=== PATIENT | male | born 1945 | race Caucasian/White ===

== ENCOUNTER 2020-04-05 21:51 | Inpatient (IN) | payer MEDICARE, OTHER, SELFPAY ==
[2020-04-05 22:00] VITALS: BP 199/87; PULSE 31; RESP 20; TEMP 36.4; O2SAT 93; BMI 39.9
--- NOTE | 2020-04-05 22:06 | PC.NURSE ---
EKG done at 2200 and shown to ER doctor Nurse is at bedside.
[2020-04-05 22:17] VITALS: BP 176/72; PULSE 31; RESP 16; O2SAT 97
[2020-04-05] MEDS: atropine 0.1 mg/mL Syr 10 mL 0.5 MG IVP ×2 (22:19→22:26)
[2020-04-05 22:33] VITALS: BP 171/80; PULSE 37; RESP 16; O2SAT 97
--- NOTE | 2020-04-05 22:35 | XRR_ITS ---
PROCEDURE INFORMATION: Exam: XR Chest, 1 View Exam date and time: 04/05/2020 10:37 PM Age: 74 years old Clinical indication: Chest pain; Type not specified TECHNIQUE: Imaging protocol: XR of the chest Views: 1 view. COMPARISON: No relevant prior studies available. FINDINGS: Lungs: Unremarkable. No consolidation. Pleural space: Unremarkable. No pleural effusion. No pneumothorax. Heart/Mediastinum: Heart size not optimally evaluated with a single AP view of the chest. Diaphragm: There is mild elevation of the left hemidiaphragm. Eventration of the right hemidiaphragm. Bones/joints: Unremarkable. XR/XR chest 1V portable [id number] IMPRESSION: No evidence for acute cardiopulmonary disease.
--- NOTE | 2020-04-05 22:36 | ECG_ITS ---
Measurements Intervals [place] Rate: 32 P: -2 VA: 90 QRS: 34 QRSD: 132 T: 62 QT: 524 QTc: 384 Third-degree heart block with junctional escape rhythm INTRAVENTRICULAR CONDUCTION DELAY [130+ ms QRS DURATION] Poor R wave progression INTERPRETATION BASED ON A DEFAULT AGE OF 40 YEARS Compared to ECG 11/14/2015 06:28:59 Short VA interval now present Sinus rhythm no longer present First degree AV block no longer present Electronically Signed On 04-06-2020 20:58:43 CDT by Alicia Rodriguez M.D. [id number]
[2020-04-05 22:49] LABS: Basophils # 0.1 10^3/uL (0.0-0.1); Basophils % 0.9 %; Eosinophils # 0.1 10^3/uL (0.0-0.8); Eosinophils % 1.5 %; Hematocrit 40.2 % (42.0-52.0); Lymphocytes # 1.3 10^3/uL (0.8-4.8); Lymphocytes % 24.4 %; Mean Corpuscular HGB Conc 32.3 g/dL (30.0-36.0); Mean Corpuscular Hemoglobin 34.9 pg (28.0-34.0); Mean Corpuscular Volume 108.1 fL (80-94); Mean Platelet Volume 14.9 fL (7.4-10.4); Monocytes # 0.3 10^3/uL (0.2-0.9); Monocytes % 5.8 %; Neutrophils # 3.7 10^3/uL (1.8-7.7); Nucleated Red Blood Cells % 0 %; Platelet Count 101 10^3/cmm (130-400); Positive M 1; Red Blood Count 3.72 10^6/uL (4.1-5.3); Red Cell Distribution Width 14.6 % (12.1-15.1); White Blood Count 5.5 10^3/uL (4.0-10.0)
[2020-04-05 23:02] LABS: Troponin(5th) Baseline 71 ng/L (0-15)
[2020-04-05 23:07] VITALS: BP 142/79; PULSE 34; RESP 18; O2SAT 95
[2020-04-05 23:08] LABS: Alanine Aminotransferase 31 U/L (0-41); Albumin Level 4.2 g/dL (3.5-5.2); Alkaline Phosphatase 107 IU/L (40-130); Anion Gap 18.6 (5-19); Blood Urea Nitrogen 20 mg/dL (8-23); Calcium 9.3 mg/dL (8.5-10.5); Carbon Dioxide 20 mmol/L (22-29); Chloride 102 mmol/L (98-107); Globulin 2.9 g/dL (1.3-4.6); Glucose 108 mg/dL (65-115); NT Pro B Type Natriuretic Pept 1082 pg/mL (0-125); Osmolality Calculated 279 mOsm/kg (285-295); Potassium 4.6 mmol/L (3.5-5.1); Sodium 136 mmol/L (136-145); Total Bilirubin 0.5 mg/dL (0.15-1.2); Total Protein 7.1 g/dL (6.6-8.7)
[2020-04-05 23:16] LABS: Slide Review Slide Review Perform
[2020-04-05 23:18] LABS: Aspartate Amino Transferase 34 U/L (0-40)
--- NOTE | 2020-04-05 23:25 | PM.HP ---
Providers/Chief Complaint Primary Care Provider: Cal Burris MD Chief Complaint: low heartbeat History of Present Illness Harley Viera is a 74 year old male who carries history of preserved ejection fraction heart failure, pulmonary hypertension, obesity, first-degree AV block in the past, uses metoprolol tartrate came in with chief complaint of worsening shortness of breath. Patient is stating that for last 1 month he has been experiencing shortness of breath on exertion, his feet are more swollen despite taking Lasix 40 mg every day, he has been experiencing orthopnea, PND. Yesterday his shortness of breath got worse to the point mild activities were making him extremely out winded. He did not notice any palpitations, chest pain, dysuria, diarrhea, nausea or vomiting. His is at the bedside who did not notice any confusion at home. He denies any history of hypothyroidism, OR, stroke. Diagnosis in the ER revealed heart rate in low 30s he has received 2.5 mg of atropine without significant improvement in his heart rate EKG showing concerning new left bundle branch block& junctional rhythm EKG has been shown to Dr. Rodriguez who was planning to take him to [employer] for transvenous pacemaker Currently blood pressure is ranging between 1 30-1 50s systolic Patient is awake alert oriented without any confusion, active heart failure Review of Systems Const: Reports: body aches and fatigue; Denies: fever(s) or chills Eyes: Denies: change in vision ENMT: Denies: throat pain Card: Reports: swelling of feet/ankles, pre-syncope, dyspnea on exertion and orthopnea Resp: Reports: dyspnea; Denies: non-productive cough GI: Denies: abdominal pain, nausea or vomiting : Reports: difficulty urinating and change in urine stream; Denies: flank pain Musc: Denies: neck pain Skin/Breast: Denies: rash Neuro: Denies: headache(s) Psych: Denies: anxiety Endo: Denies: polyuria [place]/Lymph: Denies: easy bruising All/Imm: Denies: urticaria Medications/Allergies Home Medications Medication Instructions Recorded Confirmed Last Taken Type Unable to Assess 04/05/20 04/05/20 Unknown History Allergies Allergy/AdvReac Type Severity Reaction Status Date / Time No Known Allergies Allergy Verified 04/05/20 22:00 PFSH Acute PFSH: Medical History Acute kidney injury Benign essential hypertension with target blood pressure below 140/90 BPH (benign prostatic hyperplasia) Cholelithiasis Chronic kidney disease, stage III (moderate) Diverticulitis of small bowel Dyslipidemia Elevated brain natriuretic peptide (BNP) level Elevated troponin First degree AV block Grade III diastolic dysfunction EF 67% Mild pulmonary hypertension LVH Hypertension Obesity Symptomatic bradycardia Thrombocytopenia Surgical History S/P cardiac cath Normal 2013 Procedure Procedure Type Diagnostic procedure:Miscellaneous, Perclose , Coronary Angiography Conclusions Procedure Summary 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 due to tumor surgery in the right arm right groin approach was adopted difficulty in access was encounter due to fatty tumors in the thigh, hematoma was observed, procedure was aborted since it was elective in order to avoid major bleeding in case we have to proceed with PCI.Patient was observed for next 24 hours did fine no further bleeding or hematoma observed.He was approached from left groin which remain successful next day.Patient was discharged home without any complication next day 1-LM is normal 2-LAD has luminal irregularities 3-LCx has luminal irregularities 4-RCA has luminal irregularities Family History Other Cancer Social History Smoking and tobacco status: never smoked Alcohol intake: never Substance/Drug Use: never Household members: family Housing: House Vitals/I&O/Wt Last Vital Signs Temp 97.6 F 04/05/20 22:00 Pulse 34 L 04/05/20 23:07 Resp 18 04/05/20 23:07 BP 142/79 04/05/20 23:07 Pulse Ox 95 04/05/20 23:07 Weight last 48 hrs Weight 108.862 kg Physical Exam Narrative: EXAM NARRATIVE: Head to toe examination Patient is laying in his bed saturating well on room air Systolic blood pressure ranging between 140s to 150s Heart rate in the low 30s, On telemetry there is junctional rhythm versus left bundle branch block Patient is not confused at all, he is awake alert oriented x3 GCS 15 Active heart failure signs with bilateral lower extremity 3+ edema Abdomen is distended, with obesity, nontender Bilateral breath sounds without adventitious sounds Neurologically nonfocal exam Hearing impairment Skin does not show any sign ischemia gangrene or ulcer Appropriate mood and affect Data : 04/05/20 22:15 04/05/20 22:15 A&P Assessment and plan (1) Symptomatic bradycardia: Status: Acute (2) Elevated brain natriuretic peptide (BNP) level: Status: Acute (3) Acute kidney injury: Status: Acute (4) Acute exacerbation of CHF (congestive heart failure): Status: Acute (5) Obesity (BMI 30-39.9): Status: Acute Additional A&P Information Symptomatic bradycardia with active CHF exacerbation Patient has been on beta-shaun, previous EKG revealed first-degree AV block Current EKG is concerning for wide QRS junctional rhythm with third-degree block on telemetry with intermittent LBBB Maintaining blood pressure is 140 systolic Neurologically nonfocal exam Active CHF exacerbation with high troponin Cardiac cath 2013 was unremarkable He will need temporary transvenous pacemaker, Dr. Rodriguez has been notified, Beta-shaun held, inadequate response to atropine 2.5 mg, check TSH, does not take digoxin Acute exacerbation of preserved ejection heart failure He seems secondary to bradycardia with undiagnosed possible sleep apnea Echo revealed mild primary hypertension as well Would avoid giving him Lasix as he is at risk of hypotension because of bradycardia, start after the procedure Might need Cifuentes catheter placement for a day Acute kidney injury cardiorenal We will diurese him after placement of transvenous pacer once his heart rate and blood pressure is stable Hold lisinopril Obesity He will need outpatient sleep study Goals of care: Patient wants a trial of CPR intubation Full code Start diet after transvenous pacemaker placement DVT prophylaxis not indicated at this point, will start after placement of pacemaker Attestations Medical Necessity Statement*: Anticipating stay in the hospital to cross more than 2 midnights currently need transvenous pacer for symptomatic bradycardia with acute CHF exacerbation Time Spent in Patient Care: (>than 50% of time spent in counselling and/or direct pt care on unit). 60mins Coding Level of Care Code Acute Hospitality House Supervisor for Chg Fwd Diagnoses Symptomatic bradycardia R00.1 Elevated brain natriuretic peptide (BNP) level R79.89 Acute kidney injury N17.9 Acute exacerbation of CHF (congestive heart failure) I50.9 Obesity (BMI 30-39.9) E66.9
[2020-04-05] MEDS: atropine 0.1 mg/mL Syr 10 mL 1 MG IVP (23:37)
[2020-04-06] VITALS (53 sets, daily range): BP systolic 97–209; BP diastolic 69–137; PULSE 34–120; RESP 14–28; TEMP 36.5–37.1; O2SAT 92–99
--- NOTE | 2020-04-06 00:13 | PM.CONSULT ---
Providers/Reason For Consult Consulting Physican/Specialty*: García Rodriguez MD/cardiology Reason for Consult*: Patient with a symptomatic bradycardia Attending Physician: Yared Yu MD Primary Care Provider: Cal Burris MD History of Present Illness History of Present Illness Harley Viera is a 74 year old male with a history of hypertension, apparently has been his baseline state of health up until 3 days ago. He been having some shortness of breath, easy fatigability and weakness for the last 3 days. The symptom started getting worse today. Was getting extremely short of breath with activities. He also was getting dizzy and lightheaded. Never had any passing out spell. No chest pain. No palpitation. Had some amount of orthopnea. He has a history of high blood pressure for the last many years. No diabetes. Cholesterol status?. Denies any fever, chills or cough. No other specific complaints. He was found to be bradycardic with a heart rate in the low 30s and upper 20s in the emergency room. He was given a total of 2-1/2 mg of atropine IV. Apparently there was no response. The heart rate continued to be in the 30s. For further management of his condition, a temporary pacemaker insertion was recommended. Review of Systems Narrative: CONSTITUTIONAL: No fever or chills. Shortness of breath and fatigue as mentioned above EYES: No blurring of vision or other visual disturbances lately. ENT: No hoarseness of voice, auditory disturbances or sore throat. CARDIOVASCULAR: As mentioned above. RESPIRATORY: No significant cough. GASTROINTESTINAL: No hematemesis or melena. GENITOURINARY: No dysuria or hematuria. INTEGUMENTARY: No skin rashes or history of skin cancer. NEURO: No transient ischemic attacks or amaurosis. PSYCHIATRIC: No history of psychosis or major depression. HEMATOLOGIC: No bleeding disorders or significant anemia. ENDOCRINE: No history of polyuria or polydipsia. MUSCULOSKELETAL: No recent joint pain or swelling. ALLERGY/IMMUNOLOGY: As mentioned above. Meds/Allergies Home Medications and Allergies Home Medications Medication Instructions Recorded Confirmed Last Taken Type amlodipine 5 mg PO DAILY 04/06/20 04/06/20 04/05/20 07:00 History lisinopril 40 mg PO DAILY 04/06/20 04/06/20 04/05/20 07:00 History spironolactone 25 mg PO DAILY 04/06/20 04/06/20 Unknown History Allergies Allergy/AdvReac Type Severity Reaction Status Date / Time No Known Allergies Allergy Verified 04/05/20 22:00 PFSH Acute PFSH: Medical History (Updated 04/06/20 @ 09:06 by Caroline Bobby MD) Benign essential hypertension with target blood pressure below 140/90 BPH (benign prostatic hyperplasia) Cholelithiasis Chronic kidney disease, stage III (moderate) Diverticulitis of small bowel Dyslipidemia Grade III diastolic dysfunction EF 67% Mild pulmonary hypertension LVH Hypertension Obesity Symptomatic bradycardia Thrombocytopenia Surgical History S/P cardiac cath Normal 2013 Procedure Procedure Type Diagnostic procedure:Miscellaneous, Perclose , Coronary Angiography Conclusions Procedure Summary 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 due to tumor surgery in the right arm right groin approach was adopted difficulty in access was encounter due to fatty tumors in the thigh, hematoma was observed, procedure was aborted since it was elective in order to avoid major bleeding in case we have to proceed with PCI.Patient was observed for next 24 hours did fine no further bleeding or hematoma observed.He was approached from left groin which remain successful next day.Patient was discharged home without any complication next day 1-LM is normal 2-LAD has luminal irregularities 3-LCx has luminal irregularities 4-RCA has luminal irregularities Family History Other Cancer Social History Smoking and tobacco status: never smoked Alcohol intake: never Substance/Drug Use: never Household members: family Housing: House Vitals/I&O/Wt Last Vital Signs Temp 97.6 F 04/05/20 22:00 Pulse 34 L 04/05/20 23:07 Resp 18 04/05/20 23:07 BP 142/79 04/05/20 23:07 Pulse Ox 95 04/05/20 23:07 Weight last 48 hrs Weight 240 lb Physical Exam Narrative: EXAM NARRATIVE: GENERAL: The patient is alert and oriented times three. Appears to be slightly short of breath. Afebrile. Hard of hearing. HEENT: No significant pallor, icterus or lymphadenopathy. The pupils are reactant to light. Oral cavity: There are no mucous membrane lesions. Funduscopic examination: Fundus is not visualized NECK: Trachea appears to be central. No masses noted. No JVD or thyromegaly appreciated. No carotid bruit. [] RESPIRATORY: Chest is symmetrical. No intercostals muscle retraction or any accessory muscle activation. There is no chest wall tenderness. Breath sounds are heard bilaterally. No rales or rhonchi heard. No evidence of any consolidation. [] BREASTS: Deferred. [] HEART: The PMI could not be palpated. No palpable precordial events. S1 and S2 are normal. No S3 or S4 heard. No pericardial rub or any click heard. [] ABDOMEN: No vessel pulsations or distention. No tenderness. No organomegaly appreciated. No abdominal bruit. Bowel sounds are normally heard. [] : Deferred. [] RECTAL: Deferred. [] LYMPHATIC: No lymphadenopathy noted in the neck or groin. [] EXTREMITIES: 1-2+ edema both lower extremities. No cyanosis. An area of redness in the left anterior aspect of the leg. No clubbing. The pulses are symmetrical bilaterally. MUSCULOSKELETAL: No acute joint deformities or swelling SKIN: There are no significant scars or skin rash noted. [] NEUROPSYCHIATRIC: The patient is alert and oriented x3. Appears to be in a good mood. The higher functions are grossly within normal limits. No tremors or rigidity noted. [] Data Labs: Other Labs: Laboratory Last Values WBC 5.5 10^3/uL (4.0- 10.0) 04/05/20 22:15 RBC 3.72 10^6/uL (4.1 -5.3) L 04/05/20 22:15 Hgb 13.0 g/dL (11.7-1 6.6) 04/05/20 22:15 Hct 40.2 % (42.0-52.0 ) L 04/05/20 22:15 MCV 108.1 fL (80-94) H 04/05/20 22:15 MCH 34.9 pg (28.0-34. 0) H 04/05/20 22:15 MCHC 32.3 g/dL (30.0-3 6.0) 04/05/20 22: RDW 14.6 % (12.1-15.1 ) 04/05/20 22:15 Plt Count 101 10^3/cmm (130 -400) L 04/05/20 22:15 MPV 14.9 fL (7.4-10.4 ) H 04/05/20 22:15 Neut % (Auto) 67.0 % 04/05/20 22:15 Lymph % (Auto) 24.4 % 04/05/20 22:15 [place] % (Auto) 5.8 % 04/05/20 22:15 Eos % (Auto) 1.5 % 04/05/20 22:15 Baso % (Auto) 0.9 % 04/05/20 22:15 Neut # (Auto) 3.7 10^3/uL (1.8- 7.7) 04/05/20 22:15 Lymph # (Auto) 1.3 10^3/uL (0.8- 4.8) 04/05/20 22:15 Bradford # (Auto) 0.3 10^3/uL (0.2- 0.9) 04/05/20 22:15 Eos # (Auto) 0.1 10^3/uL (0.0- 0.8) 04/05/20 22:15 Baso # (Auto) 0.1 10^3/uL (0.0- 0.1) 04/05/20 22:15 Nucleated RBC % (a uto) 0 % 04/05/20 22:15 Nucleated RBCs # 0.0 /100WBC 04/05/20 22:15 Sodium 136 mmol/L (136-1 45) 04/05/20 22:15 Potassium 4.6 mmol/L (3.5-5 .1) 04/05/20 22:15 Chloride 102 mmol/L (98-10 7) 04/05/20 22:15 Carbon Dioxide 20 mmol/L (22-29) L 04/05/20 22:15 Anion Gap 18.6 (5-19) 04/05/20 22:15 BUN 20 mg/dL (8-23) 04/05/20 22:15 Creatinine 1.5 mg/dL (0.7-1. 2) H 04/05/20 22:15 Glucose 108 mg/dL (65-115 ) 04/05/20 22:15 Calculated Osmolal ity 279 mOsm/kg (285- 295) L 04/05/20 22:15 Calcium 9.3 mg/dL (8.5-10 .5) 04/05/20 22:15 Total Bilirubin 0.5 mg/dL (0.15-1 .2) 04/05/20 22:15 AST 34 U/L (0-40) 04/05/20 22:15 ALT 31 U/L (0-41) 04/05/20 22:15 Alkaline Phosphata se 107 IU/L (40-130) 04/05/20 22:15 Troponin T Baselin e 71 ng/L (0-15) H 04/05/20 22:15 NT-Pro-B Natriuret Pep 1082 pg/mL (0-125 ) H 04/05/20 22:15 Total Protein 7.1 g/dL (6.6-8.7 ) 04/05/20 22:15 Albumin 4.2 g/dL (3.5-5.2 ) 04/05/20 22:15 Globulin 2.9 g/dL (1.3-4.6 ) 04/05/20 22:15 TSH 6.40 uIU/mL (0.27 -4.20) H 04/05/20 22:15 Imaging^: CXR: My impression: Chest x-ray revealed cardiomegaly with some features of pulmonary venous congestion. EKG^: EKG 1: My Interpretation: The EKG revealed third-degree heart block with a junctional and ventricular escape rhythm. Nonspecific T wave changes. A&P Assessment and plan (1) Symptomatic bradycardia: Most likely the patient may have some sinus node dysfunction. Metoprolol causing the bradycardia cannot be excluded. He is mildly hypothyroid. The EKG shows third-degree heart block with intermittent junctional and ventricular escape rhythm Status: Acute (2) Elevated brain natriuretic peptide (BNP) level: Patient has features of possibly acute diastolic heart failure. He has accelerated hypertension. Patient may be treated with careful IV diuresis. Status: Acute (3) Elevated troponin: Could be related to type II [place]. We will get serial cardiac enzymes Status: Acute (4) Acute kidney injury: His baseline kidney function is not known. Bradycardia and heart failure could be a contributing factor Status: Acute (5) Benign essential hypertension with target blood pressure below 140/90: Currently the blood pressure is a stage II. Status: Acute Additional A&P Information I discussed the patient and his significant other about the need for a temporary pacemaker, for further management of his condition. Possible risk and benefits are explained. Patient understood this well and consented to proceed. Based on the patient clinical progress, further mild decisions will be made. Most likely he may require a permanent pacer implantation. Coding Level of Care Code Acute Certified Orthoptist for Chg Fwd Diagnoses Symptomatic bradycardia R00.1 Elevated brain natriuretic peptide (BNP) level R79.89 Elevated troponin R79.89 Acute kidney injury N17.9 Benign essential hypertension with target blood pressure below 140/90 I10
--- NOTE | 2020-04-06 00:23 | PC.NURSE ---
Cath team here to access and take patient to shift lab technician for pacemaker placement.
--- NOTE | 2020-04-06 00:29 | PC.NURSE ---
Patient eft in stable condition in care of cath team, Vs stable.
--- NOTE | 2020-04-06 00:34 | W.PM.OPSUD ---
Surgery/Procedure H&P Update DATE OF PROCEDURE: April 06, 2020 DATE H&P PERFORMED: 04/05/20 H&P UPDATE INFORMATION: I have reviewed H&P completed within last 30 days, I have examined patient prior to procedure and No changes to prior documentation PREOP DIAGNOSIS: Symptomatic bradycardia PRIMARY INDICATION FOR PROCEDURE: Symptomatic bradycardia PATIENT REASSESSED PRIOR TO SEDATION, WITH NO CHANGE NOTED: Yes PHYSICAL EXAM: alert, oriented x 3, clear to auscultation bilaterally and regular rate & rhythm AIRWAY EVAL/ANESTHESIA PLAN: ASA III
--- NOTE | 2020-04-06 00:35 | PC.NURSE ---
Report given to Jacquelin GELLER.
--- NOTE | 2020-04-06 00:43 | PC.NURSE ---
Report given to Vee GELLER in ICU.
--- NOTE | 2020-04-06 00:57 | ECG_ITS ---
Measurements Intervals [place] Rate: 60 P: [place]: 0 QRS: -55 QRSD: 218 T: 114 QT: 544 QTc: 544 100% V paced rhythm ABNORMAL RHYTHM ECG Compared to ECG 11/14/2015 06:28:59 Sinus rhythm no longer present First degree AV block no longer present Intraventricular conduction delay no longer present Myocardial infarct finding no longer present Electronically Signed On 04-06-2020 21:00:14 CDT by Alicia Rodriguez M.D. [email or web address]
--- NOTE | 2020-04-06 01:03 | USCV_ITS ---
Harley Viera Age: 74 Gender: M : 1945 Exam Date: 04/06/2020 09:44 Ordering Phys: Alicia Rodriguez MD ([email or web address]) Technologist: Zarina Jacinto [place] [facility] [place]: CHF, bradycardia BP: 113 / 84 HR: 68 Rhythm: Sinus Technical Quality: Technically difficult study MEASUREMENTS (Male / Female) Normal Values 2D ECHO LV Diastolic Diameter PLAX 4.5 cm 4.2 - 5.9 / 3.9 - 5.3 cm LV Systolic Diameter PLAX 2.7 cm LV Chamber Size 4.3 cm IVS Diastolic Thickness 1.9 cm 0.6 - 1.0 / 0.6 - 0.9 cm IVS Systolic Thickness 2.0 cm LVPW Diastolic Thickness 1.0 cm 0.6 - 1.0 / 0.6 - 0.9 cm LVPW Systolic Thickness 1.7 cm RV Chamber Size 2.1 cm LVOT Diameter 2.0 cm LV Ejection Fraction 2D Teich 70.9 % LA Diameter 3.2 cm LA Width 2.9 cm LA Height 5.0 cm RA Width 2.8 cm RA Height 5.2 cm Aorta at Sinotubular Diameter 3.1 cm M-MODE LV Diastolic Diameter MM 3.6 cm 4.2 - 5.9 / 3.9 - 5.3 cm LV Systolic Diameter MM 2.5 cm LV Ejection Fraction MM Teich 61.6 % IVS Diastolic Thickness MM 1.6 cm 0.6 - 1.0 / 0.6 - 0.9 cm IVS Systolic Thickness MM 1.3 cm LVPW Diastolic Thickness MM 1.5 cm 0.6 - 1.0 / 0.6 - 0.9 cm LVPW Systolic Thickness MM 1.5 cm Aortic Annulus Diameter 4.2 cm LA Ao Ratio MM 0.8 MV E Point Septal Separation 0.6 cm DOPPLER AV Peak Velocity 135.0 cm/s LVOT Peak Velocity 114.0 cm/s AV Area Cont Eq vti 2.9 cm squared AV Area Cont Eq pk 2.6 cm squared MV Area PHT 2.9 cm squared Mitral E to A Ratio 0.7 MV E' Velocity 11.0 cm/s Mitral E to MV E' Ratio 7.8 Mitral E to LV E' Lateral Ratio 5.7 Mitral E to LV E' Septal Ratio 12.6 TV Peak E Velocity 39.0 cm/s PV Peak Velocity 87.0 cm/s RV Acceleration Time 0.1 s RV Ejection Time 0.3 s RV AcT/ET 0.3 FINDINGS Left Ventricle Normal left ventricular size and systolic function, EF 55% . Moderate left ventricular hypertrophy. Abnormal septal motion, possible atrioventricular paced Right Ventricle Normal right ventricular size and systolic function. Right Atrium Normal right atrial size. Left Atrium Normal left atrial size. Mitral Valve Trace to mild mitral regurgitation Aortic Valve Thickened aortic valve. [id number] aortic valve regurgitation. Tricuspid Valve Mild tricuspid valve regurgitation. Pulmonic Valve Structurally normal pulmonic valve without significant stenosis. There is no pulmonic regurgitation. Pericardium No pericardial effusion. Aorta Normal aortic annulus size. CONCLUSIONS Normal left ventricular size and systolic function, EF 55% . Moderate left ventricular hypertrophy. Wall motion normality as mentioned above Thickened aortic valve. [id number] aortic valve regurgitation. Mild tricuspid valve regurgitation. Trace to mild mitral regurgitation. There is no pericardial effusion. There are no intracardiac masses. Compared to the study from my 12/08/2017, there may not be a significant change Dr Alicia Rodriguez MD FAC (Electronically Signed) Final Date: 06 April 2020 18:26 S
--- NOTE | 2020-04-06 01:06 | PM.OP ---
Operative Report Date of procedure: April 06, 2020 Pre-op Diagnosis: Symptomatic bradycardia Post-op diagnosis: same Anesthesia: Local Complications: None Procedure: PROCEDURE: Transvenous temporary pacemaker insertion LOCATION: Cardiac catheterization lab PRE-OP DIAGNOSIS: Symptomatic bradycardia POSTOPERATIVE DIAGNOSES: Same. COMPLICATIONS: None. ESTIMATED BLOOD LOSS: None. BRIEF HISTORY: 74 year old male, presented to the emergency room with complaints of shortness of breath, fatigue and dizziness. He was found to have heart rate in the low 30s and upper 20s. He did not respond to IV atropine x3. For further management of his condition, temporary pacemaker insertion was recommended. I discussed with the patient, the procedure and the possible complications including hematoma, vascular injury, infection, myocardial perforation and other concomitant complications. This was understood well by the patient, who consented to proceed. PROCEDURE DESCRIPTION: Patient was brought to the [facility]. The right and the left side of the groin were prepped and draped in a sterile fashion. 1% Xylocaine was used as a local anesthetic agent. The right femoral venous access was obtained using a micropuncture needle system. A 6-Malawian venous sheath was introduced into the femoral vein over a guidewire. A 5-Malawian temporary balloon-tipped pacing wire over a sleeve was advanced through the venous sheath, under fluoroscopic guidance. The temporary pacing wire was placed near to the right ventricular apex. Good pacing threshold was obtained. The venous sheath was secured in place by suturing to the skin with 0 Surgilon. The pacemaker wire also was secured to the skin by suturing with 0 Surgilon, over the sleeve. A sterile dressing was applied at the access site. Patient tolerated the procedure very well and there were no complications. The threshold was found to be less than 0.5 V PACEMAKER SETTINGS: The pacemaker was set for a backup rate of 60 with an output of 3 volts and on a demand mode. DISPOSITION: Patient was transferred to the Intensive Care Unit in stable condition.
--- NOTE | 2020-04-06 01:13 | W.ED.ARRPALP ---
HPI - Arrhythmia/Palpitations General: Chief Complaint: Arrhythmia/Palpitations Stated Complaint: low heartbeat Source: patient Mode of arrival: ambulatory Limitations: no limitations History of Present Illness: HPI narrative: Patient presents to the emergency department with concerns of a low heart rate. Patient takes metoprolol and states that usually in the morning his heart rate is about 40 or 41. It slowly increases as the day progresses to be high 40s low 50s. For the last 2 days he has had increasing shortness of breath, increasing leg swelling, and increasing generalized weakness. He also has dizziness and feels unsteady on his feet. Associated symptoms: Deny nausea, syncope or vomiting Review of Systems General: Reports: 10 or more systems reviewed and unremarkable except in HPI and below Const: Denies: fever(s), chills or body aches Eyes: Denies: change in vision or blurry vision ENMT: Denies: throat pain, enlarged tonsils, odynophagia, hoarseness, mouth pain or swelling of lips/tongue Card: Reports: swelling of feet/ankles and dyspnea on exertion; Denies: chest pain, palpitations or syncope Resp: Reports: dyspnea; Denies: productive cough or non-productive cough GI: Denies: abdominal pain, nausea or vomiting : Denies: flank pain, dysuria, urinary frequency, urinary urgency or urinary hesitancy Musc: Denies: neck pain, back pain or extremity swelling Skin/Breast: Denies: rash, pruritus or erythema Neuro: Denies: headache(s), numbness in extremities or weakness in extremities Endo: Denies: polyuria, polydipsia or tired all the time PFS ED PFSH: Medical History Acute kidney injury Benign essential hypertension with target blood pressure below 140/90 BPH (benign prostatic hyperplasia) Cholelithiasis Chronic kidney disease, stage III (moderate) Diverticulitis of small bowel Dyslipidemia Elevated brain natriuretic peptide (BNP) level Elevated troponin First degree AV block Grade III diastolic dysfunction EF 67% Mild pulmonary hypertension LVH Hypertension Obesity Symptomatic bradycardia Thrombocytopenia Surgical History S/P cardiac cath Normal 2013 Procedure Procedure Type Diagnostic procedure:Miscellaneous, Perclose , Coronary Angiography Conclusions Procedure Summary 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 due to tumor surgery in the right arm right groin approach was adopted difficulty in access was encounter due to fatty tumors in the thigh, hematoma was observed, procedure was aborted since it was elective in order to avoid major bleeding in case we have to proceed with PCI.Patient was observed for next 24 hours did fine no further bleeding or hematoma observed.He was approached from left groin which remain successful next day.Patient was discharged home without any complication next day 1-LM is normal 2-LAD has luminal irregularities 3-LCx has luminal irregularities 4-RCA has luminal irregularities Family History Other Cancer Social History Smoking and tobacco status: never smoked Alcohol intake: never Substance/Drug Use: never Household members: family Housing: House Physical Exam Const: COMMON NORMALS: no acute distress, average body habitus, patient oriented x3, no limitations, healthy appearing, alert and well nourished Neck/C-Spine: COMMON NORMALS: no meningeal signs and no JVD Resp: COMMON NORMALS: normal respiratory effort, No retractions, No use of accessory muscles, clear to auscultation bilaterally and percussion normal AUSCULTATION: clear to auscultation bilaterally PERCUSSION: percussion normal Cardio: COMMON NORMALS: no JVD, regular rhythm, S1 normal heart sound present, S2 normal heart sound present, No gallops present (Cardio), No clicks present (Cardio), No murmurs present (Cardio), No rub (Cardio) and Peripheral pulses 2+ throughout RATE: bradycardic RHYTHM: regular rhythm HEART SOUNDS: S1 normal heart sound present and S2 normal heart sound present PERIPHERAL PULSES: Peripheral pulses 2+ throughout GI: COMMON NORMALS: Normal to inspection, nondistended, normoactive bowel sounds present, Soft to palpation, non-tender, No hepatosplenomegaly present, no masses and no bruits PALPATION: Yes Soft to palpation and Yes No hepatosplenomegaly present : COMMON NORMALS: Yes no CVA tenderness BLADDER/KIDNEY EXAM: Yes no CVA tenderness Back/Pelvis: COMMON NORMALS: no CVA tenderness Extremity: COMMON NORMALS: normal to inspection, full ROM, capillary refill normal and no calf tenderness GENERAL: Yes edema (3-4+ pitting pedal edema) Neuro: COMMON NORMALS: patient oriented x3 SENSORIUM/ORIENTATION: Yes alert MENINGEAL SIGNS: Yes no meningeal signs Skin: COMMON NORMALS: no rashes or lesions noted, no wounds, turgor normal, no jaundice, no petechiae and no mottling GENERAL SKIN EXAM: no rashes or lesions noted and turgor normal Course Reevaluation(s): Reevaluation #1: Discussed his response to atropine with the patient and his friend. Explained that he is not responding and will need further evaluation by cardiology. They voiced understanding and were in agreement with the plan Time: 23:15 Consultations: Consultation #1: Dr. Rodriguez, gauger chief. Discussed the patient's presenting symptoms and his current heart rate. He advised to give 1 mg of atropine and see if there is any improvement. There was no change in his heart rate, patient has received 2.5 mg of atropine now. Heart rate still about 35. On the monitor he appears to be in third-degree heart block. He will take the patient to the [facility] for temporary pacemaker. Time: 23:18 Consultation #2: Discussed the patient with , hospitalist. He kindly accepted patient to his service Time: 23:25 Vital Signs: Vital signs: Vital Signs Temperature 97.6 F 04/05/20 22:00 Pulse Rate 34 L 04/06/20 00:29 Respiratory Rate 18 04/06/20 00:29 Blood Pressure 154/88 04/06/20 00:29 Pulse Oximetry 96 04/06/20 00:29 MDM - Arrhythmia/Palpitations MDM Narrative: Medical decision making narrative: 74-year-old gentleman who presents with significant bradycardia. Heart rate was 30-31 on arrival. He had a few times when his heart rate dropped into the 20s on after a total of 2.5 mg of atropine his heart rate was steady in the mid 30s. He had a few times when his heart rate got into the 40s but it essentially remained around 34-36. Because the patient had some symptoms and with the degree of bradycardia the patient was taken to the [facility] by the gauger chief to have a temporary pacemaker placed. He will be admitted to the hospital thereafter. Lab Data: Labs: Lab Results 04/05/20 04/05/20 04/05/20 Range/Units 22:15 22:15 22:15 WBC 5.5 (4.0-10.0) 10^3/ uL RBC 3.72 L (4.1-5.3) 10^6/u L Hgb 13.0 (11.7-16.6) g/dL Hct 40.2 L (42.0-52.0) % MCV 108.1 H (80-94) fL MCH 34.9 H (28.0-34.0) pg MCHC 32.3 (30.0-36.0) g/dL RDW 14.6 (12.1-15.1) % Plt Count 101 L (130-400) 10^3/c mm MPV 14.9 H (7.4-10.4) fL Neut % (Auto) 67.0 % Lymph % (Auto) 24.4 % Hubbard % (Auto) 5.8 % Eos % (Auto) 1.5 % Baso % (Auto) 0.9 % Neut # (Auto) 3.7 (1.8-7.7) 10^3/u L Lymph # (Auto) 1.3 (0.8-4.8) 10^3/u L Hubbard # (Auto) 0.3 (0.2-0.9) 10^3/u L Eos # (Auto) 0.1 (0.0-0.8) 10^3/u L Baso # (Auto) 0.1 (0.0-0.1) 10^3/u L Nucleated RBC % (a uto) 0 % Nucleated RBCs # 0.0 /100WBC Sodium 136 (136-145) mmol/L Potassium 4.6 (3.5-5.1) mmol/L Chloride 102 (98-107) mmol/L Carbon Dioxide 20 L (22-29) mmol/L Anion Gap 18.6 (5-19) BUN 20 (8-23) mg/dL Creatinine 1.5 H (0.7-1.2) mg/dL Glucose 108 (65-115) mg/dL Calculated Osmolal ity 279 L (285-295) mOsm/k g Calcium 9.3 (8.5-10.5) mg/dL Total Bilirubin 0.5 (0.15-1.2) mg/dL AST 34 (0-40) U/L ALT 31 (0-41) U/L Alkaline Phosphata se 107 (40-130) IU/L Troponin T Baselin e 71 H (0-15) ng/L NT-Pro-B Natriuret Pep 1082 H (0-125) pg/mL Total Protein 7.1 (6.6-8.7) g/dL Albumin 4.2 (3.5-5.2) g/dL Globulin 2.9 (1.3-4.6) g/dL TSH 6.40 H (0.27-4.20) uIU/ mL Discharge Plan Discharge Patient Disposition: Admitted As Inpatient Admit Provider: Yared Yu Clinical Impression: Symptomatic bradycardia, Acute exacerbation of CHF (congestive heart failure) Condition: Stable Interventions: ED Discharge Assessment Last Done: 04/06/20 00:30 ED Charges Last Done: 04/06/20 00:32 Discharge Date/Time: 04/06/20 00:33 Coding Level of Care Code ED Healthcare Receptionist for V[facility] Sin
[2020-04-06 01:46] LABS: Troponin 5 2HR 55.78 ng/L (0-15)
[2020-04-06] MEDS: potassium chloride ER 10 mEq Tablet 20 MEQ PO (01:46)
[2020-04-06] MEDS: FUROsemide 10 mg/mL SDV 4mL 40 MG IVP ×2 (01:46→14:40)
[2020-04-06] MEDS: heparin 5,000 unit/mL INJ 1 mL 5000 UNIT SUBCUT ×3 (01:46→18:24)
[2020-04-06] MEDS: hyDRALAzine 20 mg/mL INJ 1 mL 10 MG IVP (01:57)
[2020-04-06] MEDS: morphine 4 mg/mL SDV 1 mL 2 MG IVP ×3 (02:04→15:14)
[2020-04-06 02:32] LABS: Free T4 Free Thyroxine 0.97 ng/dL (0.82-1.77)
[2020-04-06] MEDS: HYDROmorphone 1 mg/mL INJ 1 mL 2 MG IVP (02:48)
--- NOTE | 2020-04-06 04:36 | ECG_ITS ---
Measurements Intervals Hye Rate: 62 P: ND: 0 QRS: -62 QRSD: 193 T: 111 QT: 502 QTc: 512 ELECTRONIC VENTRICULAR PACEMAKER ABNORMAL RHYTHM ECG Compared to ECG 11/14/2015 06:28:59 Sinus rhythm no longer present First degree AV block no longer present Intraventricular conduction delay no longer present Myocardial infarct finding no longer present Electronically Signed On 04-06-2020 21:09:37 CDT by Alicia Rodriguez M.D. [email or web address]
[2020-04-06 05:03] LABS: Basophils % 0.9 %; Eosinophils # 0.1 10^3/uL (0.0-0.8); Eosinophils % 1.3 %; Hematocrit 41.7 % (42.0-52.0); Hemoglobin 13.5 g/dL (11.7-16.6); Lymphocytes # 0.9 10^3/uL (0.8-4.8); Lymphocytes % 19.1 %; Mean Corpuscular HGB Conc 32.4 g/dL (30.0-36.0); Mean Corpuscular Hemoglobin 34.4 pg (28.0-34.0); Mean Corpuscular Volume 106.1 fL (80-94); Mean Platelet Volume 14.5 fL (7.4-10.4); Monocytes # 0.2 10^3/uL (0.2-0.9); Monocytes % 5.1 %; Neutrophils # 3.4 10^3/uL (1.8-7.7); Neutrophils % 73.2 %; Nucleated Red Blood Cells % 0 %; Platelet Count 114 10^3/cmm (130-400); Positive M 1; Red Blood Count 3.93 10^6/uL (4.1-5.3); Red Cell Distribution Width 14.5 % (12.1-15.1); White Blood Count 4.7 10^3/uL (4.0-10.0)
[2020-04-06 05:22] LABS: Blood Urea Nitrogen 18 mg/dL (8-23); Calcium 9.4 mg/dL (8.5-10.5); Carbon Dioxide 25 mmol/L (22-29); Chloride 104 mmol/L (98-107); Glucose 124 mg/dL (65-115); Osmolality Calculated 290 mOsm/kg (285-295); Sodium 141 mmol/L (136-145); Troponin 5 6HR 66.66 ng/L (0-15)
[2020-04-06 05:24] LABS: Troponin 5 6HR Delta -4.34 ng/L (0-12)
[2020-04-06 05:59] LABS: Slide Review Slide Review Perform
[2020-04-06] MEDS: hyDRALAzine 10 mg Tablet PO (08:30)
[2020-04-06] MEDS: sennosides-docusate Tablet 1 TAB PO (08:30)
--- NOTE | 2020-04-06 08:50 | P.PN_ITS ---
Subjective Subjective: Interval history: Home medication list was obtained. Patient is chronically on amlodipine, lisinopril and Spironolactone. He is not on any beta blockade. Reports that for the last couple of weeks he has had increased swelling from baseline. He spends a lot of time riding around in a truck and has had some degree of lower extremity edema for a while. Medications: Reviewed: Yes Vitals/I&O/Wt Last Vital Signs Temp 97.7 F 04/06/20 05:00 Pulse 60 04/06/20 06:00 Resp 17 04/06/20 06:00 BP 131/82 04/06/20 06:00 Pulse Ox 93 04/06/20 06:00 04/05/20 04/06/20 04/06/20 22:59 06:59 14:59 Intake Total 300 / 300 Output Total 4850 / 4850 Balance -4550 / -4550 Weight last 48 hrs Weight 108.862 kg Physical Exam Narrative: EXAM NARRATIVE: Alert, oriented, no acute distress presently, heart rate 60s Normocephalic, atraumatic, extraocular movements are intact, mucous membranes moist Neck large but supple Regular rhythm currently on transvenous pacemaker Clear to auscultation bilaterally Abdomen is soft, nontender, positive bowel sounds Cifuentes catheter is in place Transvenous pacer wires were inserted in the right groin with a clean dry and intact dressing 2-3+ pitting edema bilaterally Speech clear, face symmetric, handgrip equal Normal affect, talkative and likes to tell stories Urinary Catheter Management^: Cifuentes: Cath Placed During This Visit: yes Reason for Continuing Indwelling Catheter: Accurate Measurement of Urinary Output in Critically Ill Patients Urinary Catheter Date of Insertion: 04/06/20 Urinary Catheter Time of Insertion: 02:00 Data : 04/06/20 04:45 04/06/20 04:45 A&P Assessment and plan (1) Symptomatic bradycardia: Symptom-free since transvenous pacer placement, does not appear to be on beta-blockade or other rate limiting medications Status: Acute (2) Third degree heart block: With intermittent junctional and ventricular escape rhythm Status: Acute (3) Temporary transvenous cardiac pacemaker present: Status: Acute (4) Acute exacerbation of CHF (congestive heart failure): Based on prior available information, suspect diastolic dysfunction. From history sounds like this is been exacerbated over the last couple of weeks, possibly due to the bradycardia Status: Acute Qualifiers: Heart failure type: unspecified Qualified Code(s): I50.9 - Heart failure, unspecified (5) Elevated troponin: No known history of coronary artery disease. May be type II process. Has a negative delta. Status: Acute (6) Acute kidney injury: Versus chronic kidney disease stage III. Review of records shows last comparative labs from 2016 with creatinine ranging from 1.5-2.0. Status: Acute (7) Benign essential hypertension with target blood pressure below 140/90: Chronically on amlodipine, Aldactone and lisinopril Status: Acute (8) Thrombocytopenia: Review of old records shows that he has had some degree of thrombocytopenia dating back to 2016 but I have no labs to compare with since then. Specific etiology not clear currently. No bleeding. Status: Acute (9) BPH (benign prostatic hyperplasia): Diagnosis but does not appear to be on any treatment presently. Status: Acute (10) Obesity (BMI 30-39.9): Status: Acute Additional A&P Information Dr. Rodriguez following Currently with transvenous pacemaker, anticipate he may need permanent pacemaker but will defer to cardiology in this regard IV diuresis with potassium Add strict I's and O's and daily weights Monitor renal function closely Hold home amlodipine secondary to edema Hold Aldactone presently Hydralazine as needed Will resume half home lisinopril as I expect he has chronic kidney disease rather than acute kidney injury Echocardiogram has been done Monitor platelets Teds and SCDs for DVT prophylaxis Supportive care otherwise Plans discussed with patient and he was given an opportunity to ask questions Full code Attestations Medical Necessity Statement*: Requires ongoing inpatient stay for management of symptomatic bradycardia and CHF as noted above Coding Level of Care Code Acute Host/Hostess Restaurant 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
--- NOTE | 2020-04-06 09:00 | PC.NURSE ---
RESTING IN BED. PLEASANT. REPOSITIONED. C/O CRAMPS TO BLE, SO SEVERE IT MAKES ME WANT TO CRY. DR NOTIFIED. ATE BREAKFAST.
[2020-04-06] MEDS: lisinopril 20 mg Tablet PO (10:43)
--- NOTE | 2020-04-06 13:27 | P.PN_ITS ---
Subjective Subjective: Interval history: Patient is feeling okay. No chest pain. Shortness of breath is improved. Patient seems to be pacer dependent. He is on 100% V paced rhythm. No fever, chills or cough. Medications: Reviewed: Yes Medication Review Details: Current Medications Furosemide (Lasix) 40 mg IVP Q12H [facility] Last Admin: 04/06/20 14:40 Dose: 40 mg Documented by: Heparin Sodium (Beef Lung) (Heparin) 5,000 unit SUBCUT Q8H [facility] Last Admin: 04/06/20 18:24 Dose: 5,000 unit Documented by: Hydralazine HCl (Apresoline) 10 mg IVP Q4H PRN PRN Reason: SBP > 170, DBP 90 Lisinopril (Prinivil) 20 mg PO DAILY [facility] Last Admin: 04/06/20 10:43 Dose: 20 mg Documented by: Morphine Sulfate (Morphine) 2 mg IVP Q4H PRN PRN Reason: SEVERE PAIN Last Admin: 04/06/20 15:14 Dose: 2 mg Documented by: Senna/Docusate Sodium (Senna-S) 1 tab PO DAILY [facility] Last Admin: 04/06/20 08:30 Dose: 1 tab Documented by: Vitals/I&O/Wt Last Vital Signs Temp 98.7 F 04/06/20 09:30 Pulse 60 04/06/20 11:30 Resp 18 04/06/20 11:30 BP 106/73 04/06/20 11:30 Pulse Ox 94 04/06/20 11:30 04/05/20 04/06/20 04/06/20 22:59 06:59 14:59 Intake Total 300 / 300 600 / 600 Output Total 4850 / 4850 750 / 750 Balance -4550 / -4550 -150 / -150 Weight last 48 hrs Weight 240 lb Physical Exam Narrative: EXAM NARRATIVE: GENERAL: The patient is alert and oriented times three. Appears to be slightly short of breath. Afebrile. Hard of hearing. HEENT: No significant pallor, icterus or lymphadenopathy. NECK: Trachea appears to be central. No masses noted. No JVD or thyromegaly appreciated. No carotid bruit. RESPIRATORY: Chest is symmetrical. No intercostals muscle retraction or any accessory muscle activation. There is no chest wall tenderness. Breath sounds are heard bilaterally. No rales or rhonchi heard. No evidence of any consolidation. BREASTS: Deferred. HEART: The PMI could not be palpated. No palpable precordial events. S1 and S2 are normal. No S3 or S4 heard. No pericardial rub or any click heard. ABDOMEN: No vessel pulsations or distention. No tenderness. No organomegaly sheldon reciated. No abdominal bruit. Bowel sounds are normally heard. : Deferred. RECTAL: Deferred. LYMPHATIC: No lymphadenopathy noted in the neck or groin. EXTREMITIES: 1+ edema of the extremities. No cyanosis. Features of chronic venous stasis in the lower extremities. Right groin has no hematoma or bleeding. MUSCULOSKELETAL: No acute joint deformities or swelling SKIN: There are no significant ecchymosis or rashes NEUROPSYCHIATRIC: The patient is alert and oriented x3. Appears to be in a good mood. The higher functions are grossly within normal limits. No tremors or rigidity noted. Const: COMMON NORMALS: alert Resp: COMMON NORMALS: clear to auscultation bilaterally AUSCULTATION: clear to auscultation bilaterally Neuro: SENSORIUM/ORIENTATION: Yes alert Urinary Catheter Management^: Cifuentes: Cath Placed During This Visit: yes Reason for Continuing Indwelling Catheter: Accurate Measurement of Urinary Output in Critically Ill Patients Urinary Catheter Date of Insertion: 04/06/20 Urinary Catheter Time of Insertion: 02:00 Data : 04/07/20 03:20 04/07/20 06:40 A&P Assessment and plan (1) Symptomatic bradycardia: Patient is in third-degree heart block. Temporary pacemaker is functioning okay. For further management of his condition, he requires a permanent pacemaker. The need for this was discussed with the patient which he understood well and consented to proceed. We may go ahead and schedule for the procedures sometime tomorrow. Status: Acute (2) Elevated brain natriuretic peptide (BNP) level: Patient has features of possibly acute diastolic heart failure. He has accelerated hypertension. Patient may be treated with careful IV diuresis. The blood pressure is currently in the normal range. Status: Acute (3) Elevated troponin: Could be related to type II [place]. There is no significant delta. Status: Acute (4) Acute kidney injury: His baseline kidney function is not known. Bradycardia and heart failure could be a contributing factor. We will repeat the BMP in the morning Status: Acute (5) Benign essential hypertension with target blood pressure below 140/90: The blood pressure seems to be getting under control. May continue on the current medications. Status: Acute (6) Hypothyroidism (acquired): We will start him on a low-dose of Synthroid 0.025 mg p.o. daily Status: Acute Additional A&P Information The need for the permanent pacer implantation was discussed with the patient in detail . The risk of bleeding, hematoma, vascular injury, pneumothorax, infection, renal failure and other concomitant complications were explained in detail. The patient understood this well and consented to proceed. We will go ahead and do a CBC, BMP and PT/INR in the morning Attestations Medical Necessity Statement*: Patient requires continued hospital stay for close monitoring and further management Coding Level of Care Code Acute Chief Of Police for [facility] Fwd Exam Expanded Problem Focused Diagnoses Symptomatic bradycardia R00.1 Elevated brain natriuretic peptide (BNP) level R79.89 Elevated troponin R79.89 Acute kidney injury N17.9 Benign essential hypertension with target blood pressure below 140/90 I10 Hypothyroidism (acquired) E03.9
--- NOTE | 2020-04-06 15:30 | PC.NURSE ---
CONTINUES TO C/O SEVERE LEG CRAMPS, DR NOTIFIED. MEDICATED WITH MORPHINE, RESTING. VERY TALKATIVE. FAMILY BROUGHT CELL PHONE/GUTTER HANGER FOR PT.
--- NOTE | 2020-04-06 18:48 | PC.NURSE ---
RESTING QUIETLY IN BED. REMAINS SUPINE IN BED, PACER AT [facility], DEMAND RATE 60, OUTPUT 3 VOLTS, DEMAND MODE. PPPX2, BLE REMAIN EDEMATOUS. BAILEY DRAINING CLEAR URINE. REFUSED SCD'S/USAMA HOSE D/T BLE HAVE A TENDENCY TO BECOME WEEPY. DENIES ANY PAIN AT PRESENT
--- NOTE | 2020-04-06 20:00 | PC.NURSE ---
Intravenous pacer site to right groin is intake, no drainage noted, no new swelling noted.
[2020-04-06] MEDS: levothyroxine 25 mcg Tablet PO (22:15)
[2020-04-07] VITALS (36 sets, daily range): BP systolic 91–155; BP diastolic 68–94; PULSE 58–64; RESP 13–21; TEMP 36.2–37.1; O2SAT 92–99
[2020-04-07] MEDS: heparin 5,000 unit/mL INJ 1 mL 5000 UNIT SUBCUT ×2 (00:49→08:28)
[2020-04-07] MEDS: FUROsemide 10 mg/mL SDV 4mL 40 MG IVP (00:50)
[2020-04-07 03:35] LABS: Basophils % 0.5 %; Eosinophils # 0.1 10^3/uL (0.0-0.8); Eosinophils % 1.6 %; Hemoglobin 14.1 g/dL (11.7-16.6); Lymphocytes # 1.1 10^3/uL (0.8-4.8); Lymphocytes % 19.8 %; Mean Corpuscular Hemoglobin 33.5 pg (28.0-34.0); Mean Corpuscular Volume 104.5 fL (80-94); Mean Platelet Volume 14.2 fL (7.4-10.4); Monocytes # 0.4 10^3/uL (0.2-0.9); Monocytes % 6.5 %; Neutrophils % 70.4 %; Nucleated Red Blood Cells % 0 %; Platelet Count 107 10^3/cmm (130-400); Positive M 1; Red Blood Count 4.21 10^6/uL (4.1-5.3); Red Cell Distribution Width 14.5 % (12.1-15.1); White Blood Count 5.7 10^3/uL (4.0-10.0)
[2020-04-07 03:42] LABS: INR 0.96 (0.8-1.2)
[2020-04-07 03:48] LABS: Chloride 101 mmol/L (98-107); Potassium 4.1 mmol/L (3.5-5.1); Sodium 137 mmol/L (136-145)
[2020-04-07 04:18] LABS: Anion Gap 15.1 (5-19); Blood Urea Nitrogen 21 mg/dL (8-23); Calcium 9.3 mg/dL (8.5-10.5); Carbon Dioxide 25 mmol/L (22-29); Glucose 106 mg/dL (65-115); Magnesium 2.3 mg/dL (1.7-2.3); Osmolality Calculated 281 mOsm/kg (285-295)
--- NOTE | 2020-04-07 05:55 | PC.NURSE ---
SHIFT SUMMARY PT HAS REMAINED ALERT AND ORIENTATED. PT PACER HAS REMAINED PRIMARY SOURCE ALL THROUGH NIGHT. PT RATE RANGING FROM 57-62 HR. PT HAS HAD URINE OUTPUT. PT SITE HAS BEEN MONITORED FREQUENTLY. NO DRAINAGE, MISPLACEMENT, OR NEW SWELLING NOTED. PACER REMAINS AT ORIGINAL SETTINGS, SPARE BATTERY TAPE BESIDE PACER. PT TRIED TO HAVE BOWEL MOVEMENT AND IT WAS JUST GAS. IV REMAINS PATENT. PREOP CHECKLIST ALMOST COMPLETE, SHAVE CHEST AND HIBACLEANSE TO BE DONE. NO CARDIAC EVENTS THUS FAR IN THE SHIFT.
[2020-04-07 07:02] LABS: Anion Gap 15.2 (5-19); Blood Urea Nitrogen 19 mg/dL (8-23); Calcium 9.6 mg/dL (8.5-10.5); Carbon Dioxide 26 mmol/L (22-29); Chloride 101 mmol/L (98-107); Glucose 114 mg/dL (65-115); Osmolality Calculated 283 mOsm/kg (285-295); Potassium 4.2 mmol/L (3.5-5.1); Sodium 138 mmol/L (136-145)
--- NOTE | 2020-04-07 07:15 | XACV_ITS ---
Exam Room: [facility] Ht: 165 cm Wt: 109 kg BSA: 2.29 m2 Gender: Male : 1945 Any Known Allergies: No known allergies Exam Priority: Routine Procedure(s): Procedure Description: Diagnostic procedure Procedure Description: Miscellaneous Procedure Description: Dual Chamber Pacemaker Implant Diagnostic Cath Status: Urgent Conclusions The left subclavian venogram was performed to evaluate the patency of the vein for pacemaker implantation. The venogram revealed patent subclavian vein with no evidence of obstruction. Pressures Phase:Rest AO : / ( 0 mmHg ) @ 11:51:00 AM Clinical Evaluation EBL: 5mL-10mL Procedural Details Procedure Consent Obtained. Pre-Procedure Time Out. Identified patient by full name and date of as verbalized by the patient/guarantor. Does the consent match the physician's order: Yes. Accurate & Complete Informed Consent: Yes. Inpatient/Outpatient History & Physical on Chart: Yes. If H&P is completed, is and addenduem needed: N/A; If yes, is the addendum complete: N/A. Relevant Radiology Images available: Yes. Pre-op teaching completed and patient verbalized understanding. The risks, benefits, and alternatives of sedation and/or procedure were discussed by physician. The patient agrees to continue. Procedure started. Correct patient, site and procedure confirmed by cath team. Current diagnosis: ppm. PERRLA. 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 Lungs clear x 5 lobes. IV Fluids: 0.9% NaCl at KVO. 0 mL infused prior to laborer hoisting. Oxygen started at 2liters/min via nasal canula. bilateral subclavian region was prepped with chloroprep then draped in the usual sterile fashion. Physician notified. Ancef 2g IV was given at 1430 in CPRU. Supplies: Cath pack, micropunture, bovie pen, 2-0 silk, 0 surgilon, 3-0 vicryl, 4-0 vicryl. Pre sponge count: 55. Pre sharps count: 20. Pre instrument count: 10. IV Site on Arrival: 18 gauge in the left anticubital. IV Site on Arrival: 20 gauge in the right anticubital. Baseline sample Acquired. HR: 38 BPM. Physician arrived. Physician scrubbed in. Time out performed with cath team. Immediate Pre-Procedure Time Out. Correct Patient: Yes; Correct Procedure: Yes; Correct Site: Yes; Correct Patient Position: Yes; Correct Supplies: Yes; Dried Flammable Prep: Yes; Blood Products Available: No;. Lidocaine 1% infiltrated to Left subclavian area. 20 ml contrast injection was performed for subclavian visualization. Access obtained in left subclavian vein with micropuncture set. Inserted guidewire #1 into left subclavian vein. Lidocaine 1% infiltrated to Left subclavian area. Incision and pacer pocket made in left subclavian region. Access obtained in left subclavian vein with micropuncture set. Inserted guidewire #2 into left subclavian vein. Inserted 7 fr. safe sheath into left subclavian vein. Inserted Ventricular lead and tested. Safe sheath peeled away. Lead left intact. sheath out. V lead retested. Ventricular lead sutured into place with O surgilon. Inserted 7 fr. safe sheath into left subclavian vein. Inserted Atrial lead and tested. A lead repositioned. A lead retested. A lead repositioned. A lead retested. Safe sheath peeled away. Lead left intact. Atrial lead sutured into place with O surgilon. Generator Lot# [id number]. A Lead Lot# [id number]. V Lead Lot# [id number]. family updated. Antibiotic flush used to clean pacer pocket. Temp pacemaker removed. Generator attached and tested. Generator secured with O surgilon. Subcutaneous tissue closed with 3-0 vicryl. Cutaneous tissue closed with 4-0 vicryl. All final counts correct. left subclavian pocket dressed per physician order. Shoulder immobilizer in place. No bleeding or hematoma noted at left subclavian pocket. Post Procedure: Pulses reassessed and unchanged. Total IV fluids: 400 mL. Total fluoro time: 17.4 minutes. No VTE prophylaxis required. Post-op diagnosis: ppm. Estimated blood loss: 5mL-10mL. Complications: none. Procedure completed. Vital chart was stopped. Procedure Medications Start: 4:49 PM Stop: 4:49 PM Medication: Versed Amount: 1 mg Route: I.V. Start: 4:49 PM Stop: 4:49 PM Medication: Fentanyl Amount: 50 mcg Route: I.V. Start: 5:02 PM Stop: 5:02 PM Medication: 0.9% Saline Amount: 250 ml Route: I.V. bolus Start: 5:18 PM Stop: 5:18 PM Medication: 0.9% Saline Amount: 125 ml/hr Route: I.V. drip Start: 5:37 PM Stop: 5:37 PM Medication: Versed Amount: 1 mg Route: I.V. Start: 5:37 PM Stop: 5:37 PM Medication: Fentanyl Amount: 50 mcg Route: I.V. I, the attending physician, have reviewed and verified all procedure medications. Yes, all medications given per verbal order History/Risk Factors Hypertension: Yes Dyslipidemia: Yes Peripheral Arterial Disease (PAD): No Myocardial Infarction (ID): No Obesity: Yes Renal Disease: Yes Tobacco Use: Never Prior Interventions PCI: No CABG: No Valve Surgery: No Report Signatures Finalized by:Dr Alicia Rodriguez MD [facility] on 04/07/2020 7:04:17 PM
[2020-04-07] MEDS: sennosides-docusate Tablet 1 TAB PO (08:28)
[2020-04-07] MEDS: levothyroxine 25 mcg Tablet PO (08:28)
[2020-04-07] MEDS: lisinopril 20 mg Tablet PO (08:29)
[2020-04-07] MEDS: morphine 4 mg/mL SDV 1 mL 2 MG IVP (08:29)
--- NOTE | 2020-04-07 10:14 | PM.PN ---
Subjective Subjective: Interval history: Patient continues to feel okay. No fever or chills. Telemetry shows 100% V paced rhythm. Medications: Reviewed: Yes Medication Review Details: Current Medications Furosemide (Lasix) 40 mg IVP Q12H [facility] Last Admin: 04/07/20 00:50 Dose: 40 mg Documented by: Heparin Sodium (Beef Lung) (Heparin) 5,000 unit SUBCUT Q8H [facility] Last Admin: 04/07/20 08:28 Dose: 5,000 unit Documented by: Hydralazine HCl (Apresoline) 10 mg IVP Q4H PRN PRN Reason: SBP > 170, DBP 90 Sodium Chloride (Sodium Chloride 0.9%) 1,000 mls @ 75 mls/hr IV .[id number] [facility] Vancomycin HCl 1,000 mg/ (Sodium Chloride) 250 mls @ 250 mls/hr IV [employer] [facility]; Protocol Levothyroxine Sodium (Synthroid) 25 mcg PO DAILY [facility] Stop: 04/09/20 22:00 Last Admin: 04/07/20 08:28 Dose: 25 mcg Documented by: Lisinopril (Prinivil) 20 mg PO DAILY [facility] Last Admin: 04/07/20 08:29 Dose: 20 mg Documented by: Morphine Sulfate (Morphine) 2 mg IVP Q4H PRN PRN Reason: SEVERE PAIN Last Admin: 04/07/20 08:29 Dose: 2 mg Documented by: Senna/Docusate Sodium (Senna-S) 1 tab PO DAILY [facility] Last Admin: 04/07/20 08:28 Dose: 1 tab Documented by: Vitals/I&O/Wt Last Vital Signs Temp 97.8 F 04/07/20 03:17 Pulse 60 04/07/20 06:00 Resp 20 H 04/07/20 08:29 BP 117/84 04/07/20 06:00 Pulse Ox 96 04/07/20 06:00 04/06/20 04/07/20 04/07/20 22:59 06:59 14:59 Intake Total 600 / 1200 120 / 120 Output Total 1350 / 2100 1300 / 3400 Balance -750 / -900 -1300 / -2200 120 / 120 Weight last 48 hrs Weight 241 lb 12.8 oz Weight 240 lb Physical Exam Narrative: EXAM NARRATIVE: GENERAL: The patient is alert and oriented times three. Appears to be slightly short of breath. Afebrile. Hard of hearing. HEENT: No significant pallor, icterus or lymphadenopathy. NECK: Trachea appears to be central. No masses noted. No JVD or thyromegaly appreciated. No carotid bruit. RESPIRATORY: Chest is symmetrical. No intercostals muscle retraction or any accessory muscle activation. There is no chest wall tenderness. Breath sounds are heard bilaterally. No rales or rhonchi heard. No evidence of any consolidation. BREASTS: Deferred. HEART: The PMI could not be palpated. No palpable precordial events. S1 and S2 are normal. No S3 or S4 heard. No pericardial rub or any click heard. ABDOMEN: No vessel pulsations or distention. No tenderness. No organomegaly appreciated. No abdominal bruit. Bowel sounds are normally heard. : Deferred. RECTAL: Deferred. LYMPHATIC: No lymphadenopathy noted in the neck or groin. EXTREMITIES: 1+ edema of the extremities. No cyanosis. Features of chronic venous stasis in the lower extremities. Right groin has no hematoma or bleeding. MUSCULOSKELETAL: No acute joint deformities or swelling SKIN: There are no significant ecchymosis or rashes NEUROPSYCHIATRIC: The patient is alert and oriented x3. Appears to be in a good mood. The higher functions are grossly within normal limits. No tremors or rigidity noted. Const: COMMON NORMALS: alert Resp: COMMON NORMALS: clear to auscultation bilaterally AUSCULTATION: clear to auscultation bilaterally Neuro: SENSORIUM/ORIENTATION: Yes alert Urinary Catheter Management^: Cifuentes: Cath Placed During This Visit: yes Reason for Continuing Indwelling Catheter: Accurate Measurement of Urinary Output in Critically Ill Patients Urinary Catheter Date of Insertion: 04/06/20 Urinary Catheter Time of Insertion: 02:00 Data : 04/07/20 03:20 04/07/20 06:40 A&P Assessment and plan (1) Symptomatic bradycardia: Patient is in third-degree heart block. Temporary pacemaker is functioning okay. For further management of his condition, he requires a permanent pacemaker. The need for this was discussed with the patient which he understood well and consented to proceed. The procedure is scheduled for this evening Status: Acute (2) Elevated brain natriuretic peptide (BNP) level: Patient has features of possibly acute diastolic heart failure. He has accelerated hypertension. Currently he is compensated. I will hold off on the Lasix at this time Status: Acute (3) Elevated troponin: Could be related to type II [place]. There is no significant delta. Status: Acute (4) Acute kidney injury: His baseline kidney function is not known. Bradycardia and heart failure could be a contributing factor. We will repeat the BMP in the morning. Creatinine remains elevated. Most likely he may have chronic kidney disease. Status: Acute (5) Benign essential hypertension with target blood pressure below 140/90: The blood pressure seems to be getting under control. May continue on the current medications. Status: Acute (6) Hypothyroidism (acquired): We will start him on a low-dose of Synthroid 0.025 mg p.o. daily Status: Acute Additional A&P Information Patient is scheduled for the permanent pacer implantation this evening. We will continue on the current medications. His labs are satisfactory. Once again I discussed the patient in detail the procedure with risks and benefits which is understood well. 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
[2020-04-07] MEDS: famotidine 20 mg/2 mL INJ IVP (13:34)
--- NOTE | 2020-04-07 15:28 | PM.PN ---
Subjective Subjective: Interval history: No acute events overnight. Patient has remained persistently reliant on PPI. He denies of having any nausea, vomiting, headache, dizziness, chest pain, difficulty in breathing, numbness in his feet. Plan is for patient to undergo permanent pacemaker implantation today in the evening. Medications: Reviewed: Yes Vitals/I&O/Wt Last Vital Signs Temp 97.8 F 04/07/20 03:17 Pulse 62 04/07/20 14:00 Resp 16 04/07/20 14:00 BP 121/75 04/07/20 14:00 Pulse Ox 92 04/07/20 14:00 04/07/20 04/07/20 04/07/20 06:59 14:59 22:59 Intake Total 620 / 620 Output Total 1300 / 3400 Balance -1300 / -2200 620 / 620 Weight last 48 hrs Weight 109.679 kg Weight 108.862 kg Physical Exam Narrative: EXAM NARRATIVE: General: No acute distress, AO x3, right groin TPI present without any hematoma or bleeding HEENT: PERRLA, pupils bilaterally equal and reactive Chest: Normal vesicular breath sounds, no added sounds, equal good air entry bilaterally CVS: S1-S2 regular, no murmurs, no tachycardia, no gallops, no rubs Abdomen: Soft, nontender, no organomegaly, bowel sounds present Neuro: No focal deficits, no facial deformity, AO x3, power 5/5 in all limbs Urinary Catheter Management^: Cifuentes: Cath Placed During This Visit: yes Reason for Continuing Indwelling Catheter: Accurate Measurement of Urinary Output in Critically Ill Patients Urinary Catheter Date of Insertion: 04/06/20 Urinary Catheter Time of Insertion: 02:00 Data : 04/07/20 03:20 04/07/20 06:40 A&P Assessment and plan (1) Symptomatic bradycardia: Status: Acute (2) Third degree heart block: With intermittent junctional and ventricular escape rhythm Status: Acute (3) Temporary transvenous cardiac pacemaker present: Status: Acute (4) Acute exacerbation of CHF (congestive heart failure): Status: Acute Qualifiers: Heart failure type: unspecified Qualified Code(s): I50.9 - Heart failure, unspecified (5) Elevated troponin: No known history of coronary artery disease. Most likely type II. Negative delta. Status: Acute (6) Acute kidney injury: Versus chronic kidney disease stage III. Review of records shows last comparative labs from 2016 with creatinine ranging from 1.5-2.0. Status: Acute (7) Benign essential hypertension with target blood pressure below 140/90: Status: Acute (8) Thrombocytopenia: Review of old records shows that he has had some degree of thrombocytopenia dating back to 2016 but I have no labs to compare with since then. Specific etiology not clear currently. No bleeding. Status: Acute (9) BPH (benign prostatic hyperplasia): Diagnosis but does not appear to be on any treatment presently. Status: Acute (10) Obesity (BMI 30-39.9): Status: Acute Additional A&P Information Third-degree AV block: Symptomatic: Patient has TPI in right groin without any hematoma. Greatly appreciate Dr. Rodriguez recommendation. Patient to undergo permanent pacemaker implantation today morning. Medical history reconciliation done for node blocking medication. Perioperative antibiotics, nebulization as per Dr. Rodriguez. Congestive heart failure: Most likely because of persistent symptomatic bradycardia. Echocardiogram done in this admission shows an EF of 55% with moderate LVH, mild to moderate AI, no diastolic dysfunction. Patient is overall 6 L negative since admission. Has been on 60 mg of IV Lasix twice daily. Withhold for now. Strict input output charting. Daily weights. Kidney dysfunction: Most likely chronic kidney disease. No baseline creatinine in chart. 1.5 and stable. Check renal ultrasound. Medical reconciliation done for nephrotoxic drugs. At home patient was spironolactone and lisinopril 40 mg. Hypertension: Blood pressure soft. We will hold any further diuresis for now. Continue with half a dose of lisinopril for 20 mg for now. SCDs for DVT prophylaxis as patient to undergo permanent implantation today. N.p.o. Full code. 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
--- NOTE | 2020-04-07 16:12 | W.PM.OPSUD ---
Surgery/Procedure H&P Update DATE OF PROCEDURE: April 07, 2020 DATE H&P PERFORMED: 04/05/20 H&P UPDATE INFORMATION: I have reviewed H&P completed within last 30 days, I have examined patient prior to procedure and No changes to prior documentation PREOP DIAGNOSIS: Symptomatic bradycardia PLANNED PROCEDURE: Operation Date: 04/06/20 00:00 Proposed Procedures p Temporary Pacemaker Placement(Not Applicable) - Alicia Rodriguez MD Operation Date: 04/07/20 16:30 Proposed Procedures p Pacemaker Insertion(Left) - Alicia Rodriguez MD PATIENT REASSESSED PRIOR TO SEDATION, WITH NO CHANGE NOTED: Yes PHYSICAL EXAM: alert, oriented x 3, clear to auscultation bilaterally, regular rate & rhythm and operative site marked OTHER PERTINENT EXAM FINDINGS: No evidence of infection the left subclavicular region. AIRWAY EVAL/ANESTHESIA PLAN: ASA III, Local Anesthesia, Risks, benefits & alternatives of sedation and/or procedure discussed and Patient agrees to continue as planned
--- NOTE | 2020-04-07 18:46 | P.OP_ITS ---
Operative Report Date of procedure: April 07, 2020 Pre-op Diagnosis: Symptomatic bradycardia/third-degree heart block Post-op diagnosis: same Procedure Done: LOCATION: Cardiac [facility] PREOPERATIVE DIAGNOSES: Symptomatic bradycardia/third-degree heart block POSTOPERATIVE DIAGNOSES: Same COMPLICATIONS: None ESTIMATED BLOOD LOSS: Around5 milliliters. BRIEF HISTORY: This is a 74-year-old white male with history of high blood pressure, presents with a 3-day history of shortness of breath, weakness and fatigue. He was found to be in third-degree heart block with a heart rate in the 30s. He was given IV atropine with no response. A temporary pacemaker was inserted. For further management of his condition, a permanent dual-chamber pacemaker implantation was recommended. A [dual/single]-chamber permanent pacemaker implantation was recommended for AV synchrony and symptom relief The procedure was explained to the patient in detail with the risks and benefits. The risks of bleeding, hematoma, vascular injury, infection, pn eumothorax, myocardial perforation and other concomitant complications were explained in detail, which the patient understood well and consented to proceed. PROCEDURE DESCRIPTION: The patient was brought to the Cardiac Catheterization Lab. The left and the right side of the neck and the subclavian area were cleaned and draped in a sterile fashion. 1% Xylocaine was used as the local anesthetic agent. A left subclavian venous access was obtained using a micropuncture needle system. Under venographic guidance, the patient was injected with 20 milliliters of Omnipaque through the left antecubital vein. A two-inch long incision was made 2.0 centimeters below the midclavicular region. By sharp and blunt dissection, a pacemaker pocket was made. A second venous access was obtained using another micropuncture needle system. Over the first guidewire, a 7-Qatari venous sheath with dilator was advanced. The venous dilator and the guidewire were taken out. A screw-in ventricular lead was advanced through the venous sheath and was positioned towards the right ventricle. Under fluoroscopy guidance, the ventricular lead was positioned toward the right ventricular apex. Good pacing and sensing thresholds were obtained. The lead was secured to the endocardium by advancing the helix. The stability of the lead was tested by gentle twisting movements and also by asking the patient to take some deep breaths and cough. The venous sheath was peeled off, at this time. The lead was secured to the pectoralis fascia, by suturing with 1-0 Surgilon. Over the second guidewire, another 7-Qatari venous sheath with dilator was advanced. The dilator and the guidewire were taken out. Under fluoroscopy guidance, an atrial lead (Medtronic), was advanced and positioned toward the right atrium. The lead was positioned in the right atrial appendage. Good pacing and sensing thresholds were obtained. The lead was secured to the endocardium by advancing the helix. Stability of the lead was tested by gentle twisting movements and also by asking the patient to take some deep breaths and cough. The venous sheath was peeled off, at this time. The lead was secured to the pectoralis fascia by suturing with 0-Surgilon. The pacemaker pocket was copiously irrigated with vancomycin solution. Complete hemostasis was achieved. Sponge counts were confirmed. The leads were attached to a Medtronic generator. The leads were positioned behind the generator and the generator was attached to the pectoralis fascia by suturing with 0-Surgilon. The pocket was closed in layers. Skin was approximated using 4-0 Vicryl. IMPLANTED DEVICES: ATRIAL LEAD: Model number: [id number] 76/45 Serial number: [id number] Make: Medtronic VENTRICULAR LEAD: Model number: 5076/45 Serial number: [id number] Make: Medtronic GENERATOR Brand:Claire XT DR LIU Lacisam Model number: [id number] Serial number: [id number] Make: Medtronic IMPLANTATION DATA: With the pacing system analyzer, the R wave sensing was 12.8 millivolts with a lead impedance of 779 and a pacing threshold was 0.5 volts at 0.4 milliseconds. In the atrium, the sensing was 3.75 millivolts with a lead impedance of 513 ohms and a pacing threshold was 0.5 volts at 0.4 milliseconds. Through the device, the R-wave sensing was not obtained because of the pacer dependency with a lead impedance of 722 and a pacing threshold was 0.5 volts at 0.4 milliseconds. The atrial sensing was 4.8 millivolts with a lead impedance of 532 ohms and a pacing threshold of 0.5 volts at 0.4 milliseconds. The pacemaker was set for DDDR mode with upper rate of 130 and a lower rate of 60. The mode switch was turned on A pressure dressing was applied over the pacemaker site. The patient was transferred to the Medical Floor in stable condition. A chest x-ray was ordered to confirm the lead position and also to rule out any pneumothorax. Anesthesia: MAC and Local
--- NOTE | 2020-04-07 19:08 | PC.NURSE ---
PT BACK FROM [employer]. AWAKE/ALERT PRESSURE DRESSING TO LEFT UPPER CHEST. C/D/I. 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 NO C/O VOICED.
--- NOTE | 2020-04-07 19:47 | XR_ITS ---
WS: [id number] CHEST XRAY TECHNIQUE: Portable chest. CLINICAL INFORMATION: pacemaker placement COMPARISON: April 05, 2020 FINDINGS: Heart: Cardiomegaly. Aortic calcification. Cardiac pacer. No pneumothorax. Lungs: Lungs are clear. No consolidation or pleural effusion. Bones: Normal visualized bony structures. XR/XR chest 1V portable [id number] IMPRESSION: 1. Status post cardiac pacer placement. No pneumothorax. 2. Stable cardiomegaly.
--- NOTE | 2020-04-07 20:00 | PC.NURSE ---
DR ANDERSEN ROUNDED AND GAVE ORDER TO HAVE PT BED REST UNTIL 0100, AND CATHETER TO BE REMOVED AT 0100 WELL.
--- NOTE | 2020-04-07 20:28 | PC.NURSE ---
post op antibiotic rescheduled for 8 hours after operation per medication instruction to be started 8hrs after preop dose.
[2020-04-08] VITALS (23 sets, daily range): BP systolic 98–150; BP diastolic 63–85; PULSE 60–74; RESP 14–20; TEMP 36.4–37.1; O2SAT 89–97
[2020-04-08] MEDS: oxyCODONE-APAP 5-325 mg Tablet 1 TAB PO ×2 (00:29→07:30)
--- NOTE | 2020-04-08 01:25 | PC.NURSE ---
PT GOT UP TO BEDSIDE COMMODE, NO BM NOTED. PT WAS GIVEN SPONGE BATH. PT HAD NO COMPLAINTS UPON GETTING UP TO BSC. PT INSTRUCTIONS FOR ARM RESTRICTIONS WERE REINFORCED.
[2020-04-08 03:59] LABS: Basophils % 0.4 %; Eosinophils % 0.6 %; Hematocrit 43.3 % (42.0-52.0); Hemoglobin 13.9 g/dL (11.7-16.6); Lymphocytes # 0.9 10^3/uL (0.8-4.8); Lymphocytes % 13.4 %; Mean Corpuscular HGB Conc 32.1 g/dL (30.0-36.0); Mean Corpuscular Hemoglobin 33.6 pg (28.0-34.0); Mean Corpuscular Volume 104.6 fL (80-94); Monocytes # 0.5 10^3/uL (0.2-0.9); Monocytes % 7.3 %; Neutrophils # 5.3 10^3/uL (1.8-7.7); Neutrophils % 77.4 %; Nucleated Red Blood Cells % 0 %; Platelet Count 104 10^3/cmm (130-400); Red Blood Count 4.14 10^6/uL (4.1-5.3); Red Cell Distribution Width 14.3 % (12.1-15.1); White Blood Count 6.9 10^3/uL (4.0-10.0)
[2020-04-08 04:41] LABS: Chol HDL Ratio 3.82 mg/dL (1.0-5.00); Cholesterol 149 mg/dL (0-200); HDL Cholesterol 39 mg/dL (60-100); LDL Cholesterol Calculated 88 mg/dL (50-129); Triglycerides 109 mg/dL (0-150); VLDL Cholestrol Calculation 22 mg/dL (0-30)
[2020-04-08 04:45] LABS: Anion Gap 16.5 (5-19); Blood Urea Nitrogen 22 mg/dL (8-23); Calcium 9.2 mg/dL (8.5-10.5); Carbon Dioxide 25 mmol/L (22-29); Chloride 101 mmol/L (98-107); Glucose 108 mg/dL (65-115); Magnesium 2.3 mg/dL (1.7-2.3); Osmolality Calculated 283 mOsm/kg (285-295); Potassium 4.5 mmol/L (3.5-5.1); Sodium 138 mmol/L (136-145)
[2020-04-08 04:50] LABS: Estmated Average Glucose 111; Hemoglobin A1C 5.5 % (4.0-6.0)
[2020-04-08 05:08] LABS: Slide Review Slide Review Perform
--- NOTE | 2020-04-08 06:00 | ECG_ITS ---
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 Measurements Intervals [place] Rate: 60 P: 63 GA: 166 QRS: -65 QRSD: 217 T: 110 QT: 515 QTc: 515 Interpretive Statements ELECTRONIC ATRIAL PACEMAKER ELECTRONIC VENTRICULAR PACEMAKER ABNORMAL RHYTHM ECG Compared to ECG 04/06/2020 04:49:30 No significant changes Electronically Signed On 04-09-2020 14:17:15 CDT by Codi Stanley M.D. [id number]
--- NOTE | 2020-04-08 06:00 | XR_ITS ---
WS: [id number] CHEST XRAY TECHNIQUE: Portable chest. CLINICAL INFORMATION: Post permanent pacemaker placement; visualize lead tip COMPARISON: April 07, 2020 FINDINGS: Heart: Cardiomegaly. Cardiac pacer. Lungs: Lungs are clear. No consolidation or pleural effusion. No acute pulmonary infiltrates. Bones: Normal visualized bony structures. XR/XR chest 1V [id number] IMPRESSION: Stable cardiomegaly and cardiac pacer. No acute chest findings.
--- NOTE | 2020-04-08 06:17 | PC.NURSE ---
SHIFT SUMMARY PT HAS REMAINED ALERT AND ORIENTATED. PT HAS NOT HAD ANY CARDIAC EVENTS. PT UP TO CHAIR THIS MORNING WITH TWO STANDBY ASSIST. PT HAS HAD ADEQUATE URINE OUTPUT. PT HAS VOIDED SINCE BAILEY REMOVAL. PT COMPLAINED OF PAIN IN HIS SHOULDER ONCE, WAS GIVEN PAIN PILL, AND PAIN RESOLVED. PT WAS GIVEN SPONGE BATH, AND BED CHANGED. PT HAS NOT HAD ANY OTHER COMPLAINTS.
--- NOTE | 2020-04-08 07:41 | PC.NURSE ---
recd sitting in chair. breakfast in. pain in left shoulder area. med. given.
--- NOTE | 2020-04-08 08:17 | P.PN_ITS ---
Subjective Subjective: Interval history: The patient is feeling okay. No chest pain or any shortness of breath. Telemetry shows no arrhythmia. 100% AV paced rhythm. Pacemaker was interrogated today. And is found to be functioning okay Medications: Reviewed: Yes Medication Review Details: Current Medications Albuterol/Ipratropium (Duoneb) 3 ml INHALATION Q6H.RESPIRATORY PRN PRN Reason: sob Famotidine (Pepcid Inj) 20 mg IVP Q12H ON LICENSE OF [facility] Last Admin: 04/07/20 13:34 Dose: 20 mg Documented by: Furosemide (Lasix) 40 mg IVP Q12H RALF Last Admin: 04/07/20 00:50 Dose: 40 mg Documented by: Hydralazine HCl (Apresoline) 10 mg IVP Q4H PRN PRN Reason: SBP > 170, DBP 90 Sodium Chloride (Sodium Chloride 0.9%) 1,000 mls @ 50 mls/hr IV .Q20H RALF Vancomycin HCl 1,000 mg/ (Sodium Chloride) 250 mls @ 250 mls/hr IV HOME OFFICE REPRESENTATIVE ON LICENSE OF [facility]; Protocol Cefazolin Sodium/Dextrose (Kefzol) 2 gm in 50 mls @ 100 mls/hr IV Q8H ON LICENSE OF [facility]; Protocol Stop: 04/08/20 16:59 Last Infusion: 04/08/20 05:07 Dose: Infused Documented by: Levothyroxine Sodium (Synthroid) 25 mcg PO DAILY ON LICENSE OF [facility] Stop: 04/09/20 22:00 Last Admin: 04/07/20 08:28 Dose: 25 mcg Documented by: Lisinopril (Prinivil) 20 mg PO DAILY ON LICENSE OF [facility] Last Admin: 04/07/20 08:29 Dose: 20 mg Documented by: Morphine Sulfate (Morphine) 2 mg IVP Q4H PRN PRN Reason: SEVERE PAIN Last Admin: 04/07/20 08:29 Dose: 2 mg Documented by: Oxycodone/Acetaminophen (Percocet 5-325 Mg) 1 tab PO Q4H PRN PRN Reason: MODERATE TO SEVERE PAIN Last Admin: 04/08/20 07:30 Dose: 1 tab Documented by: Senna/Docusate Sodium (Senna-S) 1 tab PO DAILY ON LICENSE OF [facility] Last Admin: 04/07/20 08:28 Dose: 1 tab Documented by: Vitals/I&O/Wt Last Vital Signs Temp 98.4 F 04/08/20 08:00 Pulse 63 04/08/20 08:00 Resp 18 04/08/20 08:00 BP 113/73 04/08/20 08:00 Pulse Ox 89 L 04/08/20 07:00 04/07/20 04/08/20 04/08/20 22:59 06:59 14:59 Intake Total 0 / 620 50 / 670 480 / 480 Output Total 600 / 600 450 / 1050 Balance -600 / 20 -400 / -380 480 / 480 Weight last 48 hrs Weight 241 lb 12.8 oz Physical Exam Narrative: EXAM NARRATIVE: GENERAL: The patient is alert and oriented times three. Appears to be slightly short of breath. Afebrile. Hard of hearing. HEENT: No significant pallor, icterus or lymphadenopathy. NECK: Trachea appears to be central. No masses noted. No JVD or thyromegaly appreciated. No carotid bruit. RESPIRATORY: Chest is symmetrical. No intercostals muscle retraction or any accessory muscle activation. There is no chest wall tenderness. Breath sounds are heard bilaterally. No rales or rhonchi heard. No evidence of any consolidation. The pacemaker site appears to have no hematoma or bleeding. BREASTS: Deferred. HEART: The PMI could not be palpated. No palpable precordial events. S1 and S2 are normal. No S3 or S4 heard. No pericardial rub or any click heard. ABDOMEN: No vessel pulsations or distention. No tenderness. No organomegaly appreciated. No abdominal bruit. Bowel sounds are normally heard. : Deferred. RECTAL: Deferred. LYMPHATIC: No lymphadenopathy noted in the neck or groin. EXTREMITIES: 1+ edema of the extremities. No cyanosis. Features of chronic venous stasis in the lower extremities. Right groin has no hematoma or blee ding. MUSCULOSKELETAL: No acute joint deformities or swelling SKIN: There are no significant ecchymosis or rashes NEUROPSYCHIATRIC: The patient is alert and oriented x3. Appears to be in a good mood. The higher functions are grossly within normal limits. No tremors or rigidity noted. Const: COMMON NORMALS: alert Resp: COMMON NORMALS: clear to auscultation bilaterally AUSCULTATION: clear to auscultation bilaterally Neuro: SENSORIUM/ORIENTATION: Yes alert Urinary Catheter Management^: Cifuentes: Cath Placed During This Visit: yes, but has since been removed by the nurse Reason for Continuing Indwelling Catheter: Accurate Measurement of Urinary Output in Critically Ill Patients Urinary Catheter Date of Insertion: 04/06/20 Urinary Catheter Time of Insertion: 02:00 Date Urinary Catheter Removed: 04/08/20 Time Urinary Catheter Discontinued: 01:23 Data : 04/08/20 03:45 04/08/20 03:45 A&P Assessment and plan (1) Status post biventricular pacemaker: Status post permanent dual-chamber pacemaker implantation for symptomatic bradycardia/third-degree heart block. Currently the patient is pacer dependent. Continue on the current pacemaker settings. The pacer function appears to be appropriate. Status: Acute (2) Acute kidney injury: Patient seems to have a chronic kidney disease with a stable creatinine at this time. Status: Acute (3) Benign essential hypertension with target blood pressure below 140/90: The blood pressure seems to be getting under control. May continue on the current medications. Status: Acute (4) Hypothyroidism (acquired): We will start him on a low-dose of Synthroid 0.025 mg p.o. daily Status: Acute (5) Acute diastolic heart failure: Currently compensated. May continue on the current medicine. Status: Acute Additional A&P Information If the patient continues remain stable, may be discharged home this afternoon after the IV antibiotic doses are finished. Be seen in the clinic in a week for a pacemaker check and wound check. I will see him in the office in 1 month Attestations Medical Necessity Statement*: Possible discharge home today Coding Level of Care Code Acute Sports Marketer for Vonda Fwd Exam Expanded Problem Focused Diagnoses Status post biventricular pacemaker Z95.0 Acute kidney injury N17.9 Benign essential hypertension with target blood pressure below 140/90 I10 Hypothyroidism (acquired) E03.9 Acute diastolic heart failure I50.31
--- NOTE | 2020-04-08 09:37 | DCPLANNER ---
Pg 2 of IM updated and reviewed with pt. No questions, he states that he will be ready to go when tells him that he can. Copy provided.
[2020-04-08] MEDS: spironolactone 25 mg Tablet PO (09:51)
[2020-04-08] MEDS: levothyroxine 25 mcg Tablet PO (09:52)
[2020-04-08] MEDS: sennosides-docusate Tablet 1 TAB PO (10:08)
--- NOTE | 2020-04-08 10:15 | P.DS_ITS ---
Discharge Providers Date of Admission: 04/05/20 23:25 Date of Discharge: April 08, 2020 Attending Provider at Admission: Yared Yu MD Attending Provider at Discharge: Ted Sosa MD Consults: Cardiology : Dr. Rodriguez Primary Care Provider: Cal Burris MD Diagnoses at Discharge Discharge Diagnosis (1) Symptomatic bradycardia: Status: Acute (2) Elevated brain natriuretic peptide (BNP) level: Status: Acute (3) Elevated troponin: Status: Acute (4) Acute kidney injury: Status: Acute (5) Benign essential hypertension with target blood pressure below 140/90: Status: Acute (6) Hypothyroidism (acquired): Status: Acute (7) Pacemaker: Status: Acute Reason for Visit Reason for Visit: low heartbeat Hospital Course Discharge Summary: Harley Viera is a 74 year old male who carries history of preserved ejection fraction heart failure, pulmonary hypertension, obesity, first-degree AV block in the past, uses metoprolol tartrate came in with chief complaint of worsening shortness of breath. Patient is stating that for last 1 month he has been experiencing shortness of breath on exertion, his feet are more swollen despite taking Lasix 40 mg every day, he has been experiencing orthopnea, PND. Yesterday his shortness of breath got worse to the point mild activities were making him extremely out winded. He did not notice any palpitations, chest pain, dysuria, diarrhea, nausea or vomiting. His is at the bedside who did not notice any confusion at home. He denies any history of hypothyroidism, [place], stroke. Diagnosis in the ER revealed heart rate in low 30s he has received 2.5 mg of atropine without significant improvement in his heart rate. Cardiology was consulted from the ER and patient was taken to the [facility] for transvenous pacemaker implantation. Patient was found to be in mild congestive heart failure which was treated with IV diuresis. Overall patient was around 7 L net negative. His echocardiogram showed an EF of 55% with moderate LVH with mild to moderate AI and mild tricuspid regurgitation. His blood work showed TSH of 6.4 with a normal T4 and he was started on low-dose of levothyroxine. Because of persistent symptomatic bradycardia and patient's reliance on PPI he underwent permanent pacemaker implantation on April 07. Patient tolerated the procedure well and is post procedure stay was uneventful. He is been discharged in hemodynamically stable condition and his antihypertensives have been adjusted with patient now requiring only amlodipine 5 mg and spironolactone at home dose. Patient is advised to not take lisinopril for now. Patient advised to repeat BMP in 1 week and follow-up with Dr. Rodriguez in his office for pacemaker and wound check on next Tuesday. Patient is also advised to maintain his blood pressure chart to take with him when he follows up with cardiology. Patient is also advised to take oral antibiotics for next 7 days. Physical Exam Narrative: EXAM NARRATIVE: General: No acute distress, AO x3, right groin TPI present without any hematoma or bleeding HEENT: PERRLA, pupils bilaterally equal and reactive Chest: Normal vesicular breath sounds, no added sounds, equal good air entry bilaterally CVS: S1-S2 regular, no murmurs, no tachycardia, no gallops, no rubs Abdomen: Soft, nontender, no organomegaly, bowel sounds present Neuro: No focal deficits, no facial deformity, AO x3, power 5/5 in all limbs Urinary Catheter Management^: Cifuentes: Cath Placed During This Visit: yes, but has since been removed by the nurse Reason for Continuing Indwelling Catheter: Accurate Measurement of Urinary Output in Critically Ill Patients Urinary Catheter Date of Insertion: 04/06/20 Urinary Catheter Time of Insertion: 02:00 Date Urinary Catheter Removed: 04/08/20 Time Urinary Catheter Discontinued: 01:23 Discharge Data Data Completed and Pending: Completed Studies During Hospitalization Category Date Time Status CLAIMS REPRESENTATIVE request for service Routin e Exams 04/06/20 00:11 Completed CLAIMS REPRESENTATIVE request for service Routin e Exams 04/07/20 07:15 Completed XR chest 1V [id number] Routine Exams 04/08/20 06:00 Completed XR chest 1V dorothy ble [id number] Routine Exams 04/07/20 19:47 Completed XR chest 1V dorothy ble [id number] Stat Exams 04/05/20 22:35 Completed CV echo complete* [id number] Routine Ultrasound 04/06/20 01:03 Completed US renal BI with bladder Routine Ultrasound 04/08/20 15:33 Completed Pending at discharge Category Date Time Status MRSA by PCR Routi ne Lab 04/07/20 13:25 Received Labs from last 24 hours 04/08/20 04/08/20 04/08/20 03:45 03:45 03:45 WBC 6.9 RBC 4.14 Hgb 13.9 Hct 43.3 MCV 104.6 H MCH 33.6 MCHC 32.1 RDW 14.3 Plt Count 104 L Neut % (Auto) 77.4 Lymph % (Auto) 13.4 Gooding % (Auto) 7.3 Eos % (Auto) 0.6 Baso % (Auto) 0.4 Neut # (Auto) 5.3 Lymph # (Auto) 0.9 Gooding # (Auto) 0.5 Eos # (Auto) 0.0 Baso # (Auto) 0.0 Nucleated RBC % (a uto) 0 Nucleated RBCs # 0.0 Sodium 138 Potassium 4.5 Chloride 101 Carbon Dioxide 25 Anion Gap 16.5 BUN 22 Creatinine 1.5 H Glucose 108 Estimat Average Gl ucose Hemoglobin A1c Calculated Osmolal ity 283 L Calcium 9.2 Magnesium 2.3 Triglycerides 109 Cholesterol 149 LDL Cholesterol, C alc 88 Total VLDL Cholest pamela 22 HDL Cholesterol 39 L Cholesterol/HDL Ra karen 3.82 04/08/20 03:45 WBC RBC Hgb Hct MCV MCH MCHC RDW Plt Count Neut % (Auto) Lymph % (Auto) Gooding % (Auto) Eos % (Auto) Baso % (Auto) Neut # (Auto) Lymph # (Auto) Gooding # (Auto) Eos # (Auto) Baso # (Auto) Nucleated RBC % (a uto) Nucleated RBCs # Sodium Potassium Chloride Carbon Dioxide Anion Gap BUN Creatinine Glucose Estimat Average Gl ucose 111 Hemoglobin A1c 5.5 Calculated Osmolal ity Calcium Magnesium Triglycerides Cholesterol LDL Cholesterol, C alc Total VLDL Cholest pamela HDL Cholesterol Cholesterol/HDL Ra karen Vitals: Last Vital Signs Temp 98.4 F 04/08/20 08:00 Pulse 74 04/08/20 08:20 Resp 18 04/08/20 08:00 BP 113/73 04/08/20 08:00 Pulse Ox 95 04/08/20 08:20 Discharge Plan Discharge Patient Disposition: Home, Self-Care Condition: Stable Prescriptions: New oxycodone-acetaminophen 5-325 mg Tablet 1 tab PO Q8H PRN (Reason: Moderate To Severe Pain) Qty: 15 RF: 0 levothyroxine 25 mcg Tablet 25 mcg PO DAILY Qty: 30 RF: 0 Keflex 500 mg capsule 500 mg PO Q6H 7 Days Qty: 28 RF: 0 multivitamin Capsule 1 cap PO DAILY Qty: 20 RF: 0 Continued amlodipine 5 mg Tablet 5 mg PO DAILY RF: 0 spironolactone 25 mg Tablet 25 mg PO DAILY RF: 0 Discontinued lisinopril 40 mg Tablet 40 mg PO DAILY RF: 0 Discharge Orders: Discharge Order (Routine); Ordered 04/08/20 Ordered By: Ted Sosa Referrals: Alicia Rodriguez MD [Physician] - 04/15/20 (follow up with dr rodriguez on 04-15-2020 at 9:45) Cal Burris MD [Primary Care Provider] - 2 weeks (follow up with dr burris 04-23-2020 at 2:15 ) Discharge Diet: Cardiac Discharge Activity: Resume usual activity and As per PT/OT instructions Patient Instructions: Cephalexin (By mouth), Hydrocodone/Acetaminophen (By mouth), Levothyroxine (By mouth), Pacemaker (DC), Post Pacemaker - Michael Activity Restrictions/Additional Instructions: Please check Thyroid panel in 4- 6 weeks. Please follow up with Dr. Rodriguez on Tuesday for wound and pacemaker check. Please check BMP on Tuesday. Hold lisinopril for now. C/w Amlo and Spirinolactone for now. Please maintain a BP diary at home. Discharge Attestations Time Spent in Discharge Care*: greater than 30 min Specific Discharge Activities: Specific discharge activities: educating patient, discussing with pcp/other providers, discussing with outsole caser/social workers/dc planners, documenting/other paperwork and evaluating patient/reviewing data Status at Discharge: Cognitive status at discharge: cognitively intact , Behavioral status at discharge: cooperative , Functional status at discharge: independent ambulation Overall status at discharge: patient is progressing back to baseline Quality Metrics Clinical Quality Measures During this hospital stay, did patient experience: None Coding Level of Care Code Acute Guide Escort for Chg Fwd Diagnoses Symptomatic bradycardia R00.1 Elevated brain natriuretic peptide (BNP) level R79.89 Elevated troponin R79.89 Acute kidney injury N17.9 Benign essential hypertension with target blood pressure below 140/90 I10 Hypothyroidism (acquired) E03.9 Pacemaker Z95.0
--- NOTE | 2020-04-08 13:13 | PC.NURSE ---
pt. commented on not voiding today. up to bathroom, voided dark brown urine. 100cc. bladder scanner used and no urine seen on screen.
--- NOTE | 2020-04-08 15:33 | US_ITS ---
WS: [id number] ULTRASOUND RENAL TECHNIQUE: Ultrasound examination of both kidneys. CLINICAL INFORMATION: CKD COMPARISON: CT November 14, 2015 FINDINGS: RIGHT: Right kidney is normal in size and appearance. Echogenicity: Normal. Cortical thickness: 1.3 cm; Normal. Hydronephrosis: None. Perinephric fluid: None. Right kidney measures: 9.7 cm x 6.0 cm x 5.5 cm. LEFT: Left kidney not visualized due to arm brace from pacemaker placement. Normal visualized aorta. US/US renal BI with bladder IMPRESSION: 1. Left kidney not visualized due to arm brace from pacemaker placement. 2. Normal right kidney. 3. Normal bladder.
--- NOTE | 2020-04-08 17:12 | PC.NURSE ---
1630-x2 iv jelcos removed from bilateral arms. cordell well
--- NOTE | 2020-04-08 17:13 | PC.NURSE ---
1700 d/c home with instructions. noted reddened area on abdomen appears to be where tape was removed. home with son.
== END 2020-04-08 18:04 | disposition home or self-care (01) | DRG 242 ==
LOC: ER 23:20 → ICU 23:37
PROVIDERS: Family Medicine; Hospitalist; Internal Medicine Cardiovascular Disease; Admitting Provider Internal Medicine; PCP Family Medicine; Visit Provider Student in an Organized Health Care Education/Training Program
PROC: 5A1223Z Performance of Cardiac Pacing, Continuous (ICD-10-PCS; principal; 2020-04-06)
PROC: 0JH606Z Insertion of Pacemaker, Dual Chamber into Chest Subcutaneous Tissue and Fascia, Open Approach (ICD-10-PCS; principal; 2020-04-07 16:30)
DX: I44.2 Atrioventricular block, complete (principal); I50.31 Acute diastolic (congestive) heart failure; Z68.41 Body mass index [BMI] 40.0-44.9, adult; I13.0 Hypertensive heart and chronic kidney disease with heart failure and stage 1 through stage 4 chronic kidney disease, or unspecified chronic kidney disease; N17.9 Acute kidney failure, unspecified; I27.20 Pulmonary hypertension, unspecified; E66.9 Obesity, unspecified; N18.3 Chronic kidney disease, stage 3 (moderate); N40.0 Benign prostatic hyperplasia without lower urinary tract symptoms; E78.5 Hyperlipidemia, unspecified; D69.6 Thrombocytopenia, unspecified; K80.20 Calculus of gallbladder without cholecystitis without obstruction; E03.9 Hypothyroidism, unspecified
CPT/HCPCS: 12345; 33208; 33210; 36415; 51702; 71045; 76770; 76857; 80048; 80053; 80061; 83036; 83735; 83880; 84439; 84443; 84484; 85025; 85610; 87641; 93005; 93306; 96372; 96375; 97166; 99284; C1769; C1779; C1786; C1894; J0360; J0461; J0690; J1170; J1644; J1940; J2001; J2250; J2270; J3010; J3490; J7030; J7050; Q9967

== ENCOUNTER → 2020-05-12 08:37 | Outpatient (BNVA) | payer MEDICARE, OTHER, SELFPAY | PROVIDERS: PCP Family Medicine; Visit Provider Internal Medicine Cardiovascular Disease | DX: I50.9 Heart failure, unspecified (principal) | CPT/HCPCS: 80048 ==

== ENCOUNTER → 2020-05-26 09:39 | Outpatient (BNVA) | payer MEDICARE, OTHER, SELFPAY | PROVIDERS: PCP Family Medicine; Visit Provider Internal Medicine Cardiovascular Disease | DX: I50.9 Heart failure, unspecified (principal); N18.3 Chronic kidney disease, stage 3 (moderate); R79.89 Other specified abnormal findings of blood chemistry | CPT/HCPCS: 80048; 83880 ==

== ENCOUNTER → 2020-06-25 16:13 | Outpatient (BNVA) | payer MEDICARE, OTHER, SELFPAY | PROVIDERS: PCP Family Medicine; Visit Provider Internal Medicine Cardiovascular Disease | DX: R06.02 Shortness of breath (principal); N18.3 Chronic kidney disease, stage 3 (moderate); I50.33 Acute on chronic diastolic (congestive) heart failure; Z95.0 Presence of cardiac pacemaker; E03.9 Hypothyroidism, unspecified; I35.1 Nonrheumatic aortic (valve) insufficiency; R60.9 Edema, unspecified | CPT/HCPCS: 80048; 83880 ==

== ENCOUNTER → 2020-09-30 15:31 | Outpatient (BNVA) | payer MEDICARE, OTHER, SELFPAY | PROVIDERS: PCP Family Medicine; Visit Provider Internal Medicine Cardiovascular Disease | DX: R06.02 Shortness of breath (principal); I50.33 Acute on chronic diastolic (congestive) heart failure; I50.40 Unspecified combined systolic (congestive) and diastolic (congestive) heart failure; Z95.0 Presence of cardiac pacemaker; I35.1 Nonrheumatic aortic (valve) insufficiency; N18.31 Chronic kidney disease, stage 3a; R60.9 Edema, unspecified | CPT/HCPCS: 80048; 83880 ==

== ENCOUNTER → 2020-10-13 09:36 | Outpatient (BNVA) | payer MEDICARE, OTHER, SELFPAY | PROVIDERS: PCP Family Medicine; Visit Provider Internal Medicine Cardiovascular Disease | DX: N18.31 Chronic kidney disease, stage 3a (principal); I50.31 Acute diastolic (congestive) heart failure; I13.0 Hypertensive heart and chronic kidney disease with heart failure and stage 1 through stage 4 chronic kidney disease, or unspecified chronic kidney disease; R06.02 Shortness of breath | CPT/HCPCS: 80048; 83880 ==

== ENCOUNTER → 2020-12-01 13:20 | Outpatient (BNVA) | payer MEDICARE, OTHER, SELFPAY | PROVIDERS: PCP Family Medicine; Visit Provider Internal Medicine Cardiovascular Disease | DX: I50.31 Acute diastolic (congestive) heart failure (principal); I10 Essential (primary) hypertension; I35.1 Nonrheumatic aortic (valve) insufficiency | CPT/HCPCS: 80048; 83880 ==

== ENCOUNTER → 2020-12-15 09:12 | Outpatient (BNVA) | payer MEDICARE, OTHER, SELFPAY | PROVIDERS: PCP Family Medicine; Visit Provider Internal Medicine Cardiovascular Disease | DX: R06.02 Shortness of breath (principal); R60.9 Edema, unspecified | CPT/HCPCS: 80048; 83880 ==

== ENCOUNTER → 2021-03-05 08:41 | Outpatient (BNVA) | payer MEDICARE, OTHER, SELFPAY | PROVIDERS: PCP Family Medicine; Visit Provider Internal Medicine Cardiovascular Disease | DX: R06.02 Shortness of breath (principal); R60.9 Edema, unspecified; I50.31 Acute diastolic (congestive) heart failure; N18.31 Chronic kidney disease, stage 3a; R79.89 Other specified abnormal findings of blood chemistry; I10 Essential (primary) hypertension | CPT/HCPCS: 80048; 83880 ==

== ENCOUNTER 2021-03-17 09:58 | Outpatient (CLI) | payer MEDICARE, OTHER, SELFPAY ==
--- NOTE | 2021-03-17 10:09 | US_ITS ---
WS: [id number] RENAL ULTRASOUND HISTORY: CKD STAGE 4 COMPARISON: 04/08/2020 TECHNIQUE: 2-D and color Doppler imaging of the kidney submitted. Right kidney: 9.8 cm x 3.5 cm x 5.1 cm. Normal size kidney with very mild increased echogenicity. No hydronephrosis or mass. Left kidney: 9.1 cm x 4.0 cm x 5.4 cm. Normal size kidney with mild increased echogenicity. No hydronephrosis. Aorta: Normal. Urinary Bladder: Not well distended. US/US renal BI* [id number] IMPRESSION: Mild changes of chronic medical renal disease. No obstruction.
== END 2021-03-17 09:59 | disposition home or self-care (01) ==
LOC: RAD 10:00
PROVIDERS: PCP Family Medicine; Visit Provider Internal Medicine Nephrology
DX: N18.4 Chronic kidney disease, stage 4 (severe) (principal)
CPT/HCPCS: 76770

== ENCOUNTER → 2021-04-01 15:13 | Outpatient (BNVA) | payer MEDICARE, OTHER, SELFPAY | PROVIDERS: PCP Family Medicine; Visit Provider Internal Medicine Cardiovascular Disease | DX: R06.02 Shortness of breath (principal); I50.33 Acute on chronic diastolic (congestive) heart failure; I35.1 Nonrheumatic aortic (valve) insufficiency; R60.9 Edema, unspecified; Z95.0 Presence of cardiac pacemaker; I50.31 Acute diastolic (congestive) heart failure; N18.31 Chronic kidney disease, stage 3a | CPT/HCPCS: 80048; 83880 ==

== ENCOUNTER 2021-04-06 07:00 | Outpatient (CLI) | payer MEDICARE, OTHER, SELFPAY ==
[2021-04-06 07:09] VITALS: BMI 39.1
--- NOTE | 2021-04-06 08:09 | ECG_ITS ---
[facility] Date: 2021-04-06 Pat Name: Harley Viera Department: Room: Gender: Male Director Of Diagnostic Imaging: : 1945 Requested By: Alicia Rodriguez Order Number: [id number] Michael MD: Alicia Rodriguez M.D. Interpretive Statements NAME OF STUDY: LEXISCAN SESTAMIBI STRESS TEST INDICATION: Shortness of Breath, PROCEDURE: At the baseline, the EKG revealed demand A- V paced rhythm. The baseline blood pressure was 106/77 mm Hg with a heart rate of 62 beats/min. Lexiscan was infused over a period of 20 seconds. A total of 0.4 milligrams of Lexiscan was infused. The stress phase was continued for a total of 5 minutes. Heart rate at the end of the stress phase was 75 with a blood pressure 124/71. The EKG at the peak infusion revealed no significant changes. Sestamibi was injected 20 seconds after the Lexiscan infusion. Blood pressure at the end of the recovery phase was 140/74 with a heart rate of 84 per minute. CONCLUSION: 1. The EKG response to Lexiscan infusion is uninterpretable due to the pacing artifacts. 2. No LexiScan induced chest pain or cardiac arrhythmia 3. Normal blood pressure and heart rate response 4. Sestamibi/sestamibi perfusion scan pending; see separate report. Electronically Signed On 04-10-2021 16:11:20 CDT by Alicia Rodriguez M.D. [id number]
--- NOTE | 2021-04-06 08:09 | NMCV_ITS ---
NM moon perf SPECT r/s* [id number] Maximiliano Harley Age: 75 Gender: M : 1945 Exam Date: 04/06/2021 08:14 Ordering Phys: Alicia Rodriguez MD ([email or web address]) Technologist: LOUIS Mckinney Exam Location: [facility] Indications: SHORTNESS OF BREATH STRESS TEST Please see separate stress test report in [facility] for full findings IMAGE PROTOCOL Rest/Stress 1 Lexiscan Day Radiopharmaceutical Dose (mCi) Administration Site Administered by Rest: Tc-99m 10.8 IV LOUIS Persaud Sestamibi Stress:Tc-99m 32.9 IV LOUIS Persaud Sestamibi Rest: 06-Apr-2021 60 Discovery 630 Stress: 06-Apr-2021 30 Discovery 630 0.4mg Lexiscan. Images obtained in supine and prone position. SPECT RESULTS Technical Quality: Excellent Raw Data Analysis: Normal Image Corrections: No attenuation or motion correction applied Summed Stress Score: 0 Summed Rest Score: 0 Summed Difference Score: 0 PERFUSION FINDINGS Fairly uniform myocardial tracer uptake with no significant perfusion abnormalities FUNCTIONAL RESULTS (calculated via Gated SPECT) Stress Image LV EF (%): 69 Stress EDV (mL):133 TID: 1 Stress ESV (mL):41 FUNCTIONAL FINDINGS: Segmental wall motion analysis revealing no gross wall motion abnormalities. IMPRESSIONS 1. Unremarkable myocardial perfusion imaging. 2. LV ejection fraction estimated to be 69%. 3. LV wall motion analysis revealing no gross wall motion normalities. 4. Normal LV volume. No significant coronary ischemia, based on the above finding Dr Alicia Rodriguez MD FAC (Electronically Signed) Final Date: 06 April 2021 14:54 S
[2021-04-06 08:57] VITALS: BP 140/74; PULSE 93
[2021-04-06] MEDS: regadenoson 0.4 Mg/5 ml Syringe IVP (08:58)
== END 2021-04-06 07:01 | disposition home or self-care (01) ==
PROVIDERS: PCP Family Medicine; Visit Provider Internal Medicine Cardiovascular Disease
DX: R06.02 Shortness of breath (principal)
CPT/HCPCS: 78452; 93017; A9500; J2785

== ENCOUNTER → 2021-04-15 11:59 | Outpatient (BNVA) | payer MEDICARE, OTHER, SELFPAY | PROVIDERS: PCP Family Medicine; Visit Provider Internal Medicine Cardiovascular Disease | DX: I50.31 Acute diastolic (congestive) heart failure (principal); I50.9 Heart failure, unspecified | CPT/HCPCS: 80048; 83880 ==

== ENCOUNTER → 2021-04-28 09:49 | Outpatient (BNVA) | payer MEDICARE, OTHER, SELFPAY | PROVIDERS: PCP Family Medicine; Visit Provider Internal Medicine Cardiovascular Disease | DX: I50.22 Chronic systolic (congestive) heart failure (principal); N18.31 Chronic kidney disease, stage 3a; I10 Essential (primary) hypertension; I50.31 Acute diastolic (congestive) heart failure; R79.89 Other specified abnormal findings of blood chemistry; R60.9 Edema, unspecified; N17.9 Acute kidney failure, unspecified; R06.02 Shortness of breath | CPT/HCPCS: 80048; 83880 ==

== ENCOUNTER 2021-06-30 12:29 | Outpatient (CLI) | payer MEDICARE, OTHER, SELFPAY ==
[2021-06-30 13:50] LABS: Basophils # 0.1 10^3/uL (0.0-0.1); Basophils % 1.3 %; Eosinophils # 0.1 10^3/uL (0.0-0.8); Eosinophils % 1.5 %; Lymphocytes # 1.1 10^3/uL (0.8-4.8); Lymphocytes % 23.4 %; Mean Corpuscular HGB Conc 31.8 g/dL (30.0-36.0); Mean Corpuscular Hemoglobin 41.9 pg (28.0-34.0); Mean Corpuscular Volume 131.8 fl (80-94); Mean Platelet Volume 14.2 fL (7.4-10.4); Monocytes # 0.2 10^3/uL (0.2-0.9); Monocytes % 4.2 %; Neutrophils # 3.15 10^3/uL (1.8-7.7); Neutrophils % 68.9 %; Nucleated Red Blood Cells % 0 %; Platelet Count 224 10^3/cmm (130-400); Red Blood Count 1.48 10^6/uL (4.1-5.3); Red Cell Distribution Width 16.7 % (12.1-15.1); White Blood Count 4.6 10^3/uL (4.0-10.0)
[2021-06-30 14:21] LABS: Ferritin 540 ng/mL (30-400); Iron 149 ug/dL (59-158); Percent Saturation 66.2 % (20-50); Total Iron Binding Capacity 225 mcg/dl; Unsaturated Iron Binding 76 ug/dL (112-347)
[2021-06-30 14:33] LABS: Hematocrit 19.5 % (42.0-52.0); Hemoglobin 6.2 g/dL (11.7-16.6)
[2021-06-30 14:36] LABS: Vitamin B12 419 pg/mL (232-1245)
--- NOTE | 2021-06-30 15:21 | ONC CON_ITS ---
Dr. Mesa New Patient Note Patient: Harley Viera Unit #: [id number]: 1945 Dicatated By: Leno Mesa M.D.Date of Visit: Jun 30, 2021 Onc MED New Patient/Consult Referring Physician: Dr. Cal Burris M.D. History of Present Illness: Mr. Harley Viera is a 76-year-old gentleman with history of progressive dyspnea on exertion was recently evaluated by PMD on June 08, 2021 and lab work-up shows white blood count 4.9 hemoglobin 7.2 g hematocrit 22.4 platelets 297,000 and MCV 127.2 with a normal differential. As per patient, initially his physician referred him to pulmonology for abnormal chest x-ray but then he was asked to come to cancer center prior evaluation as his lab work-up showed low blood count. As per patient, he has been feeling very weak and fatigue, cannot walk few steps without getting shortness of breath, also developed progressive lower extremity edema for which he has been taking diuretics and recently he was informed 'slow kidney and referred to sourcing coordinator. 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 Patient denies smoking alcohol use, patient denies any night sweats or recurrent fever but weight loss probably due to diuretics. Patient denies any melena or hematochezia denies any hemoptysis hematemesis, denies any jaundice, denies any hematuria., Denies any peripheral numbness, denies any mouth sores, but sometimes lightheaded or dizziness. Denies any peripheral lymphadenopathy denies any abdominal fullness Past Medical History: Mr. Viera's medical history consists of hypertension. Past Surgical History: Mr. Viera's surgical/procedural history consists of BILATERAL HIP ARTHROPLASTY, PACEMAKER in 2019, and cyst removed from right arm in 2004. Medications: Daily Value Multivitamin 1 Tablet Oral daily, Furosemide 1 Tablet (of 40 mg) Oral t.i.d., Spironolactone 1 Tablet (of 25 mg) Oral daily Allergies: No Known Allergies. Social History: Mr. Viera is . Mr. Viera has never smoked. He has no history of drinking. Family History: Mr. Viera's mother at age 78: brain tumor. Mr. Viera's father at age 74: Cancer. Mr. Viera has 1 brother who is alive. He has 1 sister who is alive. Review Of Symptoms: Review of Systems is not available for this patient. Vital Signs: Performed on Jun 30, 2021 14:43: 8, 0, 38.47 (HIGH), 2.10 sq.m, 65 in, 99 %, 89 /min, 18 /min, 146/84 mm(hg) (HIGH), 96.9 F (LOW), and 231.2 lbs (HIGH). Performance Status: 2 - Ambulatory/capable of all self-care, unable to perform any work activities. Up and about more than 50% of waking hours. (ECOG) Physical Examination: ENMT - No mouth sores, no thrush, no jaundice, No cervical lymphadenopathy, Respiratory - Poor air entry otherwise clear, Cardiovascular - Regular rate and rhythm of heart, Abdomen - Soft, bowel sounds present, Extremities - Trace edema bilaterally. Lab/Imaging: Most recent lab results are not available for this patient. Impression: Macrocytic severe anemia etiology unclear could be nutritional like B12/folate deficiency or considering his age underlying myelodysplasia cannot be ruled out or chronic hemolysis. Dyspnea on exertion/generalized weakness and fatigue, probably due to up Hypertension Lower extremity edema, question of CHF or due to renal insufficiency or anemia, On diuretics Renal insufficiency Plan: Discussed with patient regarding his labs white blood count 4.6 hemoglobin 6.2 hematocrit 19.5 MCV 131.8, RBC 1.48 Platelets 224,000, iron saturation 66.2% ferritin 540, iron 149, TIBC 227, B12 419 Clinically, patient is in moderate to severe distress due to severe macrocytic anemia, at this point , we will send him to [facility] for Evaluation for inpatient care including type and cross and packed RBC transfusion. In the meantime, we will check RBC folate, reticulocyte count, peripheral blood smear, methylmalonic acid, homocystine level, haptoglobin, CMP including bilirubin level. And after reviewing above-mentioned work-up will make further recommendation if work-up remains inconclusive, will consider bone marrow evaluation to rule out underlying myelodysplasia Signed By: Leno Mesa M.D. <<Signature on File>>
[2021-06-30 15:22] LABS: Folate Level 18.7 ng/mL (4.5-32.2)
== END 2021-06-30 12:30 | disposition home or self-care (01) ==
LOC: ONCMED 12:39
PROVIDERS: PCP Family Medicine; Visit Provider Internal Medicine Hematology & Oncology
DX: D52.0 Dietary folate deficiency anemia (principal); R06.00 Dyspnea, unspecified; R53.1 Weakness; R53.83 Other fatigue; R60.0 Localized edema; N28.9 Disorder of kidney and ureter, unspecified; Z79.899 Other long term (current) drug therapy
CPT/HCPCS: 36415; 82607; 82728; 82746; 83540; 83550; 85025; 99205; 99285; G0378

== ENCOUNTER 2021-06-30 15:17 | Observation (INO) | payer MEDICARE, OTHER, SELFPAY ==
[2021-06-30] VITALS (14 sets, daily range): BP systolic 119–149; BP diastolic 72–91; PULSE 60–67; RESP 10–18; TEMP 36.6–36.9; O2SAT 97–100; BMI 38.4
--- NOTE | 2021-06-30 17:09 | W.ED.RECABL ---
Documented by User: Migue Dewey MD 07/02/21 20:52 HPI - Recheck/Abnormal Lab/Rx General: Chief Complaint: ER Hold Stated Complaint: ABNORMAL LABS: SENT BY DR OLEARY Time Seen by Provider: 06/30/21 17:08 History of Present Illness: HPI narrative: Mr Viera is a 76 year old gentleman with history of CKD, CAD, CHF who presents to ED due to abnormal lab. He reports a number of months of increasing fatigue and malaise. He has SOB but no CP or infectious symptoms. He saw oncology today for an initial appointment and was found to be anemia. Denies bruising, stool changes, hematuria. No known source of bleeding or similar episodes in the past. Symptoms have been worsening. Intensity is moderate. Worse fatigue with exertion but does not go away with rest. Nothing else reported. Review of Systems General: Reports: 10 or more systems reviewed and unremarkable except in HPI and below Narrative: CONSTITUTIONAL: denies fever, positive for fatigue, weakness EYES - denies pain, denies loss of vision EARS - denies ear issues. NOSE - denies congestion or rhinorrhea. THROAT - denies sore throat or difficulty swallowing. CARDIOVASCULAR - denies chest pain and palpitations RESPIRATORY - no cough. see hpi GASTROINTESTINAL - denies abdominal pain, no nausea vomiting, no changes in bowel habits GENITOURINARY - denies dysuria or urinary frequency MUSCULOSKELETAL- denies deformity or pain SKIN - denies rashes or new changed skin lesions NEUROLOGIC - denies focal weakness or sensory changes HEMATOLOGIC/LYMPHATIC - denies easy bruising or lymphadenopathy. [facility] ED PFSH: Medical History Acute diastolic heart failure Acute exacerbation of CHF (congestive heart failure) Aortic regurgitation Benign essential hypertension with target blood pressure below 140/90 BPH (benign prostatic hyperplasia) Cholelithiasis Chronic kidney disease, stage III (moderate) Diverticulitis of small bowel Dyslipidemia Edema, peripheral Elevated brain natriuretic peptide (BNP) level Grade III diastolic dysfunction EF 67% Mild pulmonary hypertension LVH Hypertension Hypothyroidism (acquired) Obesity Obesity (BMI 30-39.9) Pacemaker SOB (shortness of breath) Symptomatic bradycardia Systolic CHF Third degree heart block Thrombocytopenia Surgical History S/P cardiac cath Normal 2013 Procedure Procedure Type Diagnostic procedure:Miscellaneous, Perclose , Coronary Angiography Conclusions Procedure Summary 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 due to tumor surgery in the right arm right groin approach was adopted difficulty in access was encounter due to fatty tumors in the thigh, hematoma was observed, procedure was aborted since it was elective in order to avoid major bleeding in case we have to proceed with PCI.Patient was observed for next 24 hours did fine no further bleeding or hematoma observed.He was approached from left groin which remain successful next day.Patient was discharged home without any complication next day 1-LM is normal 2-LAD has luminal irregularities 3-LCx has luminal irregularities 4-RCA has luminal irregularities Status post biventricular pacemaker Family History Other Cancer Social History Smoking and tobacco status: never smoked Alcohol intake: never Household members: family Housing: House Physical Exam Narrative: EXAM NARRATIVE: GENERAL/CONSTITUTIONAL - well-appearing. No acute distress. Eyes - PERRL, no conjunctival injection ENMT - Atraumatic external nose and ears. Moist mucous membranes NECK - supple. trachea midline CARDIOVASCULAR - regular rate and rhythm. Peripheral pulses 2+ and equal RESPIRATORY -clear to auscultation bilaterally. No retractions or accessory muscle use. ABDOMEN/GI - Nontender/Nondistended. No tenderness to percussion or evidence of peritonitis MSK - Extremities without obvious deformity or tenderness to palpation SKIN - pale, Dry NEURO - alert and appropriately oriented. strength and sensation intact. Moves all extremities equally. PSYCH - Appropriate mood and affect Course ED course: - patient seen and evaluated by me at bedside - IV access obtianed, monitor - initial eval with no acute distress, non toxic, pallor present - labs notable for hemoglobin 6.2 - patient care handed off to Dr Booker pending completion of labs/imaging. Vital Signs: Vital signs: Vital Signs Temperature 97.7 F 07/01/21 01:31 Pulse Rate 65 07/01/21 07:52 Respiratory Rate 16 07/01/21 07:52 Blood Pressure 116/77 07/01/21 07:52 Pulse Oximetry 98 07/01/21 07:52 MDM - Recheck/Abnormal Lab/Rx Medical Records: Attestation: I reviewed the patient's medical records. Lab Data: Attestation: I reviewed the patient's lab results. Labs: Lab Results 06/30/21 06/30/21 06/30/21 Range/Units 18:40 18:40 18:40 WBC 4.3 (4.0-10.0) 10^3/ uL RBC 1.47 L (4.1-5.3) 10^6/u L Hgb 6.2 L* (11.7-16.6) g/dL Hct 19.9 L* (42.0-52.0) % MCV 135.4 H (80-94) fl MCH 42.2 H (28.0-34.0) pg MCHC 31.2 (30.0-36.0) g/dL RDW 16.8 H (12.1-15.1) % Plt Count 215 (130-400) 10^3/c mm MPV 14.1 H (7.4-10.4) fL Neut % (Auto) 61.9 % Lymph % (Auto) 29.9 % Black[place] % (Auto) 4.4 % Eos % (Auto) 2.1 % Baso % (Auto) 1.2 % Reticulocyte % (Au to) (0.5-2.0) % Neut # (Auto) 2.67 (1.8-7.7) 10^3/u L Lymph # (Auto) 1.3 (0.8-4.8) 10^3/u L [place] # (Auto) 0.2 (0.2-0.9) 10^3/u L Eos # (Auto) 0.1 (0.0-0.8) 10^3/u L Baso # (Auto) 0.1 (0.0-0.1) 10^3/u L Nucleated RBC % (a uto) 0 % Nucleated RBCs # 0.0 /100WBC PT 14.30 (12.1-14.9) SECO NDS INR 1.08 (0.8-1.2) APTT 37.4 H (23.9-36.7) SECO NDS Sodium (136-145) mmol/L Potassium (3.5-5.1) mmol/L Chloride (98-107) mmol/L Carbon Dioxide (22-29) mmol/L Anion Gap (5-19) BUN (8-23) mg/dL Creatinine (0.7-1.2) mg/dL GFR Calculation Glucose (65-115) mg/dL Calculated Osmolal ity (285-295) mOsm/k g Calcium (8.5-10.5) mg/dL Iron (59-158) ug/dL TIBC mcg/dl % Saturation (20-50) % Unsat Iron Binding (112-347) ug/dL Total Bilirubin (0.15-1.2) mg/dL AST (0-40) U/L ALT (0-41) U/L Alkaline Phosphata se (40-130) IU/L Troponin T Baselin e (0-15) ng/L Total Protein (6.6-8.7) g/dL Albumin (3.5-5.2) g/dL Globulin (1.3-4.6) g/dL Blood Type O Positive Rho(D) Type Positive Antibody Screen Negative Crossmatch See Detail 06/30/21 06/30/21 06/30/21 Range/Units 18:40 18:40 18:40 WBC (4.0-10.0) 10^3/ uL RBC (4.1-5.3) 10^6/u L Hgb (11.7-16.6) g/dL Hct (42.0-52.0) % MCV (80-94) fl MCH (28.0-34.0) pg MCHC (30.0-36.0) g/dL RDW (12.1-15.1) % Plt Count (130-400) 10^3/c mm MPV (7.4-10.4) fL Neut % (Auto) % Lymph % (Auto) % Blackford % (Auto) % Eos % (Auto) % Baso % (Auto) % Reticulocyte % (Au to) (0.5-2.0) % Neut # (Auto) (1.8-7.7) 10^3/u L Lymph # (Auto) (0.8-4.8) 10^3/u L [place] # (Auto) (0.2-0.9) 10^3/u L Eos # (Auto) (0.0-0.8) 10^3/u L Baso # (Auto) (0.0-0.1) 10^3/u L Nucleated RBC % (a uto) % Nucleated RBCs # /100WBC PT (12.1-14.9) SECO NDS INR (0.8-1.2) APTT (23.9-36.7) SECO NDS Sodium 138 (136-145) mmol/L Potassium 5.0 (3.5-5.1) mmol/L Chloride 103 (98-107) mmol/L Carbon Dioxide 24 (22-29) mmol/L Anion Gap 16.0 (5-19) BUN 26 H (8-23) mg/dL Creatinine 1.7 H (0.7-1.2) mg/dL GFR Calculation Not Reportable Glucose 93 (65-115) mg/dL Calculated Osmolal ity 290 (285-295) mOsm/k g Calcium 8.9 (8.5-10.5) mg/dL Iron 141 (59-158) ug/dL TIBC 232 mcg/dl % Saturation 60.7 H (20-50) % Unsat Iron Binding 91 L (112-347) ug/dL Total Bilirubin 0.3 (0.15-1.2) mg/dL AST 17 (0-40) U/L ALT 16 (0-41) U/L Alkaline Phosphata se 101 (40-130) IU/L Troponin T Baselin e 73 H (0-15) ng/L Total Protein 6.2 L (6.6-8.7) g/dL Albumin 3.9 (3.5-5.2) g/dL Globulin 2.3 (1.3-4.6) g/dL Blood Type Rho(D) Type Antibody Screen Crossmatch 06/30/21 Range/Units 18:40 WBC (4.0-10.0) 10^3/ uL RBC (4.1-5.3) 10^6/u L Hgb (11.7-16.6) g/dL Hct (42.0-52.0) % MCV (80-94) fl MCH (28.0-34.0) pg MCHC (30.0-36.0) g/dL RDW (12.1-15.1) % Plt Count (130-400) 10^3/c mm MPV (7.4-10.4) fL Neut % (Auto) % Lymph % (Auto) % [place] % (Auto) % Eos % (Auto) % Baso % (Auto) % Reticulocyte % (Au to) 2.6 H (0.5-2.0) % Neut # (Auto) (1.8-7.7) 10^3/u L Lymph # (Auto) (0.8-4.8) 10^3/u L [place] # (Auto) (0.2-0.9) 10^3/u L Eos # (Auto) (0.0-0.8) 10^3/u L Baso # (Auto) (0.0-0.1) 10^3/u L Nucleated RBC % (a uto) % Nucleated RBCs # /100WBC PT (12.1-14.9) SECO NDS INR (0.8-1.2) APTT (23.9-36.7) SECO NDS Sodium (136-145) mmol/L Potassium (3.5-5.1) mmol/L Chloride (98-107) mmol/L Carbon Dioxide (22-29) mmol/L Anion Gap (5-19) BUN (8-23) mg/dL Creatinine (0.7-1.2) mg/dL GFR Calculation Glucose (65-115) mg/dL Calculated Osmolal ity (285-295) mOsm/k g Calcium (8.5-10.5) mg/dL Iron (59-158) ug/dL TIBC mcg/dl % Saturation (20-50) % Unsat Iron Binding (112-347) ug/dL Total Bilirubin (0.15-1.2) mg/dL AST (0-40) U/L ALT (0-41) U/L Alkaline Phosphata se (40-130) IU/L Troponin T Baselin e (0-15) ng/L Total Protein (6.6-8.7) g/dL Albumin (3.5-5.2) g/dL Globulin (1.3-4.6) g/dL Blood Type Rho(D) Type Antibody Screen Crossmatch Discharge Plan Discharge Patient Disposition: Admitted As Inpatient Admit Provider: Priyanka Fall Clinical Impression: Anemia Qualifiers: Anemia type: unspecified type Qualified Code(s): D64.9 - Anemia, unspecified Condition: Stable Discharge Diet: Cardiac Discharge Activity: Resume usual activity Coding Level of Care Code ED Inflatable Buildings Laminator for Chg Fwd Exam Comprehensive Documented by User: Clemencia Booker MD 06/30/21 20:34 HPI - Recheck/Abnormal Lab/Rx General: Chief Complaint: ER Hold Stated Complaint: ABNORMAL LABS: SENT BY DR OLEARY Time Seen by Provider: 06/30/21 17:08 [facility] ED PFSH: Medical History Acute diastolic heart failure Acute exacerbation of CHF (congestive heart failure) Aortic regurgitation Benign essential hypertension with target blood pressure below 140/90 BPH (benign prostatic hyperplasia) Cholelithiasis Chronic kidney disease, stage III (moderate) Diverticulitis of small bowel Dyslipidemia Edema, peripheral Elevated brain natriuretic peptide (BNP) level Grade III diastolic dysfunction EF 67% Mild pulmonary hypertension LVH Hypertension Hypothyroidism (acquired) Obesity Obesity (BMI 30-39.9) Pacemaker SOB (shortness of breath) Symptomatic bradycardia Systolic CHF Third degree heart block Thrombocytopenia Surgical History S/P cardiac cath Normal 2013 Procedure Procedure Type Diagnostic procedure:Miscellaneous, Perclose , Coronary Angiography Conclusions Procedure Summary 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 due to tumor surgery in the right arm right groin approach was adopted difficulty in access was encounter due to fatty tumors in the thigh, hematoma was observed, procedure was aborted since it was elective in order to avoid major bleeding in case we have to proceed with PCI.Patient was observed for next 24 hours did fine no further bleeding or hematoma observed.He was approached from left groin which remain successful next day.Patient was discharged home without any complication next day 1-LM is normal 2-LAD has luminal irregularities 3-LCx has luminal irregularities 4-RCA has luminal irregularities Status post biventricular pacemaker Family History Other Cancer Social History Smoking and tobacco status: never smoked Alcohol intake: never Household members: family Housing: House Physical Exam Const: COMMON NORMALS: no acute distress, patient oriented x3 and healthy appearing HENMT: COMMON NORMALS: normocephalic and atraumatic HEAD & SCALP: normocephalic and atraumatic Eye: COMMON NORMALS: Equal, round and reactive pupils present and EOMs intact bilaterally PUPIL: Yes Equal, round and reactive pupils present Neck/C-Spine: COMMON NORMALS: full ROM and supple Chest: COMMONS NORMALS: normal inspection of the chest and normal palpation of entire chest wall Resp: COMMON NORMALS: normal respiratory effort, No retractions, No use of accessory muscles and clear to auscultation bilaterally AUSCULTATION: clear to auscultation bilaterally Cardio: COMMON NORMALS: regular rate, regular rhythm and No murmurs present (Cardio) RATE: regular rate RHYTHM: regular rhythm GI: COMMON NORMALS: Normal to inspection, nondistended, normoactive bowel sounds present, Soft to palpation, non-tender and no masses PALPATION: Yes Soft to palpation RECTAL EXAM: No Abnormal stool present and No heme positive stool Extremity: COMMON NORMALS: normal to inspection and full ROM Neuro: COMMON NORMALS: patient oriented x3, moves all extremities and no focal motor deficits Psych: COMMON NORMALS: mental status grossly normal, Normal thought process present and cooperative THOUGHT PROCESS: Normal thought process present Skin: COMMON NORMALS: no rashes or lesions noted and no wounds GENERAL SKIN EXAM: no rashes or lesions noted Course Vital Signs: Vital signs: Vital Signs Temperature 97.7 F 07/01/21 01:31 Pulse Rate 65 07/01/21 07:52 Respiratory Rate 16 07/01/21 07:52 Blood Pressure 116/77 07/01/21 07:52 Pulse Oximetry 98 07/01/21 07:52 MDM - Recheck/Abnormal Lab/Rx MDM Narrative: Medical decision making narrative: I took patient over from Dr. Everett. Patient is anemic with hemoglobin 6.2. Rectal exam here showed no blood in his stool no signs of bleeding. Will admit and transfuse. I spoke to Dr. Fall who is admitting. Lab Data: Labs: Lab Results 06/30/21 06/30/21 06/30/21 Range/Units 18:40 18:40 18:40 WBC 4.3 (4.0-10.0) 10^3/ uL RBC 1.47 L (4.1-5.3) 10^6/u L Hgb 6.2 L* (11.7-16.6) g/dL Hct 19.9 L* (42.0-52.0) % MCV 135.4 H (80-94) fl MCH 42.2 H (28.0-34.0) pg MCHC 31.2 (30.0-36.0) g/dL RDW 16.8 H (12.1-15.1) % Plt Count 215 (130-400) 10^3/c mm MPV 14.1 H (7.4-10.4) fL Neut % (Auto) 61.9 % Lymph % (Auto) 29.9 % Blackford % (Auto) 4.4 % Eos % (Auto) 2.1 % Baso % (Auto) 1.2 % Reticulocyte % (Au to) (0.5-2.0) % Neut # (Auto) 2.67 (1.8-7.7) 10^3/u L Lymph # (Auto) 1.3 (0.8-4.8) 10^3/u L [place] # (Auto) 0.2 (0.2-0.9) 10^3/u L Eos # (Auto) 0.1 (0.0-0.8) 10^3/u L Baso # (Auto) 0.1 (0.0-0.1) 10^3/u L Nucleated RBC % (a uto) 0 % Nucleated RBCs # 0.0 /100WBC PT 14.30 (12.1-14.9) SECO NDS INR 1.08 (0.8-1.2) APTT 37.4 H (23.9-36.7) SECO NDS Sodium (136-145) mmol/L Potassium (3.5-5.1) mmol/L Chloride (98-107) mmol/L Carbon Dioxide (22-29) mmol/L Anion Gap (5-19) BUN (8-23) mg/dL Creatinine (0.7-1.2) mg/dL GFR Calculation Glucose (65-115) mg/dL Calculated Osmolal ity (285-295) mOsm/k g Calcium (8.5-10.5) mg/dL Iron (59-158) ug/dL TIBC mcg/dl % Saturation (20-50) % Unsat Iron Binding (112-347) ug/dL Total Bilirubin (0.15-1.2) mg/dL AST (0-40) U/L ALT (0-41) U/L Alkaline Phosphata se (40-130) IU/L Troponin T Baselin e (0-15) ng/L Total Protein (6.6-8.7) g/dL Albumin (3.5-5.2) g/dL Globulin (1.3-4.6) g/dL Blood Type O Positive Rho(D) Type Positive Antibody Screen Negative Crossmatch See Detail 06/30/21 06/30/21 06/30/21 Range/Units 18:40 18:40 18:40 WBC (4.0-10.0) 10^3/ uL RBC (4.1-5.3) 10^6/u L Hgb (11.7-16.6) g/dL Hct (42.0-52.0) % MCV (80-94) fl MCH (28.0-34.0) pg MCHC (30.0-36.0) g/dL RDW (12.1-15.1) % Plt Count (130-400) 10^3/c mm MPV (7.4-10.4) fL Neut % (Auto) % Lymph % (Auto) % Blackford % (Auto) % Eos % (Auto) % Baso % (Auto) % Reticulocyte % (Au to) (0.5-2.0) % Neut # (Auto) (1.8-7.7) 10^3/u L Lymph # (Auto) (0.8-4.8) 10^3/u L [place]ford # (Auto) (0.2-0.9) 10^3/u L Eos # (Auto) (0.0-0.8) 10^3/u L Baso # (Auto) (0.0-0.1) 10^3/u L Nucleated RBC % (a uto) % Nucleated RBCs # /100WBC PT (12.1-14.9) SECO NDS INR (0.8-1.2) APTT (23.9-36.7) SECO NDS Sodium 138 (136-145) mmol/L Potassium 5.0 (3.5-5.1) mmol/L Chloride 103 (98-107) mmol/L Carbon Dioxide 24 (22-29) mmol/L Anion Gap 16.0 (5-19) BUN 26 H (8-23) mg/dL Creatinine 1.7 H (0.7-1.2) mg/dL GFR Calculation Not Reportable Glucose 93 (65-115) mg/dL Calculated Osmolal ity 290 (285-295) mOsm/k g Calcium 8.9 (8.5-10.5) mg/dL Iron 141 (59-158) ug/dL TIBC 232 mcg/dl % Saturation 60.7 H (20-50) % Unsat Iron Binding 91 L (112-347) ug/dL Total Bilirubin 0.3 (0.15-1.2) mg/dL AST 17 (0-40) U/L ALT 16 (0-41) U/L Alkaline Phosphata se 101 (40-130) IU/L Troponin T Baselin e 73 H (0-15) ng/L Total Protein 6.2 L (6.6-8.7) g/dL Albumin 3.9 (3.5-5.2) g/dL Globulin 2.3 (1.3-4.6) g/dL Blood Type Rho(D) Type Antibody Screen Crossmatch 06/30/21 Range/Units 18:40 WBC (4.0-10.0) 10^3/ uL RBC (4.1-5.3) 10^6/u L Hgb (11.7-16.6) g/dL Hct (42.0-52.0) % MCV (80-94) fl MCH (28.0-34.0) pg MCHC (30.0-36.0) g/dL RDW (12.1-15.1) % Plt Count (130-400) 10^3/c mm MPV (7.4-10.4) fL Neut % (Auto) % Lymph % (Auto) % [place]ford % (Auto) % Eos % (Auto) % Baso % (Auto) % Reticulocyte % (Au to) 2.6 H (0.5-2.0) % Neut # (Auto) (1.8-7.7) 10^3/u L Lymph # (Auto) (0.8-4.8) 10^3/u L [place]ford # (Auto) (0.2-0.9) 10^3/u L Eos # (Auto) (0.0-0.8) 10^3/u L Baso # (Auto) (0.0-0.1) 10^3/u L Nucleated RBC % (a uto) % Nucleated RBCs # /100WBC PT (12.1-14.9) SECO NDS INR (0.8-1.2) APTT (23.9-36.7) SECO NDS Sodium (136-145) mmol/L Potassium (3.5-5.1) mmol/L Chloride (98-107) mmol/L Carbon Dioxide (22-29) mmol/L Anion Gap (5-19) BUN (8-23) mg/dL Creatinine (0.7-1.2) mg/dL GFR Calculation Glucose (65-115) mg/dL Calculated Osmolal ity (285-295) mOsm/k g Calcium (8.5-10.5) mg/dL Iron (59-158) ug/dL TIBC mcg/dl % Saturation (20-50) % Unsat Iron Binding (112-347) ug/dL Total Bilirubin (0.15-1.2) mg/dL AST (0-40) U/L ALT (0-41) U/L Alkaline Phosphata se (40-130) IU/L Troponin T Baselin e (0-15) ng/L Total Protein (6.6-8.7) g/dL Albumin (3.5-5.2) g/dL Globulin (1.3-4.6) g/dL Blood Type Rho(D) Type Antibody Screen Crossmatch Discharge Plan Discharge Patient Disposition: Admitted As Inpatient Admit Provider: Priyanka Fall Clinical Impression: Anemia Qualifiers: Anemia type: unspecified type Qualified Code(s): D64.9 - Anemia, unspecified Condition: Stable Discharge Diet: Cardiac Discharge Activity: Resume usual activity Coding Level of Care Code ED Inflatable Buildings Laminator for Chg Fwd Exam Comprehensive
--- NOTE | 2021-06-30 17:16 | XRR_ITS ---
PROCEDURE INFORMATION: Exam: XR Chest Exam date and time: 06/30/2021 5:16 PM Age: 76 years old Clinical indication: Shortness of breath; Additional info: SOB TECHNIQUE: Imaging protocol: XR of the chest. Views: 1 view. COMPARISON: CR XR chest 1V [id number] 04/08/2020 5:21 AM FINDINGS: Tubes, catheters and devices: There is a dual-lead AICD with leads positioned in the right atrium and right ventricle. Lungs: Lungs are clear. Pleural spaces: There is no pleural effusion or pneumothorax. Heart/Mediastinum: There is mild enlargement of the cardiac silhouette. Bones/joints: Bones are unremarkable. XR/XR chest 1V portable [id number] IMPRESSION: No acute findings.
--- NOTE | 2021-06-30 17:16 | ECG_ITS ---
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 Measurements Intervals [place] Rate: 64 P: 67 VA: 172 QRS: -65 QRSD: 218 T: 113 QT: 496 QTc: 512 Interpretive Statements ELECTRONIC ATRIAL PACEMAKER ELECTRONIC VENTRICULAR PACEMAKER ABNORMAL RHYTHM ECG Compared to ECG 04/08/2020 06:21:02 No significant changes Electronically Signed On 07-02-2021 9:00:14 CDT by Codi Stanley M.D. [email or web address] GroupSomna Therapeuticsselect medical cleveland clinic rehabilitation [facility], ed[facility] shawBaton [place] V[facility] [employer]/store/[id number]
[2021-06-30 18:57] LABS: Basophils # 0.1 10^3/uL (0.0-0.1); Basophils % 1.2 %; Eosinophils # 0.1 10^3/uL (0.0-0.8); Eosinophils % 2.1 %; Lymphocytes # 1.3 10^3/uL (0.8-4.8); Lymphocytes % 29.9 %; Mean Corpuscular HGB Conc 31.2 g/dL (30.0-36.0); Mean Corpuscular Hemoglobin 42.2 pg (28.0-34.0); Mean Corpuscular Volume 135.4 fl (80-94); Mean Platelet Volume 14.1 fL (7.4-10.4); Monocytes # 0.2 10^3/uL (0.2-0.9); Monocytes % 4.4 %; Neutrophils # 2.67 10^3/uL (1.8-7.7); Neutrophils % 61.9 %; Nucleated Red Blood Cells % 0 %; Platelet Count 215 10^3/cmm (130-400); Red Blood Count 1.47 10^6/uL (4.1-5.3); Red Cell Distribution Width 16.8 % (12.1-15.1); White Blood Count 4.3 10^3/uL (4.0-10.0)
--- NOTE | 2021-06-30 19:16 | ECG_ITS ---
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 Measurements Intervals [place] Rate: 63 P: 73 AL: 178 QRS: -66 QRSD: 205 T: 117 QT: 492 QTc: 506 Interpretive Statements ELECTRONIC ATRIAL PACEMAKER ELECTRONIC VENTRICULAR PACEMAKER ABNORMAL RHYTHM ECG Compared to ECG 06/30/2021 17:48:20 No significant changes Electronically Signed On 07-02-2021 10:41:09 CDT by Codi Stanley M.D. [id number]
[2021-06-30 19:22] LABS: Hematocrit 19.9 % (42.0-52.0); Hemoglobin 6.2 g/dL (11.7-16.6)
[2021-06-30 19:25] LABS: Slide Review Slide Review Perform
[2021-06-30 19:30] LABS: Troponin(5th) Baseline 73 ng/L (0-15)
[2021-06-30 19:32] LABS: Alanine Aminotransferase 16 U/L (0-41); Albumin Level 3.9 g/dL (3.5-5.2); Alkaline Phosphatase 101 IU/L (40-130); Aspartate Amino Transferase 17 U/L (0-40); Blood Urea Nitrogen 26 mg/dL (8-23); Calcium 8.9 mg/dL (8.5-10.5); Carbon Dioxide 24 mmol/L (22-29); Chloride 103 mmol/L (98-107); Globulin 2.3 g/dL (1.3-4.6); Glucose 93 mg/dL (65-115); Osmolality Calculated 290 mOsm/kg (285-295); Sodium 138 mmol/L (136-145); Total Bilirubin 0.3 mg/dL (0.15-1.2); Total Protein 6.2 g/dL (6.6-8.7)
[2021-06-30 19:34] LABS: INR 1.08 (0.8-1.2)
[2021-06-30 19:35] LABS: Partial Thromboplastin Time 37.4 SECONDS (23.9-36.7)
[2021-06-30 19:59] LABS: Iron 141 ug/dL (59-158); Percent Saturation 60.7 % (20-50); Total Iron Binding Capacity 232 mcg/dl; Unsaturated Iron Binding 91 ug/dL (112-347)
[2021-06-30 21:03] LABS: Troponin 5 2HR 71.39 ng/L (0-15)
[2021-06-30 21:13] LABS: Troponin 5 2HR Delta -1.61 ABS# (0-10)
--- NOTE | 2021-06-30 21:46 | P.HP_ITS ---
Providers/Chief Complaint Admitting Physician: Priyanka Fall MD Primary Care Provider: Cal Burris MD Chief Complaint: ABNORMAL LABS: SENT BY DR OLEARY History of Present Illness Harley Viera is a 76 year old male sent to ER after being seen earlier today by hem/onc Dr. Oleary in the office for newly diagnosed anemia. He has a PMH of diastolic heart failure, dual-chamber pacemaker, peripheral edema, aortic regurgitation, and CKD stage 3, recently negative stress test in March 2021. He has been experiencing progressive dyspnea on exertion, worsening LE swelling, was recently evaluated by PMD on June 08, 2021 wherein he was noted to have hemoglobin 7.2. He was referred to see Dr. Oleary today, Hb noted to be 6.2, sent to ER for transfusion in view of symptomatic anemia. He denies any melena, hematochezia, hemoptysis hematemesis, denies any jaundice, denies any hematuria. Review of Systems General: Reports: 10 or more systems reviewed and unremarkable except in HPI and below Const: Denies: fever(s), chills or body aches Eyes: Denies: change in vision, blurry vision or photophobia ENMT: Reports: hoarseness; Denies: throat pain, enlarged tonsils, odynophagia or nasal congestion Card: Denies: chest pain, palpitations, irregular heart rhythm, edema, swelling of feet/ankles, lightheadedness, pre-syncope, dyspnea on exertion or orthopnea Resp: Denies: dyspnea, productive cough, non-productive cough, wheezing, stridor, pain on inspiration, change in phlegm color, hemoptysis or chest congestion GI: Denies: abdominal pain, nausea, vomiting, hematemesis, coffee ground emesis, dysphagia, heartburn, diarrhea, constipation, GI cramping, change in stool character, hematochezia or melena : Denies: flank pain, dysuria, urinary frequency, urinary urgency, urinary hesitancy or hematuria Musc: Denies: neck pain, back pain, extremity pain, joint swelling, joint warmth or deformity Neuro: Denies: headache(s), numbness in extremities, weakness in extremities, sensory changes, difficulty walking, frequent falls, dizziness, vertigo, behavio ral changes, Slurred speech present or seizure-like activity Psych: Denies: anxiety, depression, suicidal ideation or homicidal ideation Endo: Denies: polyuria, polydipsia, tired all the time, cold intolerance or hot flashes [place]/Lymph: Denies: easy bruising or easy bleeding Medications/Allergies Home Medications Medication Instructions Recorded Confirmed Last Taken Type spironolactone 25 mg PO DAILY 04/06/20 06/30/21 06/30/21 History furosemide 40 mg tablet 60 mg PO BID #90 tab 04/16/21 06/30/21 06/30/21 Rx magnesium L-lactate 84 mg 84 mg PO BID #60 tab 04/29/21 06/30/21 06/30/21 Rx tablet,extended release tyjawmaa-awr-SC-lycopen-lutein 1 tab PO DAILY 06/30/21 06/30/21 06/30/21 History [Centrum Silver Men] Allergies Allergy/AdvReac Type Severity Reaction Status Date / Time No Known Allergies Allergy Verified 06/30/21 15:42 PFSH Acute PFSH: Medical History Aortic regurgitation Benign essential hypertension with target blood pressure below 140/90 BPH (benign prostatic hyperplasia) Cholelithiasis Chronic kidney disease, stage III (moderate) Diverticulitis of small bowel Dyslipidemia Edema, peripheral Grade III diastolic dysfunction EF 67% Mild pulmonary hypertension LVH Hypertension Hypothyroidism (acquired) Obesity Pacemaker SOB (shortness of breath) Symptomatic bradycardia Thrombocytopenia Surgical History S/P cardiac cath Normal 2013 Procedure Procedure Type Diagnostic procedure:Miscellaneous, Perclose , Coronary Angiography Conclusions Procedure Summary 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 due to tumor surgery in the right arm right groin approach was adopted difficulty in access was encounter due to fatty tumors in the thigh, hematoma was observed, procedure was aborted since it was elective in order to avoid major bleeding in case we have to proceed with PCI.Patient was observed for next 24 hours did fine no further bleeding or hematoma observed.He was approached from left groin which remain successful next day.Patient was discharged home without any complication next day 1-LM is normal 2-LAD has luminal irregularities 3-LCx has luminal irregularities 4-RCA has luminal irregularities Family History Other Cancer Social History Smoking and tobacco status: never smoked Alcohol intake: never Household members: family Housing: House Vitals/I&O/Wt Last Vital Signs Pulse 61 06/30/21 17:56 Resp 18 06/30/21 17:56 BP 145/89 06/30/21 17:56 Pulse Ox 98 06/30/21 17:56 Weight last 48 hrs Weight 104.78 kg Physical Exam 2 Const: COMMON NORMALS: no acute distress, patient oriented x3 and alert HENMT: COMMON NORMALS: normocephalic and atraumatic HEAD & SCALP: normocephalic and atraumatic Eye: COMMON NORMALS: Equal, round and reactive pupils present, EOMs intact bilaterally, conjunctivae normal and no scleral icterus CONJUNCTIVA: Yes conjunctivae normal PUPIL: Yes Equal, round and reactive pupils present Neck/C-Spine: COMMON NORMALS: no JVD Resp: COMMON NORMALS: normal respiratory effort, No retractions, No use of acc essory muscles, clear to auscultation bilaterally and percussion normal AUSCULTATION: clear to auscultation bilaterally PERCUSSION: percussion normal Cardio: COMMON NORMALS: no JVD, regular rate, regular rhythm, S1 normal heart sound present, S2 normal heart sound present, No gallops present (Cardio), No clicks present (Cardio), No murmurs present (Cardio) and No rub (Cardio) RATE: regular rate RHYTHM: regular rhythm HEART SOUNDS: S1 normal heart sound present and S2 normal heart sound present PERIPHERAL PULSES: Peripheral pulses 2+ throughout GI: COMMON NORMALS: Normal to inspection, nondistended, normoactive bowel sounds present, Soft to palpation, non-tender, No hepatosplenomegaly present, no masses and no bruits Extremity: COMMON NORMALS: normal to inspection, full ROM, capillary refill normal, no joint enlargement, no clubbing, cyanosis or edema, no calf tenderness and no pedal edema Neuro: COMMON NORMALS: patient oriented x3, CN's II-XII intact bilaterally, moves all extremities, no focal motor deficits, no sensory deficits noted, deep tendon reflexes 2+ bilaterally and gait normal SENSORIUM/ORIENTATION: Yes alert Psych: COMMON NORMALS: mental status grossly normal, Normal thought process present, cooperative, normal affect, speech normal, activity/motor behavior normal, denies hallucinations, denies homicidal ideation and denies suicidal ideation SPEECH: Yes normal speech THOUGHT PROCESS: Normal thought process present Skin: COMMON NORMALS: no rashes or lesions noted, no wounds, turgor normal, no jaundice, no petechiae and no mottling GENERAL SKIN EXAM: no rashes or lesions noted and turgor normal Data : 06/30/21 18:40 06/30/21 18:40 A&P Assessment and plan (1) Anemia: Symptomatic anemia manifesting as fatigue, dyspnea Ordered 2PRBC from ER, transusion ongoing recheck H&H post transfusion FOBT negative today, denies any blood loss Check folate, reticulocyte count, peripheral blood smear, methylmalonic acid, homocystine level, haptoglobin, CMP including bilirubin level. Status: Acute Qualifiers: Anemia type: unspecified type Qualified Code(s): D64.9 - Anemia, unspecified Additional A&P Information diastolic CHF with chronic Le edema: States currently better than at baseline. Clinically appears to be euvolemic. Full code Attestations Medical Necessity Statement*: observation admission for blood transfusion for symptomatic anemia Coding Level of Care Code Acute [employer] [facility] Fwd Exam Comprehensive Diagnoses Anemia D64.9 Anemia type: unspecified type
[2021-06-30 22:24] LABS: Reticulocyte % 2.6 % (0.5-2.0)
[2021-06-30 22:44] LABS: LAB Peripheral Smear Sent for Review
[2021-06-30 22:52] LABS: Homocysteine 20.53
[2021-07-01] VITALS (13 sets, daily range): BP systolic 116–158; BP diastolic 72–113; PULSE 60–65; RESP 14–22; TEMP 36.5–36.7; O2SAT 98–99
[2021-07-01] MEDS: sodium chloride 0.9% (100 ml) 100 ML 10 ML (00:23)
[2021-07-01 04:39] LABS: Basophils # 0.1 10^3/uL (0.0-0.1); Basophils % 1.6 %; Eosinophils # 0.1 10^3/uL (0.0-0.8); Eosinophils % 2.3 %; Hematocrit 27.1 % (42.0-52.0); Hemoglobin 8.7 g/dL (11.7-16.6); Lymphocytes # 1.1 10^3/uL (0.8-4.8); Lymphocytes % 25.4 %; Mean Corpuscular HGB Conc 32.1 g/dL (30.0-36.0); Mean Corpuscular Hemoglobin 36.3 pg (28.0-34.0); Mean Corpuscular Volume 112.9 fl (80-94); Mean Platelet Volume 13.7 fL (7.4-10.4); Monocytes # 0.2 10^3/uL (0.2-0.9); Monocytes % 5.4 %; Neutrophils # 2.77 10^3/uL (1.8-7.7); Neutrophils % 64.6 %; Nucleated Red Blood Cells % 0 %; Platelet Count 232 10^3/cmm (130-400); White Blood Count 4.3 10^3/uL (4.0-10.0)
[2021-07-01 05:29] LABS: Slide Review Slide Review Perform
--- NOTE | 2021-07-01 07:57 | PC.NURSE ---
Breakfast food tray delivered to patient. Heart healthy tray.
[2021-07-01] MEDS: FUROsemide 40 mg Tablet 60 MG PO (09:55)
[2021-07-01] MEDS: spironolactone 25 mg Tablet PO (09:56)
[2021-07-01] MEDS: magnesium lactate 84 mg Tablet PO (09:56)
--- NOTE | 2021-07-01 11:16 | P.DS_ITS ---
Discharge Providers Date of Admission: 06/30/21 19:50 Date of Discharge: July 01, 2021 Attending Provider at Admission: Priyanka Fall MD Attending Provider at Discharge: Ted Sosa MD Primary Care Provider: Cal Burris MD Diagnoses at Discharge Discharge Diagnosis (1) Anemia: Status: Acute Qualifiers: Anemia type: unspecified type Qualified Code(s): D64.9 - Anemia, unspecified Reason for Visit Reason for Visit: ABNORMAL LABS: SENT BY DR OLEARY Hospital Course Hospital Course Harley Viera is a 76 year old male sent to ER after being seen earlier today by hem/onc Dr. Oleary in the office for newly diagnosed anemia. He has a PMH of diastolic heart failure, dual-chamber pacemaker, peripheral edema, aortic regurgitation, and CKD stage 3, recently negative stress test in March 2021. He has been experiencing progressive dyspnea on exertion, worsening LE swelling and was seen in Dr. Oleary's office yesterday when he was found to have a hemoglobin of 6.2. He was sent over to the ER for blood transfusion in view of symptomatic anemia. Patient denied any melena, hematochezia, hemoptysis, hematemesis. Denies any jaundice, hematuria or dark urine. He received 2 units of blood transfusion. Blood work was done which revealed normal iron levels, high iron saturation with low CT consistent with, folate and homocysteine levels, haptoglobin 131. His hemoglobin improved appropriately and was 8.7 the next morning. Recent echocardiogram done in March 2020 showed an EF 55% with abnormal septal motion secondary to AV pacing, thickened aortic valve with mild to moderate aortic regurgitation, mild TR. He has been discharged in hemodynamically stable condition advised to continue taking his home medications for now and to follow-up with his primary care provider and Dr. Oleary within 1 week. He is also advised to hold off on his antihypertensives for now. Advised to check his blood pressure twice daily and to take antihypertensives only if his blood pressures systolic are more than 140 mmHg. Physical Exam Const: COMMON NORMALS: no acute distress, patient oriented x3 and alert HENMT: COMMON NORMALS: normocephalic and atraumatic HEAD & SCALP: normocephalic and atraumatic Eye: COMMON NORMALS: Equal, round and reactive pupils present, EOMs intact bilaterally, conjunctivae normal and no scleral icterus CONJUNCTIVA: Yes conjunctivae normal PUPIL: Yes Equal, round and reactive pupils present Neck/C-Spine: COMMON NORMALS: no JVD Resp: COMMON NORMALS: normal respiratory effort, No retractions, No use of accessory muscles, clear to auscultation bilaterally and percussion normal AUSCULTATION: clear to auscultation bilaterally PERCUSSION: percussion normal Cardio: COMMON NORMALS: no JVD, regular rate, regular rhythm, S1 normal heart sound present, S2 normal heart sound present, No gallops present (Cardio), No clicks present (Cardio), No murmurs present (Cardio) and No rub (Cardio) RATE: regular rate RHYTHM: regular rhythm HEART SOUNDS: S1 normal heart sound present and S2 normal heart sound present GI: COMMON NORMALS: Normal to inspection, nondistended, normoactive bowel sounds present, Soft to palpation, non-tender, No hepatosplenomegaly present, no masses and no bruits PALPATION: Yes Soft to palpation and Yes No hepatosplenomegaly present Extremity: COMMON NORMALS: normal to inspection, full ROM, capillary refill normal, no joint enlargement, no clubbing, cyanosis or edema, no calf tenderness and no pedal edema Neuro: COMMON NORMALS: patient oriented x3, CN's II-XII intact bilaterally, moves all extremities, no focal motor deficits, no sensory deficits noted, deep tendon reflexes 2+ bilaterally and gait normal SENSORIUM/ORIENTATION: Yes alert Psych: COMMON NORMALS: mental status grossly normal, Normal thought process present, cooperative, normal affect, speech normal, activity/motor behavior normal, denies hallucinations, denies homicidal ideation and denies suicidal ideation SPEECH: Yes normal speech THOUGHT PROCESS: Normal thought process present Skin: COMMON NORMALS: no rashes or lesions noted, no wounds, turgor normal, no jaundice, no petechiae and no mottling GENERAL SKIN EXAM: no rashes or lesions noted and turgor normal Discharge Data Data Completed and Pending: Completed Studies During Hospitalization Category Date Time Status XR chest 1V dorothy ble [id number] Urgent Exams 06/30/21 17:16 Completed Pending at discharge Category Date Time Status Methylmalonic Aci d Routine Lab 06/30/21 21:41 Received Labs from last 24 hours 07/01/21 07/01/21 06/30/21 04:17 04:17 20:30 WBC 4.3 RBC 2.40 L Hgb 8.7 L D Hct 27.1 L D MCV 112.9 H D MCH 36.3 H D MCHC 32.1 RDW Not Reportable Plt Count 232 MPV 13.7 H Neut % (Auto) 64.6 Lymph % (Auto) 25.4 [place] % (Auto) 5.4 Eos % (Auto) 2.3 Baso % (Auto) 1.6 Reticulocyte % (Au to) Neut # (Auto) 2.77 Lymph # (Auto) 1.1 [place] # (Auto) 0.2 Eos # (Auto) 0.1 Baso # (Auto) 0.1 Nucleated RBC % (a uto) 0 Nucleated RBCs # 0.0 Haptoglobin 131.0 PT INR APTT Sodium Potassium Chloride Carbon Dioxide Anion Gap BUN Creatinine GFR Calculation Glucose Calculated Osmolal ity Calcium Iron TIBC % Saturation Unsat Iron Binding Total Bilirubin AST ALT Alkaline Phosphata se Troponin T Baselin e Troponin T 120 Min [place] Delta Troponin T Total Protein Albumin Globulin Methylmalonic Acid Pending Homocysteine 20.53 Blood Type Rho(D) Type Antibody Screen Crossmatch 06/30/21 06/30/21 06/30/21 20:30 18:40 18:40 WBC RBC Hgb Hct MCV MCH MCHC RDW Plt Count MPV Neut % (Auto) Lymph % (Auto) [place] % (Auto) Eos % (Auto) Baso % (Auto) Reticulocyte % (Au to) 2.6 H Neut # (Auto) Lymph # (Auto) [place] # (Auto) Eos # (Auto) Baso # (Auto) Nucleated RBC % (a uto) Nucleated RBCs # Haptoglobin PT INR APTT Sodium Potassium Chloride Carbon Dioxide Anion Gap BUN Creatinine GFR Calculation Glucose Calculated Osmolal ity Calcium Iron 141 TIBC 232 % Saturation 60.7 H Unsat Iron Binding 91 L Total Bilirubin AST ALT Alkaline Phosphata se Troponin T Baselin e Troponin T 120 Min [place] 71.39 H Delta Troponin T -1.61 L Total Protein Albumin Globulin Methylmalonic Acid Homocysteine Blood Type Rho(D) Type Antibody Screen Crossmatch 06/30/21 06/30/21 06/30/21 18:40 18:40 18:40 WBC RBC Hgb Hct MCV MCH MCHC RDW Plt Count MPV Neut % (Auto) Lymph % (Auto) [place] % (Auto) Eos % (Auto) Baso % (Auto) Reticulocyte % (Au to) Neut # (Auto) Lymph # (Auto) [place] # (Auto) Eos # (Auto) Baso # (Auto) Nucleated RBC % (a uto) Nucleated RBCs # Haptoglobin PT 14.30 INR 1.08 APTT 37.4 H Sodium 138 Potassium 5.0 Chloride 103 Carbon Dioxide 24 Anion Gap 16.0 BUN 26 H Creatinine 1.7 H GFR Calculation Not Reportable Glucose 93 Calculated Osmolal ity 290 Calcium 8.9 Iron TIBC % Saturation Unsat Iron Binding Total Bilirubin 0.3 AST 17 ALT 16 Alkaline Phosphata se 101 Troponin T Baselin e 73 H Troponin T 120 Min [place] Delta Troponin T Total Protein 6.2 L Albumin 3.9 Globulin 2.3 Methylmalonic Acid Homocysteine Blood Type Rho(D) Type Antibody Screen Crossmatch 06/30/21 06/30/21 18:40 18:40 WBC 4.3 RBC 1.47 L Hgb 6.2 L* Hct 19.9 L* MCV 135.4 H MCH 42.2 H MCHC 31.2 RDW 16.8 H Plt Count 215 MPV 14.1 H Neut % (Auto) 61.9 Lymph % (Auto) 29.9 [place] % (Auto) 4.4 Eos % (Auto) 2.1 Baso % (Auto) 1.2 Reticulocyte % (Au to) Neut # (Auto) 2.67 Lymph # (Auto) 1.3 [place] # (Auto) 0.2 Eos # (Auto) 0.1 Baso # (Auto) 0.1 Nucleated RBC % (a uto) 0 Nucleated RBCs # 0.0 Haptoglobin PT INR APTT Sodium Potassium Chloride Carbon Dioxide Anion Gap BUN Creatinine GFR Calculation Glucose Calculated Osmolal ity Calcium Iron TIBC % Saturation Unsat Iron Binding Total Bilirubin AST ALT Alkaline Phosphata se Troponin T Baselin e Troponin T 120 Min [place] Delta Troponin T Total Protein Albumin Globulin Methylmalonic Acid Homocysteine Blood Type O Positive Rho(D) Type Positive Antibody Screen Negative Crossmatch See Detail Addt'l Data from Hospital Stay: Laboratory Results WBC 4.3 10^3/uL (4.0- 10.0) 07/01/21 04:17 RBC 2.40 10^6/uL (4.1 -5.3) L 07/01/21 04:17 Hgb 8.7 g/dL (11.7-16 .6) L D 07/01/21 04:17 Hct 27.1 % (42.0-52.0 ) L D 07/01/21 04:17 MCV 112.9 fl (80-94) H D 07/01/21 04:17 MCH 36.3 pg (28.0-34. 0) H D 07/01/21 04:17 MCHC 32.1 g/dL (30.0-3 6.0) 07/01/21 04:17 RDW Not Reportable 07/01/21 04:17 Plt Count 232 10^3/cmm (130 -400) 07/01/21 04:17 MPV 13.7 fL (7.4-10.4 ) H 07/01/21 04:17 Neut % (Auto) 64.6 % 07/01/21 04:17 Lymph % (Auto) 25.4 % 07/01/21 04:17 [place] % (Auto) 5.4 % 07/01/21 04:17 Eos % (Auto) 2.3 % 07/01/21 04:17 Baso % (Auto) 1.6 % 07/01/21 04:17 Reticulocyte % (Au to) 2.6 % (0.5-2.0) H 06/30/21 18:40 Neut # (Auto) 2.77 10^3/uL (1.8 -7.7) 07/01/21 04:17 Lymph # (Auto) 1.1 10^3/uL (0.8- 4.8) 07/01/21 04:17 [place] # (Auto) 0.2 10^3/uL (0.2- 0.9) 07/01/21 04:17 Eos # (Auto) 0.1 10^3/uL (0.0- 0.8) 07/01/21 04:17 Baso # (Auto) 0.1 10^3/uL (0.0- 0.1) 07/01/21 04:17 Nucleated RBC % (a uto) 0 % 07/01/21 04:17 Nucleated RBCs # 0.0 /100WBC 07/01/21 04:17 Haptoglobin 131.0 mg/L (30-20 0) 06/30/21 20:30 PT 14.30 SECONDS (12 .1-14.9) 06/30/21 18:40 INR 1.08 (0.8-1.2) 06/30/21 18:40 APTT 37.4 SECONDS (23. 9-36.7) H 06/30/21 18:40 Sodium 138 mmol/L (136-1 45) 06/30/21 18:40 Potassium 5.0 mmol/L (3.5-5 .1) 06/30/21 18:40 Chloride 103 mmol/L (98-10 7) 06/30/21 18:40 Carbon Dioxide 24 mmol/L (22-29) 06/30/21 18:40 Anion Gap 16.0 (5-19) 06/30/21 18:40 BUN 26 mg/dL (8-23) H 06/30/21 18:40 Creatinine 1.7 mg/dL (0.7-1. 2) H 06/30/21 18:40 GFR Calculation Not Reportable 06/30/21 18:40 Glucose 93 mg/dL (65-115) 06/30/21 18:40 Calculated Osmolal ity 290 mOsm/kg (285- 295) 06/30/21 18:40 Calcium 8.9 mg/dL (8.5-10 .5) 06/30/21 18:40 Iron 141 ug/dL (59-158 ) 06/30/21 18:40 TIBC 232 mcg/dl 06/30/21 18:40 % Saturation 60.7 % (20-50) H 06/30/21 18:40 Unsat Iron Binding 91 ug/dL (112-347 ) L 06/30/21 18:40 Total Bilirubin 0.3 mg/dL (0.15-1 .2) 06/30/21 18:40 AST 17 U/L (0-40) 06/30/21 18:40 ALT 16 U/L (0-41) 06/30/21 18:40 Alkaline Phosphata se 101 IU/L (40-130) 06/30/21 18:40 Troponin T Baselin e 73 ng/L (0-15) H 06/30/21 18:40 Troponin T 120 Min [place] 71.39 ng/L (0-15) H 06/30/21 20:30 Delta Troponin T -1.61 ABS# (0-10) L 06/30/21 20:30 Total Protein 6.2 g/dL (6.6-8.7 ) L 06/30/21 18:40 Albumin 3.9 g/dL (3.5-5.2 ) 06/30/21 18:40 Globulin 2.3 g/dL (1.3-4.6 ) 06/30/21 18:40 Homocysteine 20.53 06/30/21 20:30 Blood Type O Positive 06/30/21 18:40 Rho(D) Type Positive 06/30/21 18:40 Antibody Screen Negative 06/30/21 18:40 Crossmatch See Detail 06/30/21 18:40 Impressions Chest X-Ray 06/30/21 17:16 IMPRESSION: No acute findings. Vitals: Last Vital Signs Temp 97.7 F 07/01/21 01:31 Pulse 65 07/01/21 07:52 Resp 16 07/01/21 07:52 BP 116/77 07/01/21 07:52 Pulse Ox 98 07/01/21 07:52 Discharge Plan Discharge Patient Disposition: Home Condition: Stable Prescriptions: Continued furosemide 40 mg tablet 60 mg PO BID Qty: 90 RF: 5 magnesium L-lactate [Magtab] 84 mg tablet extended release 84 mg PO BID Qty: 60 RF: 5 spironolactone 25 mg Tablet 25 mg PO DAILY RF: 0 Centrum Silver Men 300-600-300 mcg Tablet 1 tab PO DAILY RF: 0 Discharge Orders: Discharge Order (Routine); Ordered 07/01/21 Ordered By: Ted Sosa Referrals: Cal Burris MD [Primary Care Provider] - 7-10 days Leno Oleary MD [Staff Physician] - 4-7 days Discharge Diet: Cardiac Discharge Activity: Resume usual activity Patient Instructions: Opioid Safety Activity Restrictions/Additional Instructions: Please follow-up with your primary care provider Dr. Oleary within next 1 week. Continue to hold off antihypertensives for now. Check your blood pressure twice daily and maintain a blood pressure diary. Take antihypertensives only for systolic blood pressures over than 140 mm Hg. Discharge Attestations Time Spent in Discharge Care*: greater than 30 min Specific Discharge Activities: educating patient, discussing with pcp/other providers, discussing with pillowcase folder/social workers/dc planners, documenting/other paperwork and evaluating patient/reviewing data Status at Discharge: Cognitive status at discharge: cognitively intact , Behavioral status at discharge: cooperative , Functional status at discharge: independent ambulation Overall status at discharge: patient is back to baseline Quality Metrics Clinical Quality Measures During this hospital stay, did patient experience: None Coding Level of Care Code Acute [facility] FW DC note Diagnoses Anemia D64.9 Anemia type: unspecified type
--- NOTE | 2021-07-02 09:43 | PC.SOCIAL ---
discharge follow up call made. follow up appointments made and given to patient. patient reports he is feeling much better. no changes in medications.
[2021-07-04 23:32] LABS: Methylmalonic Acid 412 nmol/L (87-318)
== END 2021-07-01 11:45 | disposition home or self-care (01) ==
LOC: ER 19:52 → ER IP 20:18
PROVIDERS: Emergency Medicine; Physician Assistant; Absent Provider Internal Medicine Hematology & Oncology; Admitting Provider Student in an Organized Health Care Education/Training Program; Emergency Provider Emergency Medicine; PCP Family Medicine; Visit Provider Student in an Organized Health Care Education/Training Program
DX: D64.9 Anemia, unspecified (principal); Z95.0 Presence of cardiac pacemaker; N40.0 Benign prostatic hyperplasia without lower urinary tract symptoms; E78.5 Hyperlipidemia, unspecified; E03.9 Hypothyroidism, unspecified; E66.9 Obesity, unspecified; Z68.38 Body mass index [BMI] 38.0-38.9, adult; I13.0 Hypertensive heart and chronic kidney disease with heart failure and stage 1 through stage 4 chronic kidney disease, or unspecified chronic kidney disease; N18.30 Chronic kidney disease, stage 3 unspecified; I50.30 Unspecified diastolic (congestive) heart failure
CPT/HCPCS: 36415; 36430; 71045; 80053; 82607; 82728; 82746; 83010; 83090; 83540; 83550; 83921; 84484; 85025; 85045; 85610; 85730; 86850; 86900; 86920; 93005; 99205; 99285; G0378; P9016

== ENCOUNTER 2021-07-15 13:51 | Outpatient (CLI) | payer MEDICARE, OTHER, SELFPAY ==
[2021-07-15 14:58] LABS: Basophils # 0.1 10^3/uL (0.0-0.1); Basophils % 1.8 %; Eosinophils # 0.1 10^3/uL (0.0-0.8); Eosinophils % 2.4 %; Hematocrit 25.6 % (42.0-52.0); Hemoglobin 8.1 g/dL (11.7-16.6); Lymphocytes # 1.3 10^3/uL (0.8-4.8); Lymphocytes % 28.7 %; Mean Corpuscular HGB Conc 31.6 g/dL (30.0-36.0); Mean Corpuscular Hemoglobin 37.2 pg (28.0-34.0); Mean Corpuscular Volume 117.4 fl (80-94); Mean Platelet Volume 13.9 fL (7.4-10.4); Monocytes # 0.3 10^3/uL (0.2-0.9); Monocytes % 5.7 %; Neutrophils # 2.75 10^3/uL (1.8-7.7); Neutrophils % 60.7 %; Nucleated Red Blood Cells % 0 %; Platelet Count 235 10^3/cmm (130-400); Red Blood Count 2.18 10^6/uL (4.1-5.3); White Blood Count 4.5 10^3/uL (4.0-10.0)
[2021-07-15 15:26] LABS: Alanine Aminotransferase 16 U/L (0-41); Albumin Level 3.7 g/dL (3.5-5.2); Alkaline Phosphatase 115 IU/L (40-130); Anion Gap 15.7 (5-19); Aspartate Amino Transferase 17 U/L (0-40); Blood Urea Nitrogen 24 mg/dL (8-23); Calcium 8.7 mg/dL (8.5-10.5); Carbon Dioxide 23 mmol/L (22-29); Chloride 105 mmol/L (98-107); Ferritin 578 ng/mL (30-400); Globulin 2.5 g/dL (1.3-4.6); Glucose 95 mg/dL (65-115); Iron 131 ug/dL (59-158); Osmolality Calculated 292 mOsm/kg (285-295); Percent Saturation 62.9 % (20-50); Potassium 4.7 mmol/L (3.5-5.1); Sodium 139 mmol/L (136-145); Total Bilirubin 0.2 mg/dL (0.15-1.2); Total Iron Binding Capacity 208 mcg/dl; Total Protein 6.2 g/dL (6.6-8.7); Unsaturated Iron Binding 77 ug/dL (112-347)
[2021-07-15 16:28] LABS: Slide Review Slide Review Perform
--- NOTE | 2021-07-15 17:15 | ONC FU_ITS ---
Dr. Mesa follow up note Patient: Harley Viera Unit #: [id number]: 1945 Dicatated By: Leno Mesa M.D.Date of Visit:Jul 15, 2021 Onc Med Follow-up/Prog Note History of Present Illness: Mr. Harley Viera is a 76-year-old gentleman with history of progressive dyspnea on exertion was recently evaluated by PMD on June 08, 2021 and lab work-up shows white blood count 4.9 hemoglobin 7.2 g hematocrit 22.4 platelets 297,000 and MCV 127.2 with a normal differential. As per patient, initially his physician referred him to pulmonology for abnormal chest x-ray but then he was asked to come to cancer center prior evaluation as his lab work-up showed low blood count. As per patient, he has been feeling very weak and fatigue, cannot walk few steps without getting shortness of breath, also developed progressive lower extremity edema for which he has been taking diuretics and recently he was informed 'slow kidney and referred to [employer] consulting architect. 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 Patient denies smoking alcohol use, patient denies any night sweats or recurrent fever but weight loss probably due to diuretics. Patient denies any melena or hematochezia denies any hemoptysis hematemesis, denies any jaundice, denies any hematuria., Denies any peripheral numbness, denies any mouth sores, but sometimes lightheaded or dizziness. Denies any peripheral lymphadenopathy denies any abdominal fullness Came for follow-up denies any specific complaint except generalized weakness and fatigue, patient was recently admitted to hospital with severe macrocytic anemia and received 2 units of blood transfusion and felt so good, and hemoglobin gone up to 8.7 g. Patient denies any melena or hematochezia denies any hemoptysis hematemesis denies any jaundice, denies any abdominal pain denies any night sweats but dyspnea on exertion. Medications: Daily Value Multivitamin 1 Tablet Oral daily, Furosemide 1 Tablet (of 40 mg) Oral t.i.d., Spironolactone 1 Tablet (of 25 mg) Oral daily Allergies: No Known Allergies. Review of Systems: Review of Systems is not available for this patient. Vital Signs: Performed on Jul 15, 2021 16:16 Height - 65.00 in Weight - 234 lbs (HIGH) BSA - 2.11 sq.m BMI - 38.94 (HIGH) Temperature - 97.2 F (LOW) Pulse - 90 /min Respiration - 18 /min BP - 149/86 mm(hg) (HIGH) O2 Sat - 99 % Pain - 0 Fatigue - 8 Performance Status: 1 - No physically strenuous activity, but ambulatory and able to carry out light or sedentary work (e.g. office work, light house work). (ECOG) Physical Examination: ENMT - No mouth sores, no thrush, no jaundice, No cervical or axillary lymphadenopathy, Respiratory - Lungs are clear to auscultation, Cardiovascular - Regular rate and rhythm of heart, Abdomen - Soft, bowel sounds present, Extremities - No visible edema. Lab/Imaging: Most recent lab results are not available for this patient. Impression: Macrocytic severe anemia etiology unclear could be nutritional like B12/folate deficiency or considering his age underlying myelodysplasia cannot be ruled out or chronic hemolysis. iron saturation 62.9% ferritin 578 folic acid 18.7 iron 131 TIBC 208 vitamin B-12 419 haptoglobin 131 Dyspnea on exertion/generalized weakness and fatigue, probably due to up Hypertension Lower extremity edema, question of CHF or due to renal insufficiency or anemia, On diuretics Renal insufficiency Plan: Discussed with patient regarding his labs, white blood count 4.5 hemoglobin 8.1, hematocrit 25.6 MCV 117.4 platelets 235,000 CMP within normal limit except creatinine 1.6 iron saturation 62.9% ferritin 578 folic acid 18.7 iron 131 TIBC 208 vitamin B-12 419 haptoglobin 131 Clinically, patient is doing well and mild to moderate distress due to progressive generalized weakness and fatigue, his repeat CBC shows hemoglobin 8.1 g compared to 8.7 g after blood transfusion, patient has no evidence of gross bleeding or hemolysis, etiology of microcytic anemia As his anemia work-up remained inconclusive,,most likely due to underlying myelodysplasia and on peripheral blood smear there was evidence of few immature cell, he may have underlying myelodysplasia with excess blast or leukemia so at this point will consider bone marrow evaluation and review histopathology, flow cytometry and cytogenetics and FISH for MDS and leukemia panel. As patient has progressive symptoms like generalized weakness and fatigue, will repeat his CBC in the morning and if there is a further drop in his hemoglobin will consider 2 units of packed RBC while being scheduled for bone marrow evaluation.And then he will return to clinic 10 days after bone marrow evaluation unless prelim report shows acute leukemia, then we will refer him to tertiary care center for evaluation and management Signed By: Leno Mesa M.D. <<Signature on File>>
== END 2021-07-15 13:52 | disposition home or self-care (01) ==
PROVIDERS: PCP Family Medicine; Visit Provider Internal Medicine Hematology & Oncology
DX: D51.9 Vitamin B12 deficiency anemia, unspecified (principal); E53.8 Deficiency of other specified B group vitamins; R06.00 Dyspnea, unspecified; R53.1 Weakness; R53.82 Chronic fatigue, unspecified; I10 Essential (primary) hypertension; R60.0 Localized edema; N28.9 Disorder of kidney and ureter, unspecified; Z79.899 Other long term (current) drug therapy
CPT/HCPCS: 36415; 80053; 82728; 83540; 83550; 85025; 99214

== ENCOUNTER 2021-07-16 08:11 | Outpatient (CLI) | payer MEDICARE, OTHER, SELFPAY ==
[2021-07-16] MEDS: cyanocobalamin 1,000 mcg/mL SDV 1000 MCG SUBCUT (08:40)
[2021-07-16 08:56] LABS: Basophils # 0.1 10^3/uL (0.0-0.1); Basophils % 1.9 %; Eosinophils # 0.1 10^3/uL (0.0-0.8); Eosinophils % 3.1 %; Hematocrit 26.4 % (42.0-52.0); Hemoglobin 8.3 g/dL (11.7-16.6); Lymphocytes # 1.3 10^3/uL (0.8-4.8); Lymphocytes % 30.4 %; Mean Corpuscular HGB Conc 31.4 g/dL (30.0-36.0); Mean Corpuscular Hemoglobin 36.7 pg (28.0-34.0); Mean Corpuscular Volume 116.8 fl (80-94); Mean Platelet Volume 13.2 fL (7.4-10.4); Monocytes # 0.2 10^3/uL (0.2-0.9); Monocytes % 4.1 %; Neutrophils # 2.48 10^3/uL (1.8-7.7); Neutrophils % 59.8 %; Nucleated Red Blood Cells % 0 %; Platelet Count 240 10^3/cmm (130-400); Red Blood Count 2.26 10^6/uL (4.1-5.3); White Blood Count 4.2 10^3/uL (4.0-10.0)
== END 2021-07-16 08:12 | disposition home or self-care (01) ==
PROVIDERS: PCP Family Medicine; Visit Provider Internal Medicine Hematology & Oncology
DX: D53.9 Nutritional anemia, unspecified (principal); Z79.899 Other long term (current) drug therapy
CPT/HCPCS: 36415; 85025; 86850; 86900; 96372; J3420

== ENCOUNTER 2021-07-21 09:27 | Day surgery (SDC) | payer MEDICARE, OTHER, SELFPAY ==
[2021-07-17 12:06] VITALS: BMI 38.2
[2021-07-21 09:50] VITALS: BP 139/91; PULSE 71; RESP 18; TEMP 36.6; O2SAT 99
[2021-07-21] MEDS: sodium chloride 0.9% 1,000 ML 30 ML IV (10:01)
[2021-07-21 10:13] LABS: Basophils # 0.1 10^3/uL (0.0-0.1); Basophils % 1.7 %; Eosinophils # 0.1 10^3/uL (0.0-0.8); Eosinophils % 2.1 %; Hematocrit 26.8 % (42.0-52.0); Hemoglobin 8.5 g/dL (11.7-16.6); Lymphocytes # 1.2 10^3/uL (0.8-4.8); Lymphocytes % 26.2 %; Mean Corpuscular HGB Conc 31.7 g/dL (30.0-36.0); Mean Corpuscular Hemoglobin 37.6 pg (28.0-34.0); Mean Corpuscular Volume 118.6 fl (80-94); Mean Platelet Volume 13.6 fL (7.4-10.4); Monocytes # 0.2 10^3/uL (0.2-0.9); Monocytes % 4.2 %; Neutrophils # 3.09 10^3/uL (1.8-7.7); Neutrophils % 65.2 %; Nucleated Red Blood Cells % 0 %; Platelet Count 231 10^3/cmm (130-400); Red Blood Count 2.26 10^6/uL (4.1-5.3); White Blood Count 4.7 10^3/uL (4.0-10.0)
[2021-07-21 10:41] LABS: Slide Review Slide Review Perform
--- NOTE | 2021-07-21 10:47 | P.ANESASSM_ITS ---
Pre-Anesthetic Assessment Pre-Anesthetic Assessment: Height/Weight: Height 1.65 m Weight 104.326 kg Temp Pulse Resp BP Pulse Ox 97.9 F 71 18 139/91 99 07/21/21 09:50 07/21/21 09:50 07/21/21 09:50 07/21/21 09:50 07/21/21 09:50 Preop Diagnosis: Symptomatic bradycardia/third-degree heart block Proposed Procedure: Operation Date: 07/21/21 11:00 Proposed Procedures p Bone Marrow Biospy With Aspiration(Not Applicable) - Leno Mesa MD Was Beta Obdulio taken within 24 hours: N/A Was Clonidine taken within 24 hours: N/A Last intake: Intake Last Liquid Date 07/20/21 Last Liquid Time 20:30 Last Solid Date 07/20/21 Last Solid Time 20:30 Social: Social History: No alcohol and No tobacco Exam: Pre-Anes Outpt Exam: alert, oriented x 3 and clear to auscultation bilaterally Airway: Submandibular: Other Cervical ROM: Other MP: 3 Dentition: Chipped and Other Additional comments: Very poor dentition, w cracks, fractures and missing teeth; none appear loose History/ROS: No significant complaints Pulmonary: Pulmonary: MORALES, PND and SOB CV/HEM: CV/HEM: Anemia and HTN Comments: Stopped HTN meds 2/2 light headedness, near faint, and documented hypotension : : None reported Hepatic: Hepatic: None reported GI: GI: None reported Metabolic: Metabolic: Morbid obesity Musc/skel: Musc/skel: None reported Neuropsych: Neuropsych: None reported Anesthetic Plan: ASA status: 4 Anesthesia: Anesthesia Evaluation and Choice Risk of > 500 ml blood loss (7ml/kg in children): No Meds/Allergies Current Medications: Current Medications Generic Name Dose Route Start Last Admin Trade Name Freq PRN Reason Stop Dose Admin Sodium Chloride 1,000 mls @ 30 ml s/hr 07/21/21 09:45 07/21/21 10:01 Sodium Chloride 0.9% IV 07/22/21 09:44 30 mls/hr .Q24H RALF Administration PFSH Anesthesia PFSH: Medical History Acute diastolic heart failure Acute exacerbation of CHF (congestive heart failure) Aortic regurgitation Benign essential hypertension with target blood pressure below 140/90 BPH (benign prostatic hyperplasia) Cholelithiasis Chronic kidney disease, stage III (moderate) Diverticulitis of small bowel Dyslipidemia Edema, peripheral Elevated brain natriuretic peptide (BNP) level Grade III diastolic dysfunction EF 67% Mild pulmonary hypertension LVH Hypertension Hypothyroidism (acquired) Obesity Obesity (BMI 30-39.9) Pacemaker SOB (shortness of breath) Symptomatic bradycardia Systolic CHF Third degree heart block Thrombocytopenia Surgical History S/P cardiac cath Normal 2013 Procedure Procedure Type Diagnostic procedure:Miscellaneous, Perclose , Coronary Angiography Conclusions Procedure Summary 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 due to tumor surgery in the right arm right groin approach was adopted difficulty in access was encounter due to fatty tumors in the thigh, hematoma was observed, procedure was aborted since it was elective in order to avoid major bleeding in case we have to proceed with PCI.Patient was observed for next 24 hours did fine no further bleeding or hematoma observed.He was approached from left groin which remain successful next day.Patient was discharged home without any complication next day 1-LM is normal 2-LAD has luminal irregularities 3-LCx has luminal irregularities 4-RCA has luminal irregularities Status post biventricular pacemaker Family History Other Cancer Social History Smoking and tobacco status: never smoked Alcohol intake: never Household members: family Housing: House Data Anesthesia CBC & Chem 7: 07/21/21 09:58 Other Labs: Laboratory Results - last 48 hr 07/21/21 09:58 WBC 4.7 RBC 2.26 L Hgb 8.5 L Hct 26.8 L MCV 118.6 H MCH 37.6 H MCHC 31.7 RDW Plt Count 231 MPV 13.6 H Neut % (Auto) 65.2 Lymph % (Auto) 26.2 [place] % (Auto) 4.2 Eos % (Auto) 2.1 Baso % (Auto) 1.7 Neut # (Auto) 3.09 Lymph # (Auto) 1.2 [place] # (Auto) 0.2 Eos # (Auto) 0.1 Baso # (Auto) 0.1 Nucleated RBC % (auto) 0 Nucleated RBCs # 0.0 Cardiac Studies: No Data to Display
--- NOTE | 2021-07-21 11:16 | W.PM.OPSUD ---
Surgery/Procedure H&P Update DATE OF PROCEDURE: July 21, 2021 DATE H&P PERFORMED: 07/15/21 PREOP DIAGNOSIS: Symptomatic bradycardia/third-degree heart block PLANNED PROCEDURE: Operation Date: 07/21/21 11:00 Proposed Procedures p Bone Marrow Biospy With Aspiration(Not Applicable) - Leno Mesa MD Patient seen and did limp with exam labs reviewed no significant change since last visit I will proceed with bone marrow evaluation for macrocytic anemia
--- NOTE | 2021-07-21 11:51 | P.PCN_ITS ---
Bone Marrow Biopsy Bone Marrow Biopsy: I was consulted by [] office regarding bone marrow biopsy on [Harley Viera]. Briefly, the patient is a [76] year old [male] with [macrocytic anemia]. In the Outpatient Services Department, with nursing staff and laboratory technologists in attendance, the procedure was discussed with the patient. Appropriate consent form had been signed. Appropriate alternatives, benefits and risks of procedure were discussed with the patient and he was pre- operatively assessed with a history and physical by myself and cleared for the biopsy procedure. The patient did request IV sedation and that was provided by the Anesthesia Department. And under aseptic condition right posterior iliac area was cleaned and prepared, local anesthesia was given, about 15 cc of bone marrow aspirate and core biopsy was obtained, patient tolerated procedure well, hemostasis was obtained, specimen was sent for routine histopathology, flow cytometry/cytogenetic and FISH for MDS and leukemia panel. Postprocedure nursing instructions were given Thank you for allowing me to participate in this patient's care and diagnosis. Coding Level of Care Code Acute Resource Recovery Engineer for Vonda Sin
[2021-07-21 11:53] VITALS: BP 108/63; PULSE 64; RESP 16; TEMP 36.1; O2SAT 100
--- NOTE | 2021-07-21 12:02 | PC.NURSE ---
Pressure dressing and 4x4s applied to incision site. Will continue to monitor for bleeding for at least 30 mins. No c/o pain or nausea at this time.
[2021-07-21 12:10] VITALS: BP 148/76; PULSE 60; RESP 16; O2SAT 99
[2021-07-24 10:16] LABS: Miscellaneous Test See Scanned Lab Rpt
[2021-07-28 07:05] LABS: Miscellaneous Test See Scanned Lab Rpt
[2021-07-28 07:08] LABS: Miscellaneous Test See Scanned Lab Rpt
== END 2021-07-21 13:02 | disposition home or self-care (01) ==
PROVIDERS: PCP Family Medicine; Visit Provider Internal Medicine Hematology & Oncology
PROC: 07DT3ZX Extraction of Bone Marrow, Percutaneous Approach, Diagnostic (ICD-10-PCS; CPT 38222; principal; 2021-07-21 11:00)
DX: D53.9 Nutritional anemia, unspecified (principal); E66.01 Morbid (severe) obesity due to excess calories; Z68.38 Body mass index [BMI] 38.0-38.9, adult; N40.0 Benign prostatic hyperplasia without lower urinary tract symptoms; I13.0 Hypertensive heart and chronic kidney disease with heart failure and stage 1 through stage 4 chronic kidney disease, or unspecified chronic kidney disease; N18.30 Chronic kidney disease, stage 3 unspecified; I50.20 Unspecified systolic (congestive) heart failure; E03.9 Hypothyroidism, unspecified; E66.9 Obesity, unspecified; Z95.0 Presence of cardiac pacemaker
CPT/HCPCS: 36415; 38222; 85025; 88184; 88185; 88237; 88264; 88305; 88311; 88367; 88374; 96360; 96361; J2704; J7030

== ENCOUNTER 2021-07-27 14:11 | Outpatient (CLI) | payer MEDICARE, OTHER, SELFPAY ==
[2021-07-27 15:30] LABS: Basophils # 0.1 10^3/uL (0.0-0.1); Basophils % 1.3 %; Eosinophils # 0.1 10^3/uL (0.0-0.8); Eosinophils % 1.7 %; Hematocrit 24.5 % (42.0-52.0); Hemoglobin 7.8 g/dL (11.7-16.6); Lymphocytes # 1.4 10^3/uL (0.8-4.8); Lymphocytes % 23.3 %; Mean Corpuscular HGB Conc 31.8 g/dL (30.0-36.0); Mean Corpuscular Hemoglobin 37.1 pg (28.0-34.0); Mean Corpuscular Volume 116.7 fl (80-94); Mean Platelet Volume 13.9 fL (7.4-10.4); Monocytes # 0.3 10^3/uL (0.2-0.9); Monocytes % 4.8 %; Neutrophils # 4.09 10^3/uL (1.8-7.7); Neutrophils % 68.2 %; Nucleated Red Blood Cells % 0 %; Platelet Count 239 10^3/cmm (130-400)
[2021-07-27 17:34] LABS: Add RBC Morph Yes
[2021-07-27 17:35] LABS: Anisocytosis 2+; Poikilocytosis Trace
[2021-07-27 17:36] LABS: Macrocytosis 2+; Ovalocytes 1+; Pathology Refferal No; RBC Morph Comp Yes; Spherocytes Trace; Tear Drop Cells 1+
== END 2021-07-27 14:12 | disposition home or self-care (01) ==
LOC: ONCMED 14:14
PROVIDERS: PCP Family Medicine; Visit Provider Internal Medicine Hematology & Oncology
DX: D53.9 Nutritional anemia, unspecified (principal); Z79.899 Other long term (current) drug therapy
CPT/HCPCS: 36415; 85025

== ENCOUNTER 2021-07-28 08:56 | Outpatient (CLI) | payer MEDICARE, OTHER, SELFPAY ==
[2021-07-28] VITALS (9 sets, daily range): BP systolic 125–148; BP diastolic 70–85; PULSE 60; RESP 18; TEMP 36–36.5; O2SAT 97–99
[2021-07-28] MEDS: acetaminophen 325 mg Tablet 650 MG PO (09:35)
[2021-07-28] MEDS: diphenhydrAMINE 25 mg Capsule PO (09:35)
[2021-07-28] MEDS: sodium chloride 0.9% 250 ML 999 ML IV (09:35)
[2021-07-28] MEDS: FUROsemide 10 mg/mL SDV 2mL 20 MG IV (11:20)
== END 2021-07-28 08:57 | disposition home or self-care (01) ==
LOC: ONCMED 08:58
PROVIDERS: PCP Family Medicine; Visit Provider Internal Medicine Hematology & Oncology
DX: D53.9 Nutritional anemia, unspecified (principal); R06.09 Other forms of dyspnea; R60.0 Localized edema; N28.9 Disorder of kidney and ureter, unspecified; Z79.899 Other long term (current) drug therapy
CPT/HCPCS: 36430; 86850; 86900; 86920; J1940; J7050; P9016

== ENCOUNTER 2021-08-04 06:37 | Outpatient (CLI) | payer MEDICARE, OTHER, SELFPAY ==
[2021-08-04 11:39] LABS: Basophils # 0.1 10^3/uL (0.0-0.1); Basophils % 1.4 %; Eosinophils # 0.1 10^3/uL (0.0-0.8); Eosinophils % 1.8 %; Hematocrit 29.9 % (42.0-52.0); Hemoglobin 9.7 g/dL (11.7-16.6); Lymphocytes % 20.4 %; Mean Corpuscular HGB Conc 32.4 g/dL (30.0-36.0); Mean Corpuscular Hemoglobin 35.1 pg (28.0-34.0); Mean Corpuscular Volume 108.3 fl (80-94); Mean Platelet Volume 13.7 fL (7.4-10.4); Monocytes # 0.2 10^3/uL (0.2-0.9); Monocytes % 4.5 %; Neutrophils # 3.46 10^3/uL (1.8-7.7); Neutrophils % 70.7 %; Nucleated Red Blood Cells % 0 %; Platelet Count 220 10^3/cmm (130-400); Red Blood Count 2.76 10^6/uL (4.1-5.3); Red Cell Distribution Width 24.3 % (12.1-15.1); White Blood Count 4.9 10^3/uL (4.0-10.0)
[2021-08-04 12:05] LABS: Alanine Aminotransferase 19 U/L (0-41); Albumin Level 3.7 g/dL (3.5-5.2); Alkaline Phosphatase 120 IU/L (40-130); Anion Gap 14.9 (5-19); Aspartate Amino Transferase 15 U/L (0-40); Blood Urea Nitrogen 28 mg/dL (8-23); Calcium 8.7 mg/dL (8.5-10.5); Carbon Dioxide 23 mmol/L (22-29); Chloride 104 mmol/L (98-107); Ferritin 614 ng/mL (30-400); Globulin 2.7 g/dL (1.3-4.6); Glucose 124 mg/dL (65-115); Iron 119 ug/dL (59-158); Osmolality Calculated 293 mOsm/kg (285-295); Percent Saturation 63.2 % (20-50); Potassium 3.9 mmol/L (3.5-5.1); Sodium 138 mmol/L (136-145); Total Bilirubin 0.3 mg/dL (0.15-1.2); Total Iron Binding Capacity 188 mcg/dl; Total Protein 6.4 g/dL (6.6-8.7); Unsaturated Iron Binding 69 ug/dL (112-347)
--- NOTE | 2021-08-10 09:47 | ONC FU_ITS ---
Dr. Mesa follow up note Patient: Harley Viera Unit #: [id number]: [id number] Dicatated By: Leno Mesa M.D.Date of Visit:Aug 04, 2021 Onc Med Follow-up/Prog Note History of Present Illness: Mr. Harley Viera is a 76-year-old gentleman with history of progressive dyspnea on exertion was recently evaluated by PMD on June 08, 2021 and lab work-up shows white blood count 4.9 hemoglobin 7.2 g hematocrit 22.4 platelets 297,000 and MCV 127.2 with a normal differential. As per patient, initially his physician referred him to pulmonology for abnormal chest x-ray but then he was asked to come to cancer center prior evaluation as his lab work-up showed low blood count. 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 Patient denies smoking alcohol use, patient denies any night sweats or recurrent fever but weight loss probably due to diuretics. Patient denies any melena or hematochezia denies any hemoptysis hematemesis, denies any jaundice, denies any hematuria., Denies any peripheral numbness, denies any mouth sores, but sometimes lightheaded or dizziness. Denies any peripheral lymphadenopathy denies any abdominal fullness Bone marrow evaluation done on July 21, 2021 showed, mildly hypercellular bone marrow for age with trilineage hematopoiesis, no evidence of bone marrow infiltrative disorder. Several dyspoietic appearing megakaryocytes are present. Approximately 4 to 5% blast cells. Also showed increased storage of iron and no ring sideroblasts. 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 favorable prognosis Came for follow-up, denies any specific complaints, no fever chills, no nausea or vomiting, no diarrhea or constipation, no melena or hematochezia still will generalized weakness and fatigue but better than before. No jaundice, no hemoptysis or hematemesis, no dysuria hematuria Medications: Daily Value Multivitamin 1 Tablet Oral daily, Furosemide 1 Tablet (of 60 mg) Oral b.i.d., Magnesium 1 Tablet (of 100 mg) Oral daily, Spironolactone 1 Tablet (of 25 mg) Oral daily Allergies: No Known Allergies. Review of Systems: Review of Systems is not available for this patient. Vital Signs: Performed on Aug 04, 2021 12:32 Height - 65.00 in Weight - 232.6 lbs (LOW) BSA - 2.11 sq.m BMI - 38.71 (HIGH) Temperature - 98.5 F Pulse - 89 /min Respiration - 18 /min BP - 137/79 mm(hg) O2 Sat - 97 % Pain - 0 Fatigue - 0 Performance Status: 0 - Fully active, able to carry on all predisease activities without restrictions. (ECOG) Physical Examination: ENMT - No mouth sores, no thrush, no jaundice, Respiratory - Lungs are clear to auscultation, Cardiovascular - Regular rate and rhythm of heart, Abdomen - Soft, bowel sounds present, Extremities - No visible edema. Lab/Imaging: Test performed on Jul 21, 2021 11:30 WBC 4.7 10^9/L RBC 2.26 10^12/L HGB 8.5 g/dL HCT 26.8 % MCV 118.6 fl MCH 37.6 pg MCHC 31.7 g/dL Platelet Count 231 10^9/L MPV 13.6 fL Neutrophils (Gran) 3.09 10^9/L Lymphocytes 1.2 10^9/L Monocytes 0.2 10^9/L Eosinophils 0.1 10^9/L Basophils 0.1 10^9/L Manual Segs 65.2 % Manual Lymphocytes 26.2 % Manual Monocytes 4.2 % Manual Eosinophils 2.1 % Manual Basophils 1.7 % Impression: Myelodysplasia with 5 q-, as per bone marrow evaluation done on July 21, 2021 . iron saturation 62.9% ferritin 578 folic acid 18.7 iron 131 TIBC 208 vitamin B-12 419 haptoglobin 131 Bone marrow evaluation done on July 21, 2021 showed, mildly hypercellular bone marrow for age with trilineage hematopoiesis, no evidence of bone marrow infiltrative disorder. Several dyspoietic appearing megakaryocytes are present. Approximately 4 to 5% blast cells. Also showed increased storage of iron and no ring sideroblasts. 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 favorable prognosis Dyspnea on exertion/generalized weakness and fatigue, probably due to up Hypertension Lower extremity edema, question of CHF or due to renal insufficiency or anemia, On diuretics Renal insufficiency Plan: Discussed with patient his labs white blood count 4.9 hemoglobin 9.7 g medical 29.9 MCV 108/3 platelets 220,000 CMP within normal limit except creatinine 1.8 Bone marrow findings consistent with MDS with 5 q. abnormality Clinically, patient is doing decently well, his follow-up CBC shows persistent moderate anemia, patient's symptoms have improved with recent blood transfusion but still with generalized weakness and fatigue his bone marrow evaluation confirmed underlying myelodysplasia causing his persistent anemia, FISH confirmed 5 q. abnormality patient with this finding, may respond Revlimid, especially anemia. So at this point we will consider starting him on Revlimid 5 mg p.o. daily, all the side effect possible benefits associated with Revlimid including but not limited to bone marrow suppression,, diarrhea, abdominal pain, nausea vomiting, constipation, were mentioned, further teaching will be done by chemotherapy nurse Patient will return to clinic 10 days after starting Revlimid 5 mg p.o. daily with CBC CMP Signed By: Leno Mesa M.D. <<Signature on File>>
== END 2021-08-04 06:38 | disposition home or self-care (01) ==
LOC: ONCMED 06:37
PROVIDERS: PCP Family Medicine; Visit Provider Internal Medicine Hematology & Oncology
DX: D46.9 Myelodysplastic syndrome, unspecified (principal); I10 Essential (primary) hypertension; R60.9 Edema, unspecified; N28.9 Disorder of kidney and ureter, unspecified; R53.1 Weakness; R53.83 Other fatigue; Z79.899 Other long term (current) drug therapy
CPT/HCPCS: 36415; 80053; 82728; 83540; 83550; 85025; 99214

== ENCOUNTER 2021-08-11 11:46 | Outpatient (CLI) | payer MEDICARE, OTHER, SELFPAY | END 2021-08-11 11:47 | disposition home or self-care (01) | LOC: ONCMED 11:49 | PROVIDERS: PCP Family Medicine; Visit Provider Internal Medicine Hematology & Oncology | DX: D46.9 Myelodysplastic syndrome, unspecified (principal); I10 Essential (primary) hypertension; N28.9 Disorder of kidney and ureter, unspecified; Z79.899 Other long term (current) drug therapy | CPT/HCPCS: 99211 ==

== ENCOUNTER 2021-08-21 06:28 | Outpatient (CLI) | payer MEDICARE, OTHER, SELFPAY ==
[2021-08-21 09:21] LABS: Basophils # 0.1 10^3/uL (0.0-0.1); Basophils % 1.4 %; Eosinophils # 0.2 10^3/uL (0.0-0.8); Eosinophils % 5.1 %; Hematocrit 28.1 % (42.0-52.0); Hemoglobin 8.8 g/dL (11.7-16.6); Lymphocytes # 1.2 10^3/uL (0.8-4.8); Lymphocytes % 28.5 %; Mean Corpuscular HGB Conc 31.3 g/dL (30.0-36.0); Mean Corpuscular Hemoglobin 34.2 pg (28.0-34.0); Mean Corpuscular Volume 109.3 fl (80-94); Monocytes # 0.2 10^3/uL (0.2-0.9); Monocytes % 3.7 %; Neutrophils # 2.62 10^3/uL (1.8-7.7); Neutrophils % 60.2 %; Nucleated Red Blood Cells % 0 %; Platelet Count 164 10^3/cmm (130-400); Red Blood Count 2.57 10^6/uL (4.1-5.3); White Blood Count 4.4 10^3/uL (4.0-10.0)
[2021-08-21 10:27] LABS: Add RBC Morph Yes
[2021-08-21 10:28] LABS: Anisocytosis 1+; Giant Platelets Trace; Hypochromasia 1+; Poikilocytosis Trace
[2021-08-21 10:29] LABS: Macrocytosis 1+; Ovalocytes 1+; RBC Morph Comp Yes; Tear Drop Cells Trace
== END 2021-08-21 06:29 | disposition home or self-care (01) ==
LOC: ONCMED 06:28
PROVIDERS: PCP Family Medicine; Visit Provider Internal Medicine Hematology & Oncology
DX: D53.9 Nutritional anemia, unspecified (principal)
CPT/HCPCS: 36415; 85025

== ENCOUNTER 2021-08-27 06:36 | Outpatient (CLI) | payer MEDICARE, OTHER, SELFPAY ==
[2021-08-27 13:10] LABS: Basophils # 0.1 10^3/uL (0.0-0.1); Basophils % 1.5 %; Eosinophils # 0.1 10^3/uL (0.0-0.8); Hematocrit 25.3 % (42.0-52.0); Hemoglobin 8.1 g/dL (11.7-16.6); Lymphocytes # 0.9 10^3/uL (0.8-4.8); Lymphocytes % 26.4 %; Mean Corpuscular Hemoglobin 34.8 pg (28.0-34.0); Mean Corpuscular Volume 108.6 fl (80-94); Monocytes # 0.2 10^3/uL (0.2-0.9); Monocytes % 5.2 %; Neutrophils # 2.02 10^3/uL (1.8-7.7); Nucleated Red Blood Cells % 0 %; Platelet Count 104 10^3/cmm (130-400); Red Blood Count 2.33 10^6/uL (4.1-5.3); White Blood Count 3.3 10^3/uL (4.0-10.0)
[2021-08-27 13:28] LABS: Alanine Aminotransferase 22 U/L (0-41); Albumin Level 3.7 g/dL (3.5-5.2); Alkaline Phosphatase 96 IU/L (40-130); Anion Gap 16.1 (5-19); Aspartate Amino Transferase 20 U/L (0-40); Blood Urea Nitrogen 22 mg/dL (8-23); Calcium 8.3 mg/dL (8.5-10.5); Carbon Dioxide 19 mmol/L (22-29); Chloride 105 mmol/L (98-107); Globulin 2.6 g/dL (1.3-4.6); Glucose 112 mg/dL (65-115); Osmolality Calculated 286 mOsm/kg (285-295); Potassium 4.1 mmol/L (3.5-5.1); Sodium 136 mmol/L (136-145); Total Bilirubin 0.3 mg/dL (0.15-1.2); Total Protein 6.3 g/dL (6.6-8.7)
[2021-08-27 13:40] LABS: Add RBC Morph Yes; RBC Morph Comp No; Slide Review Slide Review Perform
[2021-08-27 13:41] LABS: Anisocytosis 2+; Ovalocytes 1+; Poikilocytosis 1+; Spherocytes Trace
--- NOTE | 2021-09-11 11:39 | ONC FU_ITS ---
Dr. Mesa follow up note Patient: Harley Viera Unit #: [id number]: 1945 Dicatated By: Leno Mesa M.D.Date of Visit:Aug 27, 2021 Onc Med Follow-up/Prog Note History of Present Illness: Mr. Harley Viera is a 76-year-old gentleman with history of progressive dyspnea on exertion was recently evaluated by PMD on June 08, 2021 and lab work-up shows white blood count 4.9 hemoglobin 7.2 g hematocrit 22.4 platelets 297,000 and MCV 127.2 with a normal differential. As per patient, initially his physician referred him to pulmonology for abnormal chest x-ray but then he was asked to come to cancer center prior evaluation as his lab work-up showed low blood count. 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 Patient denies smoking alcohol use, patient denies any night sweats or recurrent fever but weight loss probably due to diuretics. Patient denies any melena or hematochezia denies any hemoptysis hematemesis, denies any jaundice, denies any hematuria., Denies any peripheral numbness, denies any mouth sores, but sometimes lightheaded or dizziness. Denies any peripheral lymphadenopathy denies any abdominal fullness Bone marrow evaluation done on July 21, 2021 showed, mildly hypercellular bone marrow for age with trilineage hematopoiesis, no evidence of bone marrow infiltrative disorder. Several dyspoietic appearing megakaryocytes are present. Approximately 4 to 5% blast cells. Also showed increased storage of iron and no ring sideroblasts. 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 favorable prognosis started on Revlimid 5 mg p.o. daily on August 12, 2021, Came for follow-up, complaining of generalized weakness and fatigue, dyspnea on exertion no chest pain. No nausea or vomiting, no fever chills but off and on darker stools for 3 days. As per patient he started taking Revlimid 5 mg p.o. daily on August 12, 2021 and did fine for first week then a second week he started having off and on darker stools and called the office, as per patient he was told to hold Revlimid until he see me today. Denies any hemoptysis or hematemesis denies any fresh blood per rectum denies any dysuria or hematuria denies any skin rash denies any jaundice Medications: Daily Value Multivitamin 1 Tablet Oral daily Allergies: No Known Allergies. Review of Systems: Review of Systems is not available for this patient. Vital Signs: Performed on Aug 27, 2021 14:11 Height - 65.00 in Weight - 236.6 lbs (HIGH) BSA - 2.12 sq.m BMI - 39.37 (HIGH) Temperature - 98.2 F (LOW) Pulse - 79 /min Respiration - 18 /min BP - 147/83 mm(hg) (HIGH) O2 Sat - 98 % Pain - 0 Fatigue - 9 Performance Status: 1 - No physically strenuous activity, but ambulatory and able to carry out light or sedentary work (e.g. office work, light house work). (ECOG) Physical Examination: ENMT - No mouth sores, no thrush, no jaundice, Respiratory - Lungs are clear to auscultation, Cardiovascular - Regular rate and rhythm of heart, Abdomen - Soft, bowel sounds present, Extremities - No visible edema. Lab/Imaging: Test performed on Jul 21, 2021 11:30 WBC 4.7 10^9/L RBC 2.26 10^12/L HGB 8.5 g/dL HCT 26.8 % MCV 118.6 fl MCH 37.6 pg MCHC 31.7 g/dL Platelet Count 231 10^9/L MPV 13.6 fL Neutrophils (Gran) 3.09 10^9/L Lymphocytes 1.2 10^9/L Monocytes 0.2 10^9/L Eosinophils 0.1 10^9/L Basophils 0.1 10^9/L Manual Segs 65.2 % Manual Lymphocytes 26.2 % Manual Monocytes 4.2 % Manual Eosinophils 2.1 % Manual Basophils 1.7 % Impression: Myelodysplasia with 5 q-, as per bone marrow evaluation done on July 21, 2021 . iron saturation 62.9% ferritin 578 folic acid 18.7 iron 131 TIBC 208 vitamin B-12 419 haptoglobin 131 Dyspnea on exertion/generalized weakness and fatigue, probably due to above Started on Revlimid 5 mg p.o. daily August 12, 2021 Hypertension Lower extremity edema, question of CHF or due to renal insufficiency or anemia, On diuretics Renal insufficiency Plan: Discussed with patient regarding his labs white blood count 3.3 hemoglobin 8.1 hematocrit 25.3 platelets 104,000 Clinically, patient doing reasonably well now with progressive symptoms due to persistent/progressive anemia due to myelodysplasia, patient was started on Revlimid 5 mg p.o. daily on August 12, 2021, as per patient he took it for 1 week and then stopped taking it because of off and on darker stools but no fresh blood per rectum. To do the labs shows there is a further drop in his hemoglobin which could be multifactorial including due to underlying MDS but concurrent chronic GI blood loss cannot be ruled out. As patient is symptomatic due to progressive anemia, also has underlying coronary artery disease, will consider 1 unit of packed RBC, will type and cross today then he will return to clinic in morning for blood transfusion. Patient was also advised to restart Revlimid 5 mg p.o. daily and then return to clinic in 2 weeks but in case there is a recurrence of darker stools, will do occult blood testing and if it confirmed bleeding, will consider referral to GI for evaluation. Return to clinic in 2 weeks with CBC and CMP Signed By: Leno Mesa M.D. <<Signature on File>>
== END 2021-08-27 06:37 | disposition home or self-care (01) ==
PROVIDERS: PCP Family Medicine; Visit Provider Internal Medicine Hematology & Oncology
DX: D46.9 Myelodysplastic syndrome, unspecified (principal); R06.00 Dyspnea, unspecified; R53.1 Weakness; R53.83 Other fatigue; I10 Essential (primary) hypertension; R60.0 Localized edema; N28.9 Disorder of kidney and ureter, unspecified; Z79.899 Other long term (current) drug therapy
CPT/HCPCS: 36415; 80053; 85025; 86850; 86900; 86920; 99214

== ENCOUNTER 2021-08-28 08:28 | Outpatient (CLI) | payer MEDICARE, OTHER, SELFPAY ==
[2021-08-28] MEDS: sodium chloride 0.9% 250 ML 999 ML IV (08:45)
[2021-08-28] MEDS: diphenhydrAMINE 25 mg Capsule PO (08:45)
[2021-08-28] MEDS: acetaminophen 325 mg Tablet 650 MG PO (08:45)
[2021-08-28 09:35] VITALS: BP 117/65; BP 117/70; PULSE 53; RESP 18; TEMP 36.6; TEMP 36.9; O2SAT 95; O2SAT 96
[2021-08-28 09:50] VITALS: BP 114/65; PULSE 60; RESP 18; TEMP 36.6; O2SAT 97
[2021-08-28 10:05] VITALS: BP 117/65; PULSE 62; RESP 18; TEMP 36.4; O2SAT 98
[2021-08-28 10:35] VITALS: BP 118/62; PULSE 62; RESP 18; TEMP 36.4; O2SAT 100
[2021-08-28 11:15] VITALS: BP 112/68; PULSE 64; RESP 18; TEMP 36.6; O2SAT 100
== END 2021-08-28 08:29 | disposition home or self-care (01) ==
PROVIDERS: PCP Family Medicine; Visit Provider Internal Medicine Hematology & Oncology
DX: D53.9 Nutritional anemia, unspecified (principal)
CPT/HCPCS: 36430; 86850; 86900; 86920; J7050; P9016

== ENCOUNTER 2021-09-10 12:53 | Outpatient (CLI) | payer MEDICARE, OTHER, SELFPAY ==
[2021-09-10 14:05] LABS: Alanine Aminotransferase 17 U/L (0-41); Albumin Level 3.4 g/dL (3.5-5.2); Alkaline Phosphatase 95 IU/L (40-130); Anion Gap 16.1 (5-19); Aspartate Amino Transferase 15 U/L (0-40); Blood Urea Nitrogen 21 mg/dL (8-23); Calcium 8.3 mg/dL (8.5-10.5); Carbon Dioxide 19 mmol/L (22-29); Chloride 99 mmol/L (98-107); Globulin 3.1 g/dL (1.3-4.6); Glucose 106 mg/dL (65-115); Osmolality Calculated 273 mOsm/kg (285-295); Potassium 4.1 mmol/L (3.5-5.1); Sodium 130 mmol/L (136-145); Total Bilirubin 0.8 mg/dL (0.15-1.2); Total Protein 6.5 g/dL (6.6-8.7)
[2021-09-10 15:51] LABS: Basophils # 0.1 10^3/uL (0.0-0.1); Basophils % 1.9 %; Eosinophils % 1.5 %; Hematocrit 27.5 % (42.0-52.0); Lymphocytes # 0.6 10^3/uL (0.8-4.8); Lymphocytes % 23.1 %; Mean Corpuscular HGB Conc 32.7 g/dL (30.0-36.0); Mean Corpuscular Hemoglobin 34.1 pg (28.0-34.0); Mean Corpuscular Volume 104.2 fl (80-94); Monocytes # 0.2 10^3/uL (0.2-0.9); Monocytes % 7.1 %; Neutrophils # 1.75 10^3/uL (1.8-7.7); Neutrophils % 65.3 %; Nucleated Red Blood Cells % 0 %; Platelet Count 43 10^3/cmm (130-400); Red Blood Count 2.64 10^6/uL (4.1-5.3); White Blood Count 2.7 10^3/uL (4.0-10.0)
[2021-09-10 16:19] LABS: Slide Review Slide Review Perform
--- NOTE | 2021-09-13 19:42 | ONC FU_ITS ---
Dr. Mesa follow up note Patient: Harley Viera Unit #: [id number]: 1945 Dicatated By: Leno Mesa M.D.Date of Visit:Sep 10, 2021 Onc Med Follow-up/Prog Note History of Present Illness: Mr. Harley Viera is a 76-year-old gentleman with history of progressive dyspnea on exertion was recently evaluated by PMD on June 08, 2021 and lab work-up shows white blood count 4.9 hemoglobin 7.2 g hematocrit 22.4 platelets 297,000 and MCV 127.2 with a normal differential. As per patient, initially his physician referred him to pulmonology for abnormal chest x-ray but then he was asked to come to cancer center prior evaluation as his lab work-up showed low blood count. 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 Patient denies smoking alcohol use, patient denies any night sweats or recurrent fever but weight loss probably due to diuretics. Patient denies any melena or hematochezia denies any hemoptysis hematemesis, denies any jaundice, denies any hematuria., Denies any peripheral numbness, denies any mouth sores, but sometimes lightheaded or dizziness. Denies any peripheral lymphadenopathy denies any abdominal fullness Bone marrow evaluation done on July 21, 2021 showed, mildly hypercellular bone marrow for age with trilineage hematopoiesis, no evidence of bone marrow infiltrative disorder. Several dyspoietic appearing megakaryocytes are present. Approximately 4 to 5% blast cells. Also showed increased storage of iron and no ring sideroblasts. 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 favorable prognosis started on Revlimid 5 mg p.o. daily on August 12, 2021, started taking Revlimid 5 mg p.o. daily on August 12, 2021 and did fine for first week then a second week he started having off and on darker stools and called the office, as per patient he was told to hold Revlimid, It was restarted on August 27, 2021 Came for follow-up, Complaining of generalized weakness and fatigue, as per patient, he is waiting for his Revlimid mail-in supply, he took his last pill yesterday, denies any fever chills, but mild sore throat but no dysuria, no melena hematochezia, no hemoptysis hematemesis, no jaundice, tolerating Revlimid 5 mg p.o. daily, well Medications: Daily Value Multivitamin 1 Tablet Oral daily Allergies: No Known Allergies. Review of Systems: Review of Systems is not available for this patient. Vital Signs: Performed on Sep 10, 2021 17:43 Height - 65.00 in Weight - 231.4 lbs (LOW) BSA - 2.10 sq.m BMI - 38.51 (HIGH) Temperature - 97.5 F (LOW) Pulse - 76 /min Respiration - 18 /min BP - 112/75 mm(hg) O2 Sat - 96 % Pain - 5 Fatigue - 7 Performance Status: 1 - No physically strenuous activity, but ambulatory and able to carry out light or sedentary work (e.g. office work, light house work). (ECOG) Physical Examination: ENMT - No mouth sores, no thrush, no jaundice no cervical lymphadenopathy mild pharyngeal erythema, Respiratory - Lungs are clear to auscultation, Cardiovascular - Regular rate and rhythm of heart, Abdomen - Soft, bowel sounds present, Extremities - No visible edema. Lab/Imaging: Test performed on Jul 21, 2021 11:30 WBC 4.7 10^9/L RBC 2.26 10^12/L HGB 8.5 g/dL HCT 26.8 % MCV 118.6 fl MCH 37.6 pg MCHC 31.7 g/dL Platelet Count 231 10^9/L MPV 13.6 fL Neutrophils (Gran) 3.09 10^9/L Lymphocytes 1.2 10^9/L Monocytes 0.2 10^9/L Eosinophils 0.1 10^9/L Basophils 0.1 10^9/L Manual Segs 65.2 % Manual Lymphocytes 26.2 % Manual Monocytes 4.2 % Manual Eosinophils 2.1 % Manual Basophils 1.7 % Impression: Myelodysplasia with 5 q-, as per bone marrow evaluation done on July 21, 2021 . iron saturation 62.9% ferritin 578 folic acid 18.7 iron 131 TIBC 208 vitamin B-12 419 haptoglobin 131 Dyspnea on exertion/generalized weakness and fatigue, probably due to above Started on Revlimid 5 mg p.o. daily August 12, 2021 Hypertension Lower extremity edema, question of CHF or due to renal insufficiency or anemia, On diuretics Renal insufficiency Plan: Discussed with patient regarding his labs white blood count 2.7 compared to six on July 27, 2021 4.4 on August 21, 2021 and 3.3 on 01/2021 hemoglobin 9 g compared to 811 on August 27, 2021 platelets 43,000 compared to 104,000 on August 27, 2021 239,000 prior to starting Revlimid ANC 1750 CMP within normal limit except sodium 130 and creatinine 1.6 which is stable Clinically, patient doing reasonably well, his follow-up CBC shows improvement in his hemoglobin but progressive leukopenia/thrombocytopenia, probably due to Revlimid, at this point we will change his Revlimid dose to every other day while monitoring his CBC and repeat CBC on Tuesday, if there is a further drop in his platelet count or white blood cell, may hold Revlimid otherwise he will return to clinic after Thanksgiving with CBC. Due to progressive generalized weakness and fatigue, mild sore throat and progressive leukopenia, we will consider Levaquin 500 mg p.o. daily for 1 week, patient was advised to call us in case he starts spiking fever Mild renal insufficiency,/hyponatremia, will continue to monitor We will also refer him to [place] hematology clinic for evaluation regarding clinical trial available for MDS with 5q-. Signed By: Leno Mesa M.D. <<Signature on File>>
== END 2021-09-10 12:54 | disposition home or self-care (01) ==
LOC: ONCMED 12:57
PROVIDERS: PCP Family Medicine; Visit Provider Internal Medicine Hematology & Oncology
DX: D46.9 Myelodysplastic syndrome, unspecified (principal); D50.9 Iron deficiency anemia, unspecified; R06.00 Dyspnea, unspecified; I10 Essential (primary) hypertension; R60.0 Localized edema; N17.9 Acute kidney failure, unspecified; Z79.899 Other long term (current) drug therapy
CPT/HCPCS: 36415; 80053; 85025; 99214

== ENCOUNTER 2021-09-14 06:35 | Outpatient (CLI) | payer MEDICARE, OTHER, SELFPAY ==
[2021-09-14 13:17] LABS: Basophils # 0.1 10^3/uL (0.0-0.1); Basophils % 3.9 %; Eosinophils # 0.1 10^3/uL (0.0-0.8); Eosinophils % 3.2 %; Hematocrit 26.4 % (42.0-52.0); Hemoglobin 8.6 g/dL (11.7-16.6); Lymphocytes # 0.8 10^3/uL (0.8-4.8); Mean Corpuscular HGB Conc 32.6 g/dL (30.0-36.0); Mean Corpuscular Hemoglobin 33.7 pg (28.0-34.0); Mean Corpuscular Volume 103.5 fl (80-94); Mean Platelet Volume 12.6 fL (7.4-10.4); Monocytes # 0.4 10^3/uL (0.2-0.9); Monocytes % 14.3 %; Neutrophils # 1.37 10^3/uL (1.8-7.7); Neutrophils % 49.2 %; Nucleated Red Blood Cells % 0 %; Platelet Count 92 10^3/cmm (130-400); Red Blood Count 2.55 10^6/uL (4.1-5.3); White Blood Count 2.8 10^3/uL (4.0-10.0)
[2021-09-14 14:11] LABS: Slide Review Slide Review Perform
== END 2021-09-14 06:36 | disposition home or self-care (01) ==
LOC: ONCMED 06:36
PROVIDERS: PCP Family Medicine; Visit Provider Internal Medicine Hematology & Oncology
DX: D53.9 Nutritional anemia, unspecified (principal)
CPT/HCPCS: 36415; 85025

== ENCOUNTER 2021-09-24 10:56 | Outpatient (CLI) | payer MEDICARE, OTHER, SELFPAY ==
[2021-09-24 12:06] LABS: Alanine Aminotransferase 40 U/L (0-41); Albumin Level 3.3 g/dL (3.5-5.2); Alkaline Phosphatase 111 IU/L (40-130); Anion Gap 18.5 (5-19); Aspartate Amino Transferase 18 U/L (0-40); Blood Urea Nitrogen 22 mg/dL (8-23); Calcium 8.4 mg/dL (8.5-10.5); Carbon Dioxide 18 mmol/L (22-29); Chloride 110 mmol/L (98-107); Globulin 2.9 g/dL (1.3-4.6); Glucose 117 mg/dL (65-115); Osmolality Calculated 298 mOsm/kg (285-295); Potassium 4.5 mmol/L (3.5-5.1); Sodium 142 mmol/L (136-145); Total Bilirubin 0.2 mg/dL (0.15-1.2); Total Protein 6.2 g/dL (6.6-8.7)
[2021-09-24 12:08] LABS: Basophils # 0.1 10^3/uL (0.0-0.1); Basophils % 1.3 %; Eosinophils # 0.1 10^3/uL (0.0-0.8); Eosinophils % 2.1 %; Hematocrit 28.1 % (42.0-52.0); Hemoglobin 8.6 g/dL (11.7-16.6); Lymphocytes # 1.1 10^3/uL (0.8-4.8); Lymphocytes % 22.5 %; Mean Corpuscular HGB Conc 30.6 g/dL (30.0-36.0); Mean Corpuscular Hemoglobin 33.6 pg (28.0-34.0); Mean Corpuscular Volume 109.8 fl (80-94); Mean Platelet Volume 11.8 fL (7.4-10.4); Monocytes # 0.4 10^3/uL (0.2-0.9); Monocytes % 7.5 %; Neutrophils # 3.08 10^3/uL (1.8-7.7); Neutrophils % 66.2 %; Nucleated Red Blood Cells % 0 %; Platelet Count 246 10^3/cmm (130-400); Red Blood Count 2.56 10^6/uL (4.1-5.3); White Blood Count 4.7 10^3/uL (4.0-10.0)
[2021-09-24 12:10] LABS: Slide Review Slide Review Perform
--- NOTE | 2021-09-24 17:29 | ONC FU_ITS ---
Dr. Mesa follow up note Patient: Harley Viera Unit #: [id number]: 1945 Dicatated By: Leno Mesa M.D.Date of Visit:Sep 24, 2021 Onc Med Follow-up/Prog Note History of Present Illness: Mr. Harley Viera is a 76-year-old gentleman with history of progressive dyspnea on exertion was recently evaluated by PMD on June 08, 2021 and lab work-up shows white blood count 4.9 hemoglobin 7.2 g hematocrit 22.4 platelets 297,000 and MCV 127.2 with a normal differential. As per patient, initially his physician referred him to pulmonology for abnormal chest x-ray but then he was asked to come to cancer center prior evaluation as his lab work-up showed low blood count. 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 Patient denies smoking alcohol use, patient denies any night sweats or recurrent fever but weight loss probably due to diuretics. Patient denies any melena or hematochezia denies any hemoptysis hematemesis, denies any jaundice, denies any hematuria., Denies any peripheral numbness, denies any mouth sores, but sometimes lightheaded or dizziness. Denies any peripheral lymphadenopathy denies any abdominal fullness Bone marrow evaluation done on July 21, 2021 showed, mildly hypercellular bone marrow for age with trilineage hematopoiesis, no evidence of bone marrow infiltrative disorder. Several dyspoietic appearing megakaryocytes are present. Approximately 4 to 5% blast cells. Also showed increased storage of iron and no ring sideroblasts. 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 favorable prognosis started on Revlimid 5 mg p.o. daily on August 12, 2021, started taking Revlimid 5 mg p.o. daily on August 12, 2021 and did fine for first week then a second week he started having off and on darker stools and called the office, as per patient he was told to hold Revlimid, It was restarted on August 27, 2021 Put on hold on September 10, 2021 because of progressive pancytopenia Came for follow-up, denies any specific complaint, in fact feeling much better since his last visit, patient was put on Levaquin as prophylactic for progressive neutropenia and not feeling well/feverish as per patient he had episode of right pleuritic type chest pain while he was on antibiotic and within 2-3 days it resolved, he did not call anyone, since then he is feeling much better, more energetic. Denies any melena or hematochezia denies any hemoptysis or hematemesis denies any jaundice denies any abdominal pain denies any night sweats, he is off Revlimid since September 10, 2021 Medications: Daily Value Multivitamin 1 Tablet Oral daily Allergies: No Known Allergies. Review of Systems: Review of Systems is not available for this patient. Vital Signs: Performed on Sep 24, 2021 16:41 Height - 65.00 in Weight - 227.2 lbs (LOW) BSA - 2.09 sq.m BMI - 37.81 (HIGH) Temperature - 98.0 F (LOW) Pulse - 88 /min Respiration - 16 /min BP - 148/86 mm(hg) (HIGH) O2 Sat - 98 % Pain - 0 Fatigue - 5 Performance Status: 0 - Fully active, able to carry on all predisease activities without restrictions. (ECOG) Physical Examination: ENMT - No mouth sores, no thrush, no jaundice, Respiratory - Lungs are clear to auscultation, Cardiovascular - Regular rate and rhythm of heart, Abdomen - Soft, bowel sounds present, Extremities - No visible edema. Lab/Imaging: Test performed on Jul 21, 2021 11:30 WBC 4.7 10^9/L RBC 2.26 10^12/L HGB 8.5 g/dL HCT 26.8 % MCV 118.6 fl MCH 37.6 pg MCHC 31.7 g/dL Platelet Count 231 10^9/L MPV 13.6 fL Neutrophils (Gran) 3.09 10^9/L Lymphocytes 1.2 10^9/L Monocytes 0.2 10^9/L Eosinophils 0.1 10^9/L Basophils 0.1 10^9/L Manual Segs 65.2 % Manual Lymphocytes 26.2 % Manual Monocytes 4.2 % Manual Eosinophils 2.1 % Manual Basophils 1.7 % Impression: Myelodysplasia with 5 q-, as per bone marrow evaluation done on July 21, 2021, Bone marrow shows 4 to 5% blast cells, IPSS, low risk e.g. 4 to 5% blast cell, 5 q-, hemoglobin less than 10 g, within normal platelet and white blood counts) . iron saturation 62.9% ferritin 578 folic acid 18.7 iron 131 TIBC 208 vitamin B-12 419 haptoglobin 131 Dyspnea on exertion/generalized weakness and fatigue, probably due to above Started on Revlimid 5 mg p.o. daily August 12, 2021 Hypertension Lower extremity edema, question of CHF or due to renal insufficiency or anemia, On diuretics Renal insufficiency Plan: Discussed with patient regarding his labs white blood count 4.7 compared to 2.8 on September 14, 2021 hemoglobin 8.6 g compared to 8.6 g previously hematocrit 28.1 platelets 246,000 compared to 43,000 on September 10, 2021, with a normal differential Clinically, patient doing well, feeling much better, his follow-up CBC shows resolution of progressive leukopenia and thrombocytopenia and stable moderate anemia, patient is off Revlimid which was held because of progressive pancytopenia. Patient was referred to hematology clinic at [facility] for evaluation regarding clinical trial for low risk MDS 5 q-, with transfusion dependent anemia Patient is scheduled for tomorrow morning thus he will return to clinic on October 01, 2021 with CBC, at that time we will discuss with him regarding further planning unless patient get enrolled into clinical trial at [place]. Signed By: Leno Mesa M.D. <<Signature on File>>
== END 2021-09-24 10:57 | disposition home or self-care (01) ==
LOC: ONCMED 11:00
PROVIDERS: PCP Family Medicine; Visit Provider Internal Medicine Hematology & Oncology
DX: D46.9 Myelodysplastic syndrome, unspecified (principal); R06.00 Dyspnea, unspecified; I10 Essential (primary) hypertension; R60.0 Localized edema; N28.9 Disorder of kidney and ureter, unspecified; Z79.899 Other long term (current) drug therapy
CPT/HCPCS: 36415; 80053; 85025; 99214

== ENCOUNTER 2021-10-01 06:24 | Outpatient (CLI) | payer MEDICARE, OTHER, SELFPAY ==
[2021-10-01 09:22] LABS: Basophils % 0.5 %; Eosinophils # 0.1 10^3/uL (0.0-0.8); Eosinophils % 1.7 %; Hematocrit 30.4 % (42.0-52.0); Hemoglobin 9.3 g/dL (11.7-16.6); Lymphocytes # 0.6 10^3/uL (0.8-4.8); Lymphocytes % 15.1 %; Mean Corpuscular HGB Conc 30.6 g/dL (30.0-36.0); Mean Corpuscular Hemoglobin 33.3 pg (28.0-34.0); Mean Platelet Volume 11.2 fL (7.4-10.4); Monocytes # 0.8 10^3/uL (0.2-0.9); Neutrophils # 2.56 10^3/uL (1.8-7.7); Neutrophils % 63.2 %; Nucleated Red Blood Cells % 0 %; Platelet Count 227 10^3/cmm (130-400); Red Blood Count 2.79 10^6/uL (4.1-5.3); Red Cell Distribution Width 23.3 % (12.1-15.1); White Blood Count 4.1 10^3/uL (4.0-10.0)
--- NOTE | 2021-10-01 11:28 | ONC FU_ITS ---
Dr. Mesa follow up note Patient: Harley Viera Unit #: [id number]: 1945 Dicatated By: Leno Mesa M.D.Date of Visit:Oct 01, 2021 Onc Med Follow-up/Prog Note History of Present Illness: Mr. Harley Viera is a 76-year-old gentleman with history of progressive dyspnea on exertion was recently evaluated by PMD on June 08, 2021 and lab work-up shows white blood count 4.9 hemoglobin 7.2 g hematocrit 22.4 platelets 297,000 and MCV 127.2 with a normal differential. As per patient, initially his physician referred him to pulmonology for abnormal chest x-ray but then he was asked to come to cancer center prior evaluation as his lab work-up showed low blood count. 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 Patient denies smoking alcohol use, patient denies any night sweats or recurrent fever but weight loss probably due to diuretics. Patient denies any melena or hematochezia denies any hemoptysis hematemesis, denies any jaundice, denies any hematuria., Denies any peripheral numbness, denies any mouth sores, but sometimes lightheaded or dizziness. Denies any peripheral lymphadenopathy denies any abdominal fullness Bone marrow evaluation done on July 21, 2021 showed, mildly hypercellular bone marrow for age with trilineage hematopoiesis, no evidence of bone marrow infiltrative disorder. Several dyspoietic appearing megakaryocytes are present. Approximately 4 to 5% blast cells. Also showed increased storage of iron and no ring sideroblasts. 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 favorable prognosis started on Revlimid 5 mg p.o. daily on August 12, 2021, started taking Revlimid 5 mg p.o. daily on August 12, 2021 and did fine for first week then a second week he started having off and on darker stools and called the office, as per patient he was told to hold Revlimid, It was restarted on August 27, 2021 Put on hold on September 10, 2021 because of progressive pancytopenia Came for follow-up, denies any specific complaint except flulike symptoms for the last couple of days, no fever chills but nasal congestion, sore throat cough, no loss of smell. No shortness of breath but dyspnea on exertion, no palpitation, no melena or hematochezia, patient went to [place] for evaluation for clinical trial for MDS, was seen by Dr. Crain and his recommendations were continue with Revlimid 5 mg p.o. every other day and increase to daily as tolerated and no clinical trial available at this time and patient also underwent repeat bone marrow there and report was pending at the time of discussion. Medications: Daily Value Multivitamin 1 Tablet Oral daily Allergies: No Known Allergies. Review of Systems: Review of Systems is not available for this patient. Vital Signs: Vitals are not available for this patient. Performance Status: 0 - Fully active, able to carry on all predisease activities without restrictions. (ECOG) Physical Examination: ENMT - No mouth sores, no thrush, no jaundice, Respiratory - Lungs are clear to auscultation, Cardiovascular - Regular rate and rhythm of heart, Abdomen - Soft, bowel sounds present, Extremities - No visible edema. Lab/Imaging: Test performed on Jul 21, 2021 11:30 WBC 4.7 10^9/L RBC 2.26 10^12/L HGB 8.5 g/dL HCT 26.8 % MCV 118.6 fl MCH 37.6 pg MCHC 31.7 g/dL Platelet Count 231 10^9/L MPV 13.6 fL Neutrophils (Gran) 3.09 10^9/L Lymphocytes 1.2 10^9/L Monocytes 0.2 10^9/L Eosinophils 0.1 10^9/L Basophils 0.1 10^9/L Manual Segs 65.2 % Manual Lymphocytes 26.2 % Manual Monocytes 4.2 % Manual Eosinophils 2.1 % Manual Basophils 1.7 % Impression: Myelodysplasia with 5 q-, as per bone marrow evaluation done on July 21, 2021, Bone marrow shows 4 to 5% blast cells, IPSS, low risk e.g. 4 to 5% blast cell, 5 q-, hemoglobin less than 10 g, within normal platelet and white blood counts) . iron saturation 62.9% ferritin 578 folic acid 18.7 iron 131 TIBC 208 vitamin B-12 419 haptoglobin 131 Dyspnea on exertion/generalized weakness and fatigue, probably due to above Started on Revlimid 5 mg p.o. daily August 12, 2021 Hypertension Lower extremity edema, question of CHF or due to renal insufficiency or anemia, On diuretics Renal insufficiency Plan: Discussed with patient regarding his labs white blood count 4.1 hemoglobin 9.3 g compared to 8.6 cm previously hematocrit 30.4 platelets 227,000 Clinically, patient is doing well with no new signs symptom except flulike symptom, there was a concern regarding Covid infection so we will do testing for Covid. In the meantime, patient was supposed to be on Revlimid 5 mg every other day but as per patient he did not get prescription filled and patient navigator is working on his Revlimid prescription. Patient will return to clinic 1 week after reinitiating Revlimid 5 mg p.o. every other day with CBC Signed By: Leno Mesa M.D. <<Signature on File>>
[2021-10-01 12:30] LABS: SARS Covid-2 Antigen Positive (Negative)
== END 2021-10-01 06:25 | disposition home or self-care (01) ==
LOC: ONCMED 06:25
PROVIDERS: PCP Family Medicine; Visit Provider Internal Medicine Hematology & Oncology
DX: D46.9 Myelodysplastic syndrome, unspecified (principal); R06.00 Dyspnea, unspecified; R53.1 Weakness; R53.83 Other fatigue; I10 Essential (primary) hypertension; R60.0 Localized edema; N28.9 Disorder of kidney and ureter, unspecified; D64.9 Anemia, unspecified; Z79.899 Other long term (current) drug therapy
CPT/HCPCS: 36415; 85025; 87426; 99214

== ENCOUNTER 2021-10-04 08:33 | Outpatient (CLI) | payer MEDICARE, OTHER, SELFPAY ==
[2021-10-04 08:30] VITALS: BP 175/111; PULSE 42; RESP 15; TEMP 36.6; O2SAT 99
[2021-10-04 10:02] VITALS: BP 178/101; PULSE 59; RESP 18; TEMP 36.6; O2SAT 96
[2021-10-04 11:04] VITALS: BP 164/88; PULSE 59; RESP 16; TEMP 36.8; O2SAT 99
== END 2021-10-04 08:34 | disposition home or self-care (01) ==
LOC: OPS 08:39
PROVIDERS: PCP Family Medicine; Visit Provider Nurse Practitioner Family
DX: U07.1 COVID-19 (principal)
CPT/HCPCS: 96365

== ENCOUNTER 2021-10-28 13:56 | Outpatient (CLI) | payer MEDICARE, OTHER, SELFPAY ==
[2021-10-28 15:05] LABS: Basophils % 0.3 %; Eosinophils # 0.2 10^3/uL (0.0-0.8); Eosinophils % 3.7 %; Hematocrit 36.4 % (42.0-52.0); Hemoglobin 11.3 g/dL (11.7-16.6); Lymphocytes # 1.1 10^3/uL (0.8-4.8); Lymphocytes % 17.6 %; Mean Corpuscular Hemoglobin 32.6 pg (28.0-34.0); Mean Corpuscular Volume 104.9 fl (80-94); Monocytes # 0.8 10^3/uL (0.2-0.9); Monocytes % 12.9 %; Neutrophils # 3.87 10^3/uL (1.8-7.7); Nucleated Red Blood Cells % 0 %; Platelet Count 176 10^3/cmm (130-400); Red Blood Count 3.47 10^6/uL (4.1-5.3); Red Cell Distribution Width 18.7 % (12.1-15.1)
[2021-10-28 15:29] LABS: Albumin Level 3.7 g/dL (3.5-5.2); Alkaline Phosphatase 137 IU/L (40-130); Blood Urea Nitrogen 20 mg/dL (8-23); Calcium 8.7 mg/dL (8.5-10.5); Carbon Dioxide 21 mmol/L (22-29); Chloride 102 mmol/L (98-107); Globulin 3.1 g/dL (1.3-4.6); Glucose 96 mg/dL (65-115); Osmolality Calculated 284 mOsm/kg (285-295); Sodium 136 mmol/L (136-145); Total Bilirubin 0.3 mg/dL (0.15-1.2); Total Protein 6.8 g/dL (6.6-8.7)
[2021-10-28 15:47] LABS: Anion Gap 17.4 (5-19); Potassium 4.4 mmol/L (3.5-5.1)
[2021-10-28 15:48] LABS: Alanine Aminotransferase 19 U/L (0-41); Aspartate Amino Transferase 33 U/L (0-40)
== END 2021-10-28 13:57 | disposition home or self-care (01) ==
LOC: ONCMED 14:01
PROVIDERS: PCP Family Medicine; Visit Provider Internal Medicine Hematology & Oncology
DX: D53.9 Nutritional anemia, unspecified (principal)
CPT/HCPCS: 36415; 80053; 85025

== ENCOUNTER 2021-10-29 09:49 | Outpatient (CLI) | payer MEDICARE, OTHER, SELFPAY | END 2021-10-29 09:50 | disposition home or self-care (01) | PROVIDERS: PCP Family Medicine; Visit Provider Nurse Practitioner Family | DX: D46.9 Myelodysplastic syndrome, unspecified (principal); R06.00 Dyspnea, unspecified; R53.1 Weakness; R53.82 Chronic fatigue, unspecified; I10 Essential (primary) hypertension; R60.0 Localized edema; N28.9 Disorder of kidney and ureter, unspecified; Z79.899 Other long term (current) drug therapy | CPT/HCPCS: 99214 ==

== ENCOUNTER 2021-12-04 08:12 | Outpatient (CLI) | payer MEDICARE, OTHER, SELFPAY ==
[2021-12-04 08:49] LABS: Basophils % 0.7 %; Eosinophils # 0.3 10^3/uL (0.0-0.8); Eosinophils % 6.1 %; Hematocrit 38.4 % (42.0-52.0); Hemoglobin 11.9 g/dL (11.7-16.6); Lymphocytes # 1.1 10^3/uL (0.8-4.8); Lymphocytes % 26.5 %; Mean Corpuscular Hemoglobin 31.1 pg (28.0-34.0); Mean Corpuscular Volume 100.3 fl (80-94); Mean Platelet Volume 11.9 fL (7.4-10.4); Monocytes # 0.6 10^3/uL (0.2-0.9); Monocytes % 14.7 %; Neutrophils % 51.8 %; Nucleated Red Blood Cells % 0 %; Platelet Count 97 10^3/cmm (130-400); Red Blood Count 3.83 10^6/uL (4.1-5.3); Red Cell Distribution Width 16.2 % (12.1-15.1); White Blood Count 4.1 10^3/uL (4.0-10.0)
[2021-12-04 09:16] LABS: Alanine Aminotransferase 20 U/L (0-41); Albumin Level 3.8 g/dL (3.5-5.2); Alkaline Phosphatase 137 IU/L (40-130); Anion Gap 16.7 (5-19); Aspartate Amino Transferase 22 U/L (0-40); Blood Urea Nitrogen 20 mg/dL (8-23); Calcium 8.6 mg/dL (8.5-10.5); Carbon Dioxide 21 mmol/L (22-29); Chloride 106 mmol/L (98-107); Glucose 109 mg/dL (65-115); Osmolality Calculated 291 mOsm/kg (285-295); Potassium 4.7 mmol/L (3.5-5.1); Sodium 139 mmol/L (136-145); Total Bilirubin 0.3 mg/dL (0.15-1.2); Total Protein 6.8 g/dL (6.6-8.7)
== END 2021-12-04 08:13 | disposition home or self-care (01) ==
LOC: ONCMED 08:20
PROVIDERS: PCP Family Medicine; Visit Provider Nurse Practitioner Family
DX: D46.9 Myelodysplastic syndrome, unspecified (principal); R06.00 Dyspnea, unspecified; R53.1 Weakness; R53.82 Chronic fatigue, unspecified; I10 Essential (primary) hypertension; R60.0 Localized edema; N28.9 Disorder of kidney and ureter, unspecified; Z79.899 Other long term (current) drug therapy
CPT/HCPCS: 36415; 80053; 85025; 99214

== ENCOUNTER 2021-12-08 07:34 | Emergency (ER) | payer MEDICARE, OTHER, SELFPAY ==
[2021-12-08 07:46] VITALS: BP 126/82; PULSE 58; RESP 18; TEMP 36.8; O2SAT 100; BMI 38.6
--- NOTE | 2021-12-08 07:59 | CT_ITS ---
WS: [id number] CTA CHEST WITH RIGHT UPPER EXTREMITY TECHNIQUE: Noncontrast plus contrast enhanced CTA of the chest and abdomen with coronal and sagittal reformatted images and additional MIP Images. CLINICAL INFORMATION: severe pain COMPARISON: None. DLP: 3628.[address] scans at [facility] use at least one of these dose optimization techniques: automated e xposure control; mA and/or kV adjustment per patient size (includes targeted exams where dose is matc hed to clinical indication); or iterative reconstruction. FINDINGS: Evaluation limited due to positioning. Normal caliber thoracic aorta. Normal descending thoracic aorta. No mediastinal or hilar lymphadenopa thy. Normal GE junction. Calcified subcarinal lymph nodes. No axillary lymphadenopathy. Cholelithiasi s. LEFT adrenal gland is normal. RIGHT adrenal lesion likely adenoma measuring 11 mm. Tiny RIGHT henrietta l cysts. Fatty atrophy of the pancreas. Celiac and SMA are patent. RIGHT subclavian artery appears patent. RIGHT axillary and brachial arteries are patent. Normal appea ring runoff to the RIGHT wrist. Evidence of subacute fracture involving the distal supracondylar humerus with evidence of callus form ation. Normal alignment. No dislocation. Hypertrophic spurring about the radial head. Tiny ununited c oronoid process fracture. Hypertrophic spurring about the coronoid process. Normal olecranon. Degener ative arthritis olecranon fossa. Radial shaft appears normal. 8mm millimeter intramedullary cyst dist al ulna with associated with chronic cortical erosion and pathologic fracture. CT/[place] [id number] IMPRESSION: 1. Normal RIGHT upper extremity runoff. 2. Evidence of subacute healing fracture involving the supracondylar humerus d istally with callus formation. Normal alignment. No dislocation. 3. Tiny ununited coronoid process fracture. 4. Degenerative arthritis elbow olecranon fossa. 5. Normal radial head. 6. 8mm millimeter small intramedullary cyst distal ulna with associated chroni c cortical erosion and nondisplaced pathologic fracture. 7. Cholelithiasis.
--- NOTE | 2021-12-08 08:01 | XR_ITS ---
WS: [id number] CHEST XRAY TECHNIQUE: Portable chest. CLINICAL INFORMATION: dyspnea/cough COMPARISON: June 30, 2021 FINDINGS: Heart: Cardiomegaly. Aortic calcification. Cardiac pacer. Lungs: Lungs are clear. No consolidation or pleural effusion. Bones: Normal visualized bony structures. XR/XR chest 1V portable [id number] IMPRESSION: 1. Cardiomegaly. 2. No acute pulmonary infiltrates.
--- NOTE | 2021-12-08 08:01 | ECG_ITS ---
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 Measurements Intervals [place] Rate: 74 P: 61 OK: 175 QRS: -89 QRSD: 208 T: 96 QT: 472 QTc: 526 Interpretive Statements ELECTRONIC ATRIAL PACEMAKER ELECTRONIC VENTRICULAR PACEMAKER ABNORMAL RHYTHM ECG Compared to ECG 06/30/2021 20:42:19 No significant changes Electronically Signed On 12-09-2021 9:18:26 PUBLIC RELATIONS CONSULTANT by Codi Stanley M.D. [id number]
--- NOTE | 2021-12-08 08:02 | XR_ITS ---
WS: [id number] ELBOW RIGHT TECHNIQUE: 3 views of the right elbow CLINICAL INFORMATION: pain COMPARISON: None. FINDINGS: Exam is limited due to positioning. Soft tissue edema. Joint effusion with distention of the anterior and posterior fat pads. Vascular ar thritis RIGHT elbow with hypertrophic spurring and joint space narrowing. Hypertrophic spurring along the radial head. Distal humerus appears normal. No visualized acute fractures. XR/XR elbow RT min 3V* [id number] IMPRESSION: Exam is limited due to positioning. 1. Soft tissue edema with joint effusion. 2. 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 3. No visualized fractures.
--- NOTE | 2021-12-08 08:19 | W.ED.EXTPRO ---
HPI - Extremity Problem General: Chief complaint: Extremity Problem,Nontraumatic Stated complaint: R arm, alot of pain PT thinks its bloodclot Time Seen by Provider: 12/08/21 07:39 History of Present Illness: 76-year-old male with a history of myelodysplastic syndrome presents to the ER with complaint of severe pain in his right elbow. When he first arrived he stating he is convinced that he has blood clot in his arm and states he has pain throughout his entire arm on exam like an isolated to just the elbow there is some swelling to the joint. He does not recall any trauma. He is not previously had any history of clots no recent vascular access to the right arm. He is not on any anticoagulants. MD Complaint: joint swelling and joint pain Onset (ago): hour(s) Pain Consistency: constant Location: right (Elbow) Severity scale (1-10): 10 Quality: sharp Relieving factors: immobilization Exacerbating factors: range of motion and palpation Associated symptoms: Deny arthralgias, chest pain, fever(s), myalgias, rash or short of breath Context: immobilization (After onset of symptoms) Review of Systems Const: Denies: fever(s) ENMT: Denies: throat pain, ear or mastoid pain, nasal discharge or nasal congestion Card: Denies: chest pain Resp: Denies: dyspnea, productive cough or non-productive cough GI: Denies: abdominal pain, nausea, vomiting, hematemesis, coffee ground emesis, diarrhea, constipation, bloating, hematochezia or melena : Denies: flank pain, dysuria, urinary frequency or urinary urgency Skin/Breast: Denies: rash PFSH ED PFSH: Medical History (Updated 12/08/21 @ 10:57 by Tommy Mcgarry DO) Acute diastolic heart failure Acute exacerbation of CHF (congestive heart failure) Aortic regurgitation Benign essential hypertension with target blood pressure below 140/90 BPH (benign prostatic hyperplasia) Cholelithiasis Chronic kidney disease, stage III (moderate) Diverticulitis of small bowel Dyslipidemia Edema, peripheral Elevated brain natriuretic peptide (BNP) level Grade III diastolic dysfunction EF 67% Mild pulmonary hypertension LVH Hypertension Hypothyroidism (acquired) Obesity Obesity (BMI 30-39.9) Pacemaker SOB (shortness of breath) Symptomatic bradycardia Systolic CHF Third degree heart block Thrombocytopenia Surgical History S/P cardiac cath Normal 2013 Procedure Procedure Type Diagnostic procedure:Miscellaneous, Perclose , Coronary Angiography Conclusions Procedure Summary 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 due to tumor surgery in the right arm right groin approach was adopted difficulty in access was encounter due to fatty tumors in the thigh, hematoma was observed, procedure was aborted since it was elective in order to avoid major bleeding in case we have to proceed with PCI.Patient was observed for next 24 hours did fine no further bleeding or hematoma observed.He was approached from left groin which remain successful next day.Patient was discharged home without any complication next day 1-LM is normal 2-LAD has luminal irregularities 3-LCx has luminal irregularities 4-RCA has luminal irregularities Status post biventricular pacemaker Family History Other Cancer Social History Smoking and tobacco status: never smoked Alcohol intake: never Household members: family Housing: House Physical Exam Const: GENERAL APPEARANCE: cooperative and comfortable ORIENTATION/CONSCIOUSNESS: Yes awake, Yes oriented to person, Yes oriented to place and Yes oriented to time HENMT: COMMON NORMALS: normocephalic, atraumatic and hearing grossly normal bilaterally HEAD & SCALP: normocephalic and atraumatic Neck/C-Spine: COMMON NORMALS: no JVD Resp: COMMON NORMALS: normal respiratory effort, No retractions, No use of accessory muscles and clear to auscultation bilaterally AUSCULTATION: clear to auscultation bilaterally Cardio: COMMON NORMALS: no JVD, regular rate, regular rhythm and No murmurs present (Cardio) RATE: regular rate RHYTHM: regular rhythm Extremity: OTHER: Examination of the right arm. Pain can be isolated to the right elbow there is moderate swelling moderate swelling there neurovascularly is intact when isolating the shoulder the wrist and hand there is no pain there. Does have pain in the elbow and radiating distally. No deformity no lacerations no rash. Neuro: SENSORIUM/ORIENTATION: Yes oriented to person, Yes oriented to place and Yes oriented to time Skin: COMMON NORMALS: no rashes or lesions noted GENERAL SKIN EXAM: no rashes or lesions noted Course Vital Signs: Vital signs: Vital Signs Temperature 98.2 F 02/15/22 07:46 Pulse Rate 60 12/08/21 09:00 Respiratory Rate 19 H 12/08/21 09:00 Blood Pressure 132/73 12/08/21 09:00 Pulse Oximetry 98 12/08/21 09:00 MDM - Extremity (Nontraumatic) Medical Decision Making Is negative of the elbow CT of the right upper extremity shows a supracondylar fracture with some aspect of healing I discussed with Dr. Angulo. He feels that this is likely the source of pain he does not have any signs of infection he does have a small joint effusion with suspect this from the fracture. The CRP and sed rate are minimally elevated his white count is normal. Neurovascularly is intact we will go ahead and discharge the patient home pain medications immobilizer for the arm follow-up with orthopedics. Lab Data : 12/08/21 08:23 12/08/21 08:23 Radiology Impressions Upper Extremity CTA 12/08/21 07:59 IMPRESSION: 1. Normal RIGHT upper extremity runoff. 2. Evidence of subacute healing fracture involving the supracondylar humerus distally with callus formation. Normal alignment. No dislocation. 3. Tiny ununited coronoid process fracture. 4. Degenerative arthritis elbow olecranon fossa. 5. Normal radial head. 6. 8mm millimeter small intramedullary cyst distal ulna with associated chronic cortical erosion and nondisplaced pathologic fracture. 7. Cholelithiasis. Chest X-Ray 12/08/21 08:01 IMPRESSION: 1. Cardiomegaly. 2. No acute pulmonary infiltrates. Elbow X-Ray 12/08/21 08:02 IMPRESSION: Exam is limited due to positioning. 1. Soft tissue edema with joint effusion. 2. 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 3. No visualized fractures. Laboratory Results WBC 6.0 10^3/uL (4.0-10.0) 12/08/21 08:23 RBC 3.84 10^6/uL (4.1-5.3) L 12/08/21 08:23 Hgb 11.6 g/dL (11.7-16.6) L 12/08/21 08:23 Hct 38.1 % (42.0-52.0) L 12/08/21 08:23 MCV 99.2 fl (80-94) H 12/08/21 08:23 MCH 30.2 pg (28.0-34.0) 12/08/21 08: MCHC 30.4 g/dL (30.0-36.0) 12/08/21 08: RDW 15.9 % (12.1-15.1) H 12/08/21 08: Plt Count 100 10^3/cmm (130-400) L 12/08/21: MPV 12.1 fL (7.4-10.4) H 12/08/21 08: Neut % (Auto) 64.6 % 12/08/21 08: Lymph % (Auto) 18.6 % 12/08/21 08: Craven % (Auto) 14.5 % 12/08/21: Eos % (Auto) 1.7 % 12/08/21: Baso % (Auto) 0.3 % 12/08/21: Neut # (Auto) 3.86 10^3/uL (1.8-7.7) 12/08/21 08: Lymph # (Auto) 1.1 10^3/uL (0.8-4.8) 12/08/21: Craven # (Auto) 0.9 10^3/uL (0.2-0.9) 12/08/21 08: Eos # (Auto) 0.1 10^3/uL (0.0-0.8) 12/08/21: Baso # (Auto) 0.0 10^3/uL (0.0-0.1) 12/08/21: Nucleated RBC % (auto) 0 % 12/08/21: Nucleated RBCs # 0.0 /100WBC 12/08/21 08: ESR 36 mm/hr (0-10) H 12/08/21 08: Sodium 136 mmol/L (136-145) 12/08/21: Potassium 4.0 mmol/L (3.5-5.1) 12/08/21: Chloride 105 mmol/L (98-107) 12/08/21: Carbon Dioxide 21 mmol/L (22-29) L 12/08/21 08: Anion Gap 14.0 (5-19) 12/08/21 08:23 BUN 16 mg/dL (8-23) 12/08/21 08:23 Creatinine 1.3 mg/dL (0.7-1.2) H 12/08/21 08:23 GFR Calculation Not Reportable 12/08/21 08:23 Glucose 117 mg/dL (65-115) H 12/08/21 08:23 Calculated Osmolality 284 mOsm/kg (285-295) L 12/08/21 08:23 Calcium 9.6 mg/dL (8.5-10.5) 12/08/21 08:23 Total Bilirubin 0.3 mg/dL (0.15-1.2) 12/08/21 08:23 AST 18 U/L (0-40) 12/08/21 08:23 ALT 20 U/L (0-41) 12/08/21 08:23 Alkaline Phosphatase 126 IU/L (40-130) 12/08/21 08:23 Creatine Kinase 68 U/L (39-308) 12/08/21 08:23 C-Reactive Protein 8.2 mg/L (0.0-4.9) H 12/08/21 08:23 Total Protein 7.1 g/dL (6.6-8.7) 12/08/21 08:23 Albumin 3.9 g/dL (3.5-5.2) 12/08/21 08:23 Globulin 3.2 g/dL (1.3-4.6) 12/08/21 08:23 Discharge Plan Discharge Patient Disposition: Home Clinical Impression: Supracondylar fracture of humerus Condition: Stable Prescriptions: New hydrocodone-acetaminophen 5-325 mg tablet 1 tab PO Q6H PRN (Reason: pain) Qty: 20 0RF No Action furosemide 40 mg tablet 60 mg PO BID Qty: 90 5RF Rx Instructions: Take 1 & 1/2 tabs by mouth twice daily. magnesium L-lactate [Magtab] 84 mg tablet extended release 84 mg PO DAILY 0RF Centrum Silver Men 300-600-300 mcg Tablet 1 tab PO DAILY 0RF Discharge Orders: Discharge ED (Routine); Ordered 12/08/21 Ordered By: Tommy Mcgarry Referrals: Cal Burris MD [Primary Care Provider] - Discharge Diet: Usual diet Patient Instructions: Opioid Safety Activity Restrictions/Additional Instructions: territory business manager will make arrangements for you to follow-up with orthopedics Coding Level of Care Code ED Fish Trapper for Chg Fwd Exam Detailed
[2021-12-08 08:23] VITALS: RESP 24
[2021-12-08] MEDS: ondansetron 2 mg/ML SDV 2 mL 4 MG IVP (08:23)
[2021-12-08] MEDS: morphine 4 mg/mL SDV 1 mL IVP (08:23)
[2021-12-08 08:24] VITALS: PULSE 64
--- NOTE | 2021-12-08 08:26 | PC.NURSE ---
PT PLACED ON CONTINUOUS SPO2, NIBP, AND CM.
[2021-12-08 08:30] LABS: Basophils % 0.3 %; Eosinophils # 0.1 10^3/uL (0.0-0.8); Eosinophils % 1.7 %; Hematocrit 38.1 % (42.0-52.0); Hemoglobin 11.6 g/dL (11.7-16.6); Lymphocytes # 1.1 10^3/uL (0.8-4.8); Lymphocytes % 18.6 %; Mean Corpuscular HGB Conc 30.4 g/dL (30.0-36.0); Mean Corpuscular Hemoglobin 30.2 pg (28.0-34.0); Mean Corpuscular Volume 99.2 fl (80-94); Mean Platelet Volume 12.1 fL (7.4-10.4); Monocytes # 0.9 10^3/uL (0.2-0.9); Monocytes % 14.5 %; Neutrophils # 3.86 10^3/uL (1.8-7.7); Neutrophils % 64.6 %; Nucleated Red Blood Cells % 0 %; Platelet Count 100 10^3/cmm (130-400); Red Blood Count 3.84 10^6/uL (4.1-5.3); Red Cell Distribution Width 15.9 % (12.1-15.1)
[2021-12-08 08:54] LABS: Alanine Aminotransferase 20 U/L (0-41); Albumin Level 3.9 g/dL (3.5-5.2); Alkaline Phosphatase 126 IU/L (40-130); Aspartate Amino Transferase 18 U/L (0-40); Blood Urea Nitrogen 16 mg/dL (8-23); Calcium 9.6 mg/dL (8.5-10.5); Carbon Dioxide 21 mmol/L (22-29); Chloride 105 mmol/L (98-107); Creatine Phosphokinase 68 U/L (39-308); Globulin 3.2 g/dL (1.3-4.6); Glucose 117 mg/dL (65-115); Osmolality Calculated 284 mOsm/kg (285-295); Sodium 136 mmol/L (136-145); Total Bilirubin 0.3 mg/dL (0.15-1.2); Total Protein 7.1 g/dL (6.6-8.7)
[2021-12-08 09:00] VITALS: BP 132/73; PULSE 60; RESP 19; O2SAT 98
[2021-12-08 09:27] LABS: Erythrocyte Sedimentation Rate 36 mm/hr (0-10)
[2021-12-08 09:30] LABS: C Reactive Protein 8.2 mg/L (0.0-4.9)
[2021-12-08] MEDS: iodixanol 320 mg/mL 100mL Btl IV (10:00)
--- NOTE | 2021-12-10 10:17 | DCPLANNER ---
Addendum entered by Susan Jama 12/18/21 15:09: Patient had a follow up appointment scheduled for 12.10.[address] Angulo at ortho - patient did attend appointment. Addendum entered by Susan Jama 12/10/21 10:20: franchise manager called the ortho clinic and made referral on 12.09.21. Original Note: late entry - franchise manager had message to schedule a follow up appointment for patient with ortho. franchise manager called the ortho clinic, spoke with Sandrita, gave clinic patients information. franchise manager was told that patients information would be printed and reviewed. Clinic will call patient with appointment information.
== END 2021-12-08 11:30 | disposition home or self-care (01) ==
PROVIDERS: Emergency Provider Family Medicine; PCP Family Medicine
DX: S42.414A Nondisplaced simple supracondylar fracture without intercondylar fracture of right humerus, initial encounter for closed fracture (principal); I13.0 Hypertensive heart and chronic kidney disease with heart failure and stage 1 through stage 4 chronic kidney disease, or unspecified chronic kidney disease; N18.30 Chronic kidney disease, stage 3 unspecified; I50.9 Heart failure, unspecified; E78.5 Hyperlipidemia, unspecified; Z95.0 Presence of cardiac pacemaker; X58.XXXA Exposure to other specified factors, initial encounter
CPT/HCPCS: 71045; 73080; 73206; 80053; 82550; 85025; 85651; 86140; 93005; 96374; 96375; 99284; J2270; J2405; Q9967

== ENCOUNTER 2021-12-18 08:37 | Outpatient (CLI) | payer MEDICARE, OTHER, SELFPAY ==
[2021-12-18 09:10] LABS: Basophils # 0.1 10^3/uL (0.0-0.1); Basophils % 0.9 %; Eosinophils # 0.1 10^3/uL (0.0-0.8); Eosinophils % 1.6 %; Hematocrit 39.7 % (42.0-52.0); Hemoglobin 12.3 g/dL (11.7-16.6); Lymphocytes # 1.5 10^3/uL (0.8-4.8); Lymphocytes % 26.8 %; Mean Corpuscular Hemoglobin 30.3 pg (28.0-34.0); Mean Corpuscular Volume 97.8 fl (80-94); Mean Platelet Volume 10.6 fL (7.4-10.4); Monocytes # 0.9 10^3/uL (0.2-0.9); Monocytes % 14.8 %; Neutrophils # 3.19 10^3/uL (1.8-7.7); Neutrophils % 55.6 %; Nucleated Red Blood Cells % 0 %; Platelet Count 206 10^3/cmm (130-400); Red Blood Count 4.06 10^6/uL (4.1-5.3); Red Cell Distribution Width 16.3 % (12.1-15.1); White Blood Count 5.7 10^3/uL (4.0-10.0)
[2021-12-18 09:35] LABS: Alanine Aminotransferase 58 U/L (0-41); Albumin Level 3.8 g/dL (3.5-5.2); Alkaline Phosphatase 140 IU/L (40-130); Anion Gap 17.9 (5-19); Aspartate Amino Transferase 23 U/L (0-40); Blood Urea Nitrogen 37 mg/dL (8-23); Calcium 9.7 mg/dL (8.5-10.5); Carbon Dioxide 25 mmol/L (22-29); Chloride 100 mmol/L (98-107); Globulin 3.5 g/dL (1.3-4.6); Glucose 115 mg/dL (65-115); Osmolality Calculated 298 mOsm/kg (285-295); Potassium 3.9 mmol/L (3.5-5.1); Sodium 139 mmol/L (136-145); Total Bilirubin 0.3 mg/dL (0.15-1.2); Total Protein 7.3 g/dL (6.6-8.7)
--- NOTE | 2021-12-18 11:07 | ONC FU_ITS ---
Dr. Mesa follow up note Patient: Harley Viera Unit #: [id number]: [id number] Dicatated By: Leno Mesa M.D.Date of Visit:Dec 18, 2021 Onc Med Follow-up/Prog Note History of Present Illness: Mr. Harley Veira is a 76-year-old gentleman with history of progressive dyspnea on exertion was recently evaluated by PMD on June 08, 2021 and lab work-up shows white blood count 4.9 hemoglobin 7.2 g hematocrit 22.4 platelets 297,000 and MCV 127.2 with a normal differential. As per patient, initially his physician referred him to pulmonology for abnormal chest x-ray but then he was asked to come to cancer center prior evaluation as his lab work-up showed low blood count. As per patient, he has been feeling very weak and fatigue, cannot walk few steps without getting shortness of breath, also developed progressive lower extremity edema for which he has been taking diuretics and recently he was informed 'slow kidney and referred to medical language specialist. 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 Patient denies smoking alcohol use, patient denies any night sweats or recurrent fever but weight loss probably due to diuretics. Patient denies any melena or hematochezia denies any hemoptysis hematemesis, denies any jaundice, denies any hematuria., Denies any peripheral numbness, denies any mouth sores, but sometimes lightheaded or dizziness. Denies any peripheral lymphadenopathy denies any abdominal fullness Bone marrow evaluation done on July 21, 2021 showed, mildly hypercellular bone marrow for age with trilineage hematopoiesis, no evidence of bone marrow infiltrative disorder. Several dyspoietic appearing megakaryocytes are present. Approximately 4 to 5% blast cells. Also showed increased storage of iron and no ring sideroblasts. 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 favorable prognosis started on Revlimid 5 mg p.o. daily on August 12, 2021, Started taking Revlimid 5 mg p.o. daily on August 12, 2021 and did fine for first week then a second week he started having off and on darker stools and called the office, as per patient he was told to hold Revlimid, It was restarted on August 27, 2021 Put on hold on September 10, 2021 because of progressive pancytopenia. Came for follow-up, complaining of right arm swelling, for which he went to [facility] [place] [facility] [place] December 08, 2021 at that time, as per patient he was having severe right elbow pain and was concerned about clot and the upper extremity CTA was done on December 08, 2021 showed normal right upper extremity runoff, evidence of subacute healing fracture involving supracondylar humerus distally and callus formation. Normal alignment. Tiny ununited coronoid process fracture. As per patient, he was referred to orthopedics for evaluation and symptomatic treatment was offered. Patient went to see his PMD Dr. Burris and on December 15, 2021, he underwent ultrasound/Doppler study right upper extremity which was negative for DVT. But as per patient he was started on blood thinner by his PMD. Denies any skin rash denies any headaches denies any melena or hematochezia denies any hemoptysis hematemesis patient still off Revlimid and his fatigue is continued to improve. Patient was diagnosed with Covid infection in September 2021. Is also complaining of muscle wasting in left hand and numbness in his little finger which is a chronic problem Medications: Aldactone 1 Tablet (of 25 mg) Oral daily, Daily Value Multivitamin 1 Tablet Oral daily Allergies: No Known Allergies. Review of Systems: Review of Systems is not available for this patient. Vital Signs: Performed on Dec 18, 2021 10:15 Height - 65.00 in Weight - 225 lbs (LOW) BSA - 2.08 sq.m BMI - 37.44 (HIGH) Temperature - 97.3 F (LOW) Pulse - 61 /min Respiration - 20 /min BP - 166/90 mm(hg) (HIGH) O2 Sat - 97 % Pain - 0 Fatigue - 5 Performance Status: 1 - No physically strenuous activity, but ambulatory and able to carry out light or sedentary work (e.g. office work, light house work). (ECOG) Physical Examination: ENMT - No mouth sores, no thrush, no jaundice, Respiratory - Lungs are clear to auscultation, Cardiovascular - Regular rate and rhythm of heart, Abdomen - Soft, bowel sounds present, Extremities - 1+ edema involving right upper extremity, with no obvious skin lesion, left hand shows mild/moderate muscle wasting, No skin rash. Lab/Imaging: Test performed on Dec 04, 2021 08:36 Sodium 139 mmol/L Potassium 4.7 mmol/L Chloride 106 mmol/L CO2 21 mmol/L Anion Gap 16.7 BUN 20 mg/dL Creatinine 1.6 mg/dL Cr Clearance (Est) 60.08 mL/min Glucose 109 mg/dL Osmolality - Calculated 291 mOsm/kg Calcium 8.6 mg/dL Protein, Total 6.8 g/dL Albumin 3.8 g/dL Globulin 3.0 g/dL Bilirubin, Total 0.3 mg/dL ALT (SGPT) 20 U/L AST (SGOT) 22 U/L Alkaline Phosphatase 137 IU/L WBC 4.1 10 3/uL RBC 3.83 10 6/uL HGB 11.9 g/dL HCT 38.4 % MCV 100.3 fl MCH 31.1 pg MCHC 31.0 g/dL RDW 16.2 % Platelet Count 97 10 3/cmm MPV 11.9 fL Neutrophils 2.10 10 3/uL Lymphocytes 1.1 10 3/uL Monocytes 0.6 10 3/uL Eosinophils 0.3 10 3/uL Basophils 0.0 10 3/uL Neutrophil % 51.8 % Lymphocyte % 26.5 % Monocyte % 14.7 % Eosinophil % 6.1 % Basophils % 0.7 % NRBC % 0 % Test performed on Jul 21, 2021 11:30 Manual Segs 65.2 % Manual Lymphocytes 26.2 % Manual Monocytes 4.2 % Manual Eosinophils 2.1 % Manual Basophils 1.7 % Impression: Myelodysplasia with 5 q-, as per bone marrow evaluation done on July 21, 2021, Bone marrow shows 4 to 5% blast cells, IPSS, low risk e.g. 4 to 5% blast cell, 5 q-, hemoglobin less than 10 g, within normal platelet and white blood counts) . iron saturation 62.9% ferritin 578 folic acid 18.7 iron 131 TIBC 208 vitamin B-12 419 haptoglobin 131 Dyspnea on exertion/generalized weakness and fatigue, probably due to above Started on Revlimid 5 mg p.o. daily August 12, 2021, Because of progressive fatigue, cytopenia and rash Revlimid was put on hold on September 10, 2021, although repeat CBC done on December 18, 2021 showed resolution of anemia and thrombocytopenia as CBC showed white blood count 5.7 hemoglobin 12.3 g medical 39.7 platelets 206,000 Hypertension Lower extremity edema, question of CHF or due to renal insufficiency or anemia, On diuretics Renal insufficiency Plan: Discussed with patient regarding his labs white blood count 5.7 hemoglobin 12.3 g hematocrit 39.7 platelets 206,000 compared to 97,000 previously CMP within normal limit except creatinine 1.6 and ALT 58 Clinically, patient is doing reasonably well now in mild to moderate distress due to right hand/upper extremity swelling, which is improving now and recently underwent extensive work-up to rule out DVT and in fact, repeat venous Doppler study on December 15, 2021 by PMD showed no evidence of DVT but as per patient he is on blood thinner twice a day does not remember the name, probably Eliquis. Patient was advised to discuss with PMD, etiology of right upper extremity is unclear, could be due to coronavirus related complication or other possibility could be spider or other bug bite. Patient was advised to follow-up with PMD regarding management. As far as left hand muscle wasting and little finger numbness is concerned, probably due to neuropathy either due to carpal tunnel or cervical radiculopathy, will suggest nerve conduction study or neurological evaluation. As far as anemia/thrombocytopenia/MDS is concerned, patient was treated with Revlimid but due to intolerance, his dose was reduced to 5 mg every other day but then on September 10, 2021 it was put on hold because of progressive cytopenia and the patient did develop a rash and also was complaining of progressive fatigue. His repeat CBC today showed resolution of anemia and thrombocytopenia, in fact, CBC is in normal range. 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 At this point, as patient is in mild to moderate distress due to right upper extremity swelling although is improving and left hand muscle wasting and numbness in little finger, we will continue to hold his Revlimid for another 2 weeks and have him back in 2 weeks with CBC at that time we will discuss with him regarding Revlimid. Signed By: Leno Mesa M.D. <<Signature on File>>
== END 2021-12-18 08:38 | disposition home or self-care (01) ==
PROVIDERS: PCP Family Medicine; Visit Provider Internal Medicine Hematology & Oncology
DX: D46.9 Myelodysplastic syndrome, unspecified (principal); D75.9 Disease of blood and blood-forming organs, unspecified; R60.0 Localized edema; N28.9 Disorder of kidney and ureter, unspecified; I10 Essential (primary) hypertension; Z79.899 Other long term (current) drug therapy
CPT/HCPCS: 36415; 80053; 85025; 99214

== ENCOUNTER 2022-01-01 08:29 | Outpatient (CLI) | payer MEDICARE, OTHER, SELFPAY ==
[2022-01-01 09:01] LABS: Basophils % 0.4 %; Eosinophils # 0.2 10^3/uL (0.0-0.8); Eosinophils % 3.4 %; Hematocrit 37.9 % (42.0-52.0); Hemoglobin 11.7 g/dL (11.7-16.6); Lymphocytes # 1.3 10^3/uL (0.8-4.8); Lymphocytes % 27.4 %; Mean Corpuscular HGB Conc 30.9 g/dL (30.0-36.0); Mean Corpuscular Hemoglobin 29.4 pg (28.0-34.0); Mean Corpuscular Volume 95.2 fl (80-94); Monocytes # 0.4 10^3/uL (0.2-0.9); Monocytes % 8.9 %; Neutrophils # 2.83 10^3/uL (1.8-7.7); Neutrophils % 59.7 %; Nucleated Red Blood Cells % 0 %; Platelet Count 175 10^3/cmm (130-400); Red Blood Count 3.98 10^6/uL (4.1-5.3); Red Cell Distribution Width 16.2 % (12.1-15.1); White Blood Count 4.7 10^3/uL (4.0-10.0)
--- NOTE | 2022-01-01 10:32 | ONC FU_ITS ---
[facility] Progress Note Patient: Harley Viera Unit #: [id number]: 1945 Dicatated By: Lynne Ford N.P.Date of Visit:Jan 01, 2022 Onc MED Follow-up/Prog Note Chief Complaint: Severe anemia History of Present Illness: Mr. Harley Viera is a 76-year-old gentleman with history of progressive dyspnea on exertion was recently evaluated by PMD on June 08, 2021 and lab work-up shows white blood count 4.9 hemoglobin 7.2 g hematocrit 22.4 platelets 297,000 and MCV 127.2 with a normal differential. As per patient, initially his physician referred him to pulmonology for abnormal chest x-ray but then he was asked to come to cancer center prior evaluation as his lab work-up showed low blood count. 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 Patient denies smoking alcohol use, patient denies any night sweats or recurrent fever but weight loss probably due to diuretics. Patient denies any melena or hematochezia denies any hemoptysis hematemesis, denies any jaundice, denies any hematuria., Denies any peripheral numbness, denies any mouth sores, but sometimes lightheaded or dizziness. Denies any peripheral lymphadenopathy denies any abdominal fullness Bone marrow evaluation done on July 21, 2021 showed, mildly hypercellular bone marrow for age with trilineage hematopoiesis, no evidence of bone marrow infiltrative disorder. Several dyspoietic appearing megakaryocytes are present. Approximately 4 to 5% blast cells. Also showed increased storage of iron and no ring sideroblasts. 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 favorable prognosis started on Revlimid 5 mg p.o. daily on August 12, 2021, Started taking Revlimid 5 mg p.o. daily on August 12, 2021 and did fine for first week then a second week he started having off and on darker stools and called the office, as per patient he was told to hold Revlimid, It was restarted on August 27, 2021 Put on hold on September 10, 2021 because of progressive pancytopenia. Patient presents today for follow-up. He states he has been feeling well. He denies weakness or fatigue. His appetite has been good. No fever, chills, night sweats. No sinus drainage or mouth sores. No shortness of breath, cough, chest pain. He denies any GI problems or problems. No joint pain or muscle weakness. No headaches or dizziness. He does have bilateral lower extremity edema which he takes furosemide as needed. He continues to have redness, swelling and warmth to right hand. He was evaluated for DVT but it was negative. He states that it has improved some but continues to swell daily. Review Of Symptoms: See above. Past Medical History: Hypertension Past Surgical History: BILATERAL HIP ARTHROPLASTY PACEMAKER in 2019 Cyst removed from right arm in 2004 Allergies: No Known Allergies. Medications: Aldactone 1 Tablet (of 25 mg) Oral daily Daily Value Multivitamin 1 Tablet Oral daily Family History: Mr. Viera's mother at age 78: brain tumor. Mr. Viera's father at age 74: Cancer. Mr. Viera has 1 brother who is alive. He has 1 sister who is alive. Social History: Mr. Viera is . Mr. Viera has never smoked. He has no history of drinking. Physical Examination: Performed on Jan 01, 2022 09:32: Height - 65.00 in, Weight - 225.0 lbs, BSA - 2.08 sq.m, BMI - 37.44 (HIGH), Temperature - 98.1 F (LOW), Pulse - 91 /min, Respiration - 18 /min, BP - 129/87 mm(hg), O2 Sat - 94 % (LOW), Pain - 0, and Fatigue - 4. Performance Status: 0 - Fully active, able to carry on all predisease activities without restrictions. (ECOG) Constitutional Alert, cooperative, oriented. Mood and affect appropriate. Appears close to chronological age. Well nourished. Well developed. Head Normocephalic; no scars. Respiratory Lungs are clear to auscultation without rhonchi or wheezing. Cardiovascular Regular rate and rhythm of heart without murmurs, gallops or rubs. Abdomen Non-tender, non-distended, no masses, ascites or hepatosplenomegaly. Good bowel sounds. No guarding or rebound tenderness. Extremities 1+ pitting edema bilateral lower extremity; left hand with swelling, warmth, and inflammation. Musculoskeletal No tenderness or swelling, normal range of motion without obvious weakness. Psychiatric Alert and oriented times three. Coherent speech. Verbalizes understanding of our discussions today. Laboratory: Test performed on Jan 01, 2022 08:55 WBC 4.7 10 3/uL RBC 3.98 10 6/uL HGB 11.7 g/dL HCT 37.9 % MCV 95.2 fl MCH 29.4 pg MCHC 30.9 g/dL RDW 16.2 % Platelet Count 175 10 3/cmm MPV 11.0 fL Neutrophils 2.83 10 3/uL Lymphocytes 1.3 10 3/uL Monocytes 0.4 10 3/uL Eosinophils 0.2 10 3/uL Basophils 0.0 10 3/uL Neutrophil % 59.7 % Lymphocyte % 27.4 % Monocyte % 8.9 % Eosinophil % 3.4 % Basophils % 0.4 % NRBC % 0 % Test performed on Dec 04, 2021 08:36 Sodium 139 mmol/L Potassium 4.7 mmol/L Chloride 106 mmol/L CO2 21 mmol/L Anion Gap 16.7 BUN 20 mg/dL Creatinine 1.6 mg/dL Cr Clearance (Est) 60.08 mL/min Glucose 109 mg/dL Osmolality - Calculated 291 mOsm/kg Calcium 8.6 mg/dL Protein, Total 6.8 g/dL Albumin 3.8 g/dL Globulin 3.0 g/dL Bilirubin, Total 0.3 mg/dL ALT (SGPT) 20 U/L AST (SGOT) 22 U/L Alkaline Phosphatase 137 IU/L Test performed on Jul 21, 2021 11:30 Manual Segs 65.2 % Manual Lymphocytes 26.2 % Manual Monocytes 4.2 % Manual Eosinophils 2.1 % Manual Basophils 1.7 % Impression: Myelodysplasia with 5 q-, as per bone marrow evaluation done on July 21, 2021, Bone marrow shows 4 to 5% blast cells, IPSS, low risk e.g. 4 to 5% blast cell, 5 q-, hemoglobin less than 10 g, within normal platelet and white blood counts) . iron saturation 62.9% ferritin 578 folic acid 18.7 iron 131 TIBC 208 vitamin B-12 419 haptoglobin 131 Dyspnea on exertion/generalized weakness and fatigue, probably due to above Started on Revlimid 5 mg p.o. daily August 12, 2021, Because of progressive fatigue, cytopenia and rash Revlimid was put on hold on September 10, 2021, although repeat CBC done on December 18, 2021 showed resolution of anemia and thrombocytopenia as CBC showed white blood count 5.7 hemoglobin 12.3 g medical 39.7 platelets 206,000 Hypertension Lower extremity edema, question of CHF or due to renal insufficiency or anemia, On diuretics Renal insufficiency Plan: Labs were discussed with patient with WBC at 4.7, RBC 3.98, hemoglobin 11.7, hematocrit 37.9 platelet count 175,000. We discussed restarting his Revlimid at 5 mg every other day. It was placed on hold in August due to intolerance progression of cytopenias and the patient did develop a rash and also had increased fatigue. Patient would like to hold off on starting Revlimid for another month and recheck labs. We discussed how Revlimid may decrease his risk for AML in the future. Patient has this but would still like to hold off on restarting Revlimid at this time. His right hand with swelling and erythema has cellulitis. Will start Keflex 500 mg p.o. 3 times daily x10 days and reevaluate at next appointment. Patient will follow up in 1 month with CBC, CMP and further discussion about restarting Revlimid at that time. Signed By: Lynne Ford, N.P. <<Signature on File>>
== END 2022-01-01 08:30 | disposition home or self-care (01) ==
PROVIDERS: Internal Medicine Hematology & Oncology; PCP Family Medicine; Visit Provider Nurse Practitioner Family
DX: D46.9 Myelodysplastic syndrome, unspecified (principal); I10 Essential (primary) hypertension; R60.9 Edema, unspecified; N28.9 Disorder of kidney and ureter, unspecified; Z95.0 Presence of cardiac pacemaker; Z79.899 Other long term (current) drug therapy
CPT/HCPCS: 36415; 85025; 99214

== ENCOUNTER 2022-02-09 10:48 | Outpatient (CLI) | payer MEDICARE, OTHER, SELFPAY ==
[2022-02-09 11:20] LABS: Basophils % 0.2 %; Eosinophils # 0.1 10^3/uL (0.0-0.8); Eosinophils % 1.6 %; Hematocrit 38.6 % (42.0-52.0); Hemoglobin 12.1 g/dL (11.7-16.6); Lymphocytes # 1.7 10^3/uL (0.8-4.8); Lymphocytes % 30.3 %; Mean Corpuscular HGB Conc 31.3 g/dL (30.0-36.0); Mean Corpuscular Hemoglobin 30.3 pg (28.0-34.0); Mean Corpuscular Volume 96.5 fl (80-94); Mean Platelet Volume 11.7 fL (7.4-10.4); Monocytes # 0.4 10^3/uL (0.2-0.9); Monocytes % 7.4 %; Neutrophils # 3.42 10^3/uL (1.8-7.7); Neutrophils % 60.3 %; Nucleated Red Blood Cells % 0 %; Platelet Count 139 10^3/cmm (130-400); Red Cell Distribution Width 18.7 % (12.1-15.1); White Blood Count 5.7 10^3/uL (4.0-10.0)
[2022-02-09 11:41] LABS: Alanine Aminotransferase 16 U/L (0-41); Albumin Level 3.9 g/dL (3.5-5.2); Alkaline Phosphatase 140 IU/L (40-130); Anion Gap 13.3 (5-19); Aspartate Amino Transferase 17 U/L (0-40); Blood Urea Nitrogen 24 mg/dL (8-23); Calcium 9.2 mg/dL (8.5-10.5); Carbon Dioxide 23 mmol/L (22-29); Chloride 102 mmol/L (98-107); Globulin 2.6 g/dL (1.3-4.6); Glucose 120 mg/dL (65-115); Osmolality Calculated 283 mOsm/kg (285-295); Potassium 4.3 mmol/L (3.5-5.1); Sodium 134 mmol/L (136-145); Total Bilirubin 0.2 mg/dL (0.15-1.2); Total Protein 6.5 g/dL (6.6-8.7)
--- NOTE | 2022-02-10 09:41 | ONC FU_ITS ---
Dr. Mesa follow up note Patient: Harley Viera Unit #: [id number]: 1945 Dicatated By: Leno Mesa M.D.Date of Visit:Feb 09, 2022 Onc Med Follow-up/Prog Note History of Present Illness: Mr. Harley Viera is a 76-year-old gentleman with history of progressive dyspnea on exertion was recently evaluated by PMD on June 08, 2021 and lab work-up shows white blood count 4.9 hemoglobin 7.2 g hematocrit 22.4 platelets 297,000 and MCV 127.2 with a normal differential. As per patient, initially his physician referred him to pulmonology for abnormal chest x-ray but then he was asked to come to cancer center prior evaluation as his lab work-up showed low blood count. 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 Patient denies smoking alcohol use, patient denies any night sweats or recurrent fever but weight loss probably due to diuretics. Patient denies any melena or hematochezia denies any hemoptysis hematemesis, denies any jaundice, denies any hematuria., Denies any peripheral numbness, denies any mouth sores, but sometimes lightheaded or dizziness. Denies any peripheral lymphadenopathy denies any abdominal fullness Bone marrow evaluation done on July 21, 2021 showed, mildly hypercellular bone marrow for age with trilineage hematopoiesis, no evidence of bone marrow infiltrative disorder. Several dyspoietic appearing megakaryocytes are present. Approximately 4 to 5% blast cells. Also showed increased storage of iron and no ring sideroblasts. 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 favorable prognosis started on Revlimid 5 mg p.o. daily on August 12, 2021, Started taking Revlimid 5 mg p.o. daily on August 12, 2021 and did fine for first week then a second week he started having off and on darker stools and called the office, as per patient he was told to hold Revlimid, It was restarted on August 27, 2021 Put on hold on September 10, 2021 because of progressive pancytopenia .Came for follow-up, denies any specific complaints except persistent generalized weakness and fatigue, as per patient when his was alive, she used to wake him up as he used to stop breathing during his sleep but never been evaluated for sleep apnea. He is also complaining of left hand weakness and numbness in the little finger, patient tried alternative therapy without much improvement, patient was advised to discuss with his PMD regarding neurology evaluation, now interested in seeing neurology. As far as MDS is concerned, patient was treated with Revlimid, which showed excellent response but patient decided to stop Revlimid in August 2021 because of progressive pancytopenia and somewhat intolerance due to progressive generalized weakness and fatigue, As per patient he is feeling much better since he is off Revlimid and his blood count continues to improve and now in normal range Medications: Aldactone 1 Tablet (of 25 mg) Oral daily, Daily Value Multivitamin 1 Tablet Oral daily, Furosemide 1 Tablet (of 60 mg) Oral b.i.d. PRN Allergies: No Known Allergies. Review of Systems: Review of Systems is not available for this patient. Vital Signs: Performed on Feb 09, 2022 12:41 Height - 65.00 in Weight - 232.0 lbs (HIGH) BSA - 2.11 sq.m BMI - 38.61 (HIGH) Temperature - 98.1 F (LOW) Pulse - 87 /min Respiration - 18 /min BP - 143/87 mm(hg) (HIGH) O2 Sat - 99 % Pain - 0 Fatigue - 5 Performance Status: 0 - Fully active, able to carry on all predisease activities without restrictions. (ECOG) Physical Examination: ENMT - No mouth sores, no thrush, no jaundice, Respiratory - Lungs are clear to auscultation, Cardiovascular - Regular rate and rhythm of heart, Abdomen - Soft, bowel sounds present, Extremities - No visible edema. Lab/Imaging: Test performed on Jan 01, 2022 08:55 WBC 4.7 10 3/uL RBC 3.98 10 6/uL HGB 11.7 g/dL HCT 37.9 % MCV 95.2 fl MCH 29.4 pg MCHC 30.9 g/dL RDW 16.2 % Platelet Count 175 10 3/cmm MPV 11.0 fL Neutrophils 2.83 10 3/uL Lymphocytes 1.3 10 3/uL Monocytes 0.4 10 3/uL Eosinophils 0.2 10 3/uL Basophils 0.0 10 3/uL Neutrophil % 59.7 % Lymphocyte % 27.4 % Monocyte % 8.9 % Eosinophil % 3.4 % Basophils % 0.4 % NRBC % 0 % Test performed on Dec 04, 2021 08:36 Sodium 139 mmol/L Potassium 4.7 mmol/L Chloride 106 mmol/L CO2 21 mmol/L Anion Gap 16.7 BUN 20 mg/dL Creatinine 1.6 mg/dL Cr Clearance (Est) 60.08 mL/min Glucose 109 mg/dL Osmolality - Calculated 291 mOsm/kg Calcium 8.6 mg/dL Protein, Total 6.8 g/dL Albumin 3.8 g/dL Globulin 3.0 g/dL Bilirubin, Total 0.3 mg/dL ALT (SGPT) 20 U/L AST (SGOT) 22 U/L Alkaline Phosphatase 137 IU/L Impression: Myelodysplasia with 5 q-, as per bone marrow evaluation done on July 21, 2021, Bone marrow shows 4 to 5% blast cells, IPSS, low risk e.g. 4 to 5% blast cell, 5 q-, hemoglobin less than 10 g, within normal platelet and white blood counts) . iron saturation 62.9% ferritin 578 folic acid 18.7 iron 131 TIBC 208 vitamin B-12 419 haptoglobin 131 Dyspnea on exertion/generalized weakness and fatigue, probably due to above Started on Revlimid 5 mg p.o. daily August 12, 2021, Because of progressive fatigue, cytopenia and rash Revlimid was put on hold on September 10, 2021, although repeat CBC done on December 18, 2021 showed resolution of anemia and thrombocytopenia as CBC showed white blood count 5.7 hemoglobin 12.3 g medical 39.7 platelets 206,000 Hypertension Lower extremity edema, question of CHF or due to renal insufficiency or anemia, On diuretics Renal insufficiency Plan: Discussed with patient regarding his labs white blood count 5.7 hemoglobin 12.1 g compared to 11.7 g previously hematocrit 38.6 platelets 139,000 CMP within normal limit except creatinine 1.6 which is stable Clinically, patient doing well with no new signs symptoms suggestive of disease progression, his follow-up CBC shows resolution of anemia due to MDS and normal values. Patient is off Revlimid since August 2021 because of pancytopenia and somewhat intolerance and patient's desires not to restart, knowing the risk versus benefits. His follow-up CBC shows resolution of anemia and pancytopenia while he is off Revlimid. As per the generalized weakness and fatigue is concerned probably multifactorial but clinically it appears patient has underlying sleep apnea, will suggest PMD to consider sleep study and if sleep apnea is confirmed, he may benefit from CPAP machine As far as left arm/hand weakness and somewhat muscle wasting or left little finger numbness is concerned which is a chronic in nature, as per patient since pacemaker was placed in left chest, could be due to neuropathy due to carpal tunnel or cervical radiculopathy, we will suggest PMD to consider neurology evaluation. We will continue to follow him from hematological point of view Patient return to clinic in 1 month with CBC, if there is a drop in his hemoglobin, we will reconsider starting him on Revlimid Signed By: Leno Mesa M.D. <<Signature on File>>
== END 2022-02-09 10:49 | disposition home or self-care (01) ==
PROVIDERS: PCP Family Medicine; Visit Provider Internal Medicine Hematology & Oncology
DX: D46.C Myelodysplastic syndrome with isolated del(5q) chromosomal abnormality (principal); R06.09 Other forms of dyspnea; R53.83 Other fatigue; I10 Essential (primary) hypertension; R60.0 Localized edema; N28.9 Disorder of kidney and ureter, unspecified; M62.81 Muscle weakness (generalized); Z95.0 Presence of cardiac pacemaker
CPT/HCPCS: 36415; 80053; 85025; 99214

== ENCOUNTER 2022-04-22 13:39 | Oncology outpatient (recurring) (ONCR) | payer MEDICARE, OTHER, SELFPAY ==
[2022-04-22 14:17] LABS: Hematocrit 34.3 % (42.0-52.0); Hemoglobin 11.3 g/dL (11.7-16.6); Mean Corpuscular HGB Conc 32.9 g/dL (30.0-36.0); Mean Corpuscular Hemoglobin 33.9 pg (28.0-34.0); Platelet Count 156 10^3/cmm (130-400); Red Blood Count 3.33 10^6/uL (4.1-5.3); Red Cell Distribution Width 17.2 % (12.1-15.1); White Blood Count 4.4 10^3/uL (4.0-10.0)
[2022-04-22 14:49] LABS: Mean Platelet Volume 13.2 fL (7.4-10.4); Slide Review Slide Review Perform
[2022-04-22 14:50] LABS: Absolute Segmented Neutrophil 3.2 10/cmm (1.6-7.1); Segmented Neutrophils 73 %; Total Cells Counted 100 (0-100)
[2022-04-22 14:51] LABS: Absolute Neutrophil 3.2 10^3/cmm (1.4-6.5); Eosinophils 0 %; Lymphocytes 10 %; Lymphocytes Absolute 1.1 10^3/cmm (1.2-3.4); Monocytes Absolute 0.1 10^3/cmm (0.1-0.6); Platelet Estimate Normal (Normal)
[2022-04-22 14:52] LABS: Giant Platelets 1+
== END 2022-04-22 23:59 | disposition home or self-care (01) ==
LOC: ONCMED 13:40
PROVIDERS: PCP Family Medicine; Visit Provider Internal Medicine Hematology & Oncology
DX: D53.9 Nutritional anemia, unspecified (principal)
CPT/HCPCS: 85007; 85025

== ENCOUNTER 2022-04-23 07:55 | Oncology outpatient (recurring) (ONCR) | payer MEDICARE, OTHER, SELFPAY | END 2022-05-23 23:59 | disposition home or self-care (01) | LOC: ONCMED 07:56 | PROVIDERS: PCP Family Medicine; Visit Provider Internal Medicine Hematology & Oncology | DX: D64.9 Anemia, unspecified (principal); E66.9 Obesity, unspecified; Z68.39 Body mass index [BMI] 39.0-39.9, adult; R53.1 Weakness; R53.83 Other fatigue | CPT/HCPCS: 99214 ==

== ENCOUNTER 2022-06-11 09:42 | Oncology outpatient (recurring) (ONCR) | payer MEDICARE, OTHER, SELFPAY ==
[2022-05-28 09:19] LABS: Basophils % 0.8 %; Eosinophils # 0.1 10^3/uL (0.0-0.8); Eosinophils % 1.6 %; Hematocrit 31.3 % (42.0-52.0); Hemoglobin 10.4 g/dL (11.7-16.6); Lymphocytes # 1.5 10^3/uL (0.8-4.8); Mean Corpuscular HGB Conc 33.2 g/dL (30.0-36.0); Mean Corpuscular Hemoglobin 35.9 pg (28.0-34.0); Mean Corpuscular Volume 107.9 fl (80-94); Mean Platelet Volume 13.2 fL (7.4-10.4); Monocytes # 0.2 10^3/uL (0.2-0.9); Monocytes % 4.8 %; Neutrophils # 1.97 10^3/uL (1.8-7.7); Neutrophils % 52.5 %; Nucleated Red Blood Cells % 0 %; Platelet Count 175 10^3/cmm (130-400); Red Cell Distribution Width 17.9 % (12.1-15.1); White Blood Count 3.8 10^3/uL (4.0-10.0)
[2022-05-28 09:47] LABS: Slide Review Slide Review Perform
[2022-05-28 10:39] LABS: Reticulocyte % 1.7 % (0.5-2.0)
[2022-05-28 10:54] LABS: Ferritin 614 ng/mL (30-400); Iron 144 ug/dL (59-158); Total Iron Binding Capacity 197 mcg/dl; Unsaturated Iron Binding 53 ug/dL (112-347)
[2022-05-28 11:10] LABS: Vitamin B12 484 pg/mL (232-1245)
[2022-05-28 11:38] LABS: Folate Level > 20.0 ng/mL (4.5-32.2)
[2022-06-10 14:22] LABS: Hematocrit 29.7 % (42.0-52.0); Hemoglobin 9.4 g/dL (11.7-16.6); Mean Corpuscular HGB Conc 31.6 g/dL (30.0-36.0); Mean Corpuscular Hemoglobin 36.2 pg (28.0-34.0); Mean Corpuscular Volume 114.2 fl (80-94); Platelet Count 170 10^3/cmm (130-400); Red Cell Distribution Width 18.1 % (12.1-15.1); White Blood Count 4.3 10^3/uL (4.0-10.0)
[2022-06-10 14:32] LABS: Slide Review Slide Review Perform
[2022-06-10 14:55] LABS: Absolute Neutrophil 2.8 10^3/cmm (1.4-6.5); Absolute Segmented Neutrophil 2.8 10/cmm (1.6-7.1); Eosinophils 1 %; Giant Platelets 1+; Lymphocytes 28 %; Lymphocytes Absolute 1.3 10^3/cmm (1.2-3.4); Monocytes Absolute 0.2 10^3/cmm (0.1-0.6); Platelet Estimate Normal (Normal); Segmented Neutrophils 65 %; Total Cells Counted 100 (0-100)
== END 2022-06-23 23:59 | disposition home or self-care (01) ==
PROVIDERS: PCP Family Medicine; Visit Provider Internal Medicine Hematology & Oncology
DX: D64.9 Anemia, unspecified (principal); D61.818 Other pancytopenia; Z79.899 Other long term (current) drug therapy
CPT/HCPCS: 36415; 82607; 82728; 82746; 83540; 83550; 85007; 85025; 85045; 99214

== ENCOUNTER 2022-06-21 11:46 | Outpatient (CLI) | payer MEDICARE, OTHER, SELFPAY ==
[2022-06-21 12:47] LABS: Eosinophils # 0.1 10^3/uL (0.0-0.8); Eosinophils % 3.3 %; Hematocrit 28.3 % (42.0-52.0); Lymphocytes # 1.3 10^3/uL (0.8-4.8); Lymphocytes % 32.5 %; Mean Corpuscular HGB Conc 31.8 g/dL (30.0-36.0); Mean Corpuscular Hemoglobin 36.9 pg (28.0-34.0); Mean Platelet Volume 14.6 fL (7.4-10.4); Monocytes # 0.2 10^3/uL (0.2-0.9); Monocytes % 4.5 %; Neutrophils # 2.29 10^3/uL (1.8-7.7); Neutrophils % 57.7 %; Nucleated Red Blood Cells % 0 %; Platelet Count 151 10^3/cmm (130-400); Red Blood Count 2.44 10^6/uL (4.1-5.3); Red Cell Distribution Width 18.6 % (12.1-15.1)
[2022-06-21 13:11] LABS: Slide Review Slide Review Perform
== END 2022-06-21 11:47 | disposition home or self-care (01) ==
LOC: LAB 11:53
PROVIDERS: PCP Family Medicine; Visit Provider Nurse Practitioner
DX: D64.9 Anemia, unspecified (principal); R06.02 Shortness of breath
CPT/HCPCS: 36415; 85025

== ENCOUNTER 2022-07-09 09:01 | Oncology outpatient (recurring) (ONCR) | payer MEDICARE, OTHER, SELFPAY ==
[2022-07-09 09:51] LABS: Basophils % 1.6 %; Eosinophils # 0.1 10^3/uL (0.0-0.8); Eosinophils % 3.1 %; Hematocrit 27.7 % (42.0-52.0); Hemoglobin 8.7 g/dL (11.7-16.6); Lymphocytes % 39.1 %; Mean Corpuscular HGB Conc 31.4 g/dL (30.0-36.0); Mean Corpuscular Hemoglobin 38.2 pg (28.0-34.0); Mean Corpuscular Volume 121.5 fl (80-94); Monocytes # 0.1 10^3/uL (0.2-0.9); Monocytes % 3.5 %; Neutrophils # 1.34 10^3/uL (1.8-7.7); Neutrophils % 51.9 %; Nucleated Red Blood Cells % 0 %; Platelet Count 89 10^3/cmm (130-400); Red Blood Count 2.28 10^6/uL (4.1-5.3); Red Cell Distribution Width 17.5 % (12.1-15.1); White Blood Count 2.6 10^3/uL (4.0-10.0)
[2022-07-09 13:45] VITALS: TEMP 36.8; O2SAT 98
--- NOTE | 2022-07-09 13:46 | PC.NURSE ---
Patient arrived for blood transfusion. When updating medications, patient stated he hasn't taken his lasix in approximately 2 weeks. I examined patients legs. He had 4+ pitting edema. He was course bilaterally throughout. Called Dr. Mesa. He stated to take patient to the ED instead of doing the transfusion.
== END 2022-07-23 23:59 | disposition home or self-care (01) ==
PROVIDERS: PCP Family Medicine; Visit Provider Internal Medicine Hematology & Oncology
DX: D64.9 Anemia, unspecified (principal); D61.818 Other pancytopenia; Z79.899 Other long term (current) drug therapy; R53.83 Other fatigue; R53.1 Weakness
CPT/HCPCS: 36415; 85025; 86850; 86900; 86920; 99214

== ENCOUNTER 2022-07-09 13:21 | Emergency (ER) | payer MEDICARE, OTHER, SELFPAY ==
[2022-07-09 13:38] VITALS: BP 120/72; PULSE 65; RESP 16; TEMP 36.2; O2SAT 97
--- NOTE | 2022-07-09 14:32 | XRR_ITS ---
PROCEDURE INFORMATION: Exam: XR Chest Exam date and time: 07/09/2022 2:42 PM Age: 77 years old Clinical indication: Shortness of breath; Additional info: SOB TECHNIQUE: Imaging protocol: Radiologic exam of the chest. Views: 1 view. COMPARISON: CR XR chest 1V portable [id number] 12/08/2021 8:06 AM FINDINGS: Tubes, catheters and devices: There is a cardiac device left anterior chest. This finding is in good position. Lungs: Unremarkable. No consolidation. Pleural spaces: Unremarkable. No pleural effusion. No pneumothorax. Heart/Mediastinum: Unremarkable. No cardiomegaly. Bones/joints: Unremarkable. XR/XR chest 1V portable [id number] IMPRESSION: 1. No acute findings. 2. Cardiac device left anterior chest
--- NOTE | 2022-07-09 14:32 | ECG_ITS ---
[facility] Test Date: 2022-07-09 Pat Name: Harley Viera Department: Room: Gender: Male [employer]: : 1945 Requested By: Clemencia Booker Order Number: [id number] Michael MD: Codi Stanley M.D. Measurements Intervals [place] Rate: 60 P: 70 DE: 179 QRS: -69 QRSD: 214 T: 112 QT: 513 QTc: 513 Interpretive Statements ELECTRONIC ATRIAL PACEMAKER ELECTRONIC VENTRICULAR PACEMAKER ABNORMAL RHYTHM ECG Compared to ECG 12/08/2021 08:21:51 No significant changes Electronically Signed On 07-10-2022 8:35:45 CDT by Codi Stanley M.D. [id number]
--- NOTE | 2022-07-09 14:35 | W.ED.RECABL ---
HPI - Recheck/Abnormal Lab/Rx General: Chief Complaint: Recheck/Abnormal Lab/Rx Stated Complaint: sent by Sing, abnormal labs Time Seen by Provider: 07/09/22 14:28 Source: patient Mode of arrival: ambulatory Limitations: no limitations History of Present Illness: 77-year-old male states he been having some fatigue along with dyspnea over the last 4 to 5 days states he has had increased swelling as well he is post be taking Lasix states he has not been taking it. States he has had some weakness he had been seen over 3 oncology center today and his hemoglobin had trended down and was 8.7. Review of Systems Const: Reports: fatigue Eyes: Denies: blurry vision or eye discomfort ENMT: Denies: throat pain or dental pain Card: Denies: chest pain Resp: Denies: dyspnea GI: Denies: abdominal pain, nausea, vomiting or diarrhea : Denies: dysuria Musc: Denies: neck pain or back pain Skin/Breast: Denies: rash Neuro: Reports: weakness in extremities Psych: Denies: depression [place]/Lymph: Denies: easy bruising All/Imm: Denies: urticaria PFSH ED PFSH: Medical History Acute diastolic heart failure Acute exacerbation of CHF (congestive heart failure) Aortic regurgitation Benign essential hypertension with target blood pressure below 140/90 BPH (benign prostatic hyperplasia) Cholelithiasis Chronic kidney disease, stage III (moderate) Diverticulitis of small bowel Dyslipidemia Edema, peripheral Elevated brain natriuretic peptide (BNP) level Grade III diastolic dysfunction EF 67% Mild pulmonary hypertension LVH Hypertension Hypothyroidism (acquired) Obesity Obesity (BMI 30-39.9) Pacemaker SOB (shortness of breath) Symptomatic bradycardia Systolic CHF Third degree heart block Thrombocytopenia Surgical History S/P cardiac cath Normal 2013 Procedure Procedure Type Diagnostic procedure:Miscellaneous, Perclose , Coronary Angiography Conclusions Procedure Summary 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 due to tumor surgery in the right arm right groin approach was adopted difficulty in access was encounter due to fatty tumors in the thigh, hematoma was observed, procedure was aborted since it was elective in order to avoid major bleeding in case we have to proceed with PCI.Patient was observed for next 24 hours did fine no further bleeding or hematoma observed.He was approached from left groin which remain successful next day.Patient was discharged home without any complication next day 1-LM is normal 2-LAD has luminal irregularities 3-LCx has luminal irregularities 4-RCA has luminal irregularities Status post biventricular pacemaker Family History Mother Cancer Father Stroke Other Hypertension Denies family history of Diabetes CAD (coronary artery disease) Clotting disorder Dementia Hyperlipidemia Psychiatric illness Chronic kidney disease (CKD) Suicide Anesthesia complication Bleeding disorder Lung disease Social History Smoking and tobacco status: never smoked Alcohol intake: never Household members: family Housing: House Physical Exam Const: COMMON NORMALS: no acute distress, patient oriented x3 and healthy appearing HENMT: COMMON NORMALS: normocephalic and atraumatic HEAD & SCALP: normocephalic and atraumatic Eye: COMMON NORMALS: Equal, round and reactive pupils present and EOMs intact bilaterally PUPIL: Yes Equal, round and reactive pupils present Neck/C-Spine: COMMON NORMALS: full ROM and supple Chest: COMMONS NORMALS: normal inspection of the chest and normal palpation of entire chest wall Resp: COMMON NORMALS: normal respiratory effort, No retractions, No use of accessory muscles and clear to auscultation bilaterally AUSCULTATION: clear to auscultation bilaterally Cardio: COMMON NORMALS: regular rate, regular rhythm and No murmurs present (Cardio) RATE: regular rate RHYTHM: regular rhythm GI: COMMON NORMALS: Normal to inspection, nondistended, normoactive bowel sounds present, Soft to palpation, non-tender and no masses PALPATION: Yes Soft to palpation Extremity: OTHER: 1+edema to bilateral ext Neuro: COMMON NORMALS: patient oriented x3, moves all extremities and no focal motor deficits Psych: COMMON NORMALS: mental status grossly normal, Normal thought process present and cooperative THOUGHT PROCESS: Normal thought process present Skin: COMMON NORMALS: no rashes or lesions noted and no wounds GENERAL SKIN EXAM: no rashes or lesions noted Course Vital Signs: Vital signs: Vital Signs Temperature 97.2 F L 07/09/22 13:38 Pulse Rate 65 07/09/22 13:38 Respiratory Rate 17 07/09/22 15:11 Blood Pressure 120/72 07/09/22 13:38 Pulse Oximetry 97 07/09/22 15:11 MDM - Recheck/Abnormal Lab/Rx Medical Decision Making Patient presents here with weakness fatigue and shortness of breath he has not been taking his Lasix has some slight fluid overload he feels better after IV Lasix he is to start taking Lasix at home. He does have anemia is chronic in nature does not require an emergent transfusion he is to follow-up with Dr. Mesa next week return if worsening he understands agrees to plan. Lab Data : 07/09/22 15:18 07/09/22 15:18 Radiology Impressions Chest X-Ray 07/09/22 14:32 IMPRESSION: 1. No acute findings. 2. Cardiac device left anterior chest Laboratory Results WBC 2.3 10^3/uL (4.0-10.0) L 07/09/22 15:18 RBC 2.15 10^6/uL (4.1-5.3) L 07/09/22 15:18 Hgb 8.2 g/dL (11.7-16.6) L 07/09/22 15:18 Hct 26.3 % (42.0-52.0) L 07/09/22 15:18 MCV 122.3 fl (80-94) H 07/09/22 15:18 MCH 38.1 pg (28.0-34.0) H 07/09/22 15:18 MCHC 31.2 g/dL (30.0-36.0) 07/09/22 15:18 RDW 17.6 % (12.1-15.1) H 07/09/22 15:18 Plt Count 92 10^3/cmm (130-400) L 07/09/22 15:18 MPV fL (7.4-10.4) 07/09/22 15:18 Neut % (Auto) 47.9 % 07/09/22 15:18 Lymph % (Auto) 40.1 % 07/09/22 15:18 [place] % (Auto) 4.7 % 07/09/22 15:18 Eos % (Auto) 3.4 % 07/09/22 15:18 Baso % (Auto) 1.7 % 07/09/22 15:18 Neut # (Auto) 1.11 10^3/uL (1.8-7.7) L 07/09/22 15:18 Lymph # (Auto) 0.9 10^3/uL (0.8-4.8) 07/09/22 15:18 [place] # (Auto) 0.1 10^3/uL (0.2-0.9) L 07/09/22 15:18 Eos # (Auto) 0.1 10^3/uL (0.0-0.8) 07/09/22 15:18 Baso # (Auto) 0.0 10^3/uL (0.0-0.1) 07/09/22 15:18 Nucleated RBC % (auto) 0 % 07/09/22 15:18 Nucleated RBCs # 0.0 /100WBC 07/09/22 15:18 Sodium 136 mmol/L (136-145) 07/09/22 15:18 Potassium 4.2 mmol/L (3.5-5.1) 07/09/22 15:18 Chloride 104 mmol/L (98-107) 07/09/22 15:18 Carbon Dioxide 20 mmol/L (22-29) L 07/09/22 15:18 Anion Gap 16.2 (5-19) 07/09/22 15:18 BUN 18 mg/dL (8-23) 07/09/22 15:18 Creatinine 1.6 mg/dL (0.7-1.2) H 07/09/22 15:18 GFR Calculation Not Reportable 07/09/22 15:18 Glucose 88 mg/dL (65-115) 07/09/22 15:18 Calculated Osmolality 283 mOsm/kg (285-295) L 07/09/22 15:18 Calcium 8.9 mg/dL (8.5-10.5) 07/09/22 15:18 Total Bilirubin 0.7 mg/dL (0.15-1.2) 07/09/22 15:18 AST 20 U/L (0-40) 07/09/22 15:18 ALT 18 U/L (0-41) 07/09/22 15:18 Alkaline Phosphatase 91 U/L (40-130) 07/09/22 15:18 NT-Pro-B Natriuret Pep 604 pg/mL (0-450) H 07/09/22 15:18 Total Protein 6.5 g/dL (6.6-8.7) L 07/09/22 15:18 Albumin 3.6 g/dL (3.5-5.2) 07/09/22 15:18 Globulin 2.9 g/dL (1.3-4.6) 07/09/22 15:18 EKG Data EKG 1: I personally reviewed and interpreted this EKG as follows: EKG interpretation date: 07/09/22 EKG interpretation time: 14:55 Interpretation: paced hr [address] or t wave abnormalities qrs 214 qtc 513 Discharge Plan Discharge Patient Disposition: Home Clinical Impression: Weakness, Anemia Condition: Stable Prescriptions: No Action spironolactone 25 mg tablet 25 mg PO DAILY dietary supplement Capsule 1 cap PO DAILY Rx Instructions: OTC Blood builder root 2 droppers in water daily orally; furosemide 40 mg tablet 40 mg PO BID Centrum Silver Men 300-600-300 mcg Tablet 1 tab PO DAILY Revlimid 2.5 mg capsule 2.5 mg PO DAILY Rx Instructions: swallow whole with glass of water; do not open, crush, chew , break, or dissolve Discharge Orders: Discharge ED (Routine); Ordered 07/09/22 Ordered By: Clemencia Booker Referrals: Cal Burris MD [Primary Care Provider] - Discharge Diet: Advance as tolerated Discharge Activity: Resume usual activity Patient Instructions: Weakness (ED) Coding Level of Care Code ED Manager Employee Relations for Chg Fwd Exam Comprehensive
[2022-07-09 15:11] VITALS: RESP 17; O2SAT 97
[2022-07-09] MEDS: FUROsemide 10 mg/mL SDV 4mL 40 MG IVP (15:18)
[2022-07-09 15:28] LABS: Basophils % 1.7 %; Eosinophils # 0.1 10^3/uL (0.0-0.8); Eosinophils % 3.4 %; Hematocrit 26.3 % (42.0-52.0); Hemoglobin 8.2 g/dL (11.7-16.6); Lymphocytes # 0.9 10^3/uL (0.8-4.8); Lymphocytes % 40.1 %; Mean Corpuscular HGB Conc 31.2 g/dL (30.0-36.0); Mean Corpuscular Hemoglobin 38.1 pg (28.0-34.0); Mean Corpuscular Volume 122.3 fl (80-94); Monocytes # 0.1 10^3/uL (0.2-0.9); Monocytes % 4.7 %; Neutrophils # 1.11 10^3/uL (1.8-7.7); Neutrophils % 47.9 %; Nucleated Red Blood Cells % 0 %; Platelet Count 92 10^3/cmm (130-400); Red Blood Count 2.15 10^6/uL (4.1-5.3); Red Cell Distribution Width 17.6 % (12.1-15.1); White Blood Count 2.3 10^3/uL (4.0-10.0)
[2022-07-09 15:55] LABS: Alanine Aminotransferase 18 U/L (0-41); Albumin Level 3.6 g/dL (3.5-5.2); Alkaline Phosphatase 91 U/L (40-130); Aspartate Amino Transferase 20 U/L (0-40); Blood Urea Nitrogen 18 mg/dL (8-23); Calcium 8.9 mg/dL (8.5-10.5); Carbon Dioxide 20 mmol/L (22-29); Chloride 104 mmol/L (98-107); Globulin 2.9 g/dL (1.3-4.6); Glucose 88 mg/dL (65-115); NT Pro B Type Natriuretic Pept 604 pg/mL (0-450); Osmolality Calculated 283 mOsm/kg (285-295); Sodium 136 mmol/L (136-145); Total Bilirubin 0.7 mg/dL (0.15-1.2); Total Protein 6.5 g/dL (6.6-8.7)
[2022-07-09 15:59] LABS: Anion Gap 16.2 (5-19); Potassium 4.2 mmol/L (3.5-5.1)
[2022-07-09 16:15] VITALS: PULSE 80; RESP 17; O2SAT 97
== END 2022-07-09 16:17 | disposition home or self-care (01) ==
PROVIDERS: Emergency Provider Emergency Medicine; PCP Family Medicine
DX: D64.9 Anemia, unspecified (principal); R53.1 Weakness; I10 Essential (primary) hypertension; D61.818 Other pancytopenia; Z79.899 Other long term (current) drug therapy; R53.83 Other fatigue
CPT/HCPCS: 36415; 71045; 80053; 83880; 85025; 86850; 86900; 86920; 93005; 96374; 99214; 99285; J1940

== ENCOUNTER 2022-07-13 15:17 | Emergency (ER) | payer MEDICARE, OTHER, SELFPAY ==
[2022-07-13] VITALS (10 sets, daily range): BP systolic 116–134; BP diastolic 58–73; PULSE 60–95; RESP 12–22; O2SAT 92–100
--- NOTE | 2022-07-13 15:18 | CT_ITS ---
WS: [id number] CT HEAD TECHNIQUE: Noncontrast CT of the head obtained from the skullbase to the vertex. CLINICAL INFORMATION: possible cva/tia COMPARISON: None. DLP: 1115.[address] scans at [facility] use at least one of these dose optimization techniques: automated e xposure control; mA and/or kV adjustment per patient size (includes targeted exams where dose is matc hed to clinical indication); or iterative reconstruction. FINDINGS: No evidence of intracranial hemorrhage or mass effect. Ventricular system and basal cisterns are riley nt. Mild small vessel changes with mild parenchymal volume loss. No extra-axial fluid collections. No evidence of mass or mass effect. Dystrophic calcifications along the falx. Paranasal sinuses and mastoid air cells are well aerated. .Normal visualized soft tissues. CT/CT head wo con* [id number] IMPRESSION: 1. No evidence of intracranial hemorrhage or mass effect. 2. Mild small vessel changes. Mild parenchymal volume loss. 3. No acute intracranial findings.
--- NOTE | 2022-07-13 15:40 | ECG_ITS ---
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 Measurements Intervals [place] Rate: 67 P: 73 CT: 173 QRS: -65 QRSD: 228 T: 112 QT: 530 QTc: 562 Interpretive Statements ELECTRONIC VENTRICULAR PACEMAKER ABNORMAL RHYTHM ECG Compared to ECG 07/09/2022 14:55:40 Atrial-paced complex(es) or rhythm no longer present Electronically Signed On 07-13-2022 20:45:31 CDT by Alicia Rodriguez M.D. [id number]
--- NOTE | 2022-07-13 15:56 | W.ED.NEUROSD ---
HPI - Neuro Symptoms/Deficit General: Chief Complaint: Neuro Symptoms/Deficit Stated Complaint: STROKE LIKE SYMPTOMS Time Seen by Provider: 07/13/22 15:37 Source: patient Mode of arrival: EMS History of Present Illness: 77-year-old male presents emergency room with sudden loss of memory. Some weakness and dizziness earlier today no lateralizing symptoms. Last normal was around 1230 presents at 1343. Did complain of some left arm tingling evidently to EMS but on arrival here there is no arm symptoms but he states bilaterally his feet feel tingly. He denies any chest pain. Onset (ago): hour(s) Time: 15:43 Last Observed Normal: 12:30 Timing confirmed by: spouse History of same: No Severity: mild Relieving factors: none Exacerbating factors: none Context: sudden onset Associated symptoms: Deny chest pain, cough, diaphoresis, fevers/chills, headache(s), anorexia, malaise, nausea, seizures, short of breath, syncope, tingling, vertigo, vomiting or weakness Treatments Prior to Arrival: none Review of Systems Const: Denies: fever(s), chills, fatigue, malaise or diaphoresis ENMT: Denies: throat pain, ear or mastoid pain, nasal discharge or nasal congestion Card: Denies: chest pain or syncope Resp: Denies: dyspnea, productive cough or non-productive cough GI: Denies: nausea or vomiting : Denies: flank pain, dysuria, urinary frequency or urinary urgency Skin/Breast: Denies: rash or pruritus Neuro: Denies: headache(s) or vertigo PFS ED PFSH: Medical History Acute diastolic heart failure Acute exacerbation of CHF (congestive heart failure) Aortic regurgitation Benign essential hypertension with target blood pressure below 140/90 BPH (benign prostatic hyperplasia) Cholelithiasis Chronic kidney disease, stage III (moderate) Diverticulitis of small bowel Dyslipidemia Edema, peripheral Elevated brain natriuretic peptide (BNP) level Grade III diastolic dysfunction EF 67% Mild pulmonary hypertension LVH Hypertension Hypothyroidism (acquired) Obesity Obesity (BMI 30-39.9) Pacemaker SOB (shortness of breath) Symptomatic bradycardia Systolic CHF Third degree heart block Thrombocytopenia Surgical History S/P cardiac cath Normal 2013 Procedure Procedure Type Diagnostic procedure:Miscellaneous, Perclose , Coronary Angiography Conclusions Procedure Summary 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 due to tumor surgery in the right arm right groin approach was adopted difficulty in access was encounter due to fatty tumors in the thigh, hematoma was observed, procedure was aborted since it was elective in order to avoid major bleeding in case we have to proceed with PCI.Patient was observed for next 24 hours did fine no further bleeding or hematoma observed.He was approached from left groin which remain successful next day.Patient was discharged home without any complication next day 1-LM is normal 2-LAD has luminal irregularities 3-LCx has luminal irregularities 4-RCA has luminal irregularities Status post biventricular pacemaker Family History Mother Cancer Father Stroke Other Hypertension Denies family history of Diabetes CAD (coronary artery disease) Clotting disorder Dementia Hyperlipidemia Psychiatric illness Chronic kidney disease (CKD) Suicide Anesthesia complication Bleeding disorder Lung disease Social History Smoking and tobacco status: never smoked Alcohol intake: never Household members: family Housing: House NIH stroke score NIHSS: Level Of Consciousness - 1a: 0 Level Of Consciousness Questions - 1b: One Correct Level Of Consciousness Commands - 1c: Both Correct Best Gaze - 2: Normal Visual Deal - 3: No Visual Loss Facial Palsy - 4: Normal Motor Arm Right - 5: No Drift Motor Arm Left - 5: No Drift Motor Leg Right - 6: No Drift Motor Leg Left - 6: No Drift Limb Ataxia - 7: Absent Sensory - 8: Normal Best Language - 9: No Aphasia Dysarthia - 10: Normal Extinction And Inattention - 11: 0 Score: Total Score: 1 Physical Exam Const: COMMON NORMALS: no acute distress GENERAL APPEARANCE: cooperative and comfortable ORIENTATION/CONSCIOUSNESS: Yes awake, Yes oriented to person, Yes oriented to place and Yes oriented to time HENMT: COMMON NORMALS: normocephalic, atraumatic and hearing grossly normal bilaterally HEAD & SCALP: normocephalic and atraumatic Resp: COMMON NORMALS: normal respiratory effort, No retractions, No use of accessory muscles and clear to auscultation bilaterally AUSCULTATION: clear to auscultation bilaterally Cardio: COMMON NORMALS: regular rate, regular rhythm and No murmurs present (Cardio) RATE: regular rate RHYTHM: regular rhythm GI: COMMON NORMALS: Soft to palpation and No hepatosplenomegaly present AUSCULTATION: Yes normoactive bowel sounds PALPATION: Yes Soft to palpation, No Tenderness to palpation present (GI), No Guarding due to palpation present (GI) and Yes No hepatosplenomegaly present Extremity: COMMON NORMALS: normal to inspection, capillary refill normal, no clubbing, cyanosis or edema, no calf tenderness and no pedal edema Neuro: SENSORIUM/ORIENTATION: Yes oriented to person, Yes oriented to place and Yes oriented to time Skin: COMMON NORMALS: no rashes or lesions noted GENERAL SKIN EXAM: no rashes or lesions noted Course Vital Signs: Vital signs: Vital Signs Pulse Rate 70 07/13/22 20:35 Respiratory Rate 18 07/13/22 20:35 Blood Pressure 134/73 07/13/22 19:00 Pulse Oximetry 97 07/13/22 20:35 Oxygen Delivery Me thod 07/13/22 15:43 MDM - Neuro Symptoms/Deficit Medical Decision Making Transient global amnesia. Suddenly worse. Certainly no evidence of stroke at this time no focal neurologic deficits. Other than his amnesia he has no findings at all that are suggestive of neurodeficits.. Does have a mild acute kidney injury. We will monitor him overnight discussed with hospitalist orders written Medical Records I reviewed the patient's medical records. Lab Data I reviewed the patient's lab results. : 07/13/22 16:00 07/13/22 16:[address] 07/13/22 15:18 IMPRESSION: 1. No evidence of intracranial hemorrhage or mass effect. 2. Mild small vessel changes. Mild parenchymal volume loss. 3. No acute intracranial findings. Laboratory Results WBC 2.9 10^3/uL (4.0-10.0) L 07/13/22 16:00 RBC 2.40 10^6/uL (4.1-5.3) L 07/13/22 16:00 Hgb 9.3 g/dL (11.7-16.6) L 07/13/22 16:00 Hct 27.9 % (42.0-52.0) L 07/13/22 16:00 MCV 116.3 fl (80-94) H 07/13/22 16:00 MCH 38.8 pg (28.0-34.0) H 07/13/22 16:00 MCHC 33.3 g/dL (30.0-36.0) 07/13/22 16:00 RDW 16.8 % (12.1-15.1) H 07/13/22 16:00 Plt Count 122 10^3/cmm (130-400) L 07/13/22 16:00 MPV 11.8 fL (7.4-10.4) H 07/13/22 16:00 Neut % (Auto) 57.6 % 07/13/22 16:00 Lymph % (Auto) 31.0 % 07/13/22 16:00 [place] % (Auto) 7.9 % 07/13/22 16:00 Eos % (Auto) 0.7 % 07/13/22 16:00 Baso % (Auto) 2.1 % 07/13/22 16:00 Neut # (Auto) 1.67 10^3/uL (1.8-7.7) L 07/13/22 16:00 Lymph # (Auto) 0.9 10^3/uL (0.8-4.8) 07/13/22 16:00 [place] # (Auto) 0.2 10^3/uL (0.2-0.9) 07/13/22 16:00 Eos # (Auto) 0.0 10^3/uL (0.0-0.8) 07/13/22 16:00 Baso # (Auto) 0.1 10^3/uL (0.0-0.1) 07/13/22 16:00 Nucleated RBC % (auto) 0 % 07/13/22 16:00 Nucleated RBCs # 0.0 /100WBC 07/13/22 16:00 PT 14.00 SECONDS (12.1-14.9) 07/13/22 16:00 INR 1.04 (0.8-1.2) 07/13/22 16:00 APTT 34.9 SECONDS (23.9-36.7) 07/13/22 16:00 Sodium 135 mmol/L (136-145) L 07/13/22 16:00 Potassium 3.9 mmol/L (3.5-5.1) 07/13/22 16:00 Chloride 98 mmol/L (98-107) 07/13/22 16:00 Carbon Dioxide 21 mmol/L (22-29) L 07/13/22 16:00 Anion Gap 19.9 (5-19) H 07/13/22 16:00 BUN 30 mg/dL (8-23) H 07/13/22 16:00 Creatinine 2.3 mg/dL (0.7-1.2) H 07/13/22 16:00 GFR Calculation Not Reportable 07/13/22 16:00 Glucose 111 mg/dL (65-115) 07/13/22 16:00 POC Glucose 104 mg/dL (70-110) 07/13/22 16:01 Calculated Osmolality 287 mOsm/kg (285-295) 07/13/22 16:00 Calcium 9.5 mg/dL (8.5-10.5) 07/13/22 16:00 Total Bilirubin 0.9 mg/dL (0.15-1.2) 07/13/22 16:00 AST 27 U/L (0-40) 07/13/22 16:00 ALT 20 U/L (0-41) 07/13/22 16:00 Alkaline Phosphatase 102 U/L (40-130) 07/13/22 16:00 Troponin T Baseline 91 ng/L (0-15) H 07/13/22 16:00 Troponin T 120 Minute 92.36 ng/L (0-15) H 07/13/22 17:49 Delta Troponin T 1.36 ABS# (0-10) 07/13/22 17:49 Total Protein 7.0 g/dL (6.6-8.7) 07/13/22 16:00 Albumin 4.0 g/dL (3.5-5.2) 07/13/22 16:00 Globulin 3.0 g/dL (1.3-4.6) 07/13/22 16:00 Urine Color Yellow (Yellow) 07/13/22 17:40 Urine Appearance Clear (CLEAR) 07/13/22 17:40 Urine pH 8 (5-7) H 07/13/22 17:40 Ur Specific [place] 1.015 (1.005-1.030) 07/13/22 17:40 Urine Protein Neg (Negative) 07/13/22 17:40 Urine Glucose (UA) Norm (Normal) 07/13/22 17:40 Urine Ketones 1+ (Negative) H 07/13/22 17:40 Urine Blood Neg (Negative) 07/13/22 17:40 Urine Nitrate Negative (Negative) 07/13/22 17:40 Urine Bilirubin Neg (Negative) 07/13/22 17:40 Prot Sulfosalicylic Acd Negative (Negative) 07/13/22 17:40 Urine Urobilinogen Neg mg/dL (Negative) 07/13/22 17:40 Ur Leukocyte Esterase Negative (Negative) 07/13/22 17:40 Urine Opiates Screen Negative ng/mL (Negative) 07/13/22 17:42 Ur Barbiturates Screen Negative ng/mL (Negative) 07/13/22 17:42 Ur Phencyclidine Scrn Negative ng/mL (Negative) 07/13/22 17:42 Ur Amphetamines Screen Negative ng/mL (Negative) 07/13/22 17:42 U Benzodiazepines Scrn Negative ng/mL (Negative) 07/13/22 17:42 Urine Cocaine Screen Negative ng/mL (Negative) 07/13/22 17:42 U Marijuana (THC) Screen Negative ng/mL (Negative) 07/13/22 17:42 Discharge Plan Discharge Patient Disposition: Left Against Medical Advice Clinical Impression: Amnesia, Acute kidney injury, Chronic dementia Condition: Stable Prescriptions: No Action spironolactone 25 mg tablet 25 mg PO DAILY furosemide 40 mg tablet 40 mg PO BID Centrum Silver Men 300-600-300 mcg Tablet 1 tab PO DAILY Revlimid 2.5 mg capsule 2.5 mg PO EVERY OTHER DAY potassium chloride 8 mEq Tablet Extended Release 8 meq PO DAILY Referrals: Cal Burris MD [Primary Care Provider] - Coding Level of Care Code ED Warehouse Hand for Chg Fwd Exam Detailed
[2022-07-13 16:04] LABS: Glucose Point of Care 104 mg/dL (70-110)
[2022-07-13 16:17] LABS: Basophils # 0.1 10^3/uL (0.0-0.1); Basophils % 2.1 %; Eosinophils % 0.7 %; Hematocrit 27.9 % (42.0-52.0); Hemoglobin 9.3 g/dL (11.7-16.6); Lymphocytes # 0.9 10^3/uL (0.8-4.8); Mean Corpuscular HGB Conc 33.3 g/dL (30.0-36.0); Mean Corpuscular Hemoglobin 38.8 pg (28.0-34.0); Mean Corpuscular Volume 116.3 fl (80-94); Monocytes # 0.2 10^3/uL (0.2-0.9); Monocytes % 7.9 %; Neutrophils # 1.67 10^3/uL (1.8-7.7); Neutrophils % 57.6 %; Nucleated Red Blood Cells % 0 %; Platelet Count 122 10^3/cmm (130-400); Red Cell Distribution Width 16.8 % (12.1-15.1); White Blood Count 2.9 10^3/uL (4.0-10.0)
[2022-07-13 16:21] LABS: INR 1.04 (0.8-1.2)
[2022-07-13 16:22] LABS: Partial Thromboplastin Time 34.9 SECONDS (23.9-36.7)
[2022-07-13 16:26] LABS: Troponin(5th) Baseline 91 ng/L (0-15)
[2022-07-13 16:28] LABS: Alanine Aminotransferase 20 U/L (0-41); Alkaline Phosphatase 102 U/L (40-130); Blood Urea Nitrogen 30 mg/dL (8-23); Calcium 9.5 mg/dL (8.5-10.5); Carbon Dioxide 21 mmol/L (22-29); Chloride 98 mmol/L (98-107); Glucose 111 mg/dL (65-115); Osmolality Calculated 287 mOsm/kg (285-295); Sodium 135 mmol/L (136-145); Total Bilirubin 0.9 mg/dL (0.15-1.2)
[2022-07-13 16:43] LABS: Anion Gap 19.9 (5-19); Aspartate Amino Transferase 27 U/L (0-40); Potassium 3.9 mmol/L (3.5-5.1)
[2022-07-13 16:44] LABS: Mean Platelet Volume 11.8 fL (7.4-10.4); Slide Review Slide Review Perform
[2022-07-13 17:46] LABS: Add Urine Microscopic? NO; Charge for UA Resulting for Rev
--- NOTE | 2022-07-13 17:54 | ECG_ITS ---
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 Measurements Intervals [place] Rate: 60 P: 71 CA: 178 QRS: -61 QRSD: 215 T: 118 QT: 533 QTc: 533 Interpretive Statements ELECTRONIC ATRIAL PACEMAKER ELECTRONIC VENTRICULAR PACEMAKER ABNORMAL RHYTHM ECG Compared to ECG 07/13/2022 15:57:07 No significant changes Electronically Signed On 07-13-2022 20:50:44 CDT by Alicia Rodriguez M.D. [email or web address]
[2022-07-13 17:59] LABS: Amphetamines Screen Urine Negative (Negative); Barbiturates Screen Urine Negative (Negative); Benzodiazepines Screen Urine Negative (Negative); Cocaine Screen Urine Negative (Negative); Opiate Screen Urine Negative (Negative); PCP Screen Urine Negative (Negative); THC Screen Urine Negative (Negative)
[2022-07-13 17:59] LABS: Bilirubin Urine Neg (Negative); Blood Urine Neg (Negative); Glucose Urine UA Norm (Normal); Ketones Urine 1+ (Negative); Leukocyte Esterase Urine Negative (Negative); Nitrate Urine Negative (Negative); Protein Urine Neg (Negative); Specific Gravity, Urine 1.015 (1.005-1.030); Sulfosalicylic Acid Urine Negative (Negative); Urine Appearance Clear (CLEAR); Urine Color Yellow (Yellow); Urobilinogen Urine Neg (Negative); pH Urine 8 (5-7)
[2022-07-13 18:12] LABS: Troponin 5 2HR 92.36 ng/L (0-15)
[2022-07-13 18:15] LABS: Troponin 5 2HR Delta 1.36 ABS# (0-10)
--- NOTE | 2022-07-13 19:53 | PC.NURSE ---
Pt sitting up in bed, denies needs, nad. Pt reports she was unaware of admission. Admitting Dr. paige and states he will come speak with the pt.
--- NOTE | 2022-07-13 20:34 | PM.HP ---
Providers/Chief Complaint Primary Care Provider: Cal Burris MD Chief Complaint: STROKE LIKE SYMPTOMS History of Present Illness Harley Viera is a 77 year old male with a past medical history of diastolic CHF, aortic regurgitation, hypertension, BPH, CKD stage III, dyslipidemia, bilateral extremity edema, hypertension hypothyroidism obesity, history of MDS with pancytopenia, recently started Revlimid, patient started to develop bilateral extremity edema, shortness of breath, weakness, dizziness after starting Revlimid. He tells me that he is developing bilateral extremity edema, he was seen in emergency room his Lasix has been increased to 40 twice a day, he is only taking potassium once a day. He also tells me that he has been feeling more short of breath with exertion. He presents emergency room today however, as he this afternoon had generalized weakness, dizziness, and sudden loss of memory. His last known normal was around 1 or so no focal neurologic deficits, no slurring of his words, no facial droop, no trouble finding words, no productive or receptive aphasia. His loss of memory for the events of earlier on today are quite vague. He is quite upset with me and [facility] currently, he tells me that he was awaiting emergency room since 330, he has not spoken to any doctor and he surprised that a nurse came in and told him he is being admitted. I apologized to the patient, I apologize for his loss of weight, I apologized as there was a miscommunication between his physicians and physician the nurses. I apologized to the patient sincerely, I advised patient that I will do my best to rectify the situation. I am here to admit him to the hospital, however patient tells me he wants to remove his IV, remove everything that strapping him down in leave the hospital as he is really dissatisfied with the care that he is received here. I again apologized, his is at bedside, she tells me that he had a difficult day and as they waited here for a long period time without any answer, and without speaking to any doctor, they felt that they were not being taken care of. I again I apologize, explained the entire situation to them, I discussed as there was concerns for transient global amnesia, and dehydration there was plans on admitting the patient to the hospital. However there is miscommunication between the teams in the hospital and that this is not his fault and I apologize. Patient took this well but still tells me he wants to leave the hospital. -Currently he is alert oriented x3, following all commands sitting in a chair, no focal neurologic deficits, no upper or lower extremity weakness, no paresthesias, no facial droop, no slurring of his words Pupils equal round reactive to light,lungs have crackles in the bilateral lung robertson, bilateral lower extremity edema 2+, abdomen slightly distended, no guarding, no rebound, rigidity, patient is pale appearing has conjunctival pallor. I discussed my concerns with patient -Currently I think he is in a diastolic CHF exacerbation, with crackles in his lung field, and bilateral extreme edema, I do not feel he is dehydrated -I feel that likely he is suffering a complication of Revlimid that is well known to cause fluid retention issue is listed with the CKD and his elevated creatinine and his diastolic heart failure I would prefer to keep him here in the hospital and diurese him monitor his creatinine his electrolytes however patient wants to leave AGAINST MEDICAL ADVICE -The solution I have come up with this is that he should continue Lasix 40 mg twice daily with potassium replacement twice daily however for 24 hours he can increase the Lasix to 40 mg 3 times a day with potassium replacement -I want him to follow-up with his primary care provider tomorrow for recheck blood work -In addition for CKD, his creatinine 2.3, and certainly elevated however he is fluid overloaded, he is short of breath, he needs to have adequate diuresis, need to monitor his creatinine as outpatient -His troponin is 91, no chest pain complaints he is short of breath, I am concerned for the possibility of NSTEMI, discussed risk of leaving AGAINST MEDICAL ADVICE, discussed risk of cardiac arrhythmias, cardiac arrest, adverse cardiac event emotions and all questions were left AGAINST MEDICAL ADVICE -If he were to have any chest pain go to the emergency room -As Revlimid is associated with increased risk of infections, his UA was unremarkable for UTI however the ER did not get a chest x-ray, patient refuses to stay for chest x-ray since difficult for me to rule out a pneumonia, especially as he is leukopenic -He is anemic, hemoglobin 9.3, no need for transfusion at this point -platelet count 122, continue to monitor -White blood cell count 2.9, increased from 2.3, I advised him to monitor for fevers, chills, cough, if any other symptoms they are life-threatening as he is on Revlimid come to the emergency room -In terms of his neurologic symptoms it is difficult to say exactly what has happened, it could be transient global amnesia however Revlimid is well known to cause the dizziness, lethargic, vertigo peripheral neuropathy hypoesthesia myasthenia -I would recommend hospitalization for at least cardiac monitoring, cardiac echo, CT of his head, infection monitoring, and neurochecks -If it is transient global amnesia, its associate with increased risk of future strokes -However again patient wants to leave AGAINST MEDICAL ADVICE -Thus I have advised him to continue to monitor for his symptoms if any strokelike symptoms call 911 or go to emergency room -In terms of his Revlimid, he takes a dose every other day and he took a dose today -I advised him to call Dr. Mesa tomorrow morning and discuss with him my concerns, he can also look at my note, I feel like likely suffering complication from the Revlimid -I also discussed with patient and at bedside, that they can discuss with primary care provider about doing some of the work-up as outpatient including carotid artery ultrasound, cardiac echo -Discussed risks and benefits, he boisterously all question answered agreed to proceed, again patient was adamant about going home, after discussing the risks of leaving AGAINST MEDICAL ADVICE, he voiced understanding, all questions answered, left AGAINST MEDICAL ADVICE Medications/Allergies Home Medications Medication Instructions Recorded Confirmed Last Taken Type drynrhkd-bhk-nwaba acid 300 1 tab PO DAILY 06/30/21 07/13/22 07/13/22 History mcg-lycopene 600 mcg-lutein 300 mcg tablet (Centrum Silver Men) spironolactone 25 mg tablet 25 mg PO DAILY 12/10/21 07/13/22 07/13/22 History furosemide 40 mg tablet 40 mg PO BID 05/28/22 07/13/22 07/13/22 History lenalidomide 2.5 mg capsule 2.5 mg PO EVERY OTHER DAY 07/09/22 07/13/22 07/13/22 History (Revlimid) potassium chloride 8 mEq 8 meq PO DAILY 07/13/22 07/13/22 07/13/22 History tablet,extended release Allergies Allergy/AdvReac Type Severity Reaction Status Date / Time No Known Allergies Allergy Verified 07/09/22 13:41 PFSH Acute PFSH: Medical History Acute diastolic heart failure Acute exacerbation of CHF (congestive heart failure) Aortic regurgitation Benign essential hypertension with target blood pressure below 140/90 BPH (benign prostatic hyperplasia) Cholelithiasis Chronic kidney disease, stage III (moderate) Diverticulitis of small bowel Dyslipidemia Edema, peripheral Elevated brain natriuretic peptide (BNP) level Grade III diastolic dysfunction EF 67% Mild pulmonary hypertension LVH Hypertension Hypothyroidism (acquired) Obesity Obesity (BMI 30-39.9) Pacemaker SOB (shortness of breath) Symptomatic bradycardia Systolic CHF Third degree heart block Thrombocytopenia Surgical History S/P cardiac cath Normal 2013 Procedure Procedure Type Diagnostic procedure:Miscellaneous, Perclose , Coronary Angiography Conclusions Procedure Summary 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 due to tumor surgery in the right arm right groin approach was adopted difficulty in access was encounter due to fatty tumors in the thigh, hematoma was observed, procedure was aborted since it was elective in order to avoid major bleeding in case we have to proceed with PCI.Patient was observed for next 24 hours did fine no further bleeding or hematoma observed.He was approached from left groin which remain successful next day.Patient was discharged home without any complication next day 1-LM is normal 2-LAD has luminal irregularities 3-LCx has luminal irregularities 4-RCA has luminal irregularities Status post biventricular pacemaker Family History Mother Cancer Father Stroke Other Hypertension Denies family history of Diabetes CAD (coronary artery disease) Clotting disorder Dementia Hyperlipidemia Psychiatric illness Chronic kidney disease (CKD) Suicide Anesthesia complication Bleeding disorder Lung disease Social History Smoking and tobacco status: never smoked Alcohol intake: never Household members: family Housing: House Vitals/I&O/Wt Last Vital Signs Pulse 66 07/13/22 19:00 Resp 19 H 07/13/22 19:00 BP 134/73 07/13/22 19:00 Pulse Ox 100 07/13/22 18:30 O2 Del Method 07/13/22 15:43 Data : 07/13/22 16:00 07/13/22 16:00 Attestations Medical Necessity Statement*: Patient left AGAINST MEDICAL ADVICE Coding Level of Care Code 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
== END 2022-07-13 20:40 | disposition left against medical advice (07) ==
LOC: ER 18:38 → MEDSURG 20:29
PROVIDERS: Emergency Provider Family Medicine; PCP Family Medicine
DX: R41.3 Other amnesia (principal); N17.9 Acute kidney failure, unspecified; F03.90 Unspecified dementia, unspecified severity, without behavioral disturbance, psychotic disturbance, mood disturbance, and anxiety; Z53.21 Procedure and treatment not carried out due to patient leaving prior to being seen by health care provider; I13.0 Hypertensive heart and chronic kidney disease with heart failure and stage 1 through stage 4 chronic kidney disease, or unspecified chronic kidney disease; N18.30 Chronic kidney disease, stage 3 unspecified; I50.9 Heart failure, unspecified; E78.5 Hyperlipidemia, unspecified; Z95.0 Presence of cardiac pacemaker
CPT/HCPCS: 36415; 36416; 70450; 80053; 80306; 81003; 82962; 84484; 85025; 85610; 85730; 93005; 99285

== ENCOUNTER 2022-07-26 14:23 | Oncology outpatient (recurring) (ONCR) | payer MEDICARE, OTHER, SELFPAY ==
[2022-07-26 15:46] LABS: Basophils # 0.1 10^3/uL (0.0-0.1); Basophils % 3.8 %; Eosinophils # 0.1 10^3/uL (0.0-0.8); Eosinophils % 3.5 %; Hematocrit 29.9 % (42.0-52.0); Hemoglobin 9.6 g/dL (11.7-16.6); Lymphocytes # 1.1 10^3/uL (0.8-4.8); Lymphocytes % 38.9 %; Mean Corpuscular HGB Conc 32.1 g/dL (30.0-36.0); Mean Corpuscular Hemoglobin 38.4 pg (28.0-34.0); Mean Corpuscular Volume 119.6 fl (80-94); Mean Platelet Volume 15.2 fL (7.4-10.4); Monocytes # 0.2 10^3/uL (0.2-0.9); Monocytes % 8.3 %; Neutrophils # 1.26 10^3/uL (1.8-7.7); Neutrophils % 43.8 %; Nucleated Red Blood Cells % 0 %; Platelet Count 121 10^3/cmm (130-400); Red Cell Distribution Width 16.2 % (12.1-15.1); White Blood Count 2.9 10^3/uL (4.0-10.0)
[2022-07-26 16:27] LABS: Ferritin 493 ng/mL (30-400); Iron 97 ug/dL (59-158); Percent Saturation 44.9 % (20-50); Total Iron Binding Capacity 216 mcg/dl; Unsaturated Iron Binding 119 ug/dL (112-347); Vitamin B12 462 pg/mL (232-1245)
== END 2022-08-23 23:59 | disposition home or self-care (01) ==
PROVIDERS: PCP Family Medicine; Visit Provider Internal Medicine Hematology & Oncology
DX: D64.9 Anemia, unspecified (principal); Z79.899 Other long term (current) drug therapy
CPT/HCPCS: 82607; 82728; 83540; 83550; 85025; 99214

== ENCOUNTER → 2022-07-30 09:24 | Outpatient (BNVA) | payer MEDICARE, OTHER, SELFPAY | PROVIDERS: PCP Family Medicine; Visit Provider Internal Medicine Cardiovascular Disease | DX: Z45.010 Encounter for checking and testing of cardiac pacemaker pulse generator [battery] (principal) | CPT/HCPCS: 93280 ==

== ENCOUNTER 2022-08-31 11:57 | Oncology outpatient (recurring) (ONCR) | payer MEDICARE, OTHER, SELFPAY ==
[2022-08-31 12:53] LABS: Basophils # 0.1 10^3/uL (0.0-0.1); Eosinophils # 0.2 10^3/uL (0.0-0.8); Hematocrit 37.2 % (42.0-52.0); Hemoglobin 11.2 g/dL (11.7-16.6); Lymphocytes # 1.4 10^3/uL (0.8-4.8); Lymphocytes % 28.3 %; Mean Corpuscular HGB Conc 30.1 g/dL (30.0-36.0); Mean Corpuscular Hemoglobin 35.4 pg (28.0-34.0); Mean Corpuscular Volume 117.7 fl (80-94); Mean Platelet Volume 13.4 fL (7.4-10.4); Monocytes # 0.5 10^3/uL (0.2-0.9); Monocytes % 9.4 %; Neutrophils # 2.86 10^3/uL (1.8-7.7); Neutrophils % 56.9 %; Nucleated Red Blood Cells % 0 %; Red Blood Count 3.16 10^6/uL (4.1-5.3); Red Cell Distribution Width 15.3 % (12.1-15.1)
[2022-08-31 12:54] LABS: Platelet Count 135 10^3/cmm (130-400)
[2022-08-31 12:55] LABS: Slide Review Slide Review Perform
[2022-08-31 13:07] LABS: Alanine Aminotransferase 19 U/L (0-41); Albumin Level 3.6 g/dL (3.5-5.2); Alkaline Phosphatase 114 U/L (40-130); Anion Gap 13.2 (5-19); Aspartate Amino Transferase 19 U/L (0-40); Blood Urea Nitrogen 26 mg/dL (8-23); Calcium 9.3 mg/dL (8.5-10.5); Carbon Dioxide 25 mmol/L (22-29); Chloride 101 mmol/L (98-107); Globulin 3.3 g/dL (1.3-4.6); Glucose 105 mg/dL (65-115); Osmolality Calculated 285 mOsm/kg (285-295); Potassium 4.2 mmol/L (3.5-5.1); Sodium 135 mmol/L (136-145); Total Bilirubin 0.4 mg/dL (0.15-1.2); Total Protein 6.9 g/dL (6.6-8.7)
== END 2022-09-22 23:59 | disposition home or self-care (01) ==
PROVIDERS: PCP Family Medicine; Visit Provider Internal Medicine Hematology & Oncology
DX: D64.9 Anemia, unspecified (principal); Z79.899 Other long term (current) drug therapy; R53.1 Weakness; R53.83 Other fatigue; N28.89 Other specified disorders of kidney and ureter
CPT/HCPCS: 36415; 80053; 85025; 99214

== ENCOUNTER 2022-09-01 14:19 | Outpatient (CLI) | payer MEDICARE, OTHER, SELFPAY ==
--- NOTE | 2022-09-01 14:31 | USCV_ITS ---
Harley Viera Age: 77 Gender: M : 1945 Exam Date: 09/01/2022 15:37 Ordering Phys: Cal Burris MD Technologist: CHERISE [place] [facility] [place]: TIA BP: 119 / 82 HR: 64 Rhythm: Sinus Technical Quality: Adequate MEASUREMENTS (Male / Female) Normal Values 2D ECHO LVOT Diameter 2.0 cm LV Ejection Fraction MOD 2C 57.7 % LV Ejection Fraction 2C AL 60.7 % LA Diameter 3.6 cm LA Width 3.4 cm LA Height 5.0 cm RA Width 3.1 cm RA Height 4.9 cm Aorta at Sinotubular Diameter 2.7 cm IVC Diameter 1.5 cm M-MODE Aortic Annulus Diameter 3.9 cm LA Ao Ratio MM 0.9 MV E Point Septal Separation 0.5 cm DOPPLER AV Peak Velocity 184.0 cm/s LVOT Peak Velocity 140.0 cm/s AV Area Cont Eq vti 2.4 cm squared AV Area Cont Eq pk 2.5 cm squared MV Peak Velocity 93.0 cm/s MV Area PHT 3.7 cm squared Mitral E to A Ratio 0.8 MV E' Velocity 44.5 cm/s Mitral E to MV E' Ratio 9.4 Mitral E to LV E' Lateral Ratio 7.3 Mitral E to LV E' Septal Ratio 13.5 TR Peak Velocity 284.7 cm/s TR Peak Gradient 32.4 mmHg TR Mean Velocity 243.8 cm/s TR Mean Gradient 24.9 mmHg TR Velocity Time Integral 88.7 cm TV Peak E Velocity 50.0 cm/s Right Atrial Pressure 3.0 mmHg Pulmonary Artery Systolic Pressu 35.4 mmHg PV Peak Velocity 95.0 cm/s RV Acceleration Time 0.1 s RV Ejection Time 0.3 s RV AcT/ET 0.4 FINDINGS Left Ventricle Normal left ventricular size and systolic function, EF 57 %. Moderate concentric left ventricular hypertrophy. No regional wall motion abnormalities. Grade I/IV diastolic dysfunction (abnormal relaxation filling pattern), normal to mildly elevated filling pressures. Right Ventricle The right ventricle is normal in size and function. Right Atrium The right atrium is normal in size. Left Atrium The left atrium is normal in size. Mitral Valve Trace mitral valve regurgitation. Aortic Valve Mild to moderate aortic valve regurgitation. Thickened aortic valve. Tricuspid Valve Trace tricuspid valve regurgitation. Estimated pulmonary artery peak systolic pressure 35 mmHg Pulmonic Valve Pulmonic valve not well visualized. Pericardium Normal pericardium without effusion. Aorta Normal ascending aorta dimension. IVC The inferior vena cava appears normal. CONCLUSIONS Normal left ventricular size and systolic function, EF 57 %. Moderate concentric left ventricular hypertrophy. No regional wall motion abnormalities. Grade I/IV diastolic dysfunction (abnormal relaxation filling pattern), normal to mildly elevated filling pressures. Some features of aortic valve sclerosis. Mild to moderate aortic valve regurgitation. Trace tricuspid valve regurgitation. Estimated pulmonary artery peak systolic pressure 35 mmHg. Trace mitral valve regurgitation. There is no pericardial effusion. There are no intracardiac masses. Compared to the previous study from 04/06/2020, there may not be significant change Dr Alicia Rodriguez MD FACC (Electronically Signed) Final Date: 01 September 2022 19:04 S
--- NOTE | 2022-09-01 14:31 | USCV_ITS ---
Harley Viera Age: 77 Gender: M : 1945 Exam Date: 09/01/2022 15:01 Ordering Phys: Cal Burris MD Technologist: CHRISTIAN [place] [facility] [place]: [place] Risk Factors: Previous Vascular Surgery: Right Brachial BP: / Left Brachial BP: / Right Left Velocity (cm/s) Spectral Plaque Velocity (cm/s) Spectral Plaque Syst/Diast Broadening Syst/Diast Broadening 75.00/ 20.90 Prox CCA 60.70 / 20.50 69.90/ 23.30 Mid CCA 79.50 / 28.20 59.00/ 13.20 Distal CCA 82.00 / 29.10 48.90/ 7.00 Prox ICA 52.10 / 14.50 44.70/ 19.70 Mid ICA 56.90 / 15.60 50.00/ 21.00 Distal ICA 54.70 / 22.90 89.90 ECA 82.00 0.67 ICA/CCA 0.69 Antegrade Vertebral Antegrade 38.80/ 17.10 cm/s 23.20/ 10.70 cm/s Tri Subclavian Tri 81.20 96.90 FINDINGS Comparison: none available. No significant elevation of systolic or diastolic velocities. Waveforms are normal. Minimal bilateral, intimal thickening and plaque with no elevation of velocity. Antegrade vertebral arteries. CONCLUSIONS Bilateral ICA stenosis less than 50%. Minimal carotid atherosclerosis. Dr. Mindi Alcaraz DO (Electronically Signed) Final Date: 02 September 2022 07:28 S
== END 2022-09-01 14:20 | disposition home or self-care (01) ==
LOC: RAD 14:22
PROVIDERS: PCP Family Medicine; Visit Provider Family Medicine
DX: G45.9 Transient cerebral ischemic attack, unspecified (principal); I08.2 Rheumatic disorders of both aortic and tricuspid valves
CPT/HCPCS: 93306; 93880

== ENCOUNTER 2022-09-01 20:00 | Outpatient (CLI) | payer MEDICARE, OTHER, SELFPAY | END 2022-09-01 20:01 | disposition home or self-care (01) | LOC: SLEEP 09-02 05:10 | PROVIDERS: PCP Family Medicine; Visit Provider Family Medicine | DX: G47.10 Hypersomnia, unspecified (principal); R06.83 Snoring; R53.83 Other fatigue; G47.33 Obstructive sleep apnea (adult) (pediatric) | CPT/HCPCS: 95810 ==

== ENCOUNTER → 2022-09-23 13:29 | Outpatient (BNVA) | payer MEDICARE, OTHER, SELFPAY | PROVIDERS: PCP Family Medicine; Referring Provider Family Medicine; Visit Provider Student in an Organized Health Care Education/Training Program | DX: G56.20 Lesion of ulnar nerve, unspecified upper limb (principal) | CPT/HCPCS: 73130; 99204 ==

== ENCOUNTER 2022-10-11 13:56 | Oncology outpatient (recurring) (ONCR) | payer MEDICARE, OTHER, SELFPAY ==
[2022-10-11 14:29] LABS: Basophils % 0.6 %; Eosinophils # 0.3 10^3/uL (0.0-0.8); Eosinophils % 3.9 %; Hematocrit 39.3 % (42.0-52.0); Hemoglobin 12.4 g/dL (11.7-16.6); Lymphocytes # 1.5 10^3/uL (0.8-4.8); Lymphocytes % 23.5 %; Mean Corpuscular HGB Conc 31.6 g/dL (30.0-36.0); Mean Corpuscular Hemoglobin 32.6 pg (28.0-34.0); Mean Corpuscular Volume 103.4 fl (80-94); Mean Platelet Volume 13.4 fL (7.4-10.4); Monocytes # 0.4 10^3/uL (0.2-0.9); Monocytes % 6.5 %; Neutrophils # 4.18 10^3/uL (1.8-7.7); Neutrophils % 65.2 %; Nucleated Red Blood Cells % 0 %; Platelet Count 146 10^3/cmm (130-400); Red Cell Distribution Width 16.6 % (12.1-15.1); White Blood Count 6.4 10^3/uL (4.0-10.0)
[2022-10-11 14:54] LABS: Alanine Aminotransferase 19 U/L (0-41); Albumin Level 3.8 g/dL (3.5-5.2); Alkaline Phosphatase 133 U/L (40-130); Anion Gap 15.6 (5-19); Aspartate Amino Transferase 24 U/L (0-40); Blood Urea Nitrogen 26 mg/dL (8-23); Calcium 9.6 mg/dL (8.5-10.5); Carbon Dioxide 26 mmol/L (22-29); Chloride 100 mmol/L (98-107); Globulin 3.6 g/dL (1.3-4.6); Glucose 111 mg/dL (65-115); Osmolality Calculated 291 mOsm/kg (285-295); Potassium 3.6 mmol/L (3.5-5.1); Sodium 138 mmol/L (136-145); Total Bilirubin 0.4 mg/dL (0.15-1.2); Total Protein 7.4 g/dL (6.6-8.7)
== END 2022-10-23 23:59 | disposition home or self-care (01) ==
PROVIDERS: PCP Family Medicine; Visit Provider Internal Medicine Hematology & Oncology
DX: D64.9 Anemia, unspecified (principal); D61.818 Other pancytopenia; R53.1 Weakness; R53.83 Other fatigue; G47.30 Sleep apnea, unspecified; Z79.899 Other long term (current) drug therapy
CPT/HCPCS: 36415; 80053; 85025; 99214

== ENCOUNTER 2022-11-12 06:55 | Oncology outpatient (recurring) (ONCR) | payer MEDICARE, OTHER, SELFPAY ==
[2022-11-12 07:18] LABS: Basophils % 0.6 %; Eosinophils # 0.2 10^3/uL (0.0-0.8); Eosinophils % 2.9 %; Hematocrit 40.9 % (42.0-52.0); Hemoglobin 12.4 g/dL (11.7-16.6); Lymphocytes # 2.2 10^3/uL (0.8-4.8); Mean Corpuscular HGB Conc 30.3 g/dL (30.0-36.0); Mean Corpuscular Volume 102.3 fl (80-94); Mean Platelet Volume 12.3 fL (7.4-10.4); Monocytes # 0.7 10^3/uL (0.2-0.9); Monocytes % 10.2 %; Neutrophils # 3.39 10^3/uL (1.8-7.7); Neutrophils % 52.1 %; Nucleated Red Blood Cells % 0 %; Platelet Count 105 10^3/cmm (130-400); Red Cell Distribution Width 17.1 % (12.1-15.1); White Blood Count 6.5 10^3/uL (4.0-10.0)
== END 2022-11-23 23:59 | disposition home or self-care (01) ==
PROVIDERS: PCP Family Medicine; Visit Provider Internal Medicine Hematology & Oncology
DX: D64.9 Anemia, unspecified (principal); R53.1 Weakness; R53.83 Other fatigue; N28.89 Other specified disorders of kidney and ureter; Z79.899 Other long term (current) drug therapy
CPT/HCPCS: 85025; 99214

== ENCOUNTER 2022-12-17 09:52 | Oncology outpatient (recurring) (ONCR) | payer MEDICARE, OTHER, SELFPAY ==
[2022-12-17 10:43] LABS: Basophils % 0.8 %; Eosinophils # 0.1 10^3/uL (0.0-0.8); Eosinophils % 1.8 %; Hematocrit 40.7 % (42.0-52.0); Hemoglobin 12.4 g/dL (11.7-16.6); Lymphocytes # 1.6 10^3/uL (0.8-4.8); Lymphocytes % 31.5 %; Mean Corpuscular HGB Conc 30.5 g/dL (30.0-36.0); Mean Corpuscular Hemoglobin 30.4 pg (28.0-34.0); Mean Corpuscular Volume 99.8 fl (80-94); Mean Platelet Volume 11.9 fL (7.4-10.4); Monocytes # 0.5 10^3/uL (0.2-0.9); Monocytes % 9.5 %; Neutrophils # 2.78 10^3/uL (1.8-7.7); Neutrophils % 56.2 %; Nucleated Red Blood Cells % 0 %; Platelet Count 110 10^3/cmm (130-400); Red Blood Count 4.08 10^6/uL (4.1-5.3); Red Cell Distribution Width 16.8 % (12.1-15.1)
== END 2022-12-21 23:59 | disposition home or self-care (01) ==
PROVIDERS: PCP Family Medicine; Visit Provider Internal Medicine Hematology & Oncology
DX: D64.9 Anemia, unspecified (principal); M79.642 Pain in left hand; R20.0 Anesthesia of skin; G56.82 Other specified mononeuropathies of left upper limb; Z79.899 Other long term (current) drug therapy
CPT/HCPCS: 85025; 99214

== ENCOUNTER 2023-01-07 14:54 | Outpatient (CLI) | payer MEDICARE, OTHER, SELFPAY ==
--- NOTE | 2023-01-07 15:15 | USCV_ITS ---
Harley Viera Age: 77 Gender: M : 1945 Exam Date: 01/07/2023 15:38 Ordering Phys: Cal Burris MD Technologist: CT Exam Location: [place]_ Indication: swelling,pain left PROCEDURES: Venous duplex imaging was performed in only the left upper extremity. In addition, the basilic vein, cephalic vein, radial vein, and ulnar vein. CONCLUSIONS No evidence of thrombus of the left upper extremity veins. Evaristo Luna MD (Electronically Signed) Final Date: 07 January 2023 18:00 S
== END 2023-01-07 14:55 | disposition home or self-care (01) ==
LOC: RAD 14:56
PROVIDERS: PCP Family Medicine; Visit Provider Family Medicine
DX: R60.0 Localized edema (principal)
CPT/HCPCS: 93971

== ENCOUNTER 2023-01-14 09:51 | Oncology outpatient (recurring) (ONCR) | payer MEDICARE, OTHER, SELFPAY ==
[2023-01-14 10:11] LABS: Basophils % 0.8 %; Eosinophils # 0.1 10^3/uL (0.0-0.8); Hematocrit 37.6 % (42.0-52.0); Hemoglobin 11.5 g/dL (11.7-16.6); Lymphocytes # 1.1 10^3/uL (0.8-4.8); Lymphocytes % 30.4 %; Mean Corpuscular HGB Conc 30.6 g/dL (30.0-36.0); Mean Corpuscular Hemoglobin 30.5 pg (28.0-34.0); Mean Corpuscular Volume 99.7 fl (80-94); Mean Platelet Volume 12.4 fL (7.4-10.4); Monocytes # 0.5 10^3/uL (0.2-0.9); Monocytes % 12.5 %; Neutrophils # 1.93 10^3/uL (1.8-7.7); Neutrophils % 52.5 %; Nucleated Red Blood Cells % 0 %; Platelet Count 123 10^3/cmm (130-400); Red Blood Count 3.77 10^6/uL (4.1-5.3); Red Cell Distribution Width 17.2 % (12.1-15.1); White Blood Count 3.7 10^3/uL (4.0-10.0)
== END 2023-01-21 23:59 | disposition home or self-care (01) ==
PROVIDERS: PCP Family Medicine; Visit Provider Internal Medicine Hematology & Oncology
DX: D64.9 Anemia, unspecified (principal); D61.818 Other pancytopenia; Z79.899 Other long term (current) drug therapy
CPT/HCPCS: 85025; 99214

== ENCOUNTER 2023-02-25 07:29 | Oncology outpatient (recurring) (ONCR) | payer MEDICARE, OTHER, SELFPAY ==
[2023-02-25 07:51] LABS: Basophils # 0.1 10^3/uL (0.0-0.1); Basophils % 1.8 %; Eosinophils # 0.1 10^3/uL (0.0-0.8); Eosinophils % 2.6 %; Hematocrit 38.3 % (42.0-52.0); Hemoglobin 11.7 g/dL (11.7-16.6); Lymphocytes # 1.3 10^3/uL (0.8-4.8); Lymphocytes % 34.9 %; Mean Corpuscular HGB Conc 30.5 g/dL (30.0-36.0); Mean Corpuscular Hemoglobin 31.8 pg (28.0-34.0); Mean Corpuscular Volume 104.1 fl (80-94); Mean Platelet Volume 13.9 fL (7.4-10.4); Monocytes # 0.2 10^3/uL (0.2-0.9); Monocytes % 4.5 %; Neutrophils % 55.2 %; Nucleated Red Blood Cells % 0 %; Platelet Count 121 10^3/cmm (130-400); Red Blood Count 3.68 10^6/uL (4.1-5.3); White Blood Count 3.8 10^3/uL (4.0-10.0)
== END 2023-03-23 23:59 | disposition home or self-care (01) ==
PROVIDERS: PCP Family Medicine; Visit Provider Internal Medicine Hematology & Oncology
DX: D64.9 Anemia, unspecified (principal); D61.818 Other pancytopenia; Z79.899 Other long term (current) drug therapy
CPT/HCPCS: 36415; 85025; 99214

== ENCOUNTER 2023-03-25 09:31 | Oncology outpatient (recurring) (ONCR) | payer MEDICARE, OTHER, SELFPAY ==
[2023-03-25 10:26] VITALS: BP 110/72; PULSE 60; RESP 18; TEMP 36.1; O2SAT 97
[2023-03-25 10:50] LABS: Basophils # 0.1 10^3/uL (0.0-0.1); Basophils % 1.5 %; Eosinophils # 0.2 10^3/uL (0.0-0.8); Eosinophils % 3.6 %; Hematocrit 35.3 % (42.0-52.0); Hemoglobin 11.3 g/dL (11.7-16.6); Lymphocytes # 1.3 10^3/uL (0.8-4.8); Lymphocytes % 31.8 %; Mean Corpuscular Hemoglobin 33.1 pg (28.0-34.0); Mean Corpuscular Volume 103.5 fl (80-94); Monocytes # 0.3 10^3/uL (0.2-0.9); Monocytes % 7.5 %; Neutrophils # 2.26 10^3/uL (1.8-7.7); Neutrophils % 54.9 %; Nucleated Red Blood Cells % 0 %; Platelet Count 116 10^3/cmm (130-400); Red Blood Count 3.41 10^6/uL (4.1-5.3); Red Cell Distribution Width 18.6 % (12.1-15.1); White Blood Count 4.1 10^3/uL (4.0-10.0)
== END 2023-04-22 23:59 | disposition home or self-care (01) ==
PROVIDERS: PCP Family Medicine; Visit Provider Internal Medicine Hematology & Oncology
DX: D64.9 Anemia, unspecified (principal)
CPT/HCPCS: 36415; 85025; 99213

== ENCOUNTER 2023-05-16 13:45 | Oncology outpatient (recurring) (ONCR) | payer MEDICARE, OTHER, SELFPAY ==
[2023-04-25 09:15] VITALS: BP 138/81; PULSE 80; RESP 18; TEMP 36.3; O2SAT 97
[2023-04-25 09:28] LABS: Basophils # 0.1 10^3/uL (0.0-0.1); Basophils % 1.6 %; Eosinophils % 0.8 %; Hematocrit 34.4 % (42.0-52.0); Hemoglobin 10.8 g/dL (11.7-16.6); Lymphocytes # 1.3 10^3/uL (0.8-4.8); Lymphocytes % 33.6 %; Mean Corpuscular HGB Conc 31.4 g/dL (30.0-36.0); Mean Corpuscular Hemoglobin 33.8 pg (28.0-34.0); Mean Corpuscular Volume 107.5 fl (80-94); Monocytes # 0.2 10^3/uL (0.2-0.9); Neutrophils # 2.19 10^3/uL (1.8-7.7); Neutrophils % 57.5 %; Nucleated Red Blood Cells % 0 %; Platelet Count 87 10^3/cmm (130-400); Red Cell Distribution Width 17.3 % (12.1-15.1); White Blood Count 3.8 10^3/uL (4.0-10.0)
[2023-04-29 10:27] VITALS: BP 114/84; PULSE 84; RESP 18; TEMP 35.9; O2SAT 96
[2023-04-29 11:15] LABS: Vitamin B12 353 pg/mL (232-1245)
[2023-04-29 12:37] LABS: Folate Level > 20.0 ng/mL (4.5-32.2)
[2023-05-16 13:48] VITALS: BP 116/73; PULSE 81; RESP 18; TEMP 36.3; O2SAT 96; BMI 37.8
[2023-05-16 14:05] LABS: Basophils # 0.1 10^3/uL (0.0-0.1); Basophils % 1.3 %; Eosinophils % 0.9 %; Hematocrit 34.1 % (42.0-52.0); Hemoglobin 10.9 g/dL (11.7-16.6); Lymphocytes # 1.6 10^3/uL (0.8-4.8); Lymphocytes % 33.6 %; Mean Corpuscular Hemoglobin 34.2 pg (28.0-34.0); Mean Corpuscular Volume 106.9 fl (80-94); Mean Platelet Volume 14.3 fL (7.4-10.4); Monocytes # 0.2 10^3/uL (0.2-0.9); Monocytes % 3.9 %; Neutrophils # 2.76 10^3/uL (1.8-7.7); Neutrophils % 59.9 %; Nucleated Red Blood Cells % 0 %; Platelet Count 116 10^3/cmm (130-400); Red Blood Count 3.19 10^6/uL (4.1-5.3); Red Cell Distribution Width 17.9 % (12.1-15.1); White Blood Count 4.6 10^3/uL (4.0-10.0)
[2023-05-16 14:27] LABS: Alanine Aminotransferase 21 U/L (0-41); Albumin Level 3.9 g/dL (3.5-5.2); Alkaline Phosphatase 111 U/L (40-130); Aspartate Amino Transferase 22 U/L (0-40); Blood Urea Nitrogen 21 mg/dL (8-23); Calcium 8.8 mg/dL (8.5-10.5); Carbon Dioxide 24 mmol/L (22-29); Chloride 105 mmol/L (98-107); Globulin 2.6 g/dL (1.3-4.6); Glucose 112 mg/dL (65-115); Osmolality Calculated 292 mOsm/kg (285-295); Sodium 139 mmol/L (136-145); Total Bilirubin 0.5 mg/dL (0.15-1.2); Total Protein 6.5 g/dL (6.6-8.7)
[2023-05-16 14:31] LABS: Anion Gap 13.9 (5-19); Potassium 3.9 mmol/L (3.5-5.1)
== END 2023-05-23 23:59 | disposition home or self-care (01) ==
PROVIDERS: Nurse Practitioner; Nurse Practitioner Family; PCP Family Medicine; Visit Provider Internal Medicine Hematology & Oncology
DX: D64.9 Anemia, unspecified (principal)
CPT/HCPCS: 36415; 80053; 82607; 82746; 85025; 99214

== ENCOUNTER 2023-06-28 11:20 | Oncology outpatient (recurring) (ONCR) | payer MEDICARE, OTHER, SELFPAY ==
[2023-06-28 11:53] LABS: Hematocrit 29.2 % (37-53); Mean Corpuscular HGB Conc 31.5 g/dL (30-55); Mean Corpuscular Hemoglobin 35.2 pg (27-33); Mean Corpuscular Volume 111.9 fl (82-101); Mean Platelet Volume 14.2 fL (7.4-10.4); Platelet Count 121 10^3/cmm (157-399); Red Blood Count 2.61 10^6/uL (3.85-5.65); Red Cell Distribution Width 18.5 % (12.1-15.1); White Blood Count 6.78 10^3/uL (3.29-11.43)
[2023-06-28 11:58] LABS: Slide Review Slide Review Perform
[2023-06-28 12:04] LABS: Alanine Aminotransferase 30 U/L (0-41); Albumin Level 3.9 g/dL (3.5-5.2); Alkaline Phosphatase 108 U/L (40-130); Anion Gap 12.8 (5-19); Aspartate Amino Transferase 24 U/L (0-40); Blood Urea Nitrogen 18 mg/dL (8-23); Calcium 9.1 mg/dL (8.5-10.5); Carbon Dioxide 25 mmol/L (22-29); Chloride 102 mmol/L (98-107); Globulin 3.1 g/dL (1.3-4.6); Glucose 117 mg/dL (65-115); Osmolality Calculated 285 mOsm/kg (285-295); Potassium 3.8 mmol/L (3.5-5.1); Sodium 136 mmol/L (136-145); Total Bilirubin 0.8 mg/dL (0.15-1.2)
[2023-06-28 12:07] LABS: Absolute Segmented Neutrophil 4.4 10/cmm (1.6-7.1); Band Neutrophils Absolute 0.2 10^3/cmm (0.0-1.2); Basophils Absolute 0.1 10^3/cmm (0.0-0.2); Eosinophils 0 %; Lymphocytes 25 %; Lymphocytes Absolute 1.7 10^3/cmm (1.2-3.4); Monocytes Absolute 0.4 10^3/cmm (0.1-0.6); Segmented Neutrophils 65 %; Total Cells Counted 100 (0-100)
[2023-06-28 12:08] LABS: Absolute Neutrophil 4.6 10^3/cmm (1.4-6.5); Macrocytosis 3+; Platelet Estimate Normal (Normal)
== END 2023-07-23 23:59 | disposition home or self-care (01) ==
LOC: ONCMED 11:21
PROVIDERS: Nurse Practitioner Family; PCP Family Medicine; Visit Provider Internal Medicine Hematology & Oncology
DX: D64.9 Anemia, unspecified (principal)
CPT/HCPCS: 36415; 80053; 85007; 85025; 99214

== ENCOUNTER → 2023-06-29 15:12 | Outpatient (BNVA) | payer MEDICARE, OTHER, SELFPAY | PROVIDERS: PCP Family Medicine; Visit Provider Internal Medicine Cardiovascular Disease | DX: R06.02 Shortness of breath (principal); R07.9 Chest pain, unspecified; I25.118 Atherosclerotic heart disease of native coronary artery with other forms of angina pectoris; Z95.0 Presence of cardiac pacemaker; E03.9 Hypothyroidism, unspecified; I12.9 Hypertensive chronic kidney disease with stage 1 through stage 4 chronic kidney disease, or unspecified chronic kidney disease; N18.31 Chronic kidney disease, stage 3a; D46.9 Myelodysplastic syndrome, unspecified; R94.31 Abnormal electrocardiogram [ECG] [EKG] | CPT/HCPCS: 36415; 80048; 83880; 93005; 99214 ==

== ENCOUNTER 2023-07-14 13:41 | Outpatient (CLI) | payer MEDICARE, OTHER, SELFPAY ==
[2023-07-14 14:23] LABS: Anion Gap 15.1 (5-19); Blood Urea Nitrogen 28 mg/dL (8-23); Calcium 8.6 mg/dL (8.5-10.5); Carbon Dioxide 24 mmol/L (22-29); Chloride 104 mmol/L (98-107); Glucose 131 mg/dL (65-115); NT Pro B Type Natriuretic Pept 619 pg/mL (0-450); Osmolality Calculated 295 mOsm/kg (285-295); Potassium 4.1 mmol/L (3.5-5.1); Sodium 139 mmol/L (136-145)
== END 2023-07-14 13:42 | disposition home or self-care (01) ==
PROVIDERS: PCP Family Medicine; Visit Provider Internal Medicine Cardiovascular Disease
DX: I25.118 Atherosclerotic heart disease of native coronary artery with other forms of angina pectoris (principal); N18.31 Chronic kidney disease, stage 3a
CPT/HCPCS: 36415; 80048; 83880

== ENCOUNTER 2023-08-22 08:15 | Oncology outpatient (recurring) (ONCR) | payer MEDICARE, OTHER, SELFPAY ==
[2023-08-01] VITALS (7 sets, daily range): BP systolic 104–122; BP diastolic 56–72; PULSE 58–61; TEMP 35.8–36.4; O2SAT 92–95
[2023-08-01 09:53] LABS: Basophils # 0.1 10^3/uL (0.0-0.1); Eosinophils # 0.3 10^3/uL (0.0-0.8); Eosinophils % 7.3 %; Hematocrit 25.2 % (37-53); Lymphocytes # 1.6 10^3/uL (0.8-4.8); Lymphocytes % 40.8 %; Mean Corpuscular HGB Conc 31.3 g/dL (30-55); Mean Corpuscular Hemoglobin 36.4 pg (27-33); Mean Corpuscular Volume 116.1 fl (82-101); Monocytes # 0.1 10^3/uL (0.2-0.9); Monocytes % 2.8 %; Neutrophils % 45.6 %; Nucleated Red Blood Cells % 0 %; Platelet Count 99 10^3/cmm (157-399); Red Blood Count 2.17 10^6/uL (3.85-5.65); Red Cell Distribution Width 19.6 % (12.1-15.1); White Blood Count 3.95 10^3/uL (3.29-11.43)
[2023-08-01 10:39] LABS: Slide Review Slide Review Perform
[2023-08-01] MEDS: diphenhydrAMINE 25 mg Capsule PO (11:24)
[2023-08-01] MEDS: acetaminophen 325 mg Tablet 650 MG PO (11:24)
[2023-08-08 07:35] VITALS: BP 136/85; PULSE 87; RESP 18; TEMP 36.2; O2SAT 99
[2023-08-08 08:13] LABS: Basophils # 0.1 10^3/uL (0.0-0.1); Basophils % 2.4 %; Eosinophils # 0.1 10^3/uL (0.0-0.8); Eosinophils % 1.6 %; Hematocrit 28.5 % (37-53); Lymphocytes # 1.5 10^3/uL (0.8-4.8); Lymphocytes % 33.4 %; Mean Corpuscular HGB Conc 30.5 g/dL (30-55); Mean Corpuscular Volume 111.3 fl (82-101); Monocytes # 0.2 10^3/uL (0.2-0.9); Monocytes % 3.8 %; Neutrophils # 2.63 10^3/uL (1.8-7.7); Neutrophils % 58.6 %; Nucleated Red Blood Cells % 0 %; Platelet Count 156 10^3/cmm (157-399); Red Blood Count 2.56 10^6/uL (3.85-5.65); Red Cell Distribution Width 25.9 % (12.1-15.1); White Blood Count 4.49 10^3/uL (3.29-11.43)
[2023-08-08 08:24] LABS: Alanine Aminotransferase 21 U/L (0-41); Albumin Level 3.8 g/dL (3.5-5.2); Alkaline Phosphatase 127 U/L (40-130); Anion Gap 15.9 (5-19); Aspartate Amino Transferase 19 U/L (0-40); Blood Urea Nitrogen 23 mg/dL (8-23); Calcium 8.9 mg/dL (8.5-10.5); Carbon Dioxide 22 mmol/L (22-29); Chloride 103 mmol/L (98-107); Ferritin 767 ng/mL (30-400); Globulin 3.1 g/dL (1.3-4.6); Glucose 131 mg/dL (65-115); Iron 168 ug/dL (59-158); Lactate Dehydrogenase 190 U/L (135-225); Osmolality Calculated 289 mOsm/kg (285-295); Percent Saturation 78.1 % (20-50); Potassium 3.9 mmol/L (3.5-5.1); Sodium 137 mmol/L (136-145); Total Bilirubin 0.5 mg/dL (0.15-1.2); Total Iron Binding Capacity 215 mcg/dl; Total Protein 6.9 g/dL (6.6-8.7); Unsaturated Iron Binding 47 ug/dL (112-347)
[2023-08-08] MEDS: acetaminophen 325 mg Tablet 650 MG PO (10:48)
[2023-08-08] MEDS: diphenhydrAMINE 25 mg Capsule PO (10:49)
[2023-08-08] MEDS: sodium chloride 0.9% 250 mL Bag IV (11:16)
[2023-08-08 11:17] VITALS: BP 125/64; PULSE 61; TEMP 36.4; O2SAT 96
[2023-08-08 11:35] VITALS: BP 112/54; PULSE 59; TEMP 36.4; O2SAT 97
[2023-08-08 11:50] VITALS: BP 119/57; PULSE 64; TEMP 36.5; O2SAT 99
[2023-08-08 12:50] VITALS: BP 118/67; PULSE 64; TEMP 36
[2023-08-08 16:38] VITALS: BP 132/70; PULSE 57; O2SAT 98
== END 2023-08-23 23:59 | disposition home or self-care (01) ==
PROVIDERS: Nurse Practitioner Family; PCP Family Medicine; Visit Provider Internal Medicine Medical Oncology
DX: Z53.9 Procedure and treatment not carried out, unspecified reason (principal)
CPT/HCPCS: 36415; 36430; 80053; 82728; 83540; 83550; 83615; 85025; 86850; 86900; 86920; 99214; J7050; P9040

== ENCOUNTER 2023-09-12 08:45 | Oncology outpatient (recurring) (ONCR) | payer MEDICARE, OTHER, SELFPAY ==
[2023-09-05 15:00] VITALS: BP 117/71; PULSE 98; RESP 20; TEMP 36.9; O2SAT 79
[2023-09-05 15:28] LABS: Eosinophils # 0.1 10^3/uL (0.0-0.8); Eosinophils % 2.1 %; Hematocrit 23.6 % (37-53); Lymphocytes # 1.6 10^3/uL (0.8-4.8); Lymphocytes % 37.8 %; Mean Corpuscular HGB Conc 30.9 g/dL (30-55); Mean Corpuscular Volume 109.8 fl (82-101); Monocytes # 0.1 10^3/uL (0.2-0.9); Monocytes % 3.3 %; Neutrophils # 2.33 10^3/uL (1.8-7.7); Neutrophils % 55.3 %; Nucleated Red Blood Cells % 0 %; Platelet Count 102 10^3/cmm (157-399); Red Blood Count 2.15 10^6/uL (3.85-5.65); Red Cell Distribution Width 26.8 % (12.1-15.1); White Blood Count 4.21 10^3/uL (3.29-11.43)
[2023-09-05 16:05] LABS: Mean Platelet Volume 11.8 fL (7.4-10.4)
[2023-09-05 16:06] LABS: Slide Review Slide Review Perform
[2023-09-08] VITALS (8 sets, daily range): BP systolic 101–127; BP diastolic 65–76; PULSE 53–71; RESP 16–18; TEMP 35.7–36.3; O2SAT 98–99
[2023-09-08] MEDS: acetaminophen 325 mg Tablet 650 MG PO (08:05)
[2023-09-08] MEDS: sodium chloride 0.9% 250 mL Bag IV (08:06)
[2023-09-08] MEDS: diphenhydrAMINE 25 mg Capsule PO (08:06)
[2023-09-08 08:42] LABS: Basophils % 1.2 %; Eosinophils # 0.1 10^3/uL (0.0-0.8); Hematocrit 21.8 % (37-53); Lymphocytes # 1.2 10^3/uL (0.8-4.8); Lymphocytes % 37.2 %; Mean Corpuscular HGB Conc 30.3 g/dL (30-55); Mean Corpuscular Volume 112.4 fl (82-101); Mean Platelet Volume 14.8 fL (7.4-10.4); Monocytes # 0.1 10^3/uL (0.2-0.9); Monocytes % 4.2 %; Neutrophils # 1.79 10^3/uL (1.8-7.7); Neutrophils % 53.8 %; Nucleated Red Blood Cells % 0 %; Platelet Count 102 10^3/cmm (157-399); Red Blood Count 1.94 10^6/uL (3.85-5.65); White Blood Count 3.33 10^3/uL (3.29-11.43)
[2023-09-08 09:24] LABS: Slide Review Slide Review Perform
[2023-09-12 08:46] VITALS: BP 137/77; PULSE 82; RESP 16; TEMP 36.6; O2SAT 98
[2023-09-12 09:52] LABS: Basophils % 1.1 %; Eosinophils # 0.1 10^3/uL (0.0-0.8); Eosinophils % 2.6 %; Hematocrit 31.5 % (37-53); Lymphocytes # 1.5 10^3/uL (0.8-4.8); Lymphocytes % 39.1 %; Mean Corpuscular HGB Conc 31.4 g/dL (30-55); Mean Corpuscular Hemoglobin 33.3 pg (27-33); Mean Corpuscular Volume 106.1 fl (82-101); Monocytes # 0.2 10^3/uL (0.2-0.9); Neutrophils # 1.95 10^3/uL (1.8-7.7); Neutrophils % 51.4 %; Nucleated Red Blood Cells % 0 %; Platelet Count 115 10^3/cmm (157-399); Red Blood Count 2.97 10^6/uL (3.85-5.65); Red Cell Distribution Width 26.3 % (12.1-15.1); White Blood Count 3.79 10^3/uL (3.29-11.43)
[2023-09-12 10:08] LABS: Alanine Aminotransferase 19 U/L (0-41); Albumin Level 3.7 g/dL (3.5-5.2); Alkaline Phosphatase 145 U/L (40-130); Anion Gap 13.9 (5-19); Aspartate Amino Transferase 17 U/L (0-40); Blood Urea Nitrogen 22 mg/dL (8-23); Calcium 9.3 mg/dL (8.5-10.5); Carbon Dioxide 23 mmol/L (22-29); Chloride 107 mmol/L (98-107); Ferritin 961 ng/mL (30-400); Globulin 3.2 g/dL (1.3-4.6); Glucose 104 mg/dL (65-115); Iron 220 ug/dL (59-158); Osmolality Calculated 292 mOsm/kg (285-295); Potassium 4.9 mmol/L (3.5-5.1); Sodium 139 mmol/L (136-145); Total Bilirubin 0.3 mg/dL (0.15-1.2); Total Protein 6.9 g/dL (6.6-8.7)
[2023-09-12 10:24] LABS: Slide Review Slide Review Perform
[2023-09-12 10:25] LABS: Percent Saturation 92.8 % (20-50); Total Iron Binding Capacity 237 mcg/dl; Unsaturated Iron Binding < 17 ug/dL (112-347)
== END 2023-09-22 23:59 | disposition home or self-care (01) ==
PROVIDERS: PCP Family Medicine; Visit Provider Internal Medicine Medical Oncology
DX: D64.9 Anemia, unspecified (principal)
CPT/HCPCS: 36415; 36430; 80053; 82728; 83540; 83550; 85025; 86850; 86900; 86920; J7050; P9016

== ENCOUNTER 2023-10-10 07:39 | Oncology outpatient (recurring) (ONCR) | payer MEDICARE, OTHER, SELFPAY ==
[2023-09-26 11:00] VITALS: BP 113/70; PULSE 73; RESP 16; TEMP 36.7; O2SAT 97
[2023-09-26 11:41] LABS: Basophils % 0.7 %; Eosinophils % 0.9 %; Hematocrit 26.3 % (37-53); Lymphocytes # 1.6 10^3/uL (0.8-4.8); Lymphocytes % 35.1 %; Mean Corpuscular HGB Conc 32.3 g/dL (30-55); Mean Corpuscular Hemoglobin 33.7 pg (27-33); Mean Corpuscular Volume 104.4 fl (82-101); Monocytes # 0.2 10^3/uL (0.2-0.9); Monocytes % 4.1 %; Neutrophils % 58.7 %; Nucleated Red Blood Cells % 0 %; Platelet Count 146 10^3/cmm (157-399); Red Blood Count 2.52 10^6/uL (3.85-5.65); Red Cell Distribution Width 26.2 % (12.1-15.1); White Blood Count 4.42 10^3/uL (3.29-11.43)
[2023-09-26 11:58] LABS: Alanine Aminotransferase 23 U/L (0-41); Albumin Level 3.8 g/dL (3.5-5.2); Alkaline Phosphatase 129 U/L (40-130); Anion Gap 14.3 (5-19); Aspartate Amino Transferase 20 U/L (0-40); Blood Urea Nitrogen 25 mg/dL (8-23); Calcium 9.2 mg/dL (8.5-10.5); Carbon Dioxide 24 mmol/L (22-29); Chloride 101 mmol/L (98-107); Globulin 3.2 g/dL (1.3-4.6); Glucose 116 mg/dL (65-115); Lactate Dehydrogenase 163 U/L (135-225); Osmolality Calculated 285 mOsm/kg (285-295); Potassium 4.3 mmol/L (3.5-5.1); Sodium 135 mmol/L (136-145); Total Bilirubin 0.4 mg/dL (0.15-1.2)
[2023-10-10] VITALS (11 sets, daily range): BP systolic 101–145; BP diastolic 63–78; PULSE 59–86; RESP 16; TEMP 35.7–36.2; O2SAT 96–99
[2023-10-10 08:42] LABS: Basophils % 0.8 %; Hematocrit 24.6 % (37-53); Lymphocytes # 1.4 10^3/uL (0.8-4.8); Mean Corpuscular HGB Conc 32.1 g/dL (30-55); Mean Corpuscular Hemoglobin 34.1 pg (27-33); Mean Platelet Volume 14.4 fL (7.4-10.4); Monocytes # 0.1 10^3/uL (0.2-0.9); Monocytes % 3.3 %; Neutrophils # 2.32 10^3/uL (1.8-7.7); Neutrophils % 58.4 %; Nucleated Red Blood Cells % 0 %; Platelet Count 146 10^3/cmm (157-399); Red Blood Count 2.32 10^6/uL (3.85-5.65); Red Cell Distribution Width 26.6 % (12.1-15.1); White Blood Count 3.97 10^3/uL (3.29-11.43)
[2023-10-10 08:59] LABS: Ferritin 910 ng/mL (30-400)
[2023-10-10] MEDS: acetaminophen 325 mg Tablet 650 MG PO (09:53)
[2023-10-10] MEDS: diphenhydrAMINE 25 mg Capsule PO (09:53)
[2023-10-10] MEDS: sodium chloride 0.9% 250 mL Bag IV (11:45)
== END 2023-10-23 23:59 | disposition home or self-care (01) ==
PROVIDERS: PCP Family Medicine; Visit Provider Internal Medicine Medical Oncology
DX: Z53.9 Procedure and treatment not carried out, unspecified reason (principal); D46.C Myelodysplastic syndrome with isolated del(5q) chromosomal abnormality
CPT/HCPCS: 36415; 36430; 80053; 82728; 83615; 85025; 86850; 86900; 86920; 99214; J7050; P9040

== ENCOUNTER 2023-11-07 09:01 | Oncology outpatient (recurring) (ONCR) | payer MEDICARE, OTHER, SELFPAY ==
[2023-11-04 10:45] LABS: Basophils % 0.9 %; Eosinophils # 0.1 10^3/uL (0.0-0.8); Hematocrit 25.8 % (37-53); Lymphocytes # 1.1 10^3/uL (0.8-4.8); Lymphocytes % 32.1 %; Mean Corpuscular HGB Conc 31.4 g/dL (30-55); Mean Corpuscular Hemoglobin 32.1 pg (27-33); Mean Corpuscular Volume 102.4 fl (82-101); Mean Platelet Volume 14.3 fL (7.4-10.4); Monocytes # 0.2 10^3/uL (0.2-0.9); Monocytes % 4.6 %; Neutrophils # 2.09 10^3/uL (1.8-7.7); Neutrophils % 59.8 %; Nucleated Red Blood Cells % 0 %; Platelet Count 151 10^3/cmm (157-399); Red Blood Count 2.52 10^6/uL (3.85-5.65); Red Cell Distribution Width 24.4 % (12.1-15.1); White Blood Count 3.49 10^3/uL (3.29-11.43)
[2023-11-04 10:47] VITALS: BP 107/70; PULSE 87; RESP 19; TEMP 36.4; O2SAT 91
[2023-11-04 10:59] LABS: Alanine Aminotransferase 17 U/L (0-41); Albumin Level 3.5 g/dL (3.5-5.2); Alkaline Phosphatase 148 U/L (40-130); Anion Gap 16.1 (5-19); Aspartate Amino Transferase 13 U/L (0-40); Blood Urea Nitrogen 36 mg/dL (8-23); Calcium 8.6 mg/dL (8.5-10.5); Carbon Dioxide 22 mmol/L (22-29); Chloride 104 mmol/L (98-107); Ferritin 768 ng/mL (30-400); Globulin 3.1 g/dL (1.3-4.6); Glucose 97 mg/dL (65-115); Osmolality Calculated 294 mOsm/kg (285-295); Potassium 4.1 mmol/L (3.5-5.1); Sodium 138 mmol/L (136-145); Total Bilirubin 0.3 mg/dL (0.15-1.2); Total Protein 6.6 g/dL (6.6-8.7)
[2023-11-04 11:26] LABS: Slide Review Slide Review Perform
[2023-11-07] VITALS (10 sets, daily range): BP systolic 118–158; BP diastolic 74–90; PULSE 59–80; RESP 16; TEMP 35.6–36.5; O2SAT 96–100
[2023-11-07] MEDS: sodium chloride 0.9% 250 mL Bag IV (09:47)
[2023-11-07] MEDS: diphenhydrAMINE 25 mg Capsule PO (09:47)
[2023-11-07] MEDS: acetaminophen 325 mg Tablet 650 MG PO (09:47)
[2023-11-07] MEDS: FUROsemide 10 mg/mL SDV 2mL 20 MG IVP (11:50)
== END 2023-11-23 23:59 | disposition home or self-care (01) ==
PROVIDERS: PCP Family Medicine; Visit Provider Internal Medicine Medical Oncology
DX: D46.C Myelodysplastic syndrome with isolated del(5q) chromosomal abnormality; N18.31 Chronic kidney disease, stage 3a; D46.9 Myelodysplastic syndrome, unspecified; Z79.899 Other long term (current) drug therapy; Z53.9 Procedure and treatment not carried out, unspecified reason
CPT/HCPCS: 36415; 36430; 80053; 82728; 85025; 86850; 86900; 86920; 96374; 99214; J1940; J7050; P9040

== ENCOUNTER 2023-12-22 07:30 | Oncology outpatient (recurring) (ONCR) | payer MEDICARE, OTHER, SELFPAY ==
[2023-11-30 15:21] LABS: Basophils % 0.6 %; Eosinophils % 0.2 %; Hematocrit 26.1 % (37-53); Lymphocytes # 1.5 10^3/uL (0.8-4.8); Lymphocytes % 30.1 %; Mean Corpuscular HGB Conc 32.6 g/dL (30-55); Mean Corpuscular Hemoglobin 32.1 pg (27-33); Mean Corpuscular Volume 98.5 fl (82-101); Monocytes # 0.2 10^3/uL (0.2-0.9); Monocytes % 3.9 %; Neutrophils # 3.16 10^3/uL (1.8-7.7); Neutrophils % 64.8 %; Nucleated Red Blood Cells % 0 %; Platelet Count 146 10^3/cmm (157-399); Red Blood Count 2.65 10^6/uL (3.85-5.65); Red Cell Distribution Width 22.5 % (12.1-15.1); White Blood Count 4.88 10^3/uL (3.29-11.43)
[2023-11-30 15:42] LABS: Alanine Aminotransferase 19 U/L (0-41); Albumin Level 3.9 g/dL (3.5-5.2); Alkaline Phosphatase 122 U/L (40-130); Anion Gap 14.9 (5-19); Aspartate Amino Transferase 16 U/L (0-40); Blood Urea Nitrogen 26 mg/dL (8-23); Calcium 9.3 mg/dL (8.5-10.5); Carbon Dioxide 23 mmol/L (22-29); Chloride 100 mmol/L (98-107); Globulin 3.1 g/dL (1.3-4.6); Glucose 106 mg/dL (65-115); Osmolality Calculated 283 mOsm/kg (285-295); Potassium 3.9 mmol/L (3.5-5.1); Sodium 134 mmol/L (136-145); Total Bilirubin 0.7 mg/dL (0.15-1.2)
[2023-11-30 15:44] LABS: Slide Review Slide Review Perform
--- NOTE | 2023-11-30 16:20 | PC.NURSE ---
Reviewed pts Hbg results of 8.[address] Lynn states due to pt being symptomatic, he can receive 2 units of blood if he needs it. Called pt, pt states he is SOB, no energy, and feels dizzy when standing. Pt wants to receive blood. KEILA
[2023-12-01] VITALS (9 sets, daily range): BP systolic 107–119; BP diastolic 68–77; PULSE 59–76; RESP 16–17; TEMP 35.9–36.7; O2SAT 91–98
[2023-12-01] MEDS: sodium chloride 0.9% 250 mL Bag IV (08:37)
[2023-12-01] MEDS: acetaminophen 325 mg Tablet 650 MG PO (08:37)
[2023-12-01] MEDS: diphenhydrAMINE 25 mg Capsule PO (08:37)
[2023-12-22 08:19] LABS: Eosinophils # 0.1 10^3/uL (0.0-0.8); Nucleated Red Blood Cells % 0 %
[2023-12-22 08:21] LABS: Alanine Aminotransferase 17 U/L (0-41); Albumin Level 3.7 g/dL (3.5-5.2); Alkaline Phosphatase 130 U/L (40-130); Anion Gap 15.1 (5-19); Aspartate Amino Transferase 17 U/L (0-40); Blood Urea Nitrogen 18 mg/dL (8-23); Calcium 8.6 mg/dL (8.5-10.5); Carbon Dioxide 25 mmol/L (22-29); Chloride 103 mmol/L (98-107); Globulin 3.2 g/dL (1.3-4.6); Glucose 107 mg/dL (65-115); Osmolality Calculated 288 mOsm/kg (285-295); Potassium 5.1 mmol/L (3.5-5.1); Sodium 138 mmol/L (136-145); Total Bilirubin 0.3 mg/dL (0.15-1.2); Total Protein 6.9 g/dL (6.6-8.7)
[2023-12-22 08:30] LABS: Mean Corpuscular HGB Conc 31.4 g/dL (30-55); Mean Corpuscular Hemoglobin 30.9 pg (27-33); Mean Corpuscular Volume 98.2 fl (82-101); Red Blood Count 2.85 10^6/uL (3.85-5.65)
[2023-12-22 08:31] LABS: Basophils % 0.5 %; Eosinophils % 1.8 %; Lymphocytes # 1.4 10^3/uL (0.8-4.8); Lymphocytes % 37.6 %; Mean Platelet Volume 13.6 fL (7.4-10.4); Monocytes # 0.2 10^3/uL (0.2-0.9); Monocytes % 5.2 %; Neutrophils # 2.09 10^3/uL (1.8-7.7); Neutrophils % 54.6 %; Platelet Count 130 10^3/cmm (157-399); Red Cell Distribution Width 21.2 % (12.1-15.1)
[2023-12-22 08:34] LABS: White Blood Count 3.83 10^3/uL (3.29-11.43)
[2023-12-22 08:41] LABS: Slide Review Slide Review Perform
== END 2023-12-22 23:59 | disposition home or self-care (01) ==
PROVIDERS: PCP Family Medicine; Visit Provider Internal Medicine Medical Oncology
DX: D46.C Myelodysplastic syndrome with isolated del(5q) chromosomal abnormality (principal); Z53.9 Procedure and treatment not carried out, unspecified reason
CPT/HCPCS: 36415; 36430; 80053; 85025; 86850; 86900; 86920; J7050; P9016

== ENCOUNTER 2024-01-12 08:00 | Oncology outpatient (recurring) (ONCR) | payer MEDICARE, OTHER, SELFPAY ==
[2024-01-03] VITALS (11 sets, daily range): BP systolic 112–134; BP diastolic 70–79; PULSE 60; RESP 18–128; TEMP 36.2–36.8; O2SAT 96–100
[2024-01-03 08:39] LABS: Basophils % 0.8 %; Eosinophils # 0.1 10^3/uL (0.0-0.8); Eosinophils % 1.7 %; Hematocrit 21.3 % (37-53); Lymphocytes # 1.4 10^3/uL (0.8-4.8); Lymphocytes % 39.5 %; Mean Corpuscular HGB Conc 31.9 g/dL (30-55); Mean Corpuscular Hemoglobin 31.9 pg (27-33); Mean Platelet Volume 14.1 fL (7.4-10.4); Monocytes # 0.2 10^3/uL (0.2-0.9); Monocytes % 6.4 %; Neutrophils # 1.83 10^3/uL (1.8-7.7); Neutrophils % 51.3 %; Nucleated Red Blood Cells % 0 %; Platelet Count 125 10^3/cmm (157-399); Red Blood Count 2.13 10^6/uL (3.85-5.65); Red Cell Distribution Width 21.7 % (12.1-15.1); White Blood Count 3.57 10^3/uL (3.29-11.43)
[2024-01-03 09:09] LABS: Alanine Aminotransferase 18 U/L (0-41); Albumin Level 3.8 g/dL (3.5-5.2); Alkaline Phosphatase 142 U/L (40-130); Anion Gap 17.4 (5-19); Aspartate Amino Transferase 31 U/L (0-40); Blood Urea Nitrogen 29 mg/dL (8-23); Calcium 8.7 mg/dL (8.5-10.5); Carbon Dioxide 22 mmol/L (22-29); Chloride 104 mmol/L (98-107); Globulin 3.2 g/dL (1.3-4.6); Glucose 105 mg/dL (65-115); Osmolality Calculated 294 mOsm/kg (285-295); Potassium 4.4 mmol/L (3.5-5.1); Sodium 139 mmol/L (136-145); Total Bilirubin 0.2 mg/dL (0.15-1.2)
[2024-01-03 09:12] LABS: Slide Review Slide Review Perform
[2024-01-03] MEDS: diphenhydrAMINE 25 mg Capsule PO (10:31)
[2024-01-03] MEDS: acetaminophen 325 mg Tablet 650 MG PO (10:31)
[2024-01-03] MEDS: sodium chloride 0.9% 250 mL Bag IV (10:32)
[2024-01-03] MEDS: FUROsemide 10 mg/mL SDV 2mL 20 MG IVP (13:07)
[2024-01-12 08:15] LABS: Basophils % 0.8 %; Eosinophils # 0.1 10^3/uL (0.0-0.8); Eosinophils % 1.5 %; Hematocrit 30.2 % (37-53); Lymphocytes # 1.6 10^3/uL (0.8-4.8); Lymphocytes % 41.2 %; Mean Corpuscular HGB Conc 31.1 g/dL (30-55); Mean Corpuscular Hemoglobin 31.6 pg (27-33); Mean Corpuscular Volume 101.7 fl (82-101); Monocytes # 0.2 10^3/uL (0.2-0.9); Monocytes % 4.6 %; Neutrophils # 2.03 10^3/uL (1.8-7.7); Neutrophils % 51.6 %; Nucleated Red Blood Cells % 0 %; Platelet Count 128 10^3/cmm (157-399); Red Blood Count 2.97 10^6/uL (3.85-5.65); Red Cell Distribution Width 19.6 % (12.1-15.1); White Blood Count 3.93 10^3/uL (3.29-11.43)
[2024-01-12 08:30] LABS: Alanine Aminotransferase 17 U/L (0-41); Albumin Level 3.5 g/dL (3.5-5.2); Alkaline Phosphatase 140 U/L (40-130); Aspartate Amino Transferase 17 U/L (0-40); Blood Urea Nitrogen 22 mg/dL (8-23); Calcium 8.6 mg/dL (8.5-10.5); Carbon Dioxide 23 mmol/L (22-29); Chloride 107 mmol/L (98-107); Globulin 2.7 g/dL (1.3-4.6); Glucose 166 mg/dL (65-115); Osmolality Calculated 293 mOsm/kg (285-295); Sodium 138 mmol/L (136-145); Total Bilirubin 0.3 mg/dL (0.15-1.2); Total Protein 6.2 g/dL (6.6-8.7)
[2024-01-12 08:41] LABS: Creatinine Clr Calc Pharmacy 46.9722
[2024-01-12 09:16] LABS: Slide Review Slide Review Perform
== END 2024-01-22 23:59 | disposition home or self-care (01) ==
PROVIDERS: PCP Family Medicine; Visit Provider Internal Medicine Medical Oncology
DX: D64.9 Anemia, unspecified; N18.31 Chronic kidney disease, stage 3a; D46.C Myelodysplastic syndrome with isolated del(5q) chromosomal abnormality; Z53.9 Procedure and treatment not carried out, unspecified reason; Z79.899 Other long term (current) drug therapy
CPT/HCPCS: 36415; 36430; 80053; 85025; 86850; 86900; 86920; 99214; J1940; J7050; P9016

== ENCOUNTER 2024-02-09 09:42 | Emergency (ER) | payer MEDICARE, OTHER, SELFPAY ==
--- NOTE | 2024-02-09 09:48 | ECG_ITS ---
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 Measurements Intervals [place] Rate: 67 P: 80 [place]: 173 QRS: -73 QRSD: 213 T: 109 QT: 468 QTc: 497 Interpretive Statements ELECTRONIC ATRIAL PACEMAKER ELECTRONIC VENTRICULAR PACEMAKER Compared to ECG 02/09/2024 08:30:16 No significant changes Electronically Signed On 02-09-2024 11:46:59 CDT by Juan A Lamar M.D. [id number]
[2024-02-09 09:52] VITALS: BP 131/74; PULSE 65; RESP 16; TEMP 36.7; O2SAT 100
--- NOTE | 2024-02-09 09:53 | XR_ITS ---
WS: [id number] Exam: XR chest 1V portable [id number] Date/Time of Exam: 02/09/2024 10:04 AM Reason For Exam: chest pain Comparison 07/09/2022. Lungs are clear and fully inflated. Cardiomediastinal silhouette unremarkable for portable technique. No pleural effusions. Regional bony elements are intact. DJD of both shoulders. Permanent cardiac pa cer seen over the LEFT chest. IMPRESSION: 1. No acute process identified.
--- NOTE | 2024-02-09 10:04 | ED_ITS ---
HPI - Chest Pain General: Chief Complaint: Chest Pain Stated Complaint: chest pain Time Seen by Provider: 02/09/24 09:52 Source: patient Mode of arrival: ambulatory History of Present Illness: 78-year-old male presents emergency room complaining of intermittent chest pain and some shortness of breath. Patient has a history of myelodysplastic syndrome and receives frequent transfusions. He was at the office today and they were concerned because he mention he had some chest pain and some shortness of breath he had an elevated D-dimer his initial troponin was 49. Have any active chest pain at this time. EKG shows paced rhythm MD complaint: chest pain Onset (ago): minute(s) PFSH ED PFSH: Medical History 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 Systolic CHF Pacemaker Edema, peripheral Aortic regurgitation Acute diastolic heart failure Hypothyroidism (acquired) Third degree heart block Obesity (BMI 30-39.9) Acute exacerbation of CHF (congestive heart failure) Benign essential hypertension with target blood pressure below 140/90 Elevated brain natriuretic peptide (BNP) level Grade III diastolic dysfunction EF 67% Mild pulmonary hypertension LVH Diverticulitis of small bowel BPH (benign prostatic hyperplasia) Cholelithiasis Dyslipidemia Hypertension Chronic kidney disease, stage III (moderate) Surgical History History of removal of cyst Right arm - 2004 History of ankle surgery Bilateral History of elbow surgery Left elbow History of bilateral hip arthroplasty Status post biventricular pacemaker S/P cardiac cath Normal 2013 Procedure Procedure Type Diagnostic procedure:Miscellaneous, Perclose , Coronary Angiography Conclusions Procedure Summary 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 due to tumor surgery in the right arm right groin approach was adopted difficulty in access was encounter due to fatty tumors in the thigh, hematoma was observed, procedure was aborted since it was elective in order to avoid major bleeding in case we have to proceed with PCI.Patient was observed for next 24 hours did fine no further bleeding or hematoma observed.He was approached from left groin which remain successful next day.Patient was discharged home without any complication next day 1-LM is normal 2-LAD has luminal irregularities 3-LCx has luminal irregularities 4-RCA has luminal irregularities Family History Mother Cancer Father Stroke Brother Polycythemia rubra vera Other Hypertension Denies family history of Diabetes CAD (coronary artery disease) Clotting disorder Dementia Hyperlipidemia Psychiatric illness Chronic kidney disease (CKD) Suicide Anesthesia complication Bleeding disorder Lung disease Social History Smoking and tobacco/nicotine status: never used tobacco/nicotine Alcohol intake: never Substance/Drug Use: never Household members: family Housing: House Course Vital Signs: Vital signs: Vital Signs Temperature 98.0 F 02/09/24 09:52 Pulse Rate 65 02/09/24 09:52 Respiratory Rate 16 02/09/24 09:52 Blood Pressure 131/74 02/09/24 09:52 Pulse Oximetry 100 02/09/24 09:52 Oxygen Delivery Me thod Room Air 02/09/24 09:52 MDM - Chest Pain Medical Decision Making No further chest pain. His EKG shows paced rhythm is not having any chest discomfort now he had some yesterday. Will discharge him home on baby aspirin daily and set him up for an outpatient Lexiscan sestamibi stress test. CTA of the chest done today did not show any signs of acute PE. Medical Records I reviewed the patient's medical records. Lab Data I reviewed the patient's lab results. Laboratory Results Troponin T 120 Minute 54.01 ng/L (0-15) H 02/09/24 10:40 Delta Troponin T 5.01 ABS# (0-10) 02/09/24 10:40 All radiology interpretation(s) finalized by discharge Discharge Plan Discharge Patient Disposition: Home Clinical Impression: Atypical chest pain, SOB (shortness of breath) Chronic kidney disease, stage III (moderate) Qualifiers: Chronic kidney disease stage 3 subtype: stage 3a (GFR 45-59) Qualified Code(s): N18.31 - Chronic kidney disease, stage 3a Condition: Stable Prescriptions: New aspirin 81 mg tablet,delayed release (DR/EC) 81 mg PO DAILY Qty: 30 0RF No Action nitroglycerin 0.4 mg tablet, sublingual 0.4 mg sublingual Q5M PRN (Reason: chest pain) 30 Days Qty: 30 3RF Rx Instructions: until response; do not exceed 3 doses per episode furosemide 40 mg tablet 40 mg PO BID Rx Instructions: Must be seen for further refills spironolactone 25 mg tablet 25 mg PO DAILY Qty: 90 3RF tamsulosin [Flomax] 0.4 mg capsule 0.4 mg PO .QHS Qty: 30 2RF luspatercept-aamt 75 mg recon soln 106 mg SUBCUT Q21D Qty: 2 11RF Centrum Silver Men 300-600-300 mcg Tablet 1 tab PO DAILY Beets Pills 2 tab PO DAILY Discharge Orders: Discharge ED (Routine); Ordered 02/09/24 Ordered By: Tommy Mcgarry Referrals: Cal Burris MD [Primary Care Provider] - Discharge Diet: Usual diet Discharge Activity: Limit activity as instructed Patient Instructions: Opioid Safety, Pain Management Activity Restrictions/Additional Instructions: Thank you for choosing [facility] for your healthcare needs today. Please realize this is an emergency room and that we are providing you with a medical screening exam and this may not be complete and all inclusive of all the testing and or work up that you may need to determine your ailment or severity of your illness. It is very important that you follow up as instructed or that you return to the Emergency Department should you have concerns or if your condition changes or worsens in any way. You were seen today for complaints of shortness of breath. EKG showed a paced rhythm troponins were not significantly elevated your D-dimer done at the doctor's office was slightly elevated a CTA of your chest was negative. Will discharge home recommend they take a baby aspirin daily case management will set up a Lexiscan sestamibi stress test. 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
--- NOTE | 2024-02-09 10:07 | CT_ITS ---
WS: [id number] CTA OF THE CHEST WITH PULMONARY EMBOLISM PROTOCOL TECHNIQUE: High-resolution contrast enhanced CTA of the chest with coronal and sagittal reformatted i mages with pulmonary embolism protocol. MIP images are also reviewed. CLINICAL INFORMATION: elevated d dimer COMPARISON: None. DLP: 452.[address] scans at [facility] use at least one of these dose optimization techniques: automated e xposure control; mA and/or kV adjustment per patient size (includes targeted exams where dose is matc hed to clinical indication); or iterative reconstruction. FINDINGS: Proximal main pulmonary arteries are normal. Normal segmental and subsegmental pulmonary arteries. An eurysmal ascending thoracic aorta measuring 4.5 cm. Mild aortic calcification. Tortuous descending th oracic aorta. Coronary calcification. No mediastinal or hilar lymphadenopathy. No axillary lymphadeno stevie. Cholelithiasis with laminated gallstone measuring 3.1 cm. No gallbladder wall thickening or perichole cystic fluid. Adrenal glands are normal. Small RIGHT adrenal adenoma. Splenic artery calcifications. Small esophageal hernia. Lungs are well aerated. No acute pulmonary infiltrates. No focal consolidati on or pleural fluid. Slight bibasilar atelectasis. Mild thoracic curve. Moderate thoracic kyphosis. C hronic anterior wedging in the upper thoracic spine. IMPRESSION: 1. No evidence of pulmonary embolus. 2. Lungs are well aerated. Slight bibasal atelectasis. 3. Aneurysmal ascending thoracic aorta measuring 4.4 cm. 4. Cholelithiasis.
[2024-02-09] MEDS: aspirin 81 mg Chew Tablet 324 MG PO (10:12)
[2024-02-09 11:13] LABS: Troponin 5 2HR 54.01 ng/L (0-15); Troponin 5 2HR Delta 5.01 ABS# (0-10)
[2024-02-09] MEDS: sodium chloride 0.9% 500 ML 999 ML IV (11:23)
[2024-02-09] MEDS: iohexol 350 mg/mL 500 mL Btl (per mL) IV (11:28)
--- NOTE | 2024-02-09 11:56 | ECG_ITS ---
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 Measurements Intervals [place] Rate: 59 P: 64 ND: 182 QRS: -64 QRSD: 210 T: 95 QT: 512 QTc: 511 Interpretive Statements ELECTRONIC ATRIAL PACEMAKER ELECTRONIC VENTRICULAR PACEMAKER Compared to ECG 02/09/2024 09:48:56 No significant changes Electronically Signed On 02-09-2024 14:21:57 CDT by Juan A Lamar M.D. [id number]
--- NOTE | 2024-02-13 08:02 | DCPLANNER ---
outpatient order sent to centralized scheduling
== END 2024-02-09 14:22 | disposition home or self-care (01) ==
PROVIDERS: Emergency Provider Family Medicine; PCP Family Medicine
DX: I13.0 Hypertensive heart and chronic kidney disease with heart failure and stage 1 through stage 4 chronic kidney disease, or unspecified chronic kidney disease (principal); N18.31 Chronic kidney disease, stage 3a; I50.9 Heart failure, unspecified; R07.89 Other chest pain; R06.02 Shortness of breath; Z95.0 Presence of cardiac pacemaker; E78.5 Hyperlipidemia, unspecified
CPT/HCPCS: 36415; 71045; 71275; 84484; 93005; 96360; 99285; J7040; Q9967

== ENCOUNTER 2024-02-20 09:00 | Oncology outpatient (recurring) (ONCR) | payer MEDICARE, OTHER, SELFPAY ==
[2024-01-26 08:51] LABS: Basophils % 0.6 %; Eosinophils # 0.1 10^3/uL (0.0-0.8); Eosinophils % 1.4 %; Hematocrit 25.5 % (37-53); Lymphocytes # 1.6 10^3/uL (0.8-4.8); Lymphocytes % 32.7 %; Mean Corpuscular HGB Conc 31.8 g/dL (30-55); Mean Corpuscular Hemoglobin 31.8 pg (27-33); Mean Platelet Volume 14.1 fL (7.4-10.4); Monocytes # 0.3 10^3/uL (0.2-0.9); Monocytes % 5.7 %; Neutrophils % 59.2 %; Nucleated Red Blood Cells % 0 %; Platelet Count 144 10^3/cmm (157-399); Red Blood Count 2.55 10^6/uL (3.85-5.65); Red Cell Distribution Width 19.6 % (12.1-15.1)
[2024-01-26 10:25] LABS: Slide Review Slide Review Perform
--- NOTE | 2024-01-26 11:07 | PC.NURSE ---
patient has lab results with Dr Lynn notified with repeat cbc on tuesday with new orders for type and screen /cbc.mm
[2024-01-30] VITALS (8 sets, daily range): BP systolic 123–142; BP diastolic 74–88; PULSE 59–70; RESP 16–18; TEMP 36.1–36.6; O2SAT 92–98
[2024-01-30 09:11] LABS: Basophils % 1.1 %; Eosinophils # 0.1 10^3/uL (0.0-0.8); Eosinophils % 1.3 %; Hematocrit 21.9 % (37-53); Lymphocytes # 1.3 10^3/uL (0.8-4.8); Lymphocytes % 34.2 %; Mean Corpuscular HGB Conc 32.4 g/dL (30-55); Mean Corpuscular Volume 98.6 fl (82-101); Mean Platelet Volume 13.9 fL (7.4-10.4); Monocytes # 0.3 10^3/uL (0.2-0.9); Monocytes % 7.2 %; Neutrophils # 2.11 10^3/uL (1.8-7.7); Neutrophils % 55.9 %; Nucleated Red Blood Cells % 0 %; Platelet Count 153 10^3/cmm (157-399); Red Blood Count 2.22 10^6/uL (3.85-5.65); Red Cell Distribution Width 19.4 % (12.1-15.1); White Blood Count 3.77 10^3/uL (3.29-11.43)
[2024-01-30 09:39] LABS: Slide Review Slide Review Perform
[2024-01-30] MEDS: sodium chloride 0.9% 250 mL Bag IV (10:06)
[2024-01-30] MEDS: acetaminophen 325 mg Tablet 650 MG PO (10:06)
[2024-01-30] MEDS: diphenhydrAMINE 25 mg Capsule PO (10:06)
[2024-01-30] MEDS: sodium chloride 0.9% (100 ml) 100 ML 50 ML (13:30)
--- NOTE | 2024-02-09 08:30 | ECG_ITS ---
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 Measurements Intervals [place] Rate: 60 P: 74 SD: 176 QRS: -69 QRSD: 206 T: 119 QT: 483 QTc: 485 Interpretive Statements ELECTRONIC ATRIAL PACEMAKER ELECTRONIC VENTRICULAR PACEMAKER Compared to ECG 06/29/2023 15:19:07 No significant changes Electronically Signed On 02-09-2024 11:47:06 CDT by Juan A Lamar M.D. [email or web address]
--- NOTE | 2024-02-09 09:04 | PC.NURSE ---
Patient came to clinic with complaints of chest pain, left arm pain and back pain. SOB aat rest and worsening with exertion. EKG, O2 and labs done per EMR IMPLEMENTATION SPECIALIST orders.
[2024-02-09 09:08] LABS: Eosinophils # 0.1 10^3/uL (0.0-0.8); Lymphocytes # 1.2 10^3/uL (0.8-4.8); Lymphocytes % 29.2 %; Mean Corpuscular HGB Conc 31.7 g/dL (30-55); Mean Corpuscular Hemoglobin 30.5 pg (27-33); Mean Platelet Volume 14.2 fL (7.4-10.4); Monocytes # 0.3 10^3/uL (0.2-0.9); Monocytes % 6.4 %; Neutrophils # 2.48 10^3/uL (1.8-7.7); Neutrophils % 60.9 %; Nucleated Red Blood Cells % 0 %; Platelet Count 134 10^3/cmm (157-399); Red Blood Count 3.02 10^6/uL (3.85-5.65); Red Cell Distribution Width 19.2 % (12.1-15.1); White Blood Count 4.07 10^3/uL (3.29-11.43)
[2024-02-09 09:27] LABS: Alanine Aminotransferase 18 U/L (0-41); Albumin Level 3.8 g/dL (3.5-5.2); Alkaline Phosphatase 120 U/L (40-130); Anion Gap 16.4 (5-19); Aspartate Amino Transferase 15 U/L (0-40); Blood Urea Nitrogen 38 mg/dL (8-23); Calcium 9.2 mg/dL (8.5-10.5); Carbon Dioxide 21 mmol/L (22-29); Chloride 106 mmol/L (98-107); Globulin 3.2 g/dL (1.3-4.6); Glucose 104 mg/dL (65-115); Osmolality Calculated 297 mOsm/kg (285-295); Potassium 4.4 mmol/L (3.5-5.1); Sodium 139 mmol/L (136-145); Total Bilirubin 0.3 mg/dL (0.15-1.2)
[2024-02-09 09:30] LABS: Troponin(5th) Baseline 49 ng/L (0-15)
[2024-02-09 09:40] LABS: Creatinine Clr Calc Pharmacy 39.0987
--- NOTE | 2024-02-09 09:55 | PC.NURSE ---
Patient transported to ER via wheelchair and O2 after labs resulted. Tolerated well.
[2024-02-09 09:59] LABS: Slide Review Slide Review Perform
[2024-02-09 14:50] LABS: NT Pro B Type Natriuretic Pept 397 pg/mL (0-450)
[2024-02-16 10:11] LABS: Basophils # 0.1 10^3/uL (0.0-0.1); Eosinophils # 0.1 10^3/uL (0.0-0.8); Hematocrit 26.1 % (37-53); Lymphocytes # 1.5 10^3/uL (0.8-4.8); Lymphocytes % 25.5 %; Mean Corpuscular HGB Conc 32.6 g/dL (30-55); Mean Corpuscular Volume 95.3 fl (82-101); Mean Platelet Volume 14.2 fL (7.4-10.4); Monocytes # 0.3 10^3/uL (0.2-0.9); Monocytes % 4.9 %; Neutrophils # 3.94 10^3/uL (1.8-7.7); Neutrophils % 66.1 %; Nucleated Red Blood Cells % 0 %; Platelet Count 137 10^3/cmm (157-399); Red Blood Count 2.74 10^6/uL (3.85-5.65); Red Cell Distribution Width 19.5 % (12.1-15.1); White Blood Count 5.96 10^3/uL (3.29-11.43)
[2024-02-16 11:11] LABS: Slide Review Slide Review Perform
[2024-02-20] VITALS (10 sets, daily range): BP systolic 122–150; BP diastolic 72–95; PULSE 58–66; RESP 16–18; TEMP 35.8–36.4; O2SAT 92–100
[2024-02-20 09:16] LABS: Eosinophils # 0.1 10^3/uL (0.0-0.8); Eosinophils % 2.5 %; Hematocrit 24.2 % (37-53); Lymphocytes # 1.3 10^3/uL (0.8-4.8); Lymphocytes % 32.2 %; Mean Corpuscular HGB Conc 31.4 g/dL (30-55); Mean Corpuscular Hemoglobin 30.2 pg (27-33); Mean Platelet Volume 14.1 fL (7.4-10.4); Monocytes # 0.3 10^3/uL (0.2-0.9); Monocytes % 6.3 %; Neutrophils % 57.7 %; Nucleated Red Blood Cells % 0 %; Platelet Count 142 10^3/cmm (157-399); Red Blood Count 2.52 10^6/uL (3.85-5.65); Red Cell Distribution Width 19.5 % (12.1-15.1); White Blood Count 3.98 10^3/uL (3.29-11.43)
[2024-02-20 09:39] LABS: Alanine Aminotransferase 17 U/L (0-41); Albumin Level 3.5 g/dL (3.5-5.2); Alkaline Phosphatase 128 U/L (40-130); Blood Urea Nitrogen 25 mg/dL (8-23); Calcium 8.5 mg/dL (8.5-10.5); Carbon Dioxide 23 mmol/L (22-29); Chloride 107 mmol/L (98-107); Globulin 2.8 g/dL (1.3-4.6); Glucose 121 mg/dL (65-115); Osmolality Calculated 294 mOsm/kg (285-295); Sodium 139 mmol/L (136-145); Total Bilirubin 0.2 mg/dL (0.15-1.2); Total Protein 6.3 g/dL (6.6-8.7)
[2024-02-20 09:43] LABS: Anion Gap 13.7 (5-19); Aspartate Amino Transferase 18 U/L (0-40); Creatinine Clr Calc Pharmacy 41.3986; Potassium 4.7 mmol/L (3.5-5.1)
[2024-02-20] MEDS: diphenhydrAMINE 25 mg Capsule PO (10:07)
[2024-02-20] MEDS: sodium chloride 0.9% 250 mL Bag IV (10:07)
[2024-02-20] MEDS: acetaminophen 325 mg Tablet 650 MG PO (10:07)
[2024-02-20] MEDS: FUROsemide 10 mg/mL SDV 2mL 20 MG IVP (12:59)
== END 2024-02-21 23:59 | disposition home or self-care (01) ==
PROVIDERS: Nurse Practitioner Family; PCP Family Medicine; Visit Provider Internal Medicine Medical Oncology
DX: N18.31 Chronic kidney disease, stage 3a; D46.C Myelodysplastic syndrome with isolated del(5q) chromosomal abnormality; Z53.9 Procedure and treatment not carried out, unspecified reason
CPT/HCPCS: 36415; 36430; 80053; 83880; 84484; 85025; 85378; 86850; 86900; 86920; 93005; 96375; 99214; J1940; J7050; P9016; P9040

== ENCOUNTER 2024-03-13 08:00 | Oncology outpatient (recurring) (ONCR) | payer MEDICARE, OTHER, SELFPAY ==
[2024-03-12 08:30] LABS: Basophils % 0.7 %; Eosinophils # 0.1 10^3/uL (0.0-0.8); Eosinophils % 1.5 %; Lymphocytes # 1.5 10^3/uL (0.8-4.8); Lymphocytes % 37.7 %; Mean Corpuscular HGB Conc 31.6 g/dL (30-55); Mean Corpuscular Hemoglobin 29.6 pg (27-33); Mean Corpuscular Volume 93.6 fl (82-101); Monocytes # 0.2 10^3/uL (0.2-0.9); Monocytes % 5.5 %; Neutrophils # 2.17 10^3/uL (1.8-7.7); Neutrophils % 54.1 %; Nucleated Red Blood Cells % 0 %; Platelet Count 139 10^3/cmm (157-399); Red Blood Count 2.67 10^6/uL (3.85-5.65); Red Cell Distribution Width 19.6 % (12.1-15.1); White Blood Count 4.01 10^3/uL (3.29-11.43)
[2024-03-13] VITALS (10 sets, daily range): BP systolic 103–127; BP diastolic 69–81; PULSE 59–68; RESP 16–18; TEMP 35.9–36.6; O2SAT 95–98; BMI 38.1
[2024-03-13] MEDS: sodium chloride 0.9% 250 mL Bag IV (08:46)
== END 2024-03-23 23:59 | disposition home or self-care (01) ==
PROVIDERS: PCP Family Medicine; Visit Provider Internal Medicine Medical Oncology
DX: D64.9 Anemia, unspecified; Z53.9 Procedure and treatment not carried out, unspecified reason
CPT/HCPCS: 36430; 85025; 86850; 86900; 86920; J7050; P9016

== ENCOUNTER → 2024-03-20 12:58 | Outpatient (BNVA) | payer MEDICARE, OTHER, SELFPAY | PROVIDERS: PCP Family Medicine; Visit Provider Internal Medicine Cardiovascular Disease | DX: R06.02 Shortness of breath (principal); I10 Essential (primary) hypertension; I51.9 Heart disease, unspecified; E03.9 Hypothyroidism, unspecified; N18.31 Chronic kidney disease, stage 3a; E66.9 Obesity, unspecified; Z95.0 Presence of cardiac pacemaker; Z79.01 Long term (current) use of anticoagulants | CPT/HCPCS: 80048; 83880; 84484; 85025; 99214 ==

== ENCOUNTER 2024-03-21 09:00 | Outpatient (CLI) | payer MEDICARE, OTHER, SELFPAY ==
[2024-03-21 10:09] LABS: D Dimer 1.41 ug/mLFEU (0-0.59)
== END 2024-03-21 09:01 | disposition home or self-care (01) ==
LOC: LAB 09:01
PROVIDERS: PCP Family Medicine; Visit Provider Internal Medicine Cardiovascular Disease
DX: R06.02 Shortness of breath (principal)
CPT/HCPCS: 36415; 85378

== ENCOUNTER 2024-04-17 08:00 | Oncology outpatient (recurring) (ONCR) | payer MEDICARE, OTHER, SELFPAY ==
--- NOTE | 2024-03-27 08:45 | USCV_ITS ---
Harley Viera Age: 78 Gender: M : 1945 Exam Date: 03/27/2024 08:47 Ordering Phys: Alicia Rodriguez MD ([email or web address]) Technologist: CHERISE Exam Location: [facility] Indication: CHRONIC HEART FAILURE BP: 129 / 72 HR: 61 Rhythm: Sinus Technical Quality: Adequate MEASUREMENTS (Male / Female) Normal Values 2D ECHO LV Diastolic Diameter PLAX 3.9 cm 4.2 - 5.9 / 3.9 - 5.3 cm IVS Diastolic Thickness 1.7 cm 0.6 - 1.0 / 0.6 - 0.9 cm IVS Systolic Thickness 2.2 cm LVPW Diastolic Thickness 1.5 cm 0.6 - 1.0 / 0.6 - 0.9 cm LVPW Systolic Thickness 2.2 cm LVOT Diameter 2.0 cm LV Ejection Fraction 2D Teich 65.3 % LV Ejection Fraction MOD 2C 57.9 % LV Ejection Fraction 2C AL 58.8 % LA Diameter 4.2 cm RA Systolic Volume 4C AL 22.0 ml RA Systolic Volume 4C MOD 21.1 ml LA Sys Volume AL 53.3 cm cubed LA Sys Volume Index AL 23.8 cm cubed/m squared Aorta at Sinotubular Diameter 2.1 cm M-MODE LA Ao Ratio MM 1.0 AV Cusp Separation MM 1.9 cm DOPPLER AV Peak Velocity 302.7 cm/s LVOT Peak Velocity 121.0 cm/s AV Area Cont Eq vti 2.5 cm squared AV Area Cont Eq pk 1.3 cm squared MV Peak Velocity 83.0 cm/s MV Area PHT 3.5 cm squared Mitral E to A Ratio 0.8 TR Peak Velocity 248.0 cm/s TR Peak Gradient 24.6 mmHg TR Mean Velocity 211.0 cm/s TR Mean Gradient 18.9 mmHg TR Velocity Time Integral 77.5 cm TV Peak E Velocity 49.0 cm/s Right Atrial Pressure 3.0 mmHg Pulmonary Artery Systolic Pressu 27.6 mmHg RV Ejection Time 0.3 s FINDINGS Left Ventricle Normal left ventricular size and systolic function, EF 59% . No regional wall motion abnormalities. Mild left ventricular hypertrophy. Grade I/IV diastolic dysfunction (abnormal relaxation filling pattern), normal to mildly elevated filling pressures. Right Ventricle Normal right ventricular size and systolic function. Right Atrium The right atrium is normal in size. Left Atrium Mildly increased left atrial size. Mitral Valve Mild mitral valve regurgitation. Aortic Valve No gross abnormalities noted Tricuspid Valve Trace tricuspid valve regurgitation. Pulmonic Valve Structurally normal pulmonic valve without significant stenosis. There is no pulmonic regurgitation. Pericardium Normal pericardium without effusion. Aorta Normal ascending aorta dimension. IVC The inferior vena cava appears normal. CONCLUSIONS Normal left ventricular size and systolic function, EF 59% . No regional wall motion abnormalities. Mild left ventricular hypertrophy. Grade I/IV diastolic dysfunction (abnormal relaxation filling pattern), normal to mildly elevated filling pressures. Mild mitral valve regurgitation. Mildly increased left atrial size. Trace tricuspid valve regurgitation. Estimated pulmonary artery peak systolic pressure 28 mmHg There is no pericardial effusion. Technically suboptimal study for comparison . Dr Alicia Rodriguez MD FACC (Electronically Signed) Final Date: 27 March 2024 15:15 S
[2024-04-03] VITALS (7 sets, daily range): BP systolic 107–123; BP diastolic 68–76; PULSE 60–86; RESP 16; TEMP 35.9–36.5; O2SAT 91–98
[2024-04-03 08:46] LABS: Hematocrit 25.8 % (37-53); Mean Corpuscular HGB Conc 31.8 g/dL (30-55); Mean Corpuscular Hemoglobin 29.2 pg (27-33); Mean Corpuscular Volume 91.8 fl (82-101); Mean Platelet Volume 13.4 fL (7.4-10.4); Platelet Count 161 10^3/cmm (157-399); Red Blood Count 2.81 10^6/uL (3.85-5.65); Red Cell Distribution Width 19.5 % (12.1-15.1); White Blood Count 4.06 10^3/uL (3.29-11.43)
[2024-04-03 09:02] LABS: Albumin Level 3.7 g/dL (3.5-5.2); Alkaline Phosphatase 113 U/L (40-130); Anion Gap 15.3 (5-19); Aspartate Amino Transferase 19 U/L (0-40); Blood Urea Nitrogen 42 mg/dL (8-23); Calcium 9.1 mg/dL (8.5-10.5); Carbon Dioxide 23 mmol/L (22-29); Chloride 99 mmol/L (98-107); Globulin 3.1 g/dL (1.3-4.6); Glucose 117 mg/dL (65-115); Iron 190 ug/dL (59-158); Osmolality Calculated 288 mOsm/kg (285-295); Potassium 4.3 mmol/L (3.5-5.1); Sodium 133 mmol/L (136-145); Total Bilirubin 0.3 mg/dL (0.15-1.2); Total Protein 6.8 g/dL (6.6-8.7)
[2024-04-03 09:13] LABS: Slide Review Slide Review Perform
[2024-04-03 09:14] LABS: Absolute Eosinophils 0.1 10^3/cmm (0.0-0.7); Absolute Neutrophil 2.4 10^3/cmm (1.4-6.5); Absolute Segmented Neutrophil 2.3 10/cmm (1.6-7.1); Alanine Aminotransferase 20 U/L (0-41); Band Neutrophils Absolute 0.1 10^3/cmm (0.0-1.2); Eosinophils 2 %; Lymphocytes 28 %; Lymphocytes Absolute 1.5 10^3/cmm (1.2-3.4); Platelet Estimate Decreased (Normal); Segmented Neutrophils 56 %; Total Cells Counted 100 (0-100)
[2024-04-03 09:16] LABS: Ferritin 1720 ng/mL (30-400); Total Iron Binding Capacity 207.00001 mcg/dl; Unsaturated Iron Binding > 17 ug/dL (112-347)
[2024-04-03] MEDS: diphenhydrAMINE 25 mg Capsule PO (10:59)
[2024-04-03] MEDS: acetaminophen 325 mg Tablet 650 MG PO (11:00)
[2024-04-03] MEDS: sodium chloride 0.9% 250 mL Bag IV (11:07)
[2024-04-03 11:21] LABS: Reticulocyte % 0.7 % (0.5-2.0)
[2024-04-03 11:52] LABS: Vitamin B12 565 pg/mL (232-1245)
[2024-04-03 12:46] LABS: Lactate Dehydrogenase 224 U/L (135-225)
[2024-04-06 15:45] LABS: Methylmalonic Acid 347 nmol/L (87-318)
[2024-04-10] VITALS (7 sets, daily range): BP systolic 92–130; BP diastolic 58–74; PULSE 60–75; RESP 16–18; TEMP 36–36.3; O2SAT 90–99
[2024-04-10 08:17] LABS: Eosinophils % 0.5 %; Hematocrit 27.6 % (37-53); Lymphocytes # 1.4 10^3/uL (0.8-4.8); Lymphocytes % 32.8 %; Mean Corpuscular HGB Conc 31.9 g/dL (30-55); Mean Corpuscular Hemoglobin 29.5 pg (27-33); Mean Corpuscular Volume 92.6 fl (82-101); Mean Platelet Volume 13.8 fL (7.4-10.4); Monocytes # 0.3 10^3/uL (0.2-0.9); Monocytes % 6.1 %; Neutrophils # 2.44 10^3/uL (1.8-7.7); Neutrophils % 59.4 %; Nucleated Red Blood Cells % 0 %; Platelet Count 139 10^3/cmm (157-399); Red Blood Count 2.98 10^6/uL (3.85-5.65); Red Cell Distribution Width 18.6 % (12.1-15.1); White Blood Count 4.11 10^3/uL (3.29-11.43)
[2024-04-10 08:37] LABS: Slide Review Slide Review Perform
[2024-04-10] MEDS: diphenhydrAMINE 25 mg Capsule PO (10:39)
[2024-04-10] MEDS: sodium chloride 0.9% 250 mL Bag IV (10:39)
[2024-04-10] MEDS: acetaminophen 325 mg Tablet 650 MG PO (10:39)
[2024-04-17 08:40] LABS: Basophils # 0.1 10^3/uL (0.0-0.1); Basophils % 1.4 %; Eosinophils % 0.9 %; Hematocrit 29.3 % (37-53); Lymphocytes # 1.7 10^3/uL (0.8-4.8); Lymphocytes % 38.4 %; Mean Corpuscular HGB Conc 31.4 g/dL (30-55); Mean Corpuscular Hemoglobin 29.6 pg (27-33); Mean Corpuscular Volume 94.2 fl (82-101); Mean Platelet Volume 13.8 fL (7.4-10.4); Monocytes # 0.3 10^3/uL (0.2-0.9); Monocytes % 7.2 %; Neutrophils % 51.9 %; Nucleated Red Blood Cells % 0 %; Platelet Count 121 10^3/cmm (157-399); Red Blood Count 3.11 10^6/uL (3.85-5.65); Red Cell Distribution Width 18.1 % (12.1-15.1); White Blood Count 4.43 10^3/uL (3.29-11.43)
[2024-04-17 09:53] LABS: Slide Review Slide Review Perform
== END 2024-04-22 23:59 | disposition home or self-care (01) ==
PROVIDERS: Internal Medicine; PCP Family Medicine; Visit Provider Internal Medicine Medical Oncology
DX: D64.9 Anemia, unspecified (principal)
CPT/HCPCS: 36415; 36430; 80053; 82607; 82728; 83010; 83540; 83550; 83615; 83921; 85007; 85025; 85045; 86850; 86900; 86920; 93306; 99213; J7050; P9016; P9040

== ENCOUNTER 2024-04-27 10:30 | Outpatient (CLI) | payer MEDICARE, OTHER, SELFPAY | END 2024-04-27 10:31 | disposition home or self-care (01) | LOC: LAB 10:33 | PROVIDERS: PCP Family Medicine; Visit Provider Internal Medicine Medical Oncology | DX: D46.C Myelodysplastic syndrome with isolated del(5q) chromosomal abnormality (principal) | CPT/HCPCS: 82274 ==

== ENCOUNTER 2024-05-16 09:12 | Outpatient (CLI) | payer MEDICARE, OTHER, SELFPAY | END 2024-05-16 09:13 | disposition home or self-care (01) | LOC: SLEEP 09:13 | PROVIDERS: PCP Family Medicine; Visit Provider Internal Medicine Medical Oncology | DX: R79.81 Abnormal blood-gas level (principal) | CPT/HCPCS: 94762 ==

== ENCOUNTER 2024-05-22 07:30 | Oncology outpatient (recurring) (ONCR) | payer MEDICARE, OTHER, SELFPAY ==
[2024-04-24 08:05] VITALS: BP 112/57; PULSE 85; RESP 16; TEMP 36.6; O2SAT 96
[2024-04-24 08:23] LABS: Basophils % 0.7 %; Eosinophils # 0.1 10^3/uL (0.0-0.8); Eosinophils % 1.7 %; Hematocrit 27.7 % (37-53); Lymphocytes # 1.1 10^3/uL (0.8-4.8); Lymphocytes % 27.4 %; Mean Corpuscular HGB Conc 31.4 g/dL (30-55); Mean Corpuscular Hemoglobin 29.8 pg (27-33); Mean Corpuscular Volume 94.9 fl (82-101); Mean Platelet Volume 13.6 fL (7.4-10.4); Monocytes # 0.2 10^3/uL (0.2-0.9); Monocytes % 5.1 %; Neutrophils # 2.67 10^3/uL (1.8-7.7); Neutrophils % 64.9 %; Nucleated Red Blood Cells % 0 %; Platelet Count 133 10^3/cmm (157-399); Red Blood Count 2.92 10^6/uL (3.85-5.65); Red Cell Distribution Width 18.1 % (12.1-15.1); White Blood Count 4.12 10^3/uL (3.29-11.43)
[2024-04-24 08:44] LABS: Alanine Aminotransferase 17 U/L (0-41); Albumin Level 3.7 g/dL (3.5-5.2); Alkaline Phosphatase 121 U/L (40-130); Anion Gap 16.9 (5-19); Aspartate Amino Transferase 13 U/L (0-40); Blood Urea Nitrogen 28 mg/dL (8-23); Calcium 9.2 mg/dL (8.5-10.5); Carbon Dioxide 24 mmol/L (22-29); Chloride 105 mmol/L (98-107); Creatinine Clr Calc Pharmacy 36.9825; Globulin 2.8 g/dL (1.3-4.6); Glucose 129 mg/dL (65-115); Osmolality Calculated 299 mOsm/kg (285-295); Potassium 4.9 mmol/L (3.5-5.1); Sodium 141 mmol/L (136-145); Total Bilirubin 0.4 mg/dL (0.15-1.2); Total Protein 6.5 g/dL (6.6-8.7)
[2024-04-24 08:56] LABS: Lactate Dehydrogenase 145 U/L (135-225)
[2024-05-01 08:10] LABS: Basophils # 0.1 10^3/uL (0.0-0.1); Basophils % 1.2 %; Eosinophils % 0.9 %; Hematocrit 26.2 % (37-53); Lymphocytes # 1.4 10^3/uL (0.8-4.8); Lymphocytes % 33.9 %; Mean Corpuscular HGB Conc 30.9 g/dL (30-55); Mean Corpuscular Hemoglobin 29.2 pg (27-33); Mean Corpuscular Volume 94.6 fl (82-101); Mean Platelet Volume 13.5 fL (7.4-10.4); Monocytes # 0.2 10^3/uL (0.2-0.9); Monocytes % 5.7 %; Neutrophils # 2.44 10^3/uL (1.8-7.7); Neutrophils % 57.8 %; Nucleated Red Blood Cells % 0 %; Platelet Count 144 10^3/cmm (157-399); Red Blood Count 2.77 10^6/uL (3.85-5.65); Red Cell Distribution Width 18.4 % (12.1-15.1); White Blood Count 4.22 10^3/uL (3.29-11.43)
[2024-05-01] MEDS: acetaminophen 325 mg Tablet 650 MG PO (08:46)
[2024-05-01] MEDS: diphenhydrAMINE 25 mg Capsule PO (08:46)
[2024-05-01] MEDS: sodium chloride 0.9% 250 mL Bag IV (08:49)
[2024-05-01 09:49] VITALS: BP 104/60; PULSE 60; RESP 16; TEMP 36.4; O2SAT 97
[2024-05-01 09:55] VITALS: BP 104/60; PULSE 60; RESP 16; TEMP 36.4; O2SAT 97
[2024-05-01 10:09] VITALS: BP 117/80; PULSE 76; RESP 17; TEMP 36.3; O2SAT 96
[2024-05-01 10:26] VITALS: BP 123/78; PULSE 69; RESP 17; TEMP 35.7; O2SAT 99
[2024-05-01 10:59] VITALS: BP 131/79; PULSE 62; RESP 16; TEMP 36.3; O2SAT 100
[2024-05-01 12:00] VITALS: BP 123/80; PULSE 66; RESP 17; TEMP 36; TEMP 37; O2SAT 99
[2024-05-08 08:11] VITALS: BP 99/63; PULSE 59; RESP 18; TEMP 36; O2SAT 98
[2024-05-08 08:23] LABS: Basophils # 0.1 10^3/uL (0.0-0.1); Basophils % 1.5 %; Eosinophils % 0.8 %; Hematocrit 25.9 % (37-53); Lymphocytes # 1.5 10^3/uL (0.8-4.8); Lymphocytes % 37.7 %; Mean Corpuscular HGB Conc 30.9 g/dL (30-55); Mean Corpuscular Hemoglobin 28.9 pg (27-33); Mean Corpuscular Volume 93.5 fl (82-101); Mean Platelet Volume 14.1 fL (7.4-10.4); Monocytes # 0.2 10^3/uL (0.2-0.9); Neutrophils # 2.14 10^3/uL (1.8-7.7); Neutrophils % 53.7 %; Nucleated Red Blood Cells % 0 %; Platelet Count 148 10^3/cmm (157-399); Red Blood Count 2.77 10^6/uL (3.85-5.65); Red Cell Distribution Width 18.5 % (12.1-15.1); White Blood Count 3.98 10^3/uL (3.29-11.43)
[2024-05-15] VITALS (10 sets, daily range): BP systolic 107–147; BP diastolic 62–81; PULSE 50–65; RESP 16–18; TEMP 35.9–36.6; O2SAT 93–99
[2024-05-15 09:16] LABS: Alanine Aminotransferase 17 U/L (0-41); Albumin Level 3.5 g/dL (3.5-5.2); Alkaline Phosphatase 112 U/L (40-130); Aspartate Amino Transferase 12 U/L (0-40); Blood Urea Nitrogen 35 mg/dL (8-23); Calcium 8.6 mg/dL (8.5-10.5); Carbon Dioxide 21 mmol/L (22-29); Chloride 106 mmol/L (98-107); Creatinine Clr Calc Pharmacy 32.7627; Globulin 2.7 g/dL (1.3-4.6); Glucose 112 mg/dL (65-115); Osmolality Calculated 295 mOsm/kg (285-295); Sodium 138 mmol/L (136-145); Total Bilirubin 0.3 mg/dL (0.15-1.2); Total Protein 6.2 g/dL (6.6-8.7)
[2024-05-15 09:26] LABS: Basophils % 0.7 %; Eosinophils % 0.7 %; Hematocrit 23.4 % (37-53); Lymphocytes # 1.3 10^3/uL (0.8-4.8); Lymphocytes % 31.6 %; Mean Corpuscular HGB Conc 31.2 g/dL (30-55); Mean Corpuscular Hemoglobin 28.9 pg (27-33); Mean Corpuscular Volume 92.5 fl (82-101); Mean Platelet Volume 14.1 fL (7.4-10.4); Monocytes # 0.3 10^3/uL (0.2-0.9); Neutrophils # 2.47 10^3/uL (1.8-7.7); Neutrophils % 59.5 %; Nucleated Red Blood Cells % 0 %; Platelet Count 159 10^3/cmm (157-399); Red Blood Count 2.53 10^6/uL (3.85-5.65); Red Cell Distribution Width 18.6 % (12.1-15.1); White Blood Count 4.15 10^3/uL (3.29-11.43)
[2024-05-15 09:27] LABS: Slide Review Slide Review Perform
[2024-05-15 09:41] LABS: Iron 196 ug/dL (59-158)
[2024-05-15 09:46] LABS: Ferritin > 1000 ng/mL (30-400)
[2024-05-15 09:47] LABS: Total Iron Binding Capacity 212.99999 mcg/dl
[2024-05-15 09:48] LABS: Unsaturated Iron Binding < 17 ug/dL (112-347)
[2024-05-15] MEDS: acetaminophen 325 mg Tablet 650 MG PO (10:25)
[2024-05-15] MEDS: sodium chloride 0.9% 250 mL Bag IV (10:26)
[2024-05-15] MEDS: diphenhydrAMINE 25 mg Capsule PO (10:30)
[2024-05-15] MEDS: FUROsemide 10 mg/mL SDV 2mL 20 MG IVP (13:02)
[2024-05-22 07:57] LABS: Hematocrit 27.5 % (37-53); Mean Corpuscular HGB Conc 32.4 g/dL (30-55); Mean Corpuscular Hemoglobin 30.1 pg (27-33); Mean Corpuscular Volume 92.9 fl (82-101); Mean Platelet Volume 13.3 fL (7.4-10.4); Platelet Count 142 10^3/cmm (157-399); Red Blood Count 2.96 10^6/uL (3.85-5.65); Red Cell Distribution Width 17.1 % (12.1-15.1); White Blood Count 4.65 10^3/uL (3.29-11.43)
[2024-05-22 08:00] VITALS: BP 112/78; PULSE 68; RESP 18; TEMP 36.6; O2SAT 98
[2024-05-22 08:54] LABS: Absolute Neutrophil 2.6 10^3/cmm (1.4-6.5); Absolute Segmented Neutrophil 2.5 10/cmm (1.6-7.1); Band Neutrophils Absolute 0.1 10^3/cmm (0.0-1.2); Eosinophils 0 %; Lymphocytes 23 %; Platelet Estimate Decreased (Normal); Segmented Neutrophils 54 %; Slide Review Slide Review Perform; Total Cells Counted 100 (0-100)
== END 2024-05-23 23:59 | disposition home or self-care (01) ==
PROVIDERS: Nurse Practitioner Family; PCP Family Medicine; Visit Provider Internal Medicine Medical Oncology
DX: D64.9 Anemia, unspecified (principal)
CPT/HCPCS: 36415; 36430; 80053; 82728; 83540; 83550; 83615; 85007; 85025; 86850; 86900; 86920; 96374; 99214; 99215; J1940; J7050; P9040

== ENCOUNTER → 2024-06-23 23:59 | Oncology outpatient (recurring) (ONCR) | payer MEDICARE, OTHER, SELFPAY ==
[2024-05-29 08:03] LABS: Hematocrit 25.6 % (37-53); Lymphocytes # 1.3 10^3/uL (0.8-4.8); Lymphocytes % 32.5 %; Mean Corpuscular Hemoglobin 29.6 pg (27-33); Mean Corpuscular Volume 92.4 fl (82-101); Mean Platelet Volume 13.5 fL (7.4-10.4); Monocytes # 0.3 10^3/uL (0.2-0.9); Monocytes % 6.2 %; Neutrophils % 59.1 %; Nucleated Red Blood Cells % 0 %; Platelet Count 145 10^3/cmm (157-399); Red Blood Count 2.77 10^6/uL (3.85-5.65); Red Cell Distribution Width 17.1 % (12.1-15.1); White Blood Count 4.06 10^3/uL (3.29-11.43)
[2024-05-29 08:17] LABS: Alanine Aminotransferase 15 U/L (0-41); Albumin Level 3.5 g/dL (3.5-5.2); Alkaline Phosphatase 111 U/L (40-130); Anion Gap 15.7 (5-19); Aspartate Amino Transferase 16 U/L (0-40); Blood Urea Nitrogen 37 mg/dL (8-23); Carbon Dioxide 21 mmol/L (22-29); Chloride 105 mmol/L (98-107); Globulin 2.8 g/dL (1.3-4.6); Glucose 118 mg/dL (65-115); Osmolality Calculated 294 mOsm/kg (285-295); Potassium 4.7 mmol/L (3.5-5.1); Sodium 137 mmol/L (136-145); Total Bilirubin 0.4 mg/dL (0.15-1.2); Total Protein 6.3 g/dL (6.6-8.7)
[2024-05-29 08:27] LABS: Slide Review Slide Review Perform
[2024-05-29] MEDS: diphenhydrAMINE 25 mg Capsule PO (10:19)
[2024-05-29] MEDS: sodium chloride 0.9% 250 mL Bag IV (10:19)
[2024-05-29] MEDS: acetaminophen 325 mg Tablet 650 MG PO (10:19)
[2024-05-29 10:45] VITALS: BP 131/68; PULSE 61; RESP 16; TEMP 36.2; O2SAT 95
[2024-05-29 11:00] VITALS: BP 106/63; PULSE 67; RESP 16; TEMP 36.2; O2SAT 99
[2024-05-29 11:15] VITALS: BP 108/62; PULSE 67; RESP 16; TEMP 36.2
[2024-05-29 12:15] VITALS: BP 134/66; PULSE 57; RESP 16; TEMP 35.6; O2SAT 98
[2024-05-29 12:25] VITALS: BP 123/72; PULSE 61; RESP 16; TEMP 36.9; O2SAT 98
[2024-05-29 13:10] VITALS: BP 107/62; RESP 18; TEMP 36.2
[2024-06-05 08:12] LABS: Hematocrit 27.6 % (37-53); Lymphocytes # 1.4 10^3/uL (0.8-4.8); Lymphocytes % 35.8 %; Mean Corpuscular HGB Conc 31.5 g/dL (30-55); Mean Corpuscular Hemoglobin 29.6 pg (27-33); Mean Corpuscular Volume 93.9 fl (82-101); Mean Platelet Volume 13.6 fL (7.4-10.4); Monocytes # 0.3 10^3/uL (0.2-0.9); Monocytes % 7.3 %; Neutrophils # 2.11 10^3/uL (1.8-7.7); Neutrophils % 54.6 %; Nucleated Red Blood Cells % 0 %; Platelet Count 140 10^3/cmm (157-399); Red Blood Count 2.94 10^6/uL (3.85-5.65); Red Cell Distribution Width 16.8 % (12.1-15.1); White Blood Count 3.86 10^3/uL (3.29-11.43)
[2024-06-05 08:32] LABS: Alanine Aminotransferase 17 U/L (0-41); Albumin Level 3.6 g/dL (3.5-5.2); Alkaline Phosphatase 108 U/L (40-130); Anion Gap 15.6 (5-19); Aspartate Amino Transferase 15 U/L (0-40); Blood Urea Nitrogen 37 mg/dL (8-23); Carbon Dioxide 22 mmol/L (22-29); Chloride 103 mmol/L (98-107); Globulin 2.9 g/dL (1.3-4.6); Glucose 118 mg/dL (65-115); Osmolality Calculated 292 mOsm/kg (285-295); Potassium 4.6 mmol/L (3.5-5.1); Sodium 136 mmol/L (136-145); Total Bilirubin 0.4 mg/dL (0.15-1.2); Total Protein 6.5 g/dL (6.6-8.7)
[2024-06-05 08:40] LABS: Lactate Dehydrogenase 147 U/L (135-225)
[2024-06-05 08:45] LABS: Ferritin 1843 ng/mL (30-400)
[2024-06-12] VITALS (9 sets, daily range): BP systolic 101–121; BP diastolic 68–79; PULSE 60–63; RESP 17–18; TEMP 35.8–36.2; O2SAT 96–99
[2024-06-12 08:13] LABS: Basophils # 0.1 10^3/uL (0.0-0.1); Basophils % 1.2 %; Eosinophils % 0.8 %; Hematocrit 24.6 % (37-53); Lymphocytes # 1.2 10^3/uL (0.8-4.8); Lymphocytes % 24.1 %; Mean Corpuscular HGB Conc 32.1 g/dL (30-55); Mean Corpuscular Hemoglobin 29.8 pg (27-33); Mean Corpuscular Volume 92.8 fl (82-101); Mean Platelet Volume 13.7 fL (7.4-10.4); Monocytes # 0.4 10^3/uL (0.2-0.9); Monocytes % 7.1 %; Neutrophils # 3.36 10^3/uL (1.8-7.7); Neutrophils % 66.2 %; Nucleated Red Blood Cells % 0 %; Platelet Count 137 10^3/cmm (157-399); Red Blood Count 2.65 10^6/uL (3.85-5.65); Red Cell Distribution Width 17.2 % (12.1-15.1); White Blood Count 5.07 10^3/uL (3.29-11.43)
[2024-06-12 08:28] LABS: Alanine Aminotransferase 16 U/L (0-41); Albumin Level 3.7 g/dL (3.5-5.2); Alkaline Phosphatase 114 U/L (40-130); Anion Gap 16.8 (5-19); Aspartate Amino Transferase 14 U/L (0-40); Blood Urea Nitrogen 31 mg/dL (8-23); Calcium 8.5 mg/dL (8.5-10.5); Carbon Dioxide 19 mmol/L (22-29); Chloride 109 mmol/L (98-107); Globulin 2.8 g/dL (1.3-4.6); Glucose 121 mg/dL (65-115); Osmolality Calculated 298 mOsm/kg (285-295); Potassium 4.8 mmol/L (3.5-5.1); Sodium 140 mmol/L (136-145); Total Bilirubin 0.4 mg/dL (0.15-1.2); Total Protein 6.5 g/dL (6.6-8.7)
[2024-06-12] MEDS: diphenhydrAMINE 25 mg Capsule PO (08:49)
[2024-06-12] MEDS: acetaminophen 325 mg Tablet 650 MG PO (08:49)
[2024-06-12] MEDS: sodium chloride 0.9% 250 mL Bag IV (08:50)
[2024-06-12 10:00] LABS: Iron 190 ug/dL (59-158)
[2024-06-12 10:41] LABS: Total Iron Binding Capacity 214.99999 mcg/dl; Unsaturated Iron Binding < 25 ug/dL (112-347)
[2024-06-12] MEDS: FUROsemide 10 mg/mL SDV 2mL 20 MG IVP (12:04)
[2024-06-19 08:23] LABS: Basophils # 0.1 10^3/uL (0.0-0.1); Basophils % 1.3 %; Eosinophils % 0.6 %; Hematocrit 30.2 % (37-53); Lymphocytes # 1.5 10^3/uL (0.8-4.8); Lymphocytes % 31.9 %; Mean Corpuscular HGB Conc 31.5 g/dL (30-55); Mean Corpuscular Hemoglobin 29.1 pg (27-33); Mean Corpuscular Volume 92.6 fl (82-101); Mean Platelet Volume 13.7 fL (7.4-10.4); Monocytes # 0.3 10^3/uL (0.2-0.9); Monocytes % 7.3 %; Neutrophils # 2.71 10^3/uL (1.8-7.7); Neutrophils % 58.5 %; Nucleated Red Blood Cells % 0 %; Platelet Count 151 10^3/cmm (157-399); Red Blood Count 3.26 10^6/uL (3.85-5.65); Red Cell Distribution Width 16.3 % (12.1-15.1); White Blood Count 4.64 10^3/uL (3.29-11.43)
[2024-06-19 08:25] VITALS: BP 112/78; PULSE 68; RESP 18; TEMP 36.6; O2SAT 97
[2024-06-19 08:47] LABS: Alanine Aminotransferase 18 U/L (0-41); Albumin Level 3.7 g/dL (3.5-5.2); Alkaline Phosphatase 120 U/L (40-130); Anion Gap 15.6 (5-19); Aspartate Amino Transferase 13 U/L (0-40); Blood Urea Nitrogen 37 mg/dL (8-23); Calcium 8.9 mg/dL (8.5-10.5); Carbon Dioxide 22 mmol/L (22-29); Chloride 103 mmol/L (98-107); Creatinine Clr Calc Pharmacy 33.9425; Globulin 2.9 g/dL (1.3-4.6); Glucose 123 mg/dL (65-115); Osmolality Calculated 292 mOsm/kg (285-295); Potassium 4.6 mmol/L (3.5-5.1); Sodium 136 mmol/L (136-145); Total Bilirubin 0.3 mg/dL (0.15-1.2); Total Protein 6.6 g/dL (6.6-8.7)
[2024-06-19 08:51] LABS: Slide Review Slide Review Perform
[2024-06-26 08:30] VITALS: BP 125/74; PULSE 76; RESP 16; TEMP 36.6; O2SAT 94
== END | disposition home or self-care (01) ==
PROVIDERS: Nurse Practitioner Family; PCP Family Medicine; Visit Provider Internal Medicine Medical Oncology
DX: Z53.9 Procedure and treatment not carried out, unspecified reason (principal); D64.9 Anemia, unspecified
CPT/HCPCS: 36415; 36430; 80053; 82728; 83540; 83550; 83615; 85025; 86850; 86900; 86920; 96374; 99214; J1940; J7050; P9016; P9040

== ENCOUNTER 2024-06-26 07:06 | Outpatient (CLI) | payer MEDICARE, OTHER, SELFPAY | END 2024-06-26 07:07 | disposition home or self-care (01) | PROVIDERS: PCP Family Medicine; Visit Provider Internal Medicine Medical Oncology | DX: R09.02 Hypoxemia (principal) | CPT/HCPCS: 94060; 94726; 94729 ==

== ENCOUNTER → 2024-07-05 14:54 | Outpatient (BNVA) | payer MEDICARE, OTHER, SELFPAY | PROVIDERS: PCP Family Medicine; Referring Provider Nurse Practitioner Family; Visit Provider Dermatology | DX: D48.5 Neoplasm of uncertain behavior of skin (principal); D18.01 Hemangioma of skin and subcutaneous tissue; L57.0 Actinic keratosis; D17.22 Benign lipomatous neoplasm of skin and subcutaneous tissue of left arm; D17.21 Benign lipomatous neoplasm of skin and subcutaneous tissue of right arm | CPT/HCPCS: 11102; 17000; 99203 ==

== ENCOUNTER 2024-07-17 08:00 | Oncology outpatient (recurring) (ONCR) | payer MEDICARE, OTHER, SELFPAY ==
[2024-06-26 08:53] LABS: Basophils # 0.1 10^3/uL (0.0-0.1); Basophils % 1.1 %; Eosinophils % 0.7 %; Hematocrit 27.7 % (37-53); Lymphocytes # 1.1 10^3/uL (0.8-4.8); Lymphocytes % 23.7 %; Mean Corpuscular HGB Conc 32.1 g/dL (30-55); Mean Corpuscular Hemoglobin 29.8 pg (27-33); Mean Corpuscular Volume 92.6 fl (82-101); Mean Platelet Volume 13.7 fL (7.4-10.4); Monocytes # 0.4 10^3/uL (0.2-0.9); Monocytes % 8.5 %; Neutrophils # 3.01 10^3/uL (1.8-7.7); Neutrophils % 65.6 %; Nucleated Red Blood Cells % 0 %; Platelet Count 150 10^3/cmm (157-399); Red Blood Count 2.99 10^6/uL (3.85-5.65); Red Cell Distribution Width 16.5 % (12.1-15.1); White Blood Count 4.59 10^3/uL (3.29-11.43)
[2024-06-26 09:08] LABS: Alanine Aminotransferase 22 U/L (0-41); Albumin Level 3.7 g/dL (3.5-5.2); Alkaline Phosphatase 122 U/L (40-130); Blood Urea Nitrogen 27 mg/dL (8-23); Calcium 8.9 mg/dL (8.5-10.5); Carbon Dioxide 21 mmol/L (22-29); Chloride 102 mmol/L (98-107); Creatinine Clr Calc Pharmacy 39.5996; Globulin 3.1 g/dL (1.3-4.6); Glucose 116 mg/dL (65-115); Osmolality Calculated 286 mOsm/kg (285-295); Sodium 135 mmol/L (136-145); Total Bilirubin 0.4 mg/dL (0.15-1.2); Total Protein 6.8 g/dL (6.6-8.7)
[2024-06-26 09:13] LABS: Anion Gap 16.7 (5-19); Aspartate Amino Transferase 19 U/L (0-40); Potassium 4.7 mmol/L (3.5-5.1)
[2024-06-26 09:25] LABS: Slide Review Slide Review Perform
[2024-07-03 08:15] LABS: Basophils # 0.1 10^3/uL (0.0-0.1); Basophils % 1.3 %; Eosinophils # 0.1 10^3/uL (0.0-0.8); Eosinophils % 1.1 %; Hematocrit 25.1 % (37-53); Lymphocytes # 1.4 10^3/uL (0.8-4.8); Lymphocytes % 31.5 %; Mean Corpuscular HGB Conc 31.9 g/dL (30-55); Mean Corpuscular Hemoglobin 29.7 pg (27-33); Mean Corpuscular Volume 93.3 fl (82-101); Mean Platelet Volume 14.1 fL (7.4-10.4); Monocytes # 0.4 10^3/uL (0.2-0.9); Monocytes % 7.7 %; Neutrophils # 2.62 10^3/uL (1.8-7.7); Neutrophils % 57.7 %; Nucleated Red Blood Cells % 0 %; Platelet Count 144 10^3/cmm (157-399); Red Blood Count 2.69 10^6/uL (3.85-5.65); Red Cell Distribution Width 16.6 % (12.1-15.1); White Blood Count 4.54 10^3/uL (3.29-11.43)
[2024-07-03 08:17] VITALS: BP 115/70; PULSE 65; TEMP 36.8; O2SAT 98
[2024-07-03 08:30] LABS: Alanine Aminotransferase 23 U/L (0-41); Albumin Level 3.9 g/dL (3.5-5.2); Alkaline Phosphatase 131 U/L (40-130); Anion Gap 16.2 (5-19); Aspartate Amino Transferase 16 U/L (0-40); Blood Urea Nitrogen 31 mg/dL (8-23); Calcium 8.8 mg/dL (8.5-10.5); Carbon Dioxide 23 mmol/L (22-29); Chloride 104 mmol/L (98-107); Globulin 3.1 g/dL (1.3-4.6); Glucose 122 mg/dL (65-115); Osmolality Calculated 294 mOsm/kg (285-295); Potassium 5.2 mmol/L (3.5-5.1); Sodium 138 mmol/L (136-145); Total Bilirubin 0.4 mg/dL (0.15-1.2)
[2024-07-03 08:35] LABS: Creatinine Clr Calc Pharmacy 37.7829
[2024-07-03 08:57] LABS: Slide Review Slide Review Perform
[2024-07-03] MEDS: acetaminophen 325 mg Tablet 650 MG PO (10:36)
[2024-07-03] MEDS: diphenhydrAMINE 25 mg Capsule PO (10:36)
[2024-07-03] MEDS: sodium chloride 0.9% 250 mL Bag IV (10:37)
[2024-07-03 11:09] VITALS: BP 97/66; PULSE 59; RESP 18; TEMP 36.1; O2SAT 97
[2024-07-03 11:20] VITALS: BP 98/57; PULSE 60; RESP 17; TEMP 35.9; O2SAT 96
[2024-07-03 11:35] VITALS: BP 104/58; PULSE 60; RESP 18; TEMP 35.9; O2SAT 97
[2024-07-03 13:00] VITALS: BP 108/72; PULSE 99; RESP 18; TEMP 36.6; O2SAT 100
[2024-07-03] MEDS: FUROsemide 10 mg/mL SDV 2mL 20 MG IVP (13:21)
[2024-07-03 13:27] VITALS: BP 101/67; PULSE 60; RESP 18; TEMP 36.6; O2SAT 100
[2024-07-10 08:20] LABS: Basophils # 0.1 10^3/uL (0.0-0.1); Eosinophils % 0.6 %; Nucleated Red Blood Cells % 0 %
[2024-07-10 08:27] LABS: Basophils % 1.2 %; Hematocrit 26.3 % (37-53); Lymphocytes # 1.7 10^3/uL (0.8-4.8); Lymphocytes % 33.8 %; Mean Corpuscular HGB Conc 32.3 g/dL (30-55); Mean Corpuscular Hemoglobin 30.1 pg (27-33); Mean Corpuscular Volume 93.3 fl (82-101); Mean Platelet Volume 14.1 fL (7.4-10.4); Monocytes # 0.4 10^3/uL (0.2-0.9); Monocytes % 7.7 %; Neutrophils # 2.76 10^3/uL (1.8-7.7); Neutrophils % 56.3 %; Platelet Count 144 10^3/cmm (157-399); Red Blood Count 2.82 10^6/uL (3.85-5.65); Red Cell Distribution Width 16.3 % (12.1-15.1); White Blood Count 4.91 10^3/uL (3.29-11.43)
[2024-07-10 08:32] LABS: Alanine Aminotransferase 22 U/L (0-41); Albumin Level 3.9 g/dL (3.5-5.2); Alkaline Phosphatase 135 U/L (40-130); Anion Gap 15.2 (5-19); Aspartate Amino Transferase 31 U/L (0-40); Blood Urea Nitrogen 40 mg/dL (8-23); Carbon Dioxide 23 mmol/L (22-29); Chloride 106 mmol/L (98-107); Creatinine Clr Calc Pharmacy 37.7829; Globulin 2.9 g/dL (1.3-4.6); Glucose 139 mg/dL (65-115); Osmolality Calculated 300 mOsm/kg (285-295); Potassium 5.2 mmol/L (3.5-5.1); Sodium 139 mmol/L (136-145); Total Bilirubin 0.4 mg/dL (0.15-1.2); Total Protein 6.8 g/dL (6.6-8.7)
[2024-07-10 08:47] LABS: Slide Review Slide Review Perform
--- NOTE | 2024-07-10 11:53 | PC.NURSE ---
no need for transfusion IV discontinued with intracath intact. Is aware to return in one week for lab.mm
[2024-07-10 13:06] LABS: Iron 204 ug/dL (59-158)
[2024-07-10 13:28] LABS: Total Iron Binding Capacity 221.00001 mcg/dl; Unsaturated Iron Binding > 17 ug/dL (112-347)
[2024-07-17] VITALS (10 sets, daily range): BP systolic 107–130; BP diastolic 69–85; PULSE 60–72; RESP 18; TEMP 35.6–36.4; O2SAT 97–99
[2024-07-17 08:28] LABS: Basophils % 0.7 %; Eosinophils % 0.7 %; Hematocrit 22.5 % (37-53); Lymphocytes # 1.4 10^3/uL (0.8-4.8); Lymphocytes % 32.8 %; Mean Corpuscular HGB Conc 31.1 g/dL (30-55); Mean Corpuscular Hemoglobin 29.9 pg (27-33); Mean Corpuscular Volume 96.2 fl (82-101); Mean Platelet Volume 14.6 fL (7.4-10.4); Monocytes # 0.3 10^3/uL (0.2-0.9); Monocytes % 6.8 %; Neutrophils # 2.42 10^3/uL (1.8-7.7); Neutrophils % 58.8 %; Nucleated Red Blood Cells % 0 %; Platelet Count 123 10^3/cmm (157-399); Red Blood Count 2.34 10^6/uL (3.85-5.65); Red Cell Distribution Width 16.8 % (12.1-15.1); White Blood Count 4.12 10^3/uL (3.29-11.43)
[2024-07-17 08:48] LABS: Slide Review Slide Review Perform
[2024-07-17] MEDS: acetaminophen 325 mg Tablet 650 MG PO (09:11)
[2024-07-17] MEDS: sodium chloride 0.9% 250 mL Bag IV (09:11)
[2024-07-17] MEDS: diphenhydrAMINE 25 mg Capsule PO (09:12)
== END 2024-07-23 23:59 | disposition home or self-care (01) ==
PROVIDERS: Nurse Practitioner Family; PCP Family Medicine; Visit Provider Internal Medicine Medical Oncology
DX: Z53.9 Procedure and treatment not carried out, unspecified reason (principal); D46.C Myelodysplastic syndrome with isolated del(5q) chromosomal abnormality; D64.9 Anemia, unspecified; Z79.899 Other long term (current) drug therapy
CPT/HCPCS: 36430; 80053; 83540; 83550; 85025; 86850; 86900; 86920; 96375; 99205; 99214; J1940; J7050; P9016

== ENCOUNTER → 2024-07-23 08:52 | Outpatient (BNVA) | payer MEDICARE, OTHER, SELFPAY | PROVIDERS: PCP Family Medicine; Visit Provider Dermatology | DX: C44.319 Basal cell carcinoma of skin of other parts of face (principal) | CPT/HCPCS: 17311 ==

== ENCOUNTER → 2024-08-10 09:52 | Outpatient (BNVA) | payer MEDICARE, OTHER, SELFPAY | PROVIDERS: PCP Family Medicine; Visit Provider Internal Medicine Cardiovascular Disease | DX: Z45.018 Encounter for adjustment and management of other part of cardiac pacemaker (principal) | CPT/HCPCS: 93288 ==

== ENCOUNTER → 2024-08-13 14:28 | Outpatient (BNVA) | payer MEDICARE, OTHER, SELFPAY | PROVIDERS: PCP Family Medicine; Visit Provider Dermatology | DX: C44.319 Basal cell carcinoma of skin of other parts of face (principal); D04.62 Carcinoma in situ of skin of left upper limb, including shoulder | CPT/HCPCS: 99213 ==

== ENCOUNTER 2024-08-22 11:30 | Oncology outpatient (recurring) (ONCR) | payer MEDICARE, OTHER, SELFPAY ==
[2024-07-24 08:33] LABS: Basophils # 0.1 10^3/uL (0.0-0.1); Basophils % 1.3 %; Eosinophils % 0.8 %; Lymphocytes # 1.4 10^3/uL (0.8-4.8); Lymphocytes % 34.3 %; Mean Corpuscular HGB Conc 32.2 g/dL (30-55); Mean Corpuscular Hemoglobin 30.4 pg (27-33); Mean Corpuscular Volume 94.4 fl (82-101); Monocytes # 0.3 10^3/uL (0.2-0.9); Monocytes % 7.8 %; Neutrophils # 2.22 10^3/uL (1.8-7.7); Neutrophils % 55.5 %; Nucleated Red Blood Cells % 0 %; Platelet Count 117 10^3/cmm (157-399); Red Blood Count 2.86 10^6/uL (3.85-5.65); White Blood Count 3.99 10^3/uL (3.29-11.43)
[2024-07-24 09:13] LABS: Slide Review Slide Review Perform
[2024-07-31 08:24] LABS: Eosinophils % 0.5 %; Hematocrit 26.2 % (37-53); Lymphocytes # 1.6 10^3/uL (0.8-4.8); Lymphocytes % 38.8 %; Mean Corpuscular HGB Conc 31.7 g/dL (30-55); Mean Corpuscular Hemoglobin 29.7 pg (27-33); Mean Corpuscular Volume 93.9 fl (82-101); Mean Platelet Volume 13.6 fL (7.4-10.4); Monocytes # 0.3 10^3/uL (0.2-0.9); Monocytes % 7.4 %; Neutrophils # 2.11 10^3/uL (1.8-7.7); Neutrophils % 52.1 %; Nucleated Red Blood Cells % 0 %; Platelet Count 125 10^3/cmm (157-399); Red Blood Count 2.79 10^6/uL (3.85-5.65); Red Cell Distribution Width 16.1 % (12.1-15.1); White Blood Count 4.05 10^3/uL (3.29-11.43)
[2024-07-31 08:55] LABS: Slide Review Slide Review Perform
[2024-07-31] MEDS: sodium chloride 0.9% 250 mL Bag IV (09:39)
[2024-07-31] MEDS: acetaminophen 325 mg Tablet 650 MG PO (09:39)
[2024-07-31] MEDS: diphenhydrAMINE 25 mg Capsule PO (09:39)
[2024-07-31 09:41] LABS: Iron 182 ug/dL (59-158)
[2024-07-31 09:57] LABS: Ferritin 1859 ng/mL (30-400)
[2024-07-31 09:58] LABS: Total Iron Binding Capacity 198.99999 mcg/dl; Unsaturated Iron Binding < 17 ug/dL (112-347)
[2024-07-31 10:43] VITALS: BP 107/68; RESP 16; TEMP 36; O2SAT 95
[2024-07-31 11:04] VITALS: BP 119/76; PULSE 61; RESP 17; TEMP 35.8; O2SAT 95
[2024-07-31 11:20] VITALS: BP 119/74; PULSE 60; RESP 16; TEMP 36.2; O2SAT 96
[2024-07-31 11:48] VITALS: BP 143/74; PULSE 60; RESP 17; TEMP 35.9; O2SAT 95
[2024-07-31 12:49] VITALS: BP 128/75; PULSE 60; RESP 17; TEMP 36; O2SAT 98
[2024-07-31 12:55] VITALS: BP 128/75; PULSE 60; RESP 17; TEMP 36; O2SAT 98
[2024-08-07 08:28] LABS: Basophils % 1.1 %; Eosinophils % 0.3 %; Hematocrit 27.4 % (37-53); Lymphocytes # 1.2 10^3/uL (0.8-4.8); Lymphocytes % 34.5 %; Mean Corpuscular HGB Conc 32.1 g/dL (30-55); Mean Corpuscular Hemoglobin 30.4 pg (27-33); Mean Corpuscular Volume 94.8 fl (82-101); Mean Platelet Volume 13.2 fL (7.4-10.4); Monocytes # 0.3 10^3/uL (0.2-0.9); Monocytes % 8.5 %; Neutrophils # 1.94 10^3/uL (1.8-7.7); Neutrophils % 55.3 %; Nucleated Red Blood Cells % 0 %; Platelet Count 107 10^3/cmm (157-399); Red Blood Count 2.89 10^6/uL (3.85-5.65); Red Cell Distribution Width 16.4 % (12.1-15.1); White Blood Count 3.51 10^3/uL (3.29-11.43)
[2024-08-07 08:44] LABS: Alanine Aminotransferase 37 U/L (0-41); Albumin Level 3.8 g/dL (3.5-5.2); Alkaline Phosphatase 135 U/L (40-130); Anion Gap 14.4 (5-19); Aspartate Amino Transferase 18 U/L (0-40); Blood Urea Nitrogen 26 mg/dL (8-23); Calcium 8.5 mg/dL (8.5-10.5); Carbon Dioxide 21 mmol/L (22-29); Chloride 108 mmol/L (98-107); Creatinine Clr Calc Pharmacy 43.9933; Globulin 2.6 g/dL (1.3-4.6); Glucose 130 mg/dL (65-115); Osmolality Calculated 295 mOsm/kg (285-295); Potassium 4.4 mmol/L (3.5-5.1); Sodium 139 mmol/L (136-145); Total Bilirubin 0.5 mg/dL (0.15-1.2); Total Protein 6.4 g/dL (6.6-8.7)
[2024-08-07 08:48] LABS: Slide Review Slide Review Perform
--- NOTE | 2024-08-08 08:30 | US_ITS ---
WS: [id number] Complete ABDOMINAL ULTRASOUND HISTORY: epigastric pain COMPARISON: Renal ultrasound 03/17/2021 Liver: 16.8 cm in length. Normal size liver and echogenicity. No bile duct dilatation or mass. Portal Vein: Normal hepatopetal flow with monophasic waveform. Gallbladder: Slightly contracted gallbladder with stones. No pericholecystic fluid. CBD: 0.4 cm Pancreas: Normal size and echogenicity. Right kidney: 9.0 cm x 4.7 x 4.9 cm. Cortex:1.3 cm. Normal size and echogenicity. No hydronephrosis or mass. Left kidney: 8.8 cm x 4.4 cm x 4.6 cm. Cortex: 1.3 cm. Normal size and echogenicity. No hydronephrosis or mass. Spleen: 10.9 cm. Normal size and echogenicity. Aorta and IVC: Unremarkable abdominal aorta and IVC. US/US abdomen complete* [id number] Impression: 1. Cholelithiasis without acute cholecystitis. 2. No renal obstruction. 3. No hepatic mass.
[2024-08-14] VITALS (8 sets, daily range): BP systolic 112–124; BP diastolic 68–79; PULSE 59–64; RESP 17–18; TEMP 35.8–36.6; O2SAT 94–99
[2024-08-14 08:34] LABS: Basophils % 0.8 %; Eosinophils % 0.8 %; Hematocrit 24.8 % (37-53); Lymphocytes # 1.2 10^3/uL (0.8-4.8); Lymphocytes % 32.8 %; Mean Corpuscular HGB Conc 31.5 g/dL (30-55); Mean Corpuscular Hemoglobin 30.2 pg (27-33); Mean Corpuscular Volume 96.1 fl (82-101); Mean Platelet Volume 13.9 fL (7.4-10.4); Monocytes # 0.3 10^3/uL (0.2-0.9); Monocytes % 8.7 %; Neutrophils # 2.06 10^3/uL (1.8-7.7); Neutrophils % 56.4 %; Nucleated Red Blood Cells % 0 %; Platelet Count 125 10^3/cmm (157-399); Red Blood Count 2.58 10^6/uL (3.85-5.65); Red Cell Distribution Width 16.3 % (12.1-15.1); White Blood Count 3.66 10^3/uL (3.29-11.43)
[2024-08-14 09:04] LABS: Slide Review Slide Review Perform
[2024-08-14] MEDS: acetaminophen 325 mg Tablet 650 MG PO (09:43)
[2024-08-14] MEDS: diphenhydrAMINE 25 mg Capsule PO (09:44)
[2024-08-21 08:25] LABS: Basophils # 0.1 10^3/uL (0.0-0.1); Basophils % 1.2 %; Eosinophils % 0.5 %; Hematocrit 24.5 % (37-53); Lymphocytes # 1.4 10^3/uL (0.8-4.8); Lymphocytes % 33.7 %; Mean Corpuscular HGB Conc 31.8 g/dL (30-55); Mean Corpuscular Hemoglobin 30.8 pg (27-33); Mean Corpuscular Volume 96.8 fl (82-101); Mean Platelet Volume 13.9 fL (7.4-10.4); Monocytes # 0.3 10^3/uL (0.2-0.9); Monocytes % 7.7 %; Neutrophils # 2.42 10^3/uL (1.8-7.7); Neutrophils % 56.7 %; Nucleated Red Blood Cells % 0 %; Platelet Count 120 10^3/cmm (157-399); Red Blood Count 2.53 10^6/uL (3.85-5.65); Red Cell Distribution Width 16.4 % (12.1-15.1); White Blood Count 4.27 10^3/uL (3.29-11.43)
[2024-08-21 08:52] LABS: Slide Review Slide Review Perform
[2024-08-22] VITALS (13 sets, daily range): BP systolic 114–150; BP diastolic 72–84; PULSE 60–84; RESP 16–17; TEMP 35.6–36.9; O2SAT 91–100
[2024-08-22] MEDS: acetaminophen 325 mg Tablet 650 MG PO (09:13)
[2024-08-22] MEDS: diphenhydrAMINE 25 mg Capsule PO (09:13)
[2024-08-22] MEDS: sodium chloride 0.9% 250 mL Bag IV (09:14)
== END 2024-08-23 23:59 | disposition home or self-care (01) ==
PROVIDERS: Nurse Practitioner; Nurse Practitioner Family; PCP Family Medicine; Visit Provider Internal Medicine Hematology & Oncology
DX: Z79.899 Other long term (current) drug therapy (principal); Z53.9 Procedure and treatment not carried out, unspecified reason; D64.9 Anemia, unspecified
CPT/HCPCS: 36415; 36430; 76700; 80053; 82728; 83540; 83550; 85025; 86850; 86900; 86920; 99214; J7050; P9016; P9040

== ENCOUNTER → 2024-09-06 15:31 | Outpatient (BNVA) | payer MEDICARE, OTHER, SELFPAY | PROVIDERS: PCP Family Medicine; Visit Provider Dermatology | DX: L81.4 Other melanin hyperpigmentation (principal); D18.01 Hemangioma of skin and subcutaneous tissue; Z85.828 Personal history of other malignant neoplasm of skin; L57.0 Actinic keratosis | CPT/HCPCS: 17000; 99213 ==

== ENCOUNTER 2024-09-18 08:15 | Oncology outpatient (recurring) (ONCR) | payer MEDICARE, OTHER, SELFPAY ==
[2024-08-28 08:08] LABS: Basophils % 0.9 %; Eosinophils % 0.5 %; Hematocrit 30.2 % (37-53); Lymphocytes # 1.6 10^3/uL (0.8-4.8); Lymphocytes % 37.3 %; Mean Corpuscular HGB Conc 31.8 g/dL (30-55); Mean Corpuscular Hemoglobin 29.7 pg (27-33); Mean Corpuscular Volume 93.5 fl (82-101); Mean Platelet Volume 14.1 fL (7.4-10.4); Monocytes # 0.4 10^3/uL (0.2-0.9); Monocytes % 9.5 %; Neutrophils # 2.26 10^3/uL (1.8-7.7); Neutrophils % 51.3 %; Nucleated Red Blood Cells % 0 %; Platelet Count 133 10^3/cmm (157-399); Red Blood Count 3.23 10^6/uL (3.85-5.65); Red Cell Distribution Width 16.6 % (12.1-15.1)
[2024-08-28 08:27] LABS: Slide Review Slide Review Perform
[2024-09-04 08:26] LABS: Basophils % 0.9 %; Eosinophils % 0.7 %; Hematocrit 28.9 % (37-53); Lymphocytes # 1.2 10^3/uL (0.8-4.8); Mean Corpuscular HGB Conc 31.8 g/dL (30-55); Mean Corpuscular Hemoglobin 29.6 pg (27-33); Mean Corpuscular Volume 92.9 fl (82-101); Mean Platelet Volume 13.3 fL (7.4-10.4); Monocytes # 0.4 10^3/uL (0.2-0.9); Monocytes % 8.2 %; Neutrophils # 2.73 10^3/uL (1.8-7.7); Nucleated Red Blood Cells % 0 %; Platelet Count 138 10^3/cmm (157-399); Red Blood Count 3.11 10^6/uL (3.85-5.65); Red Cell Distribution Width 16.6 % (12.1-15.1)
[2024-09-04 08:46] LABS: Alanine Aminotransferase 22 U/L (0-41); Albumin Level 3.8 g/dL (3.5-5.2); Alkaline Phosphatase 124 U/L (40-130); Anion Gap 13.4 (5-19); Aspartate Amino Transferase 14 U/L (0-40); Blood Urea Nitrogen 23 mg/dL (8-23); Calcium 8.9 mg/dL (8.5-10.5); Carbon Dioxide 24 mmol/L (22-29); Chloride 103 mmol/L (98-107); Creatinine Clr Calc Pharmacy 41.3121; Globulin 2.8 g/dL (1.3-4.6); Glucose 134 mg/dL (65-115); Osmolality Calculated 288 mOsm/kg (285-295); Potassium 4.4 mmol/L (3.5-5.1); Sodium 136 mmol/L (136-145); Total Bilirubin 0.5 mg/dL (0.15-1.2); Total Protein 6.6 g/dL (6.6-8.7)
[2024-09-04 08:55] LABS: Slide Review Slide Review Perform
[2024-09-11 08:05] VITALS: BP 116/68; PULSE 64; RESP 17; TEMP 36.4; O2SAT 98
[2024-09-11 08:26] LABS: Basophils # 0.1 10^3/uL (0.0-0.1); Basophils % 1.1 %; Eosinophils % 0.7 %; Hematocrit 26.6 % (37-53); Lymphocytes # 1.6 10^3/uL (0.8-4.8); Mean Corpuscular HGB Conc 32.7 g/dL (30-55); Mean Corpuscular Hemoglobin 30.4 pg (27-33); Mean Platelet Volume 13.8 fL (7.4-10.4); Monocytes # 0.3 10^3/uL (0.2-0.9); Monocytes % 7.1 %; Neutrophils % 55.7 %; Nucleated Red Blood Cells % 0 %; Platelet Count 137 10^3/cmm (157-399); Red Blood Count 2.86 10^6/uL (3.85-5.65); Red Cell Distribution Width 16.6 % (12.1-15.1); White Blood Count 4.49 10^3/uL (3.29-11.43)
[2024-09-11 08:44] LABS: Alanine Aminotransferase 26 U/L (0-41); Albumin Level 3.9 g/dL (3.5-5.2); Alkaline Phosphatase 145 U/L (40-130); Anion Gap 12.7 (5-19); Aspartate Amino Transferase 18 U/L (0-40); Blood Urea Nitrogen 25 mg/dL (8-23); Calcium 8.5 mg/dL (8.5-10.5); Carbon Dioxide 25 mmol/L (22-29); Chloride 103 mmol/L (98-107); Creatinine Clr Calc Pharmacy 38.8735; Globulin 2.5 g/dL (1.3-4.6); Glucose 129 mg/dL (65-115); Osmolality Calculated 288 mOsm/kg (285-295); Potassium 4.7 mmol/L (3.5-5.1); Sodium 136 mmol/L (136-145); Total Bilirubin 0.3 mg/dL (0.15-1.2); Total Protein 6.4 g/dL (6.6-8.7)
[2024-09-11 09:03] LABS: Slide Review Slide Review Perform
[2024-09-18] VITALS (10 sets, daily range): BP systolic 114–128; BP diastolic 66–84; PULSE 54–66; RESP 18; TEMP 35.9–36.6; O2SAT 96–99
[2024-09-18 08:27] LABS: Hematocrit 22.5 % (37-53); Mean Corpuscular HGB Conc 31.6 g/dL (30-55); Mean Corpuscular Hemoglobin 28.7 pg (27-33); Mean Corpuscular Volume 91.1 fl (82-101); Platelet Count 151 10^3/cmm (157-399); Red Blood Count 2.47 10^6/uL (3.85-5.65); Red Cell Distribution Width 17.2 % (12.1-15.1); White Blood Count 4.79 10^3/uL (3.29-11.43)
[2024-09-18 08:56] LABS: Slide Review Slide Review Perform
[2024-09-18 08:57] LABS: Absolute Eosinophils 0.1 10^3/cmm (0.0-0.7); Absolute Neutrophil 3.2 10^3/cmm (1.4-6.5); Absolute Segmented Neutrophil 3.1 10/cmm (1.6-7.1); Band Neutrophils Absolute 0.1 10^3/cmm (0.0-1.2); Eosinophils 2 %; Lymphocytes 12 %; Lymphocytes Absolute 1.4 10^3/cmm (1.2-3.4); Monocytes Absolute 0.1 10^3/cmm (0.1-0.6); Platelet Estimate Decreased (Normal); Segmented Neutrophils 65 %; Total Cells Counted 100 (0-100)
[2024-09-18] MEDS: diphenhydrAMINE 25 mg Capsule PO (09:11)
[2024-09-18] MEDS: acetaminophen 325 mg Tablet 650 MG PO (09:11)
[2024-09-18] MEDS: FUROsemide 10 mg/mL SDV 2mL 20 MG IVP (12:23)
== END 2024-09-22 23:59 | disposition home or self-care (01) ==
PROVIDERS: Nurse Practitioner Family; PCP Family Medicine; Visit Provider Internal Medicine Hematology & Oncology
DX: Z53.9 Procedure and treatment not carried out, unspecified reason (principal); D46.9 Myelodysplastic syndrome, unspecified; D64.9 Anemia, unspecified; R09.02 Hypoxemia; Z79.899 Other long term (current) drug therapy
CPT/HCPCS: 36415; 36430; 80053; 85007; 85025; 86850; 86900; 86920; 96375; 99214; J1940; P9016

== ENCOUNTER → 2024-09-27 14:00 | Outpatient (BNVA) | payer MEDICARE, OTHER, SELFPAY | PROVIDERS: PCP Family Medicine; Visit Provider Internal Medicine Cardiovascular Disease | DX: I25.118 Atherosclerotic heart disease of native coronary artery with other forms of angina pectoris (principal); Z95.0 Presence of cardiac pacemaker; D46.C Myelodysplastic syndrome with isolated del(5q) chromosomal abnormality; I13.0 Hypertensive heart and chronic kidney disease with heart failure and stage 1 through stage 4 chronic kidney disease, or unspecified chronic kidney disease; I50.41 Acute combined systolic (congestive) and diastolic (congestive) heart failure; N18.30 Chronic kidney disease, stage 3 unspecified | CPT/HCPCS: 99214 ==

== ENCOUNTER 2024-10-23 08:15 | Oncology outpatient (recurring) (ONCR) | payer MEDICARE, OTHER, SELFPAY ==
[2024-09-25 08:34] LABS: Basophils # 0.1 10^3/uL (0.0-0.1); Basophils % 1.3 %; Eosinophils % 0.5 %; Hematocrit 27.6 % (37-53); Lymphocytes # 1.3 10^3/uL (0.8-4.8); Lymphocytes % 31.4 %; Mean Corpuscular HGB Conc 31.2 g/dL (30-55); Mean Corpuscular Hemoglobin 29.1 pg (27-33); Mean Corpuscular Volume 93.2 fl (82-101); Monocytes # 0.3 10^3/uL (0.2-0.9); Neutrophils # 2.33 10^3/uL (1.8-7.7); Neutrophils % 58.5 %; Nucleated Red Blood Cells % 0 %; Platelet Count 133 10^3/cmm (157-399); Red Blood Count 2.96 10^6/uL (3.85-5.65); Red Cell Distribution Width 16.4 % (12.1-15.1); White Blood Count 3.98 10^3/uL (3.29-11.43)
[2024-09-25 09:00] LABS: Slide Review Slide Review Perform
--- NOTE | 2024-09-25 11:19 | PC.NURSE ---
labs reviewed by Dali with the labs not indicating transfusion.mm
[2024-10-02] VITALS (11 sets, daily range): BP systolic 110–148; BP diastolic 61–85; PULSE 59–85; RESP 16–18; TEMP 35.9–36.4; O2SAT 96–99
[2024-10-02 08:53] LABS: Basophils # 0.1 10^3/uL (0.0-0.1); Basophils % 1.3 %; Eosinophils % 0.8 %; Hematocrit 25.3 % (37-53); Lymphocytes # 1.3 10^3/uL (0.8-4.8); Lymphocytes % 34.8 %; Mean Corpuscular HGB Conc 31.2 g/dL (30-55); Mean Platelet Volume 14.9 fL (7.4-10.4); Monocytes # 0.3 10^3/uL (0.2-0.9); Monocytes % 8.8 %; Neutrophils # 2.02 10^3/uL (1.8-7.7); Neutrophils % 53.8 %; Nucleated Red Blood Cells % 0 %; Platelet Count 148 10^3/cmm (157-399); Red Blood Count 2.72 10^6/uL (3.85-5.65); Red Cell Distribution Width 16.8 % (12.1-15.1); White Blood Count 3.76 10^3/uL (3.29-11.43)
[2024-10-02 08:56] LABS: Alanine Aminotransferase 22 U/L (0-41); Albumin Level 3.7 g/dL (3.5-5.2); Alkaline Phosphatase 132 U/L (40-130); Anion Gap 13.4 (5-19); Aspartate Amino Transferase 13 U/L (0-40); Blood Urea Nitrogen 30 mg/dL (8-23); Calcium 9.5 mg/dL (8.5-10.5); Carbon Dioxide 25 mmol/L (22-29); Chloride 105 mmol/L (98-107); Globulin 2.6 g/dL (1.3-4.6); Glucose 124 mg/dL (65-115); Osmolality Calculated 294 mOsm/kg (285-295); Potassium 5.4 mmol/L (3.5-5.1); Sodium 138 mmol/L (136-145); Total Bilirubin 0.4 mg/dL (0.15-1.2); Total Protein 6.3 g/dL (6.6-8.7)
[2024-10-02 08:58] LABS: Slide Review Slide Review Perform
[2024-10-02] MEDS: diphenhydrAMINE 25 mg Capsule PO (10:08)
[2024-10-02] MEDS: acetaminophen 325 mg Tablet 650 MG PO (10:08)
[2024-10-09 08:09] LABS: Basophils % 0.7 %; Eosinophils % 0.4 %; Hematocrit 30.5 % (37-53); Lymphocytes # 1.3 10^3/uL (0.8-4.8); Lymphocytes % 29.2 %; Mean Corpuscular HGB Conc 31.5 g/dL (30-55); Mean Corpuscular Hemoglobin 28.9 pg (27-33); Mean Corpuscular Volume 91.9 fl (82-101); Mean Platelet Volume 13.8 fL (7.4-10.4); Monocytes # 0.4 10^3/uL (0.2-0.9); Monocytes % 7.7 %; Neutrophils # 2.79 10^3/uL (1.8-7.7); Neutrophils % 61.8 %; Nucleated Red Blood Cells % 0 %; Platelet Count 144 10^3/cmm (157-399); Red Blood Count 3.32 10^6/uL (3.85-5.65); Red Cell Distribution Width 15.9 % (12.1-15.1); White Blood Count 4.52 10^3/uL (3.29-11.43)
[2024-10-09 08:58] LABS: Slide Review Slide Review Perform
[2024-10-15 08:12] VITALS: BP 132/67; PULSE 74; RESP 17; TEMP 36.1; O2SAT 95
[2024-10-15 08:28] LABS: Basophils # 0.1 10^3/uL (0.0-0.1); Basophils % 1.8 %; Eosinophils % 0.5 %; Hematocrit 27.1 % (37-53); Lymphocytes # 1.5 10^3/uL (0.8-4.8); Lymphocytes % 37.5 %; Mean Corpuscular HGB Conc 31.7 g/dL (30-55); Mean Corpuscular Hemoglobin 29.4 pg (27-33); Mean Corpuscular Volume 92.5 fl (82-101); Mean Platelet Volume 13.8 fL (7.4-10.4); Monocytes # 0.3 10^3/uL (0.2-0.9); Monocytes % 8.3 %; Neutrophils % 51.6 %; Nucleated Red Blood Cells % 0 %; Platelet Count 137 10^3/cmm (157-399); Red Blood Count 2.93 10^6/uL (3.85-5.65); White Blood Count 3.87 10^3/uL (3.29-11.43)
[2024-10-15 09:52] LABS: Slide Review Slide Review Perform
[2024-10-23] VITALS (7 sets, daily range): BP systolic 101–114; BP diastolic 62–78; PULSE 60–78; RESP 15–18; TEMP 35.8–36.6; O2SAT 96–100
[2024-10-23 08:20] LABS: Basophils # 0.1 10^3/uL (0.0-0.1); Basophils % 1.2 %; Eosinophils % 0.7 %; Hematocrit 25.7 % (37-53); Lymphocytes # 1.4 10^3/uL (0.8-4.8); Lymphocytes % 33.2 %; Mean Corpuscular HGB Conc 31.1 g/dL (30-55); Mean Corpuscular Hemoglobin 28.8 pg (27-33); Mean Corpuscular Volume 92.4 fl (82-101); Mean Platelet Volume 13.8 fL (7.4-10.4); Monocytes # 0.4 10^3/uL (0.2-0.9); Monocytes % 8.1 %; Neutrophils # 2.45 10^3/uL (1.8-7.7); Neutrophils % 56.3 %; Nucleated Red Blood Cells % 0 %; Platelet Count 166 10^3/cmm (157-399); Red Blood Count 2.78 10^6/uL (3.85-5.65); Red Cell Distribution Width 16.5 % (12.1-15.1); White Blood Count 4.34 10^3/uL (3.29-11.43)
[2024-10-23 08:53] LABS: Slide Review Slide Review Perform
== END 2024-10-23 23:59 | disposition home or self-care (01) ==
PROVIDERS: Nurse Practitioner Family; PCP Family Medicine; Visit Provider Internal Medicine Medical Oncology
DX: Z53.9 Procedure and treatment not carried out, unspecified reason; D64.9 Anemia, unspecified; Z79.899 Other long term (current) drug therapy
CPT/HCPCS: 36415; 36430; 80053; 85025; 86850; 86900; 86920; 99214; P9016

== ENCOUNTER 2024-11-20 09:30 | Oncology outpatient (recurring) (ONCR) | payer MEDICARE, OTHER, SELFPAY ==
[2024-10-30 08:36] LABS: Basophils # 0.1 10^3/uL (0.0-0.1); Basophils % 1.3 %; Eosinophils % 0.8 %; Hematocrit 29.2 % (37-53); Lymphocytes # 1.3 10^3/uL (0.8-4.8); Lymphocytes % 32.4 %; Mean Corpuscular HGB Conc 31.2 g/dL (30-55); Mean Corpuscular Hemoglobin 28.5 pg (27-33); Mean Corpuscular Volume 91.5 fl (82-101); Mean Platelet Volume 13.7 fL (7.4-10.4); Monocytes # 0.3 10^3/uL (0.2-0.9); Monocytes % 8.5 %; Neutrophils # 2.21 10^3/uL (1.8-7.7); Neutrophils % 56.7 %; Nucleated Red Blood Cells % 0 %; Platelet Count 163 10^3/cmm (157-399); Red Blood Count 3.19 10^6/uL (3.85-5.65); White Blood Count 3.89 10^3/uL (3.29-11.43)
[2024-10-30 08:44] LABS: Slide Review Slide Review Perform
[2024-10-30 11:24] LABS: Bilirubin Urine Negative (Negative); Blood Urine Negative (Negative); Glucose Urine UA Negative (Normal); Ketones Urine Negative (Negative); Leukocyte Esterase Urine Negative (Negative); Nitrate Urine Negative (Negative); Protein Urine Negative (Negative); Specific Gravity, Urine 1.007 (1.005-1.030); Urine Appearance Clear (CLEAR); Urine Color Yellow (Yellow); Urobilinogen Urine 0.2 mg/dL (Negative)
[2024-10-30 11:27] LABS: Add Urine Microscopic? YES; Bacteria Urine None Seen /hpf; Hyaline Casts Urine 4.11 /lpf; RBC Urine 0-2 /hpf (0-2); Squamous Epithelial Cell Urine 0-5 /hpf (0-5); WBC Urine 0-5 /hpf (0-5)
[2024-11-06] VITALS (7 sets, daily range): BP systolic 102–113; BP diastolic 60–70; PULSE 60–63; RESP 17–18; TEMP 36.1–36.6; O2SAT 93–99
[2024-11-06 08:48] LABS: Hematocrit 25.4 % (37-53); Mean Corpuscular HGB Conc 31.9 g/dL (30-55); Mean Corpuscular Hemoglobin 29.5 pg (27-33); Mean Corpuscular Volume 92.4 fl (82-101); Mean Platelet Volume 13.8 fL (7.4-10.4); Platelet Count 144 10^3/cmm (157-399); Red Blood Count 2.75 10^6/uL (3.85-5.65); Red Cell Distribution Width 16.3 % (12.1-15.1); White Blood Count 3.73 10^3/uL (3.29-11.43)
[2024-11-06 09:09] LABS: Alanine Aminotransferase 20 U/L (0-41); Albumin Level 3.8 g/dL (3.5-5.2); Alkaline Phosphatase 149 U/L (40-130); Anion Gap 13.9 (5-19); Aspartate Amino Transferase 16 U/L (0-40); Blood Urea Nitrogen 37 mg/dL (8-23); Calcium 9.4 mg/dL (8.5-10.5); Carbon Dioxide 23 mmol/L (22-29); Chloride 102 mmol/L (98-107); Glucose 119 mg/dL (65-115); Osmolality Calculated 288 mOsm/kg (285-295); Potassium 4.9 mmol/L (3.5-5.1); Sodium 134 mmol/L (136-145); Total Bilirubin 0.3 mg/dL (0.15-1.2); Total Protein 6.8 g/dL (6.6-8.7)
[2024-11-06 09:27] LABS: Absolute Eosinophils 0.1 10^3/cmm (0.0-0.7); Absolute Neutrophil 2.5 10^3/cmm (1.4-6.5); Absolute Segmented Neutrophil 2.3 10/cmm (1.6-7.1); Band Neutrophils Absolute 0.2 10^3/cmm (0.0-1.2); Eosinophils 2 %; Lymphocytes 18 %; Lymphocytes Absolute 1.2 10^3/cmm (1.2-3.4); Platelet Estimate Decreased (Normal); Segmented Neutrophils 61 %; Slide Review Slide Review Perform; Total Cells Counted 100 (0-100)
[2024-11-06] MEDS: diphenhydrAMINE 25 mg Capsule PO (10:23)
[2024-11-06] MEDS: sodium chloride 0.9% 250 mL Bag IV (10:23)
[2024-11-06] MEDS: acetaminophen 325 mg Tablet 650 MG PO (10:23)
[2024-11-13 08:33] LABS: Hematocrit 26.1 % (37-53); Mean Corpuscular HGB Conc 31.4 g/dL (30-55); Mean Corpuscular Hemoglobin 29.1 pg (27-33); Mean Corpuscular Volume 92.6 fl (82-101); Mean Platelet Volume 14.2 fL (7.4-10.4); Platelet Count 96 10^3/cmm (157-399); Red Blood Count 2.82 10^6/uL (3.85-5.65); Red Cell Distribution Width 15.9 % (12.1-15.1); White Blood Count 3.38 10^3/uL (3.29-11.43)
[2024-11-13 09:10] VITALS: BP 109/78; PULSE 61; RESP 17; TEMP 36.4; O2SAT 98
[2024-11-13 09:20] LABS: Slide Review Slide Review Perform
[2024-11-13 09:21] LABS: Absolute Eosinophils 0.1 10^3/cmm (0.0-0.7); Absolute Neutrophil 2.2 10^3/cmm (1.4-6.5); Band Neutrophils Absolute 0.1 10^3/cmm (0.0-1.2); Eosinophils 3 %; Lymphocytes 20 %; Lymphocytes Absolute 1.1 10^3/cmm (1.2-3.4); Platelet Estimate Decreased (Normal); Segmented Neutrophils 60 %; Total Cells Counted 100 (0-100)
[2024-11-20] VITALS (12 sets, daily range): BP systolic 100–145; BP diastolic 65–81; PULSE 51–77; RESP 17–18; TEMP 36.1–36.6; O2SAT 98–99
[2024-11-20 08:34] LABS: Basophils % 0.9 %; Eosinophils % 0.9 %; Lymphocytes # 1.1 10^3/uL (0.8-4.8); Lymphocytes % 24.7 %; Mean Corpuscular HGB Conc 32.4 g/dL (30-55); Mean Corpuscular Volume 92.5 fl (82-101); Mean Platelet Volume 14.3 fL (7.4-10.4); Monocytes # 0.4 10^3/uL (0.2-0.9); Monocytes % 7.7 %; Neutrophils # 2.97 10^3/uL (1.8-7.7); Neutrophils % 65.4 %; Nucleated Red Blood Cells % 0 %; Platelet Count 120 10^3/cmm (157-399); Red Blood Count 2.27 10^6/uL (3.85-5.65); Red Cell Distribution Width 16.3 % (12.1-15.1); White Blood Count 4.54 10^3/uL (3.29-11.43)
[2024-11-20] MEDS: acetaminophen 325 mg Tablet 650 MG PO (09:17)
[2024-11-20] MEDS: sodium chloride 0.9% 250 mL Bag IV (09:17)
[2024-11-20] MEDS: diphenhydrAMINE 25 mg Capsule PO (09:17)
[2024-11-20 09:26] LABS: Slide Review Slide Review Perform
== END 2024-11-23 23:59 | disposition home or self-care (01) ==
PROVIDERS: Nurse Practitioner Family; PCP Family Medicine; Visit Provider Internal Medicine Medical Oncology
DX: Z53.9 Procedure and treatment not carried out, unspecified reason (principal); D46.9 Myelodysplastic syndrome, unspecified; Z79.899 Other long term (current) drug therapy
CPT/HCPCS: 36415; 36430; 80053; 81001; 85007; 85025; 86850; 86900; 86920; 99214; J7050; P9016

== ENCOUNTER 2024-12-18 08:15 | Oncology outpatient (recurring) (ONCR) | payer MEDICARE, OTHER, SELFPAY ==
[2024-11-27] VITALS (9 sets, daily range): BP systolic 114–135; BP diastolic 58–82; PULSE 51–62; TEMP 35.6–36.2; O2SAT 97–100
[2024-11-27 08:25] LABS: Basophils % 1.2 %; Eosinophils # 0.1 10^3/uL (0.0-0.8); Eosinophils % 1.5 %; Hematocrit 23.1 % (37-53); Lymphocytes # 1.3 10^3/uL (0.8-4.8); Lymphocytes % 36.4 %; Mean Corpuscular HGB Conc 32.5 g/dL (30-55); Mean Corpuscular Hemoglobin 29.4 pg (27-33); Mean Corpuscular Volume 90.6 fl (82-101); Monocytes # 0.3 10^3/uL (0.2-0.9); Monocytes % 8.5 %; Neutrophils # 1.78 10^3/uL (1.8-7.7); Neutrophils % 51.8 %; Nucleated Red Blood Cells % 0 %; Platelet Count 90 10^3/cmm (157-399); Red Blood Count 2.55 10^6/uL (3.85-5.65); Red Cell Distribution Width 15.8 % (12.1-15.1); White Blood Count 3.43 10^3/uL (3.29-11.43)
[2024-11-27 08:36] LABS: Alanine Aminotransferase 21 U/L (0-41); Albumin Level 3.5 g/dL (3.5-5.2); Alkaline Phosphatase 130 U/L (40-130); Anion Gap 13.6 (5-19); Aspartate Amino Transferase 16 U/L (0-40); Blood Urea Nitrogen 29 mg/dL (8-23); Calcium 8.5 mg/dL (8.5-10.5); Carbon Dioxide 23 mmol/L (22-29); Chloride 103 mmol/L (98-107); Globulin 2.5 g/dL (1.3-4.6); Glucose 135 mg/dL (65-115); Osmolality Calculated 288 mOsm/kg (285-295); Potassium 4.6 mmol/L (3.5-5.1); Sodium 135 mmol/L (136-145); Total Bilirubin 0.4 mg/dL (0.15-1.2)
[2024-11-27 09:19] LABS: Slide Review Slide Review Perform
[2024-11-27] MEDS: diphenhydrAMINE 25 mg Capsule PO (10:10)
[2024-11-27] MEDS: acetaminophen 325 mg Tablet 650 MG PO (10:10)
[2024-11-27] MEDS: sodium chloride 0.9% 250 mL Bag IV (11:35)
[2024-12-04 08:26] LABS: Basophils # 0.1 10^3/uL (0.0-0.1); Basophils % 1.3 %; Eosinophils # 0.1 10^3/uL (0.0-0.8); Eosinophils % 1.5 %; Hematocrit 30.9 % (37-53); Lymphocytes # 1.4 10^3/uL (0.8-4.8); Lymphocytes % 28.8 %; Mean Corpuscular HGB Conc 32.4 g/dL (30-55); Mean Corpuscular Hemoglobin 29.6 pg (27-33); Mean Corpuscular Volume 91.4 fl (82-101); Mean Platelet Volume 14.2 fL (7.4-10.4); Monocytes # 0.4 10^3/uL (0.2-0.9); Monocytes % 8.1 %; Neutrophils % 59.9 %; Nucleated Red Blood Cells % 0 %; Platelet Count 117 10^3/cmm (157-399); Red Blood Count 3.38 10^6/uL (3.85-5.65); Red Cell Distribution Width 15.8 % (12.1-15.1); White Blood Count 4.68 10^3/uL (3.29-11.43)
[2024-12-04 08:47] LABS: Alanine Aminotransferase 25 U/L (0-41); Albumin Level 3.7 g/dL (3.5-5.2); Alkaline Phosphatase 174 U/L (40-130); Blood Urea Nitrogen 33 mg/dL (8-23); Calcium 9.3 mg/dL (8.5-10.5); Carbon Dioxide 22 mmol/L (22-29); Chloride 106 mmol/L (98-107); Glucose 123 mg/dL (65-115); Osmolality Calculated 295 mOsm/kg (285-295); Sodium 138 mmol/L (136-145); Total Bilirubin 0.3 mg/dL (0.15-1.2); Total Protein 6.7 g/dL (6.6-8.7)
[2024-12-04 08:48] LABS: Anion Gap 14.9 (5-19); Aspartate Amino Transferase 15 U/L (0-40); Potassium 4.9 mmol/L (3.5-5.1)
[2024-12-04 08:58] LABS: Slide Review Slide Review Perform
[2024-12-04 09:35] VITALS: BP 146/84; PULSE 88; RESP 16; TEMP 36.8; O2SAT 94
[2024-12-04 09:45] LABS: Free T4 Free Thyroxine 0.81 ng/dL (0.82-1.77); Thyroid Stimulating Hormone 7.54 uIU/mL (0.27-4.20)
[2024-12-10 16:33] LABS: Basophils # 0.1 10^3/uL (0.0-0.1); Basophils % 1.7 %; Eosinophils # 0.1 10^3/uL (0.0-0.8); Eosinophils % 1.1 %; Hematocrit 30.8 % (37-53); Lymphocytes # 1.7 10^3/uL (0.8-4.8); Mean Corpuscular HGB Conc 31.2 g/dL (30-55); Mean Corpuscular Hemoglobin 28.6 pg (27-33); Mean Corpuscular Volume 91.7 fl (82-101); Mean Platelet Volume 14.2 fL (7.4-10.4); Monocytes # 0.5 10^3/uL (0.2-0.9); Monocytes % 9.8 %; Neutrophils # 2.46 10^3/uL (1.8-7.7); Neutrophils % 52.2 %; Nucleated Red Blood Cells % 0 %; Platelet Count 131 10^3/cmm (157-399); Red Blood Count 3.36 10^6/uL (3.85-5.65); Red Cell Distribution Width 15.8 % (12.1-15.1); White Blood Count 4.71 10^3/uL (3.29-11.43)
[2024-12-10 16:39] LABS: Alanine Aminotransferase 30 U/L (0-41); Albumin Level 3.8 g/dL (3.5-5.2); Alkaline Phosphatase 163 U/L (40-130); Anion Gap 13.1 (5-19); Aspartate Amino Transferase 15 U/L (0-40); Blood Urea Nitrogen 35 mg/dL (8-23); Calcium 9.3 mg/dL (8.5-10.5); Carbon Dioxide 28 mmol/L (22-29); Chloride 104 mmol/L (98-107); Globulin 2.7 g/dL (1.3-4.6); Glucose 112 mg/dL (65-115); Osmolality Calculated 299 mOsm/kg (285-295); Potassium 5.1 mmol/L (3.5-5.1); Sodium 140 mmol/L (136-145); Total Bilirubin 0.3 mg/dL (0.15-1.2); Total Protein 6.5 g/dL (6.6-8.7)
--- NOTE | 2024-12-10 16:44 | PC.NURSE ---
Preliminary HGB 9.5, HCT 30. Pt notified and that he would not need to come in for transfusion in the morning. Pt voiced understanding/lc
[2024-12-10 18:08] LABS: Slide Review Slide Review Perform
[2024-12-18] VITALS (10 sets, daily range): BP systolic 105–124; BP diastolic 64–88; PULSE 58–63; RESP 16–18; TEMP 35.8–36.1; O2SAT 91–98
[2024-12-18 08:25] LABS: Eosinophils % 0.8 %; Hematocrit 23.5 % (37-53); Lymphocytes # 1.2 10^3/uL (0.8-4.8); Lymphocytes % 31.5 %; Mean Corpuscular HGB Conc 31.5 g/dL (30-55); Mean Corpuscular Hemoglobin 28.2 pg (27-33); Mean Corpuscular Volume 89.7 fl (82-101); Mean Platelet Volume 13.9 fL (7.4-10.4); Monocytes # 0.3 10^3/uL (0.2-0.9); Monocytes % 8.7 %; Neutrophils # 2.25 10^3/uL (1.8-7.7); Neutrophils % 57.5 %; Nucleated Red Blood Cells % 0 %; Platelet Count 129 10^3/cmm (157-399); Red Blood Count 2.62 10^6/uL (3.85-5.65); Red Cell Distribution Width 15.8 % (12.1-15.1); White Blood Count 3.91 10^3/uL (3.29-11.43)
[2024-12-18 08:40] LABS: Alanine Aminotransferase 24 U/L (0-41); Albumin Level 3.5 g/dL (3.5-5.2); Alkaline Phosphatase 144 U/L (40-130); Aspartate Amino Transferase 16 U/L (0-40); Blood Urea Nitrogen 31 mg/dL (8-23); Calcium 8.8 mg/dL (8.5-10.5); Carbon Dioxide 21 mmol/L (22-29); Chloride 103 mmol/L (98-107); Glucose 127 mg/dL (65-115); Osmolality Calculated 288 mOsm/kg (285-295); Sodium 135 mmol/L (136-145); Total Bilirubin 0.3 mg/dL (0.15-1.2); Total Protein 6.5 g/dL (6.6-8.7)
[2024-12-18 08:44] LABS: Anion Gap 16.1 (5-19); Potassium 5.1 mmol/L (3.5-5.1); Slide Review Slide Review Perform
[2024-12-18] MEDS: diphenhydrAMINE 25 mg Capsule PO (09:45)
[2024-12-18] MEDS: acetaminophen 325 mg Tablet 650 MG PO (09:45)
[2024-12-18] MEDS: sodium chloride 0.9% 250 mL Bag IV (09:46)
[2024-12-18] MEDS: FUROsemide 10 mg/mL SDV 2mL 20 MG IVP (12:27)
== END 2024-12-21 23:59 | disposition home or self-care (01) ==
PROVIDERS: Nurse Practitioner Family; PCP Family Medicine; Visit Provider Internal Medicine Medical Oncology
DX: R09.02 Hypoxemia; D64.9 Anemia, unspecified; Z79.899 Other long term (current) drug therapy; Z53.9 Procedure and treatment not carried out, unspecified reason
CPT/HCPCS: 36415; 36430; 80053; 84439; 84443; 85025; 86850; 86900; 86920; 96375; J1940; J7050; P9016; P9040

== ENCOUNTER 2025-01-15 07:45 | Oncology outpatient (recurring) (ONCR) | payer MEDICARE, OTHER, SELFPAY ==
[2024-12-25 08:37] LABS: Basophils # 0.1 10^3/uL (0.0-0.1); Basophils % 1.3 %; Eosinophils # 0.1 10^3/uL (0.0-0.8); Eosinophils % 2.2 %; Lymphocytes # 1.2 10^3/uL (0.8-4.8); Lymphocytes % 25.6 %; Mean Corpuscular HGB Conc 30.9 g/dL (30-55); Mean Corpuscular Hemoglobin 28.8 pg (27-33); Monocytes # 0.4 10^3/uL (0.2-0.9); Monocytes % 8.8 %; Neutrophils # 2.82 10^3/uL (1.8-7.7); Neutrophils % 61.7 %; Nucleated Red Blood Cells % 0 %; Platelet Count 138 10^3/cmm (157-399); Red Blood Count 3.44 10^6/uL (3.85-5.65); White Blood Count 4.57 10^3/uL (3.29-11.43)
[2024-12-25 08:53] LABS: Alanine Aminotransferase 37 U/L (0-41); Albumin Level 3.8 g/dL (3.5-5.2); Alkaline Phosphatase 153 U/L (40-130); Anion Gap 15.2 (5-19); Aspartate Amino Transferase 20 U/L (0-40); Blood Urea Nitrogen 30 mg/dL (8-23); Calcium 9.7 mg/dL (8.5-10.5); Carbon Dioxide 22 mmol/L (22-29); Chloride 102 mmol/L (98-107); Globulin 3.1 g/dL (1.3-4.6); Glucose 130 mg/dL (65-115); Osmolality Calculated 286 mOsm/kg (285-295); Potassium 5.2 mmol/L (3.5-5.1); Sodium 134 mmol/L (136-145); Total Bilirubin 0.5 mg/dL (0.15-1.2); Total Protein 6.9 g/dL (6.6-8.7)
[2024-12-25 09:12] LABS: Slide Review Slide Review Perform
[2025-01-01 08:13] VITALS: BP 109/68; PULSE 60; RESP 18; TEMP 36.6; O2SAT 99
[2025-01-01 08:18] LABS: Basophils # 0.1 10^3/uL (0.0-0.1); Basophils % 1.2 %; Eosinophils # 0.1 10^3/uL (0.0-0.8); Eosinophils % 1.7 %; Lymphocytes # 1.3 10^3/uL (0.8-4.8); Lymphocytes % 29.5 %; Mean Corpuscular HGB Conc 31.5 g/dL (30-55); Mean Corpuscular Hemoglobin 28.5 pg (27-33); Mean Corpuscular Volume 90.6 fl (82-101); Monocytes # 0.3 10^3/uL (0.2-0.9); Monocytes % 7.8 %; Neutrophils # 2.52 10^3/uL (1.8-7.7); Neutrophils % 59.3 %; Nucleated Red Blood Cells % 0 %; Platelet Count 114 10^3/cmm (157-399); Red Blood Count 2.98 10^6/uL (3.85-5.65); Red Cell Distribution Width 15.9 % (12.1-15.1); White Blood Count 4.24 10^3/uL (3.29-11.43)
[2025-01-01 08:50] LABS: Slide Review Slide Review Perform
[2025-01-08] VITALS (8 sets, daily range): BP systolic 109–124; BP diastolic 61–78; PULSE 60–82; RESP 16–18; TEMP 36–36.6; O2SAT 94–99
[2025-01-08 08:59] LABS: Basophils # 0.1 10^3/uL (0.0-0.1); Basophils % 1.3 %; Eosinophils % 0.8 %; Mean Corpuscular HGB Conc 32.2 g/dL (30-55); Mean Corpuscular Hemoglobin 29.4 pg (27-33); Mean Corpuscular Volume 91.3 fl (82-101); Mean Platelet Volume 14.3 fL (7.4-10.4); Monocytes # 0.3 10^3/uL (0.2-0.9); Monocytes % 7.6 %; Neutrophils # 2.46 10^3/uL (1.8-7.7); Neutrophils % 64.8 %; Nucleated Red Blood Cells % 0 %; Platelet Count 129 10^3/cmm (157-399); Red Blood Count 2.52 10^6/uL (3.85-5.65); Red Cell Distribution Width 16.4 % (12.1-15.1)
[2025-01-08 09:49] LABS: Slide Review Slide Review Perform
[2025-01-08] MEDS: diphenhydrAMINE 25 mg Capsule PO (10:11)
[2025-01-08] MEDS: acetaminophen 325 mg Tablet 650 MG PO (10:11)
[2025-01-08] MEDS: sodium chloride 0.9% 250 mL Bag IV (10:13)
[2025-01-09] MEDS: deferoxamine 2 GM in sodium chloride 0.9% 250 ML IV (14:03)
[2025-01-09 16:30] VITALS: BP 137/78; PULSE 64; RESP 18; TEMP 36.6; O2SAT 97
[2025-01-15 08:34] LABS: Basophils # 0.1 10^3/uL (0.0-0.1); Basophils % 1.5 %; Eosinophils % 0.8 %; Hematocrit 31.9 % (37-53); Lymphocytes # 1.2 10^3/uL (0.8-4.8); Lymphocytes % 29.7 %; Mean Corpuscular HGB Conc 31.7 g/dL (30-55); Mean Corpuscular Hemoglobin 29.2 pg (27-33); Mean Corpuscular Volume 92.2 fl (82-101); Mean Platelet Volume 14.1 fL (7.4-10.4); Monocytes # 0.3 10^3/uL (0.2-0.9); Monocytes % 8.6 %; Neutrophils # 2.35 10^3/uL (1.8-7.7); Neutrophils % 59.1 %; Nucleated Red Blood Cells % 0 %; Platelet Count 123 10^3/cmm (157-399); Red Blood Count 3.46 10^6/uL (3.85-5.65); Red Cell Distribution Width 16.3 % (12.1-15.1); White Blood Count 3.97 10^3/uL (3.29-11.43)
== END 2025-01-21 23:59 | disposition home or self-care (01) ==
PROVIDERS: PCP Family Medicine; Visit Provider Internal Medicine Medical Oncology
DX: D46.C Myelodysplastic syndrome with isolated del(5q) chromosomal abnormality (principal)
CPT/HCPCS: 36415; 36430; 80053; 85025; 86850; 86900; 86920; 96365; 96366; J0895; J7050; J9999; P9016

== ENCOUNTER 2025-01-22 07:58 | Oncology outpatient (recurring) (ONCR) | payer MEDICARE, OTHER, SELFPAY ==
[2025-01-22 08:40] LABS: Hematocrit 26.6 % (37-53); Mean Corpuscular HGB Conc 32.3 g/dL (30-55); Mean Corpuscular Hemoglobin 29.8 pg (27-33); Mean Platelet Volume 14.3 fL (7.4-10.4); Platelet Count 118 10^3/cmm (157-399); Red Blood Count 2.89 10^6/uL (3.85-5.65); Red Cell Distribution Width 16.3 % (12.1-15.1); White Blood Count 4.28 10^3/uL (3.29-11.43)
[2025-01-22 09:20] LABS: Slide Review Slide Review Perform
[2025-01-22 09:21] LABS: Absolute Eosinophils 0.1 10^3/cmm (0.0-0.7); Absolute Segmented Neutrophil 2.8 10/cmm (1.6-7.1); Band Neutrophils Absolute 0.3 10^3/cmm (0.0-1.2); Eosinophils 2 %; Giant Platelets Trace; Lymphocytes 15 %; Lymphocytes Absolute 1.1 10^3/cmm (1.2-3.4); Macrocytosis Trace; Platelet Estimate Decreased (Normal); Segmented Neutrophils 65 %; Total Cells Counted 100 (0-100)
[2025-01-22] MEDS: hydrocortisone 100 mg/2 mL SDV IVP (11:39)
[2025-01-22] MEDS: sodium chloride 0.9% 250 ML 75 ML IV (11:39)
[2025-01-22] MEDS: diphenhydrAMINE 25 mg Capsule PO (11:40)
[2025-01-22] MEDS: SODIUM CHLORIDE 0.9% IV (12:43)
[2025-01-22] MEDS: [UNRECOGNIZED DRUG - OTHER] IV (12:43)
[2025-01-22 15:37] VITALS: BP 122/74; PULSE 69; RESP 17; TEMP 36.1; O2SAT 95
== END 2025-01-22 23:59 | disposition home or self-care (01) ==
PROVIDERS: PCP Family Medicine; Visit Provider Internal Medicine Medical Oncology
DX: D46.C Myelodysplastic syndrome with isolated del(5q) chromosomal abnormality (principal); R19.7 Diarrhea, unspecified; E03.9 Hypothyroidism, unspecified; Z79.899 Other long term (current) drug therapy
CPT/HCPCS: 85007; 85025; 96365; 96366; 96375; 99215; J0870; J1720; J7040; J7050

== ENCOUNTER 2025-02-19 07:24 | Oncology outpatient (recurring) (ONCR) | payer MEDICARE, OTHER, SELFPAY ==
[2025-01-29 08:33] VITALS: BP 103/69; PULSE 79; RESP 18; TEMP 36.3; O2SAT 97
[2025-01-29 09:05] VITALS: BP 103/67; PULSE 68; RESP 18; TEMP 36.6; O2SAT 98
[2025-01-29 09:17] LABS: Basophils # 0.1 10^3/uL (0.0-0.1); Eosinophils % 0.6 %; Lymphocytes # 1.2 10^3/uL (0.8-4.8); Lymphocytes % 25.4 %; Mean Corpuscular HGB Conc 32.4 g/dL (30-55); Mean Corpuscular Volume 92.6 fl (82-101); Mean Platelet Volume 14.6 fL (7.4-10.4); Monocytes # 0.3 10^3/uL (0.2-0.9); Monocytes % 6.9 %; Neutrophils # 3.13 10^3/uL (1.8-7.7); Neutrophils % 65.7 %; Nucleated Red Blood Cells % 0 %; Platelet Count 108 10^3/cmm (157-399); Red Cell Distribution Width 16.2 % (12.1-15.1); White Blood Count 4.77 10^3/uL (3.29-11.43)
[2025-01-29 09:32] LABS: Slide Review Slide Review Perform
[2025-01-29 09:34] LABS: Alanine Aminotransferase 37 U/L (0-41); Alkaline Phosphatase 162 U/L (40-130); Aspartate Amino Transferase 20 U/L (0-40); Blood Urea Nitrogen 46 mg/dL (8-23); Calcium 9.4 mg/dL (8.5-10.5); Carbon Dioxide 21 mmol/L (22-29); Chloride 102 mmol/L (98-107); Creatinine Clr Calc Pharmacy 36.7128; Globulin 3.1 g/dL (1.3-4.6); Glucose 106 mg/dL (65-115); Osmolality Calculated 290 mOsm/kg (285-295); Sodium 134 mmol/L (136-145); Total Bilirubin 0.4 mg/dL (0.15-1.2); Total Protein 7.1 g/dL (6.6-8.7)
[2025-02-05] VITALS (10 sets, daily range): BP systolic 100–113; BP diastolic 61–74; PULSE 60–83; RESP 16–18; TEMP 35.9–36.6; O2SAT 94–98
[2025-02-05 08:25] LABS: Basophils # 0.1 10^3/uL (0.0-0.1); Basophils % 1.4 %; Eosinophils % 0.5 %; Lymphocytes # 1.2 10^3/uL (0.8-4.8); Mean Corpuscular HGB Conc 31.7 g/dL (30-55); Mean Corpuscular Hemoglobin 29.6 pg (27-33); Mean Corpuscular Volume 93.3 fl (82-101); Monocytes # 0.2 10^3/uL (0.2-0.9); Monocytes % 4.1 %; Neutrophils # 2.26 10^3/uL (1.8-7.7); Neutrophils % 61.7 %; Nucleated Red Blood Cells % 0 %; Platelet Count 74 10^3/cmm (157-399); Red Blood Count 2.23 10^6/uL (3.85-5.65); Red Cell Distribution Width 15.9 % (12.1-15.1); White Blood Count 3.66 10^3/uL (3.29-11.43)
[2025-02-05 08:46] LABS: Hematocrit 20.8 % (37-53)
[2025-02-05 08:48] LABS: Slide Review Slide Review Perform
[2025-02-05 08:50] LABS: Alanine Aminotransferase 31 U/L (0-41); Albumin Level 3.9 g/dL (3.5-5.2); Alkaline Phosphatase 144 U/L (40-130); Anion Gap 15.8 (5-19); Aspartate Amino Transferase 18 U/L (0-40); Blood Urea Nitrogen 38 mg/dL (8-23); Calcium 9.3 mg/dL (8.5-10.5); Carbon Dioxide 21 mmol/L (22-29); Chloride 106 mmol/L (98-107); Creatinine Clr Calc Pharmacy 36.7128; Globulin 2.9 g/dL (1.3-4.6); Glucose 112 mg/dL (65-115); Osmolality Calculated 296 mOsm/kg (285-295); Potassium 4.8 mmol/L (3.5-5.1); Sodium 138 mmol/L (136-145); Total Bilirubin 0.6 mg/dL (0.15-1.2); Total Protein 6.8 g/dL (6.6-8.7)
[2025-02-05] MEDS: deferoxamine 2 GM in sodium chloride 0.9% 250 ML IV (10:36)
[2025-02-12 08:16] LABS: Basophils # 0.1 10^3/uL (0.0-0.1); Basophils % 1.1 %; Eosinophils % 0.5 %; Hematocrit 25.9 % (37-53); Lymphocytes # 1.2 10^3/uL (0.8-4.8); Mean Corpuscular HGB Conc 32.4 g/dL (30-55); Mean Corpuscular Hemoglobin 30.4 pg (27-33); Mean Corpuscular Volume 93.8 fl (82-101); Monocytes # 0.1 10^3/uL (0.2-0.9); Monocytes % 1.8 %; Neutrophils % 68.4 %; Nucleated Red Blood Cells % 0 %; Platelet Count 37 10^3/cmm (157-399); Red Blood Count 2.76 10^6/uL (3.85-5.65); Red Cell Distribution Width 14.6 % (12.1-15.1); White Blood Count 4.39 10^3/uL (3.29-11.43)
[2025-02-12 08:37] LABS: Alanine Aminotransferase 29 U/L (0-41); Albumin Level 3.6 g/dL (3.5-5.2); Alkaline Phosphatase 143 U/L (40-130); Anion Gap 14.1 (5-19); Aspartate Amino Transferase 16 U/L (0-40); Blood Urea Nitrogen 41 mg/dL (8-23); Calcium 9.2 mg/dL (8.5-10.5); Carbon Dioxide 21 mmol/L (22-29); Chloride 104 mmol/L (98-107); Creatinine Clr Calc Pharmacy 43.5964; Glucose 113 mg/dL (65-115); Osmolality Calculated 289 mOsm/kg (285-295); Potassium 5.1 mmol/L (3.5-5.1); Sodium 134 mmol/L (136-145); Total Bilirubin 0.3 mg/dL (0.15-1.2); Total Protein 6.6 g/dL (6.6-8.7)
[2025-02-12 09:05] LABS: Slide Review Slide Review Perform
[2025-02-12 09:33] LABS: Bilirubin Urine Negative (Negative); Blood Urine Negative (Negative); Glucose Urine UA Negative (Normal); Ketones Urine Negative (Negative); Leukocyte Esterase Urine Negative (Negative); Nitrate Urine Negative (Negative); Protein Urine Negative (Negative); Urine Appearance Clear (CLEAR); Urine Color Yellow (Yellow); Urobilinogen Urine 0.2 mg/dL (Negative); pH Urine 5.5 (5-7)
[2025-02-12 09:38] LABS: Add Urine Microscopic? YES; Bacteria Urine None Seen /hpf; Hyaline Casts Urine 0.81 /lpf; RBC Urine 0-2 /hpf (0-2); Squamous Epithelial Cell Urine 0-5 /hpf (0-5); WBC Urine 0-5 /hpf (0-5)
[2025-02-19] VITALS (7 sets, daily range): BP systolic 102–118; BP diastolic 62–71; PULSE 60–62; RESP 16; TEMP 35.6–36.5; O2SAT 91–96
[2025-02-19 07:53] LABS: Eosinophils % 1.5 %; Hematocrit 21.3 % (37-53); Mean Corpuscular HGB Conc 31.5 g/dL (30-55); Mean Corpuscular Volume 92.2 fl (82-101); Monocytes % 0.5 %; Nucleated Red Blood Cells % 0 %; Red Blood Count 2.31 10^6/uL (3.85-5.65); Red Cell Distribution Width 14.6 % (12.1-15.1); White Blood Count 1.96 10^3/uL (3.29-11.43)
[2025-02-19 08:14] LABS: Alanine Aminotransferase 27 U/L (0-41); Albumin Level 3.6 g/dL (3.5-5.2); Alkaline Phosphatase 144 U/L (40-130); Anion Gap 16.1 (5-19); Aspartate Amino Transferase 13 U/L (0-40); Blood Urea Nitrogen 32 mg/dL (8-23); Calcium 9.1 mg/dL (8.5-10.5); Carbon Dioxide 20 mmol/L (22-29); Chloride 103 mmol/L (98-107); Creatinine Clr Calc Pharmacy 41.0319; Globulin 2.9 g/dL (1.3-4.6); Glucose 110 mg/dL (65-115); Iron 197 ug/dL (59-158); Osmolality Calculated 286 mOsm/kg (285-295); Potassium 5.1 mmol/L (3.5-5.1); Sodium 134 mmol/L (136-145); Thyroid Stimulating Hormone 4.56 uIU/mL (0.27-4.20); Total Bilirubin 0.4 mg/dL (0.15-1.2); Total Protein 6.5 g/dL (6.6-8.7)
[2025-02-19 08:29] LABS: Neutrophils # 0.88 10^3/uL (1.8-7.7); Platelet Count 24 10^3/cmm (157-399); Slide Review Slide Review Perform
[2025-02-19 08:38] LABS: Ferritin 2391 ng/mL (30-400); Total Iron Binding Capacity 897.00001 mcg/dl; Unsaturated Iron Binding > 700 ug/dL (112-347)
[2025-02-19 09:26] LABS: Free T4 Free Thyroxine 1.03 ng/dL (0.82-1.77); T3 Free 2.4 PG/ML (2.0-4.4)
[2025-02-19] MEDS: acetaminophen 325 mg Tablet 650 MG PO (09:32)
[2025-02-19] MEDS: diphenhydrAMINE 25 mg Capsule PO (09:33)
[2025-02-19] MEDS: deferoxamine 2 GM in sodium chloride 0.9% 250 ML IV (10:12)
[2025-02-19] MEDS: sodium chloride 0.9% 250 mL Bag IV (10:12)
[2025-02-19] MEDS: FUROsemide 10 mg/mL SDV 2mL 20 MG IVP (13:22)
== END 2025-02-20 23:59 | disposition home or self-care (01) ==
PROVIDERS: Nurse Practitioner Family; PCP Family Medicine; Visit Provider Internal Medicine Medical Oncology
DX: D46.C Myelodysplastic syndrome with isolated del(5q) chromosomal abnormality (principal); R03.0 Elevated blood-pressure reading, without diagnosis of hypertension; D70.1 Agranulocytosis secondary to cancer chemotherapy; E83.111 Hemochromatosis due to repeated red blood cell transfusions; T45.1X5A Adverse effect of antineoplastic and immunosuppressive drugs, initial encounter; D69.6 Thrombocytopenia, unspecified; Z79.899 Other long term (current) drug therapy
CPT/HCPCS: 36415; 36430; 36591; 80053; 81001; 82728; 83540; 83550; 84439; 84443; 84481; 85025; 86850; 86900; 86920; 96365; 96375; 99214; J0895; J1940; J7050; J9999; P9016; P9058

== ENCOUNTER 2025-03-12 07:34 | Oncology outpatient (recurring) (ONCR) | payer MEDICARE, OTHER, SELFPAY ==
[2025-02-26] VITALS (8 sets, daily range): BP systolic 103–134; BP diastolic 65–75; PULSE 60–65; RESP 17–18; TEMP 36.3–36.6; O2SAT 96–100
[2025-02-26 08:29] LABS: Basophils % 0.7 %; Eosinophils % 0.7 %; Hematocrit 26.2 % (37-53); Lymphocytes # 0.9 10^3/uL (0.8-4.8); Lymphocytes % 63.1 %; Mean Corpuscular HGB Conc 32.4 g/dL (30-55); Mean Corpuscular Hemoglobin 30.1 pg (27-33); Mean Corpuscular Volume 92.9 fl (82-101); Monocytes # 0.1 10^3/uL (0.2-0.9); Neutrophils % 30.5 %; Nucleated Red Blood Cells % 0 %; Platelet Count 51 10^3/cmm (157-399); Red Blood Count 2.82 10^6/uL (3.85-5.65); Red Cell Distribution Width 13.5 % (12.1-15.1); White Blood Count 1.41 10^3/uL (3.29-11.43)
[2025-02-26 08:56] LABS: Alanine Aminotransferase 25 U/L (0-41); Albumin Level 3.7 g/dL (3.5-5.2); Alkaline Phosphatase 131 U/L (40-130); Anion Gap 18.6 (5-19); Aspartate Amino Transferase 13 U/L (0-40); Blood Urea Nitrogen 29 mg/dL (8-23); Calcium 9.5 mg/dL (8.5-10.5); Carbon Dioxide 22 mmol/L (22-29); Chloride 101 mmol/L (98-107); Globulin 3.2 g/dL (1.3-4.6); Glucose 123 mg/dL (65-115); Osmolality Calculated 291 mOsm/kg (285-295); Potassium 4.6 mmol/L (3.5-5.1); Sodium 137 mmol/L (136-145); Total Bilirubin 0.4 mg/dL (0.15-1.2); Total Protein 6.9 g/dL (6.6-8.7)
[2025-02-26 09:05] LABS: Neutrophils # 0.43 10^3/uL (1.8-7.7); Slide Review Slide Review Perform
[2025-02-26] MEDS: deferoxamine 2 GM in sodium chloride 0.9% 250 ML IV (10:15)
[2025-02-26] MEDS: acetaminophen 325 mg Tablet 650 MG PO (10:20)
[2025-02-26] MEDS: diphenhydrAMINE 25 mg Capsule PO (10:20)
[2025-02-26] MEDS: sodium chloride 0.9% 100 mL Bag 50 ML IV (10:32)
[2025-03-05 08:15] VITALS: BP 107/64; PULSE 64; RESP 17; TEMP 36.4; O2SAT 98
[2025-03-05 08:20] LABS: Eosinophils % 0.5 %; Hematocrit 29.1 % (37-53); Lymphocytes % 49.5 %; Mean Corpuscular Hemoglobin 28.8 pg (27-33); Mean Corpuscular Volume 90.1 fl (82-101); Monocytes # 0.2 10^3/uL (0.2-0.9); Monocytes % 7.7 %; Neutrophils % 40.8 %; Nucleated Red Blood Cells % 0 %; Platelet Count 115 10^3/cmm (157-399); Red Blood Count 3.23 10^6/uL (3.85-5.65); White Blood Count 1.94 10^3/uL (3.29-11.43)
[2025-03-05 08:54] LABS: Alanine Aminotransferase 51 U/L (0-41); Albumin Level 3.5 g/dL (3.5-5.2); Alkaline Phosphatase 151 U/L (40-130); Aspartate Amino Transferase 26 U/L (0-40); Blood Urea Nitrogen 30 mg/dL (8-23); Calcium 9.1 mg/dL (8.5-10.5); Carbon Dioxide 23 mmol/L (22-29); Chloride 102 mmol/L (98-107); Globulin 3.3 g/dL (1.3-4.6); Glucose 118 mg/dL (65-115); Osmolality Calculated 289 mOsm/kg (285-295); Sodium 136 mmol/L (136-145); Total Bilirubin 0.2 mg/dL (0.15-1.2); Total Protein 6.8 g/dL (6.6-8.7)
[2025-03-05 08:57] LABS: Anion Gap 16.1 (5-19); Potassium 5.1 mmol/L (3.5-5.1)
[2025-03-05 09:26] LABS: Slide Review Slide Review Perform
[2025-03-05 09:27] LABS: Neutrophils # 0.79 10^3/uL (1.8-7.7)
[2025-03-12 08:22] LABS: Basophils # 0.1 10^3/uL (0.0-0.1); Hematocrit 29.2 % (37-53); Lymphocytes # 1.2 10^3/uL (0.8-4.8); Lymphocytes % 41.2 %; Mean Corpuscular HGB Conc 32.2 g/dL (30-55); Mean Corpuscular Volume 90.1 fl (82-101); Mean Platelet Volume 13.9 fL (7.4-10.4); Monocytes # 0.3 10^3/uL (0.2-0.9); Monocytes % 8.6 %; Neutrophils # 1.44 10^3/uL (1.8-7.7); Neutrophils % 47.9 %; Nucleated Red Blood Cells % 0 %; Platelet Count 175 10^3/cmm (157-399); Red Blood Count 3.24 10^6/uL (3.85-5.65); Red Cell Distribution Width 16.2 % (12.1-15.1); White Blood Count 3.01 10^3/uL (3.29-11.43)
[2025-03-12 08:39] LABS: Alanine Aminotransferase 45 U/L (0-41); Albumin Level 3.8 g/dL (3.5-5.2); Alkaline Phosphatase 147 U/L (40-130); Anion Gap 16.2 (5-19); Aspartate Amino Transferase 23 U/L (0-40); Blood Urea Nitrogen 32 mg/dL (8-23); Calcium 9.4 mg/dL (8.5-10.5); Carbon Dioxide 22 mmol/L (22-29); Chloride 102 mmol/L (98-107); Creatinine Clr Calc Pharmacy 38.2231; Globulin 3.3 g/dL (1.3-4.6); Glucose 108 mg/dL (65-115); Osmolality Calculated 287 mOsm/kg (285-295); Potassium 5.2 mmol/L (3.5-5.1); Sodium 135 mmol/L (136-145); Total Bilirubin 0.3 mg/dL (0.15-1.2); Total Protein 7.1 g/dL (6.6-8.7)
[2025-03-12 09:29] LABS: Slide Review Slide Review Perform
[2025-03-12] MEDS: diphenhydrAMINE 25 mg Capsule PO (09:44)
[2025-03-12] MEDS: hydrocortisone 100 mg/2 mL SDV IVP (09:44)
[2025-03-12] MEDS: SODIUM CHLORIDE 0.9% IV (10:12)
[2025-03-12] MEDS: sodium chloride 0.9% (100 ml) 100 ML 75 ML (10:12)
[2025-03-12] MEDS: [UNRECOGNIZED DRUG - OTHER] IV (10:12)
== END 2025-03-12 23:59 | disposition home or self-care (01) ==
PROVIDERS: PCP Family Medicine; Visit Provider Internal Medicine Medical Oncology
DX: Z53.9 Procedure and treatment not carried out, unspecified reason; D46.C Myelodysplastic syndrome with isolated del(5q) chromosomal abnormality; R03.0 Elevated blood-pressure reading, without diagnosis of hypertension; E83.111 Hemochromatosis due to repeated red blood cell transfusions; D70.9 Neutropenia, unspecified; D69.6 Thrombocytopenia, unspecified; Z79.899 Other long term (current) drug therapy
CPT/HCPCS: 36415; 36430; 80053; 85025; 86850; 86900; 86920; 96365; 96366; 96375; 96413; 96415; 99214; J0870; J0895; J1720; J7040; J7050; J9999; P9016

== ENCOUNTER 2025-03-19 07:33 | Oncology outpatient (recurring) (ONCR) | payer MEDICARE, OTHER, SELFPAY ==
[2025-03-19] VITALS (10 sets, daily range): BP systolic 100–123; BP diastolic 62–79; PULSE 60; RESP 16–18; TEMP 35.9–36.4; O2SAT 95–98
[2025-03-19 08:26] LABS: Eosinophils % 0.3 %; Hematocrit 24.7 % (37-53); Lymphocytes # 0.9 10^3/uL (0.8-4.8); Lymphocytes % 31.5 %; Mean Corpuscular HGB Conc 31.6 g/dL (30-55); Mean Corpuscular Hemoglobin 28.8 pg (27-33); Mean Corpuscular Volume 91.1 fl (82-101); Mean Platelet Volume 13.8 fL (7.4-10.4); Monocytes # 0.3 10^3/uL (0.2-0.9); Monocytes % 9.4 %; Neutrophils # 1.71 10^3/uL (1.8-7.7); Neutrophils % 57.5 %; Nucleated Red Blood Cells % 0 %; Platelet Count 131 10^3/cmm (157-399); Red Blood Count 2.71 10^6/uL (3.85-5.65); Red Cell Distribution Width 16.7 % (12.1-15.1); White Blood Count 2.98 10^3/uL (3.29-11.43)
[2025-03-19 08:53] LABS: Slide Review Slide Review Perform
[2025-03-19] MEDS: diphenhydrAMINE 25 mg Capsule PO (10:43)
[2025-03-19] MEDS: acetaminophen 325 mg Tablet 650 MG PO (10:44)
[2025-03-19] MEDS: sodium chloride 0.9% 250 mL Bag IV (10:44)
== END 2025-03-23 23:59 | disposition home or self-care (01) ==
LOC: ONCMED 07:34
PROVIDERS: PCP Family Medicine; Visit Provider Internal Medicine Medical Oncology
DX: D46.C Myelodysplastic syndrome with isolated del(5q) chromosomal abnormality (principal); Z79.899 Other long term (current) drug therapy
CPT/HCPCS: 36430; 85025; 86850; 86900; 86920; J7050; J9999; P9016

== ENCOUNTER 2025-04-08 23:39 | Emergency (ER) | payer MEDICARE, OTHER, SELFPAY ==
[2025-04-08 23:48] VITALS: BP 163/91; PULSE 66; RESP 20; TEMP 36.4; O2SAT 99; BMI 38.9
--- NOTE | 2025-04-08 23:51 | ECG_ITS ---
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 Measurements Intervals [place] Rate: 66 P: 65 [place]: 149 QRS: -69 QRSD: 228 T: 112 QT: 514 QTc: 540 Interpretive Statements ELECTRONIC VENTRICULAR PACEMAKER ABNORMAL RHYTHM ECG Compared to ECG 02/09/2024 11:56:10 Atrial-paced complex(es) or rhythm no longer present Electronically Signed On 04-11-2025 06:20:35 CDT by Alicia Rodriguez M.D. [email or web address] [id number]
--- NOTE | 2025-04-08 23:51 | XRR_ITS ---
PROCEDURE INFORMATION: Exam: XR Chest Exam date and time: 04/09/2025 1:28 AM Age: 79 years old Clinical indication: Pain; Chest pressure; Additional info: Chest pain TECHNIQUE: Imaging protocol: Radiologic exam of the chest. Views: 1 view. COMPARISON: CT angio chest PE protcl [id number] 02/09/2024 11:17 AM FINDINGS: Tubes, catheters and devices: Cardiac pacemaker, unchanged. Lungs: Unremarkable. No consolidation. Pleural spaces: Unremarkable. No pleural effusion. No pneumothorax. Heart/Mediastinum: Unremarkable. No cardiomegaly. Vasculature: Tortuous thoracic aorta. Bones/joints: Unremarkable. XR/XR chest 1V portable [id number] IMPRESSION: No acute cardiopulmonary process.
[2025-04-09 01:49] LABS: Basophils % 0.6 %; Eosinophils % 1.3 %; Hematocrit 26.3 % (37-53); Lymphocytes # 1.2 10^3/uL (0.8-4.8); Mean Corpuscular HGB Conc 32.3 g/dL (30-55); Mean Corpuscular Hemoglobin 28.7 pg (27-33); Mean Corpuscular Volume 88.9 fl (82-101); Monocytes # 0.1 10^3/uL (0.2-0.9); Monocytes % 1.9 %; Neutrophils # 1.81 10^3/uL (1.8-7.7); Neutrophils % 57.9 %; Nucleated Red Blood Cells % 0 %; Platelet Count 44 10^3/cmm (157-399); Red Blood Count 2.96 10^6/uL (3.85-5.65); Red Cell Distribution Width 14.8 % (12.1-15.1); White Blood Count 3.13 10^3/uL (3.29-11.43)
--- NOTE | 2025-04-09 01:59 | ECG_ITS ---
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 Measurements Intervals [place] Rate: 59 P: 55 [place]: 177 QRS: -68 QRSD: 217 T: 108 QT: 516 QTc: 515 Interpretive Statements ELECTRONIC ATRIAL PACEMAKER ELECTRONIC VENTRICULAR PACEMAKER ABNORMAL RHYTHM ECG Compared to ECG 04/08/2025 23:55:52 No significant changes Electronically Signed On 04-11-2025 08:22:40 CDT by Jan Winn M.D. [id number]
[2025-04-09 02:14] LABS: Lactic Sepsis W/Reflex 2.9 mmol/L (0.5-2.2)
[2025-04-09 02:15] LABS: Slide Review Slide Review Perform; Troponin(5th) Baseline 87 ng/L (0-15)
[2025-04-09 02:25] LABS: NT Pro B Type Natriuretic Pept 695 pg/mL (0-450)
[2025-04-09 02:37] LABS: Alanine Aminotransferase 40 U/L (0-41); Albumin Level 3.8 g/dL (3.5-5.2); Alkaline Phosphatase 148 U/L (40-130); Anion Gap 18.1 (5-19); Aspartate Amino Transferase 18 U/L (0-40); Blood Urea Nitrogen 45 mg/dL (8-23); C Reactive Protein 7.9 mg/L (0.0-4.9); Calcium 9.4 mg/dL (8.5-10.5); Carbon Dioxide 19 mmol/L (22-29); Chloride 102 mmol/L (98-107); Glucose 116 mg/dL (65-115); Osmolality Calculated 293 mOsm/kg (285-295); Potassium 4.1 mmol/L (3.5-5.1); Sodium 135 mmol/L (136-145); Total Protein 6.8 g/dL (6.6-8.7)
[2025-04-09 03:01] VITALS: BP 133/77; PULSE 63; O2SAT 99
--- NOTE | 2025-04-09 03:06 | CTR_ITS ---
PROCEDURE INFORMATION: Exam: CT Abdomen And Pelvis Without Contrast Exam date and time: 04/09/2025 3:15 AM Age: 79 years old Clinical indication: Abdominal pain; Generalized TECHNIQUE: Imaging protocol: Computed tomography of the abdomen and pelvis without contrast. Radiation optimization: All CT scans at this facility use at least one of these dose optimization techniques: automated exposure control; mA and/or kV adjustment per patient size (includes targeted exams where dose is matched to clinical indication); or iterative reconstruction. COMPARISON: US abdomen complete* [id number] 08/08/2024 8:30 AM RADIATION DOSE METRICS: Total DLP (mGy-cm): 1080.2 FINDINGS: Limitations: Visualization of lower pelvic structures is limited due to streak artifact from prosthetic hip hardware. Tubes, catheters and devices: Cardiac pacemaker, unchanged. Liver: Normal. No mass. Gallbladder and biliary ducts: Distended and containing a single gallstone. Minimal pericholecystic fat stranding. Pancreas: Normal. No ductal dilation. Spleen: Normal. No splenomegaly. Adrenal glands: Stable 1.4 cm right adrenal nodule, likely adenoma. Kidneys and ureters: Normal. No hydronephrosis. Stomach and bowel: Bowel has normal caliber. Scattered colonic diverticuli without evidence of diverticulitis. Moderate size right inguinal hernia containing nonobstructed loops of distal small bowel. Appendix: No evidence of appendicitis. Intraperitoneal space: Unremarkable. No free air. No significant fluid collection. Vasculature: Aortoiliac atherosclerotic disease is seen without evidence of aneurysm. Lymph nodes: Unremarkable. No enlarged lymph nodes. Urinary bladder: Unremarkable as visualized. Reproductive: Unremarkable as visualized. Bones/joints: Bilateral total hip arthroplasty. Chronic grade 1 spondylolytic spondylolisthesis L5-S1. No acute or suspicious osseous abnormality. Soft tissues: Unremarkable. CT/CT abdomen pelvis wo con [id number] IMPRESSION: 1. Distended gallbladder containing a single gallstone. Minimal adjacent fat stranding. Acute cholecystitis can not be excluded. Consider gallbladder ultrasound for further evaluation if indicated. 2. Moderate size right inguinal hernia containing nonobstructed loops of distal small bowel.
--- NOTE | 2025-04-09 03:06 | W.ED.ABDPA2 ---
HPI - Abdominal Pain General: Chief Complaint: Abdominal Pain Stated Complaint: Pain Under Left Breast Time Seen by Provider: 04/09/25 02:48 History of Present Illness: 79-year-old man with a history of chronic kidney disease, who mild dysplastic syndrome, congestive heart failure, pacemaker placement, BPH and hypertension who presents to the emergency room with left upper quadrant and left back pain. This started earlier today. Initially he just had back pain and it would hurt worse with movement. He then developed left abdominal pain. No dysuria. No nausea or vomiting. No fevers. Related Data Home Medications ?Medication ?Instructions ?Recorded ?Confirmed furosemide 40 mg tablet 40 mg PO BID 05/16/23 03/12/25 magnesium L-lactate 84 mg mg PO 01/29/25 03/12/25 tablet,extended release spironolactone 50 mg tablet mg PO 01/29/25 03/12/25 Previous Rx's ?Medication ?Instructions ?Recorded nitroglycerin 0.4 mg sublingual 0.4 mg sublingual Q5M PRN chest 06/29/23 tablet pain 30 days #30 tabs aspirin 81 mg tablet,delayed 81 mg PO DAILY #30 tabs 02/09/24 release Portable oxygen concentrator and #1 ea 04/24/24 supplies levofloxacin 500 mg tablet 500 mg PO DAILY 5 days #5 tabs 02/26/25 levothyroxine 50 mcg tablet 50 mcg PO DAILY #30 tabs 03/13/25 (Euthyrox) Allergies Allergy/AdvReac Type Severity Reaction Status Date / Time No Known Allergies Allergy Verified 03/12/25 08:32 Review of Systems Narrative: Constitutional symptoms: Negative except as documented in HPI. Skin symptoms: Negative except as documented in HPI. Eye symptoms: Negative except as documented in HPI. ENMT symptoms: Negative except as documented in HPI. Respiratory symptoms: Negative except as documented in HPI. Cardiovascular symptoms: Negative except as documented in HPI. Gastrointestinal symptoms: Negative except as documented in HPI. Genitourinary symptoms: Negative except as documented in HPI. Musculoskeletal symptoms: Negative except as documented in HPI. Neurologic symptoms: Negative except as documented in HPI. Psychiatric symptoms: Negative except as documented in HPI. Endocrine symptoms: Negative except as documented in HPI. PFS ED PFSH: Medical History Chronic kidney disease, stage III (moderate) 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 Systolic CHF Pacemaker Edema, peripheral Aortic regurgitation Acute diastolic heart failure Hypothyroidism (acquired) Third degree heart block Obesity (BMI 30-39.9) Acute exacerbation of CHF (congestive heart failure) Benign essential hypertension with target blood pressure below 140/90 Elevated brain natriuretic peptide (BNP) level Grade III diastolic dysfunction EF 67% Mild pulmonary hypertension LVH Diverticulitis of small bowel BPH (benign prostatic hyperplasia) Cholelithiasis Dyslipidemia Hypertension Surgical History History of bone marrow biopsy History of removal of cyst Right arm - 2004 History of ankle surgery Bilateral History of elbow surgery Left elbow History of bilateral hip arthroplasty Status post biventricular pacemaker S/P cardiac cath Normal 2013 Procedure Procedure Type Diagnostic procedure:Miscellaneous, Perclose , Coronary Angiography Conclusions Procedure Summary 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 due to tumor surgery in the right arm right groin approach was adopted difficulty in access was encounter due to fatty tumors in the thigh, hematoma was observed, procedure was aborted since it was elective in order to avoid major bleeding in case we have to proceed with PCI.Patient was observed for next 24 hours did fine no further bleeding or hematoma observed.He was approached from left groin which remain successful next day.Patient was discharged home without any complication next day 1-LM is normal 2-LAD has luminal irregularities 3-LCx has luminal irregularities 4-RCA has luminal irregularities Family History Mother Cancer Father Stroke Brother Polycythemia rubra vera Other Hypertension Denies family history of Diabetes CAD (coronary artery disease) Clotting disorder Dementia Hyperlipidemia Psychiatric illness Chronic kidney disease (CKD) Suicide Anesthesia complication Bleeding disorder Lung disease Social History Smoking and tobacco/nicotine status: never used tobacco/nicotine Alcohol intake: never Substance/Drug Use: never Household members: family Housing: House Physical Exam Narrative: EXAM NARRATIVE: General: Alert, no acute distress. Skin: Warm, dry. Head: Normocephalic, atraumatic. Neck: Supple, trachea midline. Eye: Extraocular movements are intact. Ears, nose, mouth and throat: mucosa moist. Cardiovascular: Regular, Normal peripheral perfusion. Respiratory: Lungs are clear to auscultation, respirations are non-labored, breath sounds are equal, Symmetrical chest wall expansion. Gastrointestinal: Soft, Nontender, Non distended Musculoskeletal: Normal ROM, no deformity. Neurological: Alert and oriented, No focal neurological deficit observed. Psychiatric: Cooperative, appropriate mood & affect. Course Vital Signs: Vital signs: Vital Signs Temperature 97.5 F L 04/08/25 23:48 Pulse Rate 45 L 04/09/25 04:30 Respiratory Rate 04/09/25 04:30 Blood Pressure 131/76 04/09/25 04:30 Pulse Oximetry 97 04/09/25 04:30 Oxygen Delivery Me thod Room Air 04/09/25 04:00 MDM - Abdominal Pain Medical Decision Making Medical decision making: Differential diagnosis including but not limited to and based on the above HPI, review of systems and physical exam: Ureterolithiasis. Urinary tract infection. Appendicitis. Cholecystis. Musculoskeletal / back pain. Pyelonephritis. Orders placed to evaluate differential diagnosis based on the above differential, HPI and physical exam Lab Review: Laboratory results were reviewed and interpreted by myself the emergency room physician. Leukopenia. Stable anemia. Stable thrombocytopenia. BUN and creatinine are at or near his baseline at 45 and 1.8. Urinalysis is negative for infection. CT of the abdomen pelvis without contrast: No acute process. The gallbladder is a bit distended but on exam the patient does not have any pain in his right upper quadrant. No nausea or vomiting. This was reviewed and interpreted by myself the emergency room physician. I also reviewed the radiology report. I reviewed the patient's medical record. Reexamination: Patient says his back is feeling quite a bit better. Patient remained stable. No increased work of breathing. No altered mental status. No focal motor deficits. Assessment and plan: Musculoskeletal back pain ?[place] in the emergency room - Discharged home - Discussed plan with patient. Answered any questions. - Evaluation and treatment of this problem were appropriate in the emergency setting. Lab Data 04/09/25 01:35 04/09/25 01:35 Labs/Radiology: Radiology Impressions Chest X-Ray 04/08/25 23:51 IMPRESSION: No acute cardiopulmonary process. Abdomen/Pelvis CT 04/09/25 03:06 IMPRESSION: 1. Distended gallbladder containing a single gallstone. Minimal adjacent fat stranding. Acute cholecystitis can not be excluded. Consider gallbladder ultrasound for further evaluation if indicated. 2. Moderate size right inguinal hernia containing nonobstructed loops of distal small bowel. Laboratory Results WBC 3.13 10^3/uL (3.29-11.43) L 04/09/25 01:35 RBC 2.96 10^6/uL (3.85-5.65) L 04/09/25 01:35 Hgb 8.50 g/dL (11.27-16.99) L 04/09/25 01:35 Hct 26.3 % (37-53) L 04/09/25 01:35 MCV 88.9 fl (82-101) 04/09/25 01:35 MCH 28.7 pg (27-33) 04/09/25 01:35 MCHC 32.3 g/dL (30-55) 04/09/25 01:35 RDW 14.8 % (12.1-15.1) 04/09/25 01:35 Plt Count 44 10^3/cmm (157-399) L 04/09/25 01:35 MPV Not Reportable 04/09/25 01:35 Neut % (Auto) 57.9 % 04/09/25 01:35 Lymph % (Auto) 38.0 % 04/09/25 01:35 [place] % (Auto) 1.9 % 04/09/25 01:35 Eos % (Auto) 1.3 % 04/09/25 01:35 Baso % (Auto) 0.6 % 04/09/25 01:35 Neut # (Auto) 1.81 10^3/uL (1.8-7.7) 04/09/25 01:35 Lymph # (Auto) 1.2 10^3/uL (0.8-4.8) 04/09/25 01:35 [place] # (Auto) 0.1 10^3/uL (0.2-0.9) L 04/09/25 01:35 Eos # (Auto) 0.0 10^3/uL (0.0-0.8) 04/09/25 01:35 Baso # (Auto) 0.0 10^3/uL (0.0-0.1) 04/09/25 01:35 Nucleated RBC % (auto) 0 % 04/09/25 01:35 Nucleated RBCs # 0.0 /100WBC 04/09/25 01:35 Sodium 135 mmol/L (136-145) L 04/09/25 01:35 Potassium 4.1 mmol/L (3.5-5.1) 04/09/25 01:35 Chloride 102 mmol/L (98-107) 04/09/25 01:35 Carbon Dioxide 19 mmol/L (22-29) L 04/09/25 01:35 Anion Gap 18.1 (5-19) 04/09/25 01:35 BUN 45 mg/dL (8-23) H 04/09/25 01:35 Creatinine 1.8 mg/dL (0.7-1.2) H 04/09/25 01:35 GFR Calculation Not Reportable 04/09/25 01:35 Glucose 116 mg/dL (65-115) H 04/09/25 01:35 Calculated Osmolality 293 mOsm/kg (285-295) 04/09/25 01:35 Lactic Acid 2.9 mmol/L (0.5-2.2) H 04/09/25 01:35 Lactic Acid (Sepsis) 1.2 mmol/L (0.5-2.2) 04/09/25 04:25 Calcium 9.4 mg/dL (8.5-10.5) 04/09/25 01:35 AST 18 U/L (0-40) 04/09/25 01:35 ALT 40 U/L (0-41) 04/09/25 01:35 Alkaline Phosphatase 148 U/L (40-130) H 04/09/25 01:35 Troponin T Baseline 87 ng/L (0-15) H 04/09/25 01:35 Troponin T 120 Minute 83.00 ng/L (0-15) H 04/09/25 03:25 Delta Troponin T -4.00 ABS# (0-10) L 04/09/25 03:25 C-Reactive Protein 7.9 mg/L (0.0-4.9) H 04/09/25 01:35 NT-Pro-B Natriuret Pep 695 pg/mL (0-450) H 04/09/25 01:35 Total Protein 6.8 g/dL (6.6-8.7) 04/09/25 01:35 Albumin 3.8 g/dL (3.5-5.2) 04/09/25 01:35 Globulin 3.0 g/dL (1.3-4.6) 04/09/25 01:35 Procalcitonin 0.20 ng/mL (0-0.5) 04/09/25 01:35 Urine Color Yellow (Yellow) 04/09/25 02:53 Urine Appearance Clear (CLEAR) 04/09/25 02:53 Urine pH 6.5 (5-7) 04/09/25 02:53 Ur Specific [place] 1.006 (1.005-1.030) 04/09/25 02:53 Urine Protein Negative (Negative) 04/09/25 02:53 Urine Glucose (UA) Negative (Normal) 04/09/25 02:53 Urine Ketones Negative (Negative) 04/09/25 02:53 Urine Blood Negative (Negative) 04/09/25 02:53 Urine Nitrate Negative (Negative) 04/09/25 02:53 Urine Bilirubin Negative (Negative) 04/09/25 02:53 Urine Urobilinogen 1.0 mg/dL (Negative) 04/09/25 02:53 Ur Leukocyte Esterase Negative (Negative) 04/09/25 02:53 Urine RBC 0-2 /hpf (0-2) 04/09/25 02:53 Urine WBC 0-5 /hpf (0-5) 04/09/25 02:53 Ur Squamous Epith Cells 0-5 /hpf (0-5) 04/09/25 02:53 Amorphous Sediment Not Reportable 04/09/25 02:53 Urine Bacteria None seen /hpf (NONE) 04/09/25 02:53 Hyaline Casts 0-4 /lpf H 04/09/25 02:53 All radiology interpretation(s) finalized by discharge Discharge Plan Discharge Patient Disposition: Home Clinical Impression: Back pain Condition: Stable Prescriptions: No Action nitroglycerin 0.4 mg tablet, sublingual 0.4 mg sublingual Q5M PRN (Reason: chest pain) 30 Days Qty: 30 3RF Rx Instructions: until response; do not exceed 3 doses per episode spironolactone 50 mg tablet PO magnesium L-lactate 84 mg tablet extended release PO furosemide 40 mg tablet 40 mg PO BID Rx Instructions: Must be seen for further refills (DME) Portable oxygen concentrator and supplies See Rx Instructions .Route .MEDSUPPLY Qty: 1 0RF Rx Instructions: As directed levofloxacin 500 mg tablet 500 mg PO DAILY 5 Days Qty: 5 0RF levothyroxine [Euthyrox] 50 mcg tablet 50 mcg PO DAILY Qty: 30 0RF aspirin 81 mg tablet,delayed release (DR/EC) 81 mg PO DAILY Qty: 30 0RF Discharge Orders: Discharge ED (Routine); Ordered 04/09/25 Ordered By: Leyla Laws Referrals: Cal Burris MD [Primary Care Provider, Family Practice] Discharge Diet: Usual diet Discharge Activity: Increase activity as tolerated Patient Instructions: Back Pain (ED), Opioid Safety, Pain Management Activity Restrictions/Additional Instructions: Thank you for choosing [facility] for your healthcare needs today. You have been screened and evaluated and felt safe for discharge. Health conditions do change or evolve sometimes and as such it is important that you follow up with your Primary Doctor to be re checked, 3-5 days is a general good time frame for follow up. You are always welcome to return to the ED for re assessment if your symptoms are worsening or you have new concerns Print Language: Tristanian Coding Level of Care Code ED Counter Control Operator for Vonda Sin
[2025-04-09 03:30] VITALS: BP 142/81; PULSE 65; O2SAT 95
[2025-04-09 03:33] LABS: Reflex Lactate Order REFLEX LACTIC ORDERD
[2025-04-09 04:00] VITALS: BP 127/78; PULSE 52; RESP 18; O2SAT 99
[2025-04-09 04:30] VITALS: BP 131/76; PULSE 45; RESP 17; O2SAT 97
[2025-04-09 04:48] LABS: Bilirubin Urine Negative (Negative); Blood Urine Negative (Negative); Glucose Urine UA Negative (Normal); Ketones Urine Negative (Negative); Leukocyte Esterase Urine Negative (Negative); Nitrate Urine Negative (Negative); Protein Urine Negative (Negative); Specific Gravity, Urine 1.006 (1.005-1.030); Urine Appearance Clear (CLEAR); Urine Color Yellow (Yellow); pH Urine 6.5 (5-7)
[2025-04-09 04:53] LABS: Bacteria Urine None Seen /hpf; Hyaline Casts Urine 0-4 /lpf; RBC Urine 0-2 /hpf (0-2); Squamous Epithelial Cell Urine 0-5 /hpf (0-5); WBC Urine 0-5 /hpf (0-5)
[2025-04-09 04:53] LABS: Lactic Acid level (Lactate) 1.2 mmol/L (0.5-2.2)
[2025-04-09 04:59] LABS: Add Urine Culture? No
[2025-04-09] MEDS: HYDROcodone-acetaminophen 5-325 mg Tablet 1 TAB PO (05:00)
[2025-04-09 05:05] VITALS: BP 146/84; PULSE 61; O2SAT 96
[2025-04-09 05:05] LABS: Total Bilirubin 0.4 mg/dL (0.15-1.2)
== END 2025-04-09 05:06 | disposition home or self-care (01) ==
PROVIDERS: Emergency Provider Emergency Medicine; PCP Family Medicine
DX: M54.9 Dorsalgia, unspecified (principal); Z79.82 Long term (current) use of aspirin; E78.5 Hyperlipidemia, unspecified; Z95.0 Presence of cardiac pacemaker; I13.0 Hypertensive heart and chronic kidney disease with heart failure and stage 1 through stage 4 chronic kidney disease, or unspecified chronic kidney disease; N18.30 Chronic kidney disease, stage 3 unspecified; I50.20 Unspecified systolic (congestive) heart failure
CPT/HCPCS: 36415; 71045; 74176; 80053; 81001; 83605; 83880; 84145; 84484; 85025; 86140; 87040; 93005; 99285; J9999

== ENCOUNTER 2025-04-16 08:00 | Oncology outpatient (recurring) (ONCR) | payer MEDICARE, OTHER, SELFPAY ==
[2025-03-26 08:29] LABS: Basophils % 0.9 %; Eosinophils % 0.6 %; Hematocrit 26.7 % (37-53); Lymphocytes # 1.1 10^3/uL (0.8-4.8); Lymphocytes % 31.1 %; Mean Corpuscular HGB Conc 32.2 g/dL (30-55); Mean Corpuscular Hemoglobin 29.2 pg (27-33); Mean Corpuscular Volume 90.5 fl (82-101); Mean Platelet Volume 14.5 fL (7.4-10.4); Monocytes # 0.2 10^3/uL (0.2-0.9); Monocytes % 6.3 %; Neutrophils # 2.13 10^3/uL (1.8-7.7); Neutrophils % 60.8 %; Nucleated Red Blood Cells % 0 %; Platelet Count 79 10^3/cmm (157-399); Red Blood Count 2.95 10^6/uL (3.85-5.65); Red Cell Distribution Width 15.7 % (12.1-15.1)
[2025-03-26 08:48] LABS: Alanine Aminotransferase 45 U/L (0-41); Albumin Level 3.5 g/dL (3.5-5.2); Alkaline Phosphatase 128 U/L (40-130); Blood Urea Nitrogen 39 mg/dL (8-23); Calcium 8.9 mg/dL (8.5-10.5); Carbon Dioxide 20 mmol/L (22-29); Chloride 104 mmol/L (98-107); Glucose 111 mg/dL (65-115); Osmolality Calculated 290 mOsm/kg (285-295); Sodium 135 mmol/L (136-145); Total Bilirubin 0.5 mg/dL (0.15-1.2); Total Protein 6.5 g/dL (6.6-8.7)
[2025-03-26 08:57] LABS: Anion Gap 16.3 (5-19); Aspartate Amino Transferase 22 U/L (0-40); Potassium 5.3 mmol/L (3.5-5.1)
[2025-04-02 08:26] LABS: Basophils % 1.1 %; Eosinophils % 1.1 %; Hematocrit 26.6 % (37-53); Lymphocytes # 0.9 10^3/uL (0.8-4.8); Lymphocytes % 31.9 %; Mean Corpuscular HGB Conc 31.6 g/dL (30-55); Mean Corpuscular Hemoglobin 28.6 pg (27-33); Mean Corpuscular Volume 90.5 fl (82-101); Monocytes # 0.1 10^3/uL (0.2-0.9); Monocytes % 2.1 %; Neutrophils # 1.82 10^3/uL (1.8-7.7); Neutrophils % 63.8 %; Nucleated Red Blood Cells % 0 %; Platelet Count 55 10^3/cmm (157-399); Red Blood Count 2.94 10^6/uL (3.85-5.65); Red Cell Distribution Width 15.6 % (12.1-15.1); White Blood Count 2.85 10^3/uL (3.29-11.43)
[2025-04-02 08:45] VITALS: BP 107/66; PULSE 60; RESP 17; TEMP 36.2; O2SAT 96
[2025-04-02 09:30] LABS: Alanine Aminotransferase 29 U/L (0-41); Albumin Level 3.6 g/dL (3.5-5.2); Alkaline Phosphatase 94 U/L (40-130); Anion Gap 16.4 (5-19); Aspartate Amino Transferase 76 U/L (0-40); Blood Urea Nitrogen 18 mg/dL (8-23); Calcium 7.9 mg/dL (8.5-10.5); Carbon Dioxide 20 mmol/L (22-29); Chloride 95 mmol/L (98-107); Globulin 1.2 g/dL (1.3-4.6); Glucose 98 mg/dL (65-115); Osmolality Calculated 266 mOsm/kg (285-295); Potassium 4.4 mmol/L (3.5-5.1); Sodium 127 mmol/L (136-145); Total Protein 4.8 g/dL (6.6-8.7)
[2025-04-02 09:45] LABS: Total Bilirubin 1.1 mg/dL (0.15-1.2)
[2025-04-02] MEDS: sodium chloride 0.9% 250 mL Bag IV (10:47)
[2025-04-02] MEDS: diphenhydrAMINE 25 mg Capsule PO (10:48)
[2025-04-02] MEDS: acetaminophen 325 mg Tablet 650 MG PO (10:48)
[2025-04-02 10:55] VITALS: BP 112/76; PULSE 60; RESP 18; TEMP 36.2; O2SAT 97
[2025-04-02 11:05] VITALS: BP 108/68; PULSE 60; RESP 18; TEMP 35.7; O2SAT 96
[2025-04-02 11:20] VITALS: BP 118/73; PULSE 60; RESP 17; TEMP 36.2; O2SAT 93
[2025-04-02 13:00] VITALS: BP 131/82; PULSE 70; RESP 18; TEMP 36.2; O2SAT 96
[2025-04-02 13:15] VITALS: BP 131/82; PULSE 70; RESP 18; TEMP 36.2; O2SAT 96
--- NOTE | 2025-04-09 08:32 | PC.NURSE ---
patient came in for the lab draw which he stated he just was discharged from ER at [address] Izaguirre notified with no further labs .iliana
--- NOTE | 2025-04-09 16:30 | PC.NURSE ---
Patient was in the ER earlier with no plans for treatment today and no extra labs drawn.mm
[2025-04-16] VITALS (10 sets, daily range): BP systolic 98–123; BP diastolic 63–75; PULSE 18–63; RESP 16–18; TEMP 36.1–36.6; O2SAT 93–98
[2025-04-16 08:24] LABS: Basophils % 1.1 %; Eosinophils % 0.6 %; Mean Corpuscular HGB Conc 31.9 g/dL (30-55); Mean Corpuscular Hemoglobin 28.4 pg (27-33); Mean Corpuscular Volume 89.2 fl (82-101); Monocytes # 0.1 10^3/uL (0.2-0.9); Neutrophils % 36.3 %; Nucleated Red Blood Cells % 0 %; Platelet Count 51 10^3/cmm (157-399); Red Blood Count 2.32 10^6/uL (3.85-5.65); White Blood Count 1.74 10^3/uL (3.29-11.43)
[2025-04-16 08:31] LABS: Slide Review Slide Review Perform
[2025-04-16 08:32] LABS: Hematocrit 20.7 % (37-53); Neutrophils # 0.63 10^3/uL (1.8-7.7)
[2025-04-16 08:54] LABS: Alanine Aminotransferase 55 U/L (0-41); Albumin Level 3.4 g/dL (3.5-5.2); Alkaline Phosphatase 136 U/L (40-130); Anion Gap 14.2 (5-19); Aspartate Amino Transferase 27 U/L (0-40); Blood Urea Nitrogen 33 mg/dL (8-23); Calcium 8.7 mg/dL (8.5-10.5); Carbon Dioxide 23 mmol/L (22-29); Chloride 101 mmol/L (98-107); Globulin 2.6 g/dL (1.3-4.6); Glucose 144 mg/dL (65-115); Osmolality Calculated 288 mOsm/kg (285-295); Potassium 4.2 mmol/L (3.5-5.1); Sodium 134 mmol/L (136-145); Total Bilirubin 0.3 mg/dL (0.15-1.2)
[2025-04-16] MEDS: acetaminophen 325 mg Tablet 650 MG PO (09:55)
[2025-04-16] MEDS: diphenhydrAMINE 25 mg Capsule PO (09:55)
[2025-04-16] MEDS: sodium chloride 0.9% 250 mL Bag IV (09:56)
== END 2025-04-22 23:59 | disposition home or self-care (01) ==
PROVIDERS: Internal Medicine Medical Oncology; Nurse Practitioner Family; PCP Family Medicine; Visit Provider Internal Medicine
DX: D46.C Myelodysplastic syndrome with isolated del(5q) chromosomal abnormality; Z53.9 Procedure and treatment not carried out, unspecified reason
CPT/HCPCS: 36415; 36430; 80053; 85025; 86850; 86900; 86920; 99214; J7050; J9999; P9016

== ENCOUNTER 2025-04-30 07:54 | Oncology outpatient (recurring) (ONCR) | payer MEDICARE, OTHER, SELFPAY ==
[2025-04-23 08:40] LABS: Hematocrit 26.7 % (37-53); Hemoglobin 8.60 g/dL (11.27-16.99); Mean Corpuscular HGB Conc 32.2 g/dL (30-55); Mean Corpuscular Hemoglobin 28.8 pg (27-33); Mean Corpuscular Volume 89.3 fl (82-101); Nucleated Red Blood Cells % 0 %; Platelet Count 78 10^3/cmm (157-399); Red Blood Count 2.99 10^6/uL (3.85-5.65); White Blood Count 2.05 10^3/uL (3.29-11.43)
[2025-04-23 09:05] LABS: Alanine Aminotransferase 56 U/L (0-41); Albumin Level 3.5 g/dL (3.5-5.2); Alkaline Phosphatase 150 U/L (40-130); Anion Gap 15.0 (5-19); Aspartate Amino Transferase 23 U/L (0-40); Blood Urea Nitrogen 27 mg/dL (8-23); Calcium 9.2 mg/dL (8.5-10.5); Carbon Dioxide 26 mmol/L (22-29); Chloride 99 mmol/L (98-107); Creatinine Clr Calc Pharmacy 40.8452; Globulin 3.1 g/dL (1.3-4.6); Glucose 118 mg/dL (65-115); Osmolality Calculated 288 mOsm/kg (285-295); Potassium 4.0 mmol/L (3.5-5.1); Sodium 136 mmol/L (136-145); Thyroid Stimulating Hormone 4.03 uIU/mL (0.27-4.20); Total Protein 6.6 g/dL (6.6-8.7)
[2025-04-23 09:53] LABS: Iron 192 ug/dL (59-158)
[2025-04-23 10:08] LABS: Vitamin B12 223 pg/mL (232-1245)
[2025-04-23 10:37] LABS: Ferritin 2878 ng/mL (30-400)
[2025-04-23 10:38] LABS: Unsaturated Iron Binding < 17 ug/dL (112-347)
[2025-04-23 10:39] LABS: Total Iron Binding Capacity 209 mcg/dl
[2025-04-23] MEDS: deferoxamine 2 GM in sodium chloride 0.9% 250 ML IV (11:34)
[2025-04-23 15:02] VITALS: BP 118/72; PULSE 57; TEMP 35.8; O2SAT 93
[2025-04-30 08:38] LABS: Hematocrit 24.6 % (37-53); Hemoglobin 8.00 g/dL (11.27-16.99); Mean Corpuscular HGB Conc 32.5 g/dL (30-55); Mean Corpuscular Hemoglobin 29.5 pg (27-33); Mean Corpuscular Volume 90.8 fl (82-101); Nucleated Red Blood Cells % 0 %; Platelet Count 114 10^3/cmm (157-399); Red Blood Count 2.71 10^6/uL (3.85-5.65); White Blood Count 3.44 10^3/uL (3.29-11.43)
[2025-04-30 08:54] LABS: Alanine Aminotransferase 58 U/L (0-41); Albumin Level 3.5 g/dL (3.5-5.2); Alkaline Phosphatase 169 U/L (40-130); Aspartate Amino Transferase 30 U/L (0-40); Blood Urea Nitrogen 28 mg/dL (8-23); Calcium 8.9 mg/dL (8.5-10.5); Carbon Dioxide 24 mmol/L (22-29); Chloride 100 mmol/L (98-107); Creatinine Clr Calc Pharmacy 35.9656; Globulin 2.8 g/dL (1.3-4.6); Glucose 118 mg/dL (65-115); Osmolality Calculated 287 mOsm/kg (285-295); Sodium 135 mmol/L (136-145); Total Protein 6.3 g/dL (6.6-8.7)
[2025-04-30 08:56] LABS: Anion Gap 15.6 (5-19); Potassium 4.6 mmol/L (3.5-5.1)
[2025-04-30] MEDS: hydrocortisone 100 mg/2 mL SDV IVP (10:16)
[2025-04-30] MEDS: [UNRECOGNIZED DRUG - OTHER] IV (11:07)
[2025-04-30] MEDS: SODIUM CHLORIDE 0.9% IV (11:07)
[2025-04-30 13:59] VITALS: BP 108/63; PULSE 93; O2SAT 94
== END 2025-04-30 23:59 | disposition home or self-care (01) ==
PROVIDERS: Nurse Practitioner Family; PCP Family Medicine; Visit Provider Internal Medicine Medical Oncology
DX: D46.C Myelodysplastic syndrome with isolated del(5q) chromosomal abnormality (principal); E83.111 Hemochromatosis due to repeated red blood cell transfusions; R03.0 Elevated blood-pressure reading, without diagnosis of hypertension; Z79.899 Other long term (current) drug therapy
CPT/HCPCS: 80053; 82607; 82728; 82746; 83540; 83550; 84443; 85025; 96365; 96366; 99214; J0870; J0895; J1720; J7040; J7050

== ENCOUNTER 2025-05-21 07:34 | Oncology outpatient (recurring) (ONCR) | payer MEDICARE, OTHER, SELFPAY ==
[2025-05-07] VITALS (11 sets, daily range): BP systolic 102–132; BP diastolic 56–73; PULSE 58–73; RESP 14–18; TEMP 36.1–36.7; O2SAT 94–98
[2025-05-07 08:31] LABS: Mean Corpuscular HGB Conc 31.7 g/dL (30-55); Mean Corpuscular Hemoglobin 28.5 pg (27-33); Mean Corpuscular Volume 90.0 fl (82-101); Nucleated Red Blood Cells % 0 %; Platelet Count 96 10^3/cmm (157-399); Red Blood Count 2.21 10^6/uL (3.85-5.65); White Blood Count 3.13 10^3/uL (3.29-11.43)
[2025-05-07 08:36] LABS: Hemoglobin 6.30 g/dL (11.27-16.99)
[2025-05-07 08:37] LABS: Hematocrit 19.9 % (37-53)
[2025-05-07] MEDS: deferoxamine 2 GM in sodium chloride 0.9% 250 ML IV (10:37)
[2025-05-14] VITALS (11 sets, daily range): BP systolic 102–119; BP diastolic 63–73; PULSE 60–78; RESP 16–18; TEMP 35.8–36.6; O2SAT 94–100
[2025-05-14 08:04] LABS: Hematocrit 23.5 % (37-53); Hemoglobin 7.90 g/dL (11.27-16.99); Mean Corpuscular HGB Conc 33.6 g/dL (30-55); Mean Corpuscular Hemoglobin 30.6 pg (27-33); Mean Corpuscular Volume 91.1 fl (82-101); Nucleated Red Blood Cells % 0 %; Platelet Count 69 10^3/cmm (157-399); Red Blood Count 2.58 10^6/uL (3.85-5.65); White Blood Count 3.58 10^3/uL (3.29-11.43)
[2025-05-14 08:54] LABS: Slide Review Slide Review Perform
[2025-05-14] MEDS: deferoxamine 2 GM in sodium chloride 0.9% 250 ML IV (10:44)
[2025-05-14] MEDS: FUROsemide 10 mg/mL SDV 2mL 20 MG IVP (13:29)
[2025-05-21 08:35] LABS: Hematocrit 26.4 % (37-53); Hemoglobin 8.70 g/dL (11.27-16.99); Mean Corpuscular HGB Conc 33.0 g/dL (30-55); Mean Corpuscular Hemoglobin 30.3 pg (27-33); Mean Corpuscular Volume 92.0 fl (82-101); Nucleated Red Blood Cells % 0 %; Platelet Count 39 10^3/cmm (157-399); Red Blood Count 2.87 10^6/uL (3.85-5.65); White Blood Count 2.42 10^3/uL (3.29-11.43)
[2025-05-21 08:55] LABS: Alanine Aminotransferase 52 U/L (0-41); Albumin Level 3.4 g/dL (3.5-5.2); Alkaline Phosphatase 143 U/L (40-130); Anion Gap 16.9 (5-19); Aspartate Amino Transferase 26 U/L (0-40); Blood Urea Nitrogen 27 mg/dL (8-23); Calcium 8.8 mg/dL (8.5-10.5); Carbon Dioxide 25 mmol/L (22-29); Chloride 101 mmol/L (98-107); Globulin 2.9 g/dL (1.3-4.6); Glucose 132 mg/dL (65-115); Osmolality Calculated 295 mOsm/kg (285-295); Potassium 3.9 mmol/L (3.5-5.1); Sodium 139 mmol/L (136-145); Total Protein 6.3 g/dL (6.6-8.7)
--- NOTE | 2025-05-21 10:56 | PC.NURSE ---
labs drawn with no transfusion today. plans for lab for next week. His legs edematous with plans to see his primary physician
== END 2025-05-23 23:59 | disposition home or self-care (01) ==
PROVIDERS: Nurse Practitioner Family; PCP Family Medicine; Visit Provider Internal Medicine Medical Oncology
DX: D46.C Myelodysplastic syndrome with isolated del(5q) chromosomal abnormality; Z53.9 Procedure and treatment not carried out, unspecified reason
CPT/HCPCS: 36415; 36430; 80053; 85025; 86850; 86900; 86920; 96374; J0895; J1938; J7050; J9999; P9016; P9040

== ENCOUNTER 2025-05-28 07:45 | Oncology outpatient (recurring) (ONCR) | payer MEDICARE, OTHER, SELFPAY ==
[2025-05-28 08:29] LABS: Hematocrit 25.5 % (37-53); Hemoglobin 8.20 g/dL (11.27-16.99); Mean Corpuscular HGB Conc 32.2 g/dL (30-55); Mean Corpuscular Hemoglobin 29.4 pg (27-33); Mean Corpuscular Volume 91.4 fl (82-101); Nucleated Red Blood Cells % 0 %; Platelet Count 40 10^3/cmm (157-399); Red Blood Count 2.79 10^6/uL (3.85-5.65); White Blood Count 2.02 10^3/uL (3.29-11.43)
[2025-05-28 08:47] LABS: Alanine Aminotransferase 63 U/L (0-41); Albumin Level 3.7 g/dL (3.5-5.2); Alkaline Phosphatase 172 U/L (40-130); Anion Gap 14.2 (5-19); Aspartate Amino Transferase 28 U/L (0-40); Blood Urea Nitrogen 29 mg/dL (8-23); Calcium 9.3 mg/dL (8.5-10.5); Carbon Dioxide 25 mmol/L (22-29); Chloride 102 mmol/L (98-107); Creatinine Clr Calc Pharmacy 40.4724; Globulin 3.1 g/dL (1.3-4.6); Glucose 125 mg/dL (65-115); Osmolality Calculated 291 mOsm/kg (285-295); Potassium 4.2 mmol/L (3.5-5.1); Sodium 137 mmol/L (136-145); Total Protein 6.8 g/dL (6.6-8.7)
[2025-05-28] MEDS: hydrocortisone 100 mg/2 mL SDV IVP (09:49)
[2025-05-28] MEDS: [UNRECOGNIZED DRUG - OTHER] IV (10:09)
[2025-05-28] MEDS: SODIUM CHLORIDE 0.9% IV (10:09)
[2025-05-28 12:35] VITALS: BP 112/78; PULSE 64; RESP 17; TEMP 36.1; O2SAT 96
== END 2025-05-28 23:59 | disposition home or self-care (01) ==
PROVIDERS: PCP Family Medicine; Visit Provider Internal Medicine Medical Oncology
DX: D46.C Myelodysplastic syndrome with isolated del(5q) chromosomal abnormality (principal); R03.0 Elevated blood-pressure reading, without diagnosis of hypertension; Z79.899 Other long term (current) drug therapy; E83.111 Hemochromatosis due to repeated red blood cell transfusions; R60.9 Edema, unspecified
CPT/HCPCS: 80053; 85025; 96375; 96413; 96415; 99214; J0870; J1720; J7040; J7050

== ENCOUNTER 2025-06-17 10:45 | Oncology outpatient (recurring) (ONCR) | payer MEDICARE, OTHER, SELFPAY ==
[2025-06-04] VITALS (10 sets, daily range): BP systolic 95–132; BP diastolic 56–83; PULSE 43–76; RESP 16–18; TEMP 35.9–36.4; O2SAT 94–100
[2025-06-04 08:20] LABS: Mean Corpuscular HGB Conc 32.5 g/dL (30-55); Mean Corpuscular Hemoglobin 30.2 pg (27-33); Mean Corpuscular Volume 92.8 fl (82-101); Nucleated Red Blood Cells % 0 %; Platelet Count 51 10^3/cmm (157-399); Red Blood Count 2.22 10^6/uL (3.85-5.65); White Blood Count 2.03 10^3/uL (3.29-11.43)
[2025-06-04 08:39] LABS: Hematocrit 20.6 % (37-53)
[2025-06-04 08:41] LABS: Hemoglobin 6.70 g/dL (11.27-16.99)
[2025-06-04] MEDS: deferoxamine 2 GM in sodium chloride 0.9% 250 ML IV (09:34)
[2025-06-04] MEDS: FUROsemide 10 mg/mL SDV 2mL 20 MG IVP (12:35)
[2025-06-11 08:25] VITALS: BP 104/78; PULSE 60; RESP 17; TEMP 36.2; O2SAT 99
[2025-06-11 08:27] LABS: Hematocrit 25.7 % (37-53); Hemoglobin 8.40 g/dL (11.27-16.99); Mean Corpuscular HGB Conc 32.7 g/dL (30-55); Mean Corpuscular Hemoglobin 30.2 pg (27-33); Mean Corpuscular Volume 92.4 fl (82-101); Nucleated Red Blood Cells % 0 %; Platelet Count 60 10^3/cmm (157-399); Red Blood Count 2.78 10^6/uL (3.85-5.65); White Blood Count 1.97 10^3/uL (3.29-11.43)
[2025-06-11 08:47] LABS: Slide Review Slide Review Perform
[2025-06-17] VITALS (9 sets, daily range): BP systolic 110–130; BP diastolic 57–78; PULSE 62–76; TEMP 35.6–36.4; O2SAT 95–100
[2025-06-17 11:00] LABS: Hematocrit 23.3 % (37-53); Hemoglobin 7.50 g/dL (11.27-16.99); Mean Corpuscular HGB Conc 32.2 g/dL (30-55); Mean Corpuscular Hemoglobin 29.6 pg (27-33); Mean Corpuscular Volume 92.1 fl (82-101); Nucleated Red Blood Cells % 0 %; Platelet Count 59 10^3/cmm (157-399); Red Blood Count 2.53 10^6/uL (3.85-5.65); White Blood Count 2.27 10^3/uL (3.29-11.43)
[2025-06-17 12:28] LABS: Slide Review Slide Review Perform
[2025-06-17] MEDS: deferoxamine 2 GM in sodium chloride 0.9% 250 ML IV (14:20)
[2025-06-17] MEDS: FUROsemide 10 mg/mL SDV 2mL 20 MG IVP (15:40)
== END 2025-06-23 23:59 | disposition home or self-care (01) ==
PROVIDERS: PCP Family Medicine; Visit Provider Internal Medicine Medical Oncology
DX: D46.C Myelodysplastic syndrome with isolated del(5q) chromosomal abnormality; E83.111 Hemochromatosis due to repeated red blood cell transfusions; Z79.899 Other long term (current) drug therapy; Z53.9 Procedure and treatment not carried out, unspecified reason
CPT/HCPCS: 36415; 36430; 85025; 86850; 86900; 86920; 96365; 96366; 96375; J0895; J1938; J7050; J9999; P9016

== ENCOUNTER 2025-06-25 07:32 | Oncology outpatient (recurring) (ONCR) | payer MEDICARE, OTHER, SELFPAY ==
[2025-06-25 08:06] LABS: Hematocrit 28.2 % (37-53); Hemoglobin 9.20 g/dL (11.27-16.99); Mean Corpuscular HGB Conc 32.6 g/dL (30-55); Mean Corpuscular Hemoglobin 29.9 pg (27-33); Mean Corpuscular Volume 91.6 fl (82-101); Platelet Count 57 10^3/cmm (157-399); Red Blood Count 3.08 10^6/uL (3.85-5.65); White Blood Count 2.34 10^3/uL (3.29-11.43)
[2025-06-25 08:35] LABS: Alanine Aminotransferase 54 U/L (0-41); Albumin Level 3.6 g/dL (3.5-5.2); Alkaline Phosphatase 166 U/L (40-130); Anion Gap 13.3 (5-19); Aspartate Amino Transferase 25 U/L (0-40); Blood Urea Nitrogen 28 mg/dL (8-23); Calcium 9.3 mg/dL (8.5-10.5); Carbon Dioxide 26 mmol/L (22-29); Chloride 101 mmol/L (98-107); Globulin 3.3 g/dL (1.3-4.6); Glucose 108 mg/dL (65-115); Osmolality Calculated 288 mOsm/kg (285-295); Potassium 4.3 mmol/L (3.5-5.1); Sodium 136 mmol/L (136-145); Total Protein 6.9 g/dL (6.6-8.7)
[2025-06-25 08:45] LABS: Slide Review Slide Review Perform
[2025-06-25 08:47] LABS: Absolute Segmented Neutrophil 1.1 10/cmm (1.6-7.1); Atypical Lymphs 2.0 % (0-5); Band Neutrophils Absolute 0.1 10^3/cmm (0.0-1.2); Total Cells Counted 100 (0-100)
[2025-06-25] MEDS: hydrocortisone 100 mg/2 mL SDV IVP (09:51)
[2025-06-25] MEDS: SODIUM CHLORIDE 0.9% IV (10:30)
[2025-06-25] MEDS: [UNRECOGNIZED DRUG - OTHER] IV (10:30)
[2025-06-25 12:54] VITALS: BP 126/67; PULSE 61; RESP 17; TEMP 36.2; O2SAT 100
== END 2025-06-25 23:59 | disposition home or self-care (01) ==
PROVIDERS: PCP Family Medicine; Visit Provider Internal Medicine Medical Oncology
DX: D46.C Myelodysplastic syndrome with isolated del(5q) chromosomal abnormality (principal); Z79.899 Other long term (current) drug therapy
CPT/HCPCS: 80053; 85007; 85025; 96375; 96413; 96415; J0870; J1720; J7040; J7050

== ENCOUNTER → 2025-07-03 11:24 | Outpatient (BNVA) | payer MEDICARE, OTHER, SELFPAY | PROVIDERS: PCP Family Medicine; Visit Provider Internal Medicine Cardiovascular Disease | DX: Z45.018 Encounter for adjustment and management of other part of cardiac pacemaker (principal) | CPT/HCPCS: 93296 ==

== ENCOUNTER → 2025-07-08 09:14 | Outpatient (BNVA) | payer MEDICARE, OTHER, SELFPAY | PROVIDERS: PCP Family Medicine; Visit Provider Nurse Practitioner Family | DX: L82.1 Other seborrheic keratosis (principal); D18.01 Hemangioma of skin and subcutaneous tissue; L81.4 Other melanin hyperpigmentation; Z08 Encounter for follow-up examination after completed treatment for malignant neoplasm; Z85.828 Personal history of other malignant neoplasm of skin; D48.5 Neoplasm of uncertain behavior of skin | CPT/HCPCS: 11102; 99213 ==

== ENCOUNTER 2025-07-23 07:30 | Oncology outpatient (recurring) (ONCR) | payer MEDICARE, OTHER, SELFPAY ==
[2025-07-02] VITALS (10 sets, daily range): BP systolic 128–152; BP diastolic 67–86; PULSE 58–74; RESP 16–17; TEMP 35.9–36.6; O2SAT 95–99
[2025-07-02 08:18] LABS: Hematocrit 23.3 % (37-53); Hemoglobin 7.50 g/dL (11.27-16.99); Mean Corpuscular HGB Conc 32.2 g/dL (30-55); Mean Corpuscular Hemoglobin 29.8 pg (27-33); Mean Corpuscular Volume 92.5 fl (82-101); Nucleated Red Blood Cells % 0 %; Platelet Count 57 10^3/cmm (157-399); Red Blood Count 2.52 10^6/uL (3.85-5.65); White Blood Count 2.24 10^3/uL (3.29-11.43)
[2025-07-02 08:35] LABS: Alanine Aminotransferase 82 U/L (0-41); Albumin Level 3.5 g/dL (3.5-5.2); Alkaline Phosphatase 168 U/L (40-130); Anion Gap 9.6 (5-19); Aspartate Amino Transferase 35 U/L (0-40); Blood Urea Nitrogen 30 mg/dL (8-23); Calcium 9.0 mg/dL (8.5-10.5); Carbon Dioxide 26 mmol/L (22-29); Chloride 105 mmol/L (98-107); Globulin 2.9 g/dL (1.3-4.6); Glucose 106 mg/dL (65-115); Osmolality Calculated 289 mOsm/kg (285-295); Potassium 4.6 mmol/L (3.5-5.1); Sodium 136 mmol/L (136-145); Total Protein 6.4 g/dL (6.6-8.7)
[2025-07-02] MEDS: deferoxamine 2 GM in sodium chloride 0.9% 250 ML IV (09:28)
[2025-07-02] MEDS: bumetanide 0.25 mg/mL SDV 4 mL 1 MG IVP (13:30)
[2025-07-09 08:04] LABS: Hematocrit 30.7 % (37-53); Hemoglobin 10.20 g/dL (11.27-16.99); Mean Corpuscular HGB Conc 33.2 g/dL (30-55); Mean Corpuscular Hemoglobin 31.1 pg (27-33); Mean Corpuscular Volume 93.6 fl (82-101); Nucleated Red Blood Cells % 0 %; Platelet Count 56 10^3/cmm (157-399); Red Blood Count 3.28 10^6/uL (3.85-5.65); White Blood Count 2.53 10^3/uL (3.29-11.43)
[2025-07-09 08:13] LABS: Alanine Aminotransferase 61 U/L (0-41); Albumin Level 3.7 g/dL (3.5-5.2); Alkaline Phosphatase 169 U/L (40-130); Anion Gap 16.4 (5-19); Aspartate Amino Transferase 27 U/L (0-40); Blood Urea Nitrogen 25 mg/dL (8-23); Calcium 9.4 mg/dL (8.5-10.5); Carbon Dioxide 24 mmol/L (22-29); Chloride 103 mmol/L (98-107); Globulin 3.0 g/dL (1.3-4.6); Glucose 120 mg/dL (65-115); Osmolality Calculated 294 mOsm/kg (285-295); Potassium 4.4 mmol/L (3.5-5.1); Sodium 139 mmol/L (136-145); Total Protein 6.7 g/dL (6.6-8.7)
[2025-07-09 09:10] LABS: Slide Review Slide Review Perform
[2025-07-16 07:45] VITALS: BP 105/69; PULSE 60; RESP 18; TEMP 36.6; O2SAT 97
[2025-07-16 07:46] VITALS: BP 105/70; PULSE 60; RESP 17; TEMP 36.5; O2SAT 97
[2025-07-16 08:19] LABS: Alanine Aminotransferase 70 U/L (0-41); Albumin Level 3.7 g/dL (3.5-5.2); Alkaline Phosphatase 169 U/L (40-130); Anion Gap 14.6 (5-19); Aspartate Amino Transferase 31 U/L (0-40); Blood Urea Nitrogen 34 mg/dL (8-23); Calcium 9.2 mg/dL (8.5-10.5); Carbon Dioxide 26 mmol/L (22-29); Chloride 100 mmol/L (98-107); Globulin 3.1 g/dL (1.3-4.6); Glucose 129 mg/dL (65-115); Osmolality Calculated 291 mOsm/kg (285-295); Potassium 4.6 mmol/L (3.5-5.1); Sodium 136 mmol/L (136-145); Total Protein 6.8 g/dL (6.6-8.7)
[2025-07-16 08:37] LABS: Hematocrit 26.7 % (37-53); Hemoglobin 9.00 g/dL (11.27-16.99); Mean Corpuscular HGB Conc 33.7 g/dL (30-55); Mean Corpuscular Hemoglobin 31.4 pg (27-33); Mean Corpuscular Volume 93.0 fl (82-101); Platelet Count 45 10^3/cmm (157-399); Red Blood Count 2.87 10^6/uL (3.85-5.65); White Blood Count 2.26 10^3/uL (3.29-11.43)
[2025-07-16 08:57] LABS: Slide Review Slide Review Perform
[2025-07-16 08:58] LABS: Absolute Segmented Neutrophil 1.2 10/cmm (1.6-7.1); Atypical Lymphs 19.0 % (0-5); Band Neutrophils Absolute 0.0 10^3/cmm (0.0-1.2); Total Cells Counted 100 (0-100)
[2025-07-23] VITALS (8 sets, daily range): BP systolic 103–150; BP diastolic 62–76; PULSE 60–63; RESP 16–18; TEMP 36.1–36.6; O2SAT 97–98
[2025-07-23 08:09] LABS: Hematocrit 22.4 % (37-53); Hemoglobin 7.50 g/dL (11.27-16.99); Mean Corpuscular HGB Conc 33.5 g/dL (30-55); Mean Corpuscular Hemoglobin 31.5 pg (27-33); Mean Corpuscular Volume 94.1 fl (82-101); Nucleated Red Blood Cells % 0 %; Platelet Count 50 10^3/cmm (157-399); Red Blood Count 2.38 10^6/uL (3.85-5.65); White Blood Count 2.08 10^3/uL (3.29-11.43)
[2025-07-23 08:19] LABS: Alanine Aminotransferase 55 U/L (0-41); Albumin Level 3.6 g/dL (3.5-5.2); Alkaline Phosphatase 171 U/L (40-130); Anion Gap 14.1 (5-19); Aspartate Amino Transferase 26 U/L (0-40); Blood Urea Nitrogen 32 mg/dL (8-23); Calcium 8.8 mg/dL (8.5-10.5); Carbon Dioxide 24 mmol/L (22-29); Chloride 102 mmol/L (98-107); Creatinine Clr Calc Pharmacy 38.2511; Globulin 3.0 g/dL (1.3-4.6); Glucose 143 mg/dL (65-115); Osmolality Calculated 291 mOsm/kg (285-295); Potassium 4.1 mmol/L (3.5-5.1); Sodium 136 mmol/L (136-145); Total Protein 6.6 g/dL (6.6-8.7)
[2025-07-23 08:45] LABS: Slide Review Slide Review Perform
[2025-07-23] MEDS: deferoxamine 2 GM in sodium chloride 0.9% 250 ML IV (10:24)
[2025-07-23] MEDS: FUROsemide 10 mg/mL SDV 2mL 20 MG IVP (12:19)
== END 2025-07-23 23:59 | disposition home or self-care (01) ==
PROVIDERS: Nurse Practitioner Family; PCP Family Medicine; Visit Provider Internal Medicine Medical Oncology
DX: Z53.9 Procedure and treatment not carried out, unspecified reason; E83.111 Hemochromatosis due to repeated red blood cell transfusions; D46.C Myelodysplastic syndrome with isolated del(5q) chromosomal abnormality; R03.0 Elevated blood-pressure reading, without diagnosis of hypertension; R39.198 Other difficulties with micturition; Z79.899 Other long term (current) drug therapy
CPT/HCPCS: 36415; 36430; 80053; 85007; 85025; 86850; 86900; 86920; 96365; 96366; 96375; 99214; J0895; J1938; J3490; J7050; J9999; P9016

== ENCOUNTER 2025-08-20 07:30 | Oncology outpatient (recurring) (ONCR) | payer MEDICARE, OTHER, SELFPAY ==
[2025-07-30 08:08] VITALS: BP 119/74; PULSE 60; RESP 17; TEMP 36.2; O2SAT 94
[2025-07-30 08:14] LABS: Hematocrit 29.4 % (37-53); Hemoglobin 9.60 g/dL (11.27-16.99); Mean Corpuscular HGB Conc 32.7 g/dL (30-55); Mean Corpuscular Hemoglobin 30.3 pg (27-33); Mean Corpuscular Volume 92.7 fl (82-101); Nucleated Red Blood Cells % 0 %; Platelet Count 39 10^3/cmm (157-399); Red Blood Count 3.17 10^6/uL (3.85-5.65); White Blood Count 1.63 10^3/uL (3.29-11.43)
[2025-07-30 08:49] LABS: Slide Review Slide Review Perform
[2025-08-06 08:08] LABS: Hematocrit 25.6 % (37-53); Hemoglobin 8.40 g/dL (11.27-16.99); Mean Corpuscular HGB Conc 32.8 g/dL (30-55); Mean Corpuscular Hemoglobin 29.6 pg (27-33); Mean Corpuscular Volume 90.1 fl (82-101); Nucleated Red Blood Cells % 0 %; Platelet Count 31 10^3/cmm (157-399); Red Blood Count 2.84 10^6/uL (3.85-5.65); White Blood Count 1.52 10^3/uL (3.29-11.43)
[2025-08-06 08:55] LABS: Slide Review Slide Review Perform
[2025-08-06] MEDS: DEFEROXAMINE IV (10:52)
[2025-08-06] MEDS: SODIUM CHLORIDE 0.9% IV (10:52)
[2025-08-06 10:57] VITALS: BP 122/64; PULSE 62; TEMP 36.2; O2SAT 98
[2025-08-06 11:12] VITALS: BP 115/70; PULSE 60; TEMP 36.2
[2025-08-06 11:29] VITALS: BP 117/61; PULSE 52; TEMP 36.2; O2SAT 99
[2025-08-06 12:05] VITALS: BP 130/61; PULSE 62; TEMP 36.3
[2025-08-06 14:25] VITALS: BP 117/69; PULSE 63; TEMP 36.1; O2SAT 99
[2025-08-13 08:00] VITALS: BP 101/62; PULSE 62; RESP 17; TEMP 36.5; O2SAT 97
[2025-08-13 08:11] LABS: Hematocrit 26.3 % (37-53); Hemoglobin 8.60 g/dL (11.27-16.99); Mean Corpuscular HGB Conc 32.7 g/dL (30-55); Mean Corpuscular Hemoglobin 29.3 pg (27-33); Mean Corpuscular Volume 89.5 fl (82-101); Red Blood Count 2.94 10^6/uL (3.85-5.65); White Blood Count 1.38 10^3/uL (3.29-11.43)
[2025-08-13 08:41] LABS: Platelet Count 27 10^3/cmm (157-399)
[2025-08-13 08:42] LABS: Absolute Segmented Neutrophil 0.4 10/cmm (1.6-7.1); Atypical Lymphs 50.0 % (0-5); Band Neutrophils Absolute 0.0 10^3/cmm (0.0-1.2); Slide Review Slide Review Perform; Total Cells Counted 100 (0-100)
[2025-08-20] VITALS (9 sets, daily range): BP systolic 90–117; BP diastolic 53–73; PULSE 60–89; RESP 17–20; TEMP 36.3–36.6; O2SAT 94–100
[2025-08-20 08:22] LABS: Hematocrit 21.9 % (37-53); Hemoglobin 7.20 g/dL (11.27-16.99); Mean Corpuscular HGB Conc 32.9 g/dL (30-55); Mean Corpuscular Hemoglobin 28.7 pg (27-33); Mean Corpuscular Volume 87.3 fl (82-101); Red Blood Count 2.51 10^6/uL (3.85-5.65); White Blood Count 1.21 10^3/uL (3.29-11.43)
[2025-08-20 08:42] LABS: Alanine Aminotransferase 40 U/L (0-41); Albumin Level 3.5 g/dL (3.5-5.2); Alkaline Phosphatase 172 U/L (40-130); Anion Gap 18.2 (5-19); Aspartate Amino Transferase 20 U/L (0-40); Blood Urea Nitrogen 27 mg/dL (8-23); Calcium 9.0 mg/dL (8.5-10.5); Carbon Dioxide 23 mmol/L (22-29); Chloride 101 mmol/L (98-107); Creatinine Clr Calc Pharmacy 45.8687; Globulin 2.8 g/dL (1.3-4.6); Glucose 120 mg/dL (65-115); Osmolality Calculated 292 mOsm/kg (285-295); Potassium 4.2 mmol/L (3.5-5.1); Sodium 138 mmol/L (136-145); Total Protein 6.3 g/dL (6.6-8.7)
[2025-08-20 09:16] LABS: Platelet Count 21 10^3/cmm (157-399)
[2025-08-20 09:17] LABS: Absolute Segmented Neutrophil 0.2 10/cmm (1.6-7.1); Atypical Lymphs 23.0 % (0-5); Band Neutrophils Absolute 0.0 10^3/cmm (0.0-1.2); Slide Review Slide Review Perform; Total Cells Counted 100 (0-100)
[2025-08-20] MEDS: deferoxamine 2 GM in sodium chloride 0.9% 250 ML IV (10:11)
[2025-08-20] MEDS: diphenhydrAMINE 50 mg/mL SDV 1mL 25 MG IVP (15:32)
[2025-08-20] MEDS: ondansetron 2 mg/ML SDV 2 mL 8 MG IVP (15:39)
--- NOTE | 2025-08-20 16:44 | PC.NURSE ---
Patient had 2 units of PRBC transfusions with no reactions noted or complained with. Finished second unit at 1507 and the platelets phersis was started at 15 :15 pm with a complaints that he was feeling alittle funny in his throat and platelet reaction started at 15:23pm. See notes
--- NOTE | 2025-08-20 17:02 | PC.NURSE ---
1525pm Dali Gill [employer] MANAGER availble with the new orders of IV Benadryl 25mg , Zofran 8mg IV and nebulizer of duo neb. She added the pepcid 20 mg IVP due to patient having slight emesis and continued tightness in mid chest wiith the Rapid response called and he was transferred to ER by wheelchair B/P 98/68 Pulse 84 O2 sat 99%.mm
== END 2025-08-23 23:59 | disposition home or self-care (01) ==
PROVIDERS: Nurse Practitioner Family; PCP Family Medicine; Visit Provider Internal Medicine Medical Oncology
DX: Z53.9 Procedure and treatment not carried out, unspecified reason; D46.C Myelodysplastic syndrome with isolated del(5q) chromosomal abnormality; T80.92XA Unspecified transfusion reaction, initial encounter; X58.XXXA Exposure to other specified factors, initial encounter; R03.0 Elevated blood-pressure reading, without diagnosis of hypertension; R07.89 Other chest pain; R11.0 Nausea; R11.10 Vomiting, unspecified; R06.02 Shortness of breath; Z79.899 Other long term (current) drug therapy
CPT/HCPCS: 36430; 80053; 80503; 85007; 85025; 86850; 86900; 86920; 96365; 96366; 96375; 99214; J0895; J1200; J2405; J3490; J7050; J9999; P9016

== ENCOUNTER 2025-08-20 15:50 | Emergency (ER) | payer MEDICARE, OTHER, SELFPAY ==
[2025-08-20 15:52] VITALS: BP 123/65; PULSE 83; RESP 16; TEMP 36.4; O2SAT 97; BMI 39.4
--- NOTE | 2025-08-20 15:55 | XRR_ITS ---
PROCEDURE INFORMATION: Exam: XR Chest Exam date and time: 08/20/2025 4:06 PM Age: 80 years old Clinical indication: Pain; Angina pectoris; Additional info: Chest pain TECHNIQUE: Imaging protocol: Radiologic exam of the chest. Views: 1 view. COMPARISON: CR XR chest 1V portable [id number] 04/09/2025 1:28 AM FINDINGS: Lungs: Right lung is clear. When compared to the previous study, left hemidiaphragm more elevated. This could be due to some left lower lobe atelectasis. Blunting of the left costophrenic angle. This may be due to atelectasis or small left pleural effusion. Follow-up PA and lateral upright chest recommended. Pleural spaces: Blunting of the left costophrenic angle. This may be due to atelectasis or small left pleural effusion. No pneumothorax. Heart/Mediastinum: Heart size indeterminate but grossly unchanged from previous study. Pulmonary vascularity within normal limits. Two lead AICD. Bones/joints: Mild right convexity thoracolumbar scoliosis. Degenerative changes of the AC joints and glenohumeral joints. Upper abdomen: Unremarkable. XR/XR chest 1V portable [id number] IMPRESSION: Appearance of the some elevation of the left hemidiaphragm. This could be due to atelectasis/volume loss in the left lower lobe. Blunting of left costophrenic angle could be due to atelectasis or small left pleural effusion. Heart size not grossly from previous study . The pulmonary vascularity within normal limits. Two lead AICD. Follow-up PA and lateral upright chest suggested if clinically indicated.
--- NOTE | 2025-08-20 15:59 | ECG_ITS ---
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 Measurements Intervals [place] Rate: 81 P: 98 VT: 106 QRS: -67 QRSD: 146 T: 108 QT: 423 QTc: 492 Interpretive Statements ELECTRONIC VENTRICULAR PACEMAKER SINUS RHYTHM INTERMITTENT PREMATURE VENTRICULAR CONTRACTIONS ABNORMAL RHYTHM ECG Compared to ECG 04/09/2025 01:59:57 ATRIAL PACING NO LONGER PRESENT Electronically Signed On 08-22-2025 19:00:20 CDT by Louie Solano M.D. [email or web address]
--- NOTE | 2025-08-20 16:00 | W.ED.ALLEREA ---
HPI - Allergic Reaction General: Chief complaint: Allergic Reaction Stated complaint: Transfusion Reaction Time Seen by Provider: 08/20/25 15:51 History of Present Illness: HPI narrative: 80-year-old man with a history of chronic kidney disease, myelodysplastic syndrome, congestive heart failure, pacemaker placement, chronic edema, aortic regurgitation, hypothyroidism, diverticulosis, BPH, hyperlipidemia and hypertension who presents to the emergency room from the infusion clinic after he had a reaction to platelets he was receiving. He experienced shortness of breath, chest tightness, diaphoresis. Rapid response was called and the patient was brought directly to the emergency room. He seems to be improving some already on presentation here. Related Data Home Medications ?Medication ?Instructions ?Recorded ?Confirmed bumetanide 2 mg tablet mg PO 05/28/25 08/20/25 Previous Rx's ?Medication ?Instructions ?Recorded nitroglycerin 0.4 mg sublingual 0.4 mg sublingual Q5M PRN chest 06/29/23 tablet pain 30 days #30 tabs tamsulosin 0.4 mg capsule (Flomax) 0.4 mg PO DAILY #30 caps 07/23/25 levofloxacin 500 mg tablet 500 mg PO DAILY 7 days #7 tabs 08/06/25 levofloxacin 500 mg tablet 500 mg PO DAILY 5 days #5 tabs 08/13/25 levothyroxine 50 mcg tablet 50 mcg PO DAILY #30 tabs 08/15/25 (Euthyrox) prednisone 20 mg tablet 60 mg (3 x 20 mg) PO DAILY #20 tabs 08/20/25 Allergies Allergy/AdvReac Type Severity Reaction Status Date / Time No Known Allergies Allergy Verified 08/20/25 07:59 [facility] ED PFSH: Medical History (Updated 08/20/25 @ 17:50 by Leyla Laws MD) Chronic kidney disease, stage III (moderate) 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 Systolic CHF Pacemaker Edema, peripheral Aortic regurgitation Acute diastolic heart failure Hypothyroidism (acquired) Third degree heart block Obesity (BMI 30-39.9) Acute exacerbation of CHF (congestive heart failure) Benign essential hypertension with target blood pressure below 140/90 Elevated brain natriuretic peptide (BNP) level Grade III diastolic dysfunction EF 67% Mild pulmonary hypertension LVH Diverticulitis of small bowel BPH (benign prostatic hyperplasia) Cholelithiasis Dyslipidemia Hypertension Surgical History History of bone marrow biopsy History of removal of cyst Right arm - 2004 History of ankle surgery Bilateral History of elbow surgery Left elbow History of bilateral hip arthroplasty Status post biventricular pacemaker S/P cardiac cath Normal 2013 Procedure Procedure Type Diagnostic procedure:Miscellaneous, Perclose , Coronary Angiography Conclusions Procedure Summary 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 due to tumor surgery in the right arm right groin approach was adopted difficulty in access was encounter due to fatty tumors in the thigh, hematoma was observed, procedure was aborted since it was elective in order to avoid major bleeding in case we have to proceed with PCI.Patient was observed for next 24 hours did fine no further bleeding or hematoma observed.He was approached from left groin which remain successful next day.Patient was discharged home without any complication next day 1-LM is normal 2-LAD has luminal irregularities 3-LCx has luminal irregularities 4-RCA has luminal irregularities Family History Mother Cancer Father Stroke Brother Polycythemia rubra vera Other Hypertension Denies family history of Diabetes CAD (coronary artery disease) Clotting disorder Dementia Hyperlipidemia Psychiatric illness Chronic kidney disease (CKD) Suicide Anesthesia complication Bleeding disorder Lung disease Social History Smoking and tobacco/nicotine status: never used tobacco/nicotine Alcohol intake: never Substance/Drug Use: never Household members: family Housing: House Physical Exam Narrative: EXAM NARRATIVE: .: General: Alert, no acute distress. Skin: Warm, dry. Head: Normocephalic, atraumatic. Neck: Supple, trachea midline. Eye: Extraocular movements are intact. Ears, nose, mouth and throat: mucosa moist. Cardiovascular: Regular, Normal peripheral perfusion. Respiratory: Lungs are clear to auscultation, respirations are non-labored, breath sounds are equal, Symmetrical chest wall expansion. Gastrointestinal: Soft, Nontender, Non distended Musculoskeletal: Normal ROM, no deformity. Neurological: Alert and oriented, No focal neurological deficit observed. Psychiatric: Cooperative, appropriate mood & affect. Course Vital Signs: Vital signs: Vital Signs Temperature 97.6 F 08/20/25 15:52 Pulse Rate 83 08/20/25 15:52 Respiratory Rate 16 08/20/25 15:52 Blood Pressure 123/65 08/20/25 15:52 Pulse Oximetry 97 08/20/25 15:52 Oxygen Delivery Me thod Nasal Cannula 08/20/25 15:52 Oxygen Flow Rate 2 08/20/25 15:52 MDM - Allergic Reaction Medical Decision Making Medical decision making: Patient's reason for coming to the emergency room: Concern for reaction to platelet transfusion Social determinants: Patient is retired I reviewed the patient's medical record. 80-year-old man with a history of chronic kidney disease, myelodysplastic syndrome, congestive heart failure, pacemaker placement, chronic edema, aortic regurgitation, hypothyroidism, diverticulosis, BPH, hyperlipidemia and hypertension I reviewed the patient's current home meds Patient is on Bumex, levothyroxine and tamsulosin. Alternate historians: History provided by rapid response team as well. Differential diagnosis: including but not limited to and based on the above HPI, review of systems and physical exam: Concern for transfusion reaction to platelets. He had had some chest pain so rule out acute coronary syndrome. Chest x-ray to evaluate for respiratory failure secondary to transfusion. Orders placed to evaluate differential diagnosis based on the above differential, HPI and physical exam EKG: Time 1559. Rate 81. Normal sinus rhythm, No ST-T changes, no ectopy, paced rhythm, this was reviewed and interpreted by myself the emergency room physician at 1605. Chest x-ray: Appearance of some elevation of left hemidiaphragm. Blunting of left costophrenic angle due to atelectasis or small pleural effusion. Heart size similar. 2-lead AICD in place. This was reviewed and interpreted by myself the emergency room physician. I also reviewed the radiology report. Lab Review: Laboratory results were reviewed and interpreted by myself the emergency room physician. Leukopenia and neutropenia. No fevers. Chronic renal insufficiency with a BUN/creatinine of 28 and 1.6 which is about his baseline. Platelets are up slightly from this morning at 29 from 21. Troponin is at 52 which is below his usual initial troponin level. This is secondary to his renal dysfunction. Assessment of risk: Level of risk: Moderate risk Hospitalization considerations: Yes hospitalization was considered. Patient is feeling much better. I spoke with Dr. Amin and since he is feeling better he feels like he can go home. Reexamination: Patient remained stable. No increased work of breathing. No altered mental status. No focal motor deficits. Patient says he is feeling much better and wants to go home Consultation: I spoke with Dr. Amin who is on-call for his patients. This is his patient he and he is familiar. He recommends steroids. The patient received a dose here and I will send him home on a steroid taper. He will not continue to try to transfuse platelets at this point. Assessment and plan: Transfusion reaction ? IV Solu-Medrol, IV Benadryl. - Discharged home - Discussed plan with patient. Answered any questions. - Evaluation and treatment of this problem were appropriate in the emergency setting. Lab Data 08/20/25 16:15 08/20/25 16:15 Radiology Impressions Chest X-Ray 08/20/25 15:55 IMPRESSION: Appearance of the some elevation of the left hemidiaphragm. This could be due to atelectasis/volume loss in the left lower lobe. Blunting of left costophrenic angle could be due to atelectasis or small left pleural effusion. Heart size not grossly from previous study . The pulmonary vascularity within normal limits. Two lead AICD. Follow-up PA and lateral upright chest suggested if clinically indicated. Laboratory Results WBC 1.37 10^3/uL (3.29-11.43) L 08/20/25 16:15 RBC 3.72 10^6/uL (3.85-5.65) L 08/20/25 16:15 Hgb 10.70 g/dL (11.27-16.99) L D 08/20/25 16:15 Hct 33.0 % (37-53) L D 08/20/25 16:15 MCV 88.7 fl (82-101) 08/20/25 16:15 MCH 28.8 pg (27-33) 08/20/25 16:15 MCHC 32.4 g/dL (30-55) 08/20/25 16:15 RDW 14.0 % (12.1-15.1) 08/20/25 16:15 Plt Count 29 10^3/cmm (157-399) L D 08/20/25 16:15 MPV 13.2 fL (7.4-10.4) H 08/20/25 16:15 Neut % (Auto) 9.4 % 08/20/25 16:15 Lymph % (Auto) 81.8 % 08/20/25 16:15 [place] % (Auto) 8.8 % 08/20/25 16:15 Eos % (Auto) 0.0 % 08/20/25 16:15 Baso % (Auto) 0.0 % 08/20/25 16:15 Neut # (Auto) 0.13 10^3/uL (1.8-7.7) L* 08/20/25 16:15 Lymph # (Auto) 1.1 10^3/uL (0.8-4.8) 08/20/25 16:15 [place] # (Auto) 0.1 10^3/uL (0.2-0.9) L 08/20/25 16:15 Eos # (Auto) 0.0 10^3/uL (0.0-0.8) 08/20/25 16:15 Baso # (Auto) 0.0 10^3/uL (0.0-0.1) 08/20/25 16:15 Nucleated RBC % (auto) 0 % 08/20/25 16:15 Nucleated RBCs # 0.0 /100WBC 08/20/25 16:15 Specimen Type Arterial 08/20/25 16:16 Sample Site Radial, right 08/20/25 16:16 ABG pH 7.37 (7.35-7.45) 08/20/25 16:16 ABG pCO2 44.7 mmHg (35-45) 08/20/25 16:16 ABG pO2 75.6 mmHg (80.0-100.0) L 08/20/25 16:16 ABG HCO3 26.1 mmol/L (22-26) H 08/20/25 16:16 ABG O2 Saturation 93.8 08/20/25 16:16 ABG Base Excess 0.6 mmol/L (-2.0-2.0) 08/20/25 16:16 Melchor Test Pos 08/20/25 16:16 A-a O2 Gradient 2.3 mmHg (5-10) L 08/20/25 16:16 Hematocrit 33.4 % (42-52) L 08/20/25 16:16 Hgb O2 Saturation 92.6 % (95-100) L 08/20/25 16:16 Carboxyhemoglobin < 0.3 %THgb (0.4-20.1) L 08/20/25 16:16 Methemoglobin 1.2 % (0.4-1.5) 08/20/25 16:16 Total Hemoglobin 10.9 g/dL (14-18) L 08/20/25 16:16 Sodium 141.0 mmol/L (131-143) 08/20/25 16:16 Potassium 3.4 mmol/L (3.5-5.0) L 08/20/25 16:16 Glucose 176.0 mg/dL (70-115) H 08/20/25 16:16 Ionized Calcium 1.2 mmol/L (1.1-1.4) 08/20/25 16:16 O2 Delivery Device Nc 08/20/25 16:16 O2 Liters/Min 0.5 % 08/20/25 16:16 [employer] [place] 08/20/25 16:16 Sodium 140 mmol/L (136-145) 08/20/25 16:15 Potassium 3.6 mmol/L (3.5-5.1) 08/20/25 16:15 Chloride 102 mmol/L (98-107) 08/20/25 16:15 Carbon Dioxide 26 mmol/L (22-29) 08/20/25 16:15 Anion Gap 15.6 (5-19) 08/20/25 16:15 BUN 28 mg/dL (8-23) H 08/20/25 16:15 Creatinine 1.6 mg/dL (0.7-1.2) H 08/20/25 16:15 GFR Calculation Not Reportable 08/20/25 16:15 Glucose 167 mg/dL (65-115) H 08/20/25 16:15 Calculated Osmolality 299 mOsm/kg (285-295) H 08/20/25 16:15 Lactic Acid 2.4 mmol/L (0.5-2.2) H 08/20/25 16:15 Calcium 8.8 mg/dL (8.5-10.5) 08/20/25 16:15 Total Bilirubin 0.9 mg/dL (0.15-1.2) 08/20/25 16:15 AST 21 U/L (0-40) 08/20/25 16:15 ALT 40 U/L (0-41) 08/20/25 16:15 Alkaline Phosphatase 160 U/L (40-130) H 08/20/25 16:15 Troponin T Baseline 52 ng/L (0-15) H 08/20/25 16:15 NT-Pro-B Natriuret Pep 438 pg/mL (0-450) 08/20/25 16:15 Total Protein 6.2 g/dL (6.6-8.7) L 08/20/25 16:15 Albumin 3.6 g/dL (3.5-5.2) 08/20/25 16:15 Globulin 2.6 g/dL (1.3-4.6) 08/20/25 16:15 All radiology interpretation(s) finalized by discharge Discharge Plan Discharge Patient Disposition: Home Clinical Impression: Transfusion reaction Condition: Stable Prescriptions: New prednisone 20 mg tablet 60 mg PO DAILY Qty: 20 0RF Rx Instructions: 3 tabs (60 mg) x 3 days. 2 tabs (40 mg) x 3 days. 1 tab (20 mg) x 3 days. 1/2 tab (10 mg) x 4 days No Action nitroglycerin 0.4 mg tablet, sublingual 0.4 mg sublingual Q5M PRN (Reason: chest pain) 30 Days Qty: 30 3RF Rx Instructions: until response; do not exceed 3 doses per episode bumetanide 2 mg tablet PO tamsulosin [Flomax] 0.4 mg capsule 0.4 mg PO DAILY Qty: 30 3RF levofloxacin 500 mg tablet 500 mg PO DAILY 7 Days Qty: 7 1RF levofloxacin 500 mg tablet 500 mg PO DAILY 5 Days Qty: 5 0RF Rx Instructions: Take if fever > 100.4 or other signs of illness. levothyroxine [Euthyrox] 50 mcg tablet 50 mcg PO DAILY Qty: 30 0RF Discharge Orders: Discharge ED (Routine); Ordered 08/20/25 Ordered By: Leyla Laws Referrals: Cal Burris MD [Primary Care Provider, Family Practice] Discharge Diet: Usual diet Discharge Activity: Increase activity as tolerated Patient Instructions: Food Allergy (ED), Allergies (ED), Blood Transfusion Reactions (ED), Adverse Drug Reaction (ED), Opioid Safety, Pain Management, Patient Portal & Naresh Instructions Activity Restrictions/Additional Instructions: Thank you for choosing [facility] for your healthcare needs today. You have been screened and evaluated and felt safe for discharge. Health conditions do change or evolve sometimes and as such it is important that you follow up with your Primary Doctor to be re checked, 3-5 days is a general good time frame for follow up. You are always welcome to return to the ED for re assessment if your symptoms are worsening or you have new concerns Print Language: Bulgarian Coding Level of Care Code ED Circular Head Saw Operator for Vonda Sin
[2025-08-20 16:27] VITALS: BP 124/70; PULSE 57; O2SAT 98
[2025-08-20 16:27] LABS: ABG PCO2 44.7 mmHg (35-45); ABG PH Result 7.37 (7.35-7.45); Alveolar-Arterial Oxygen Gradi 2.3 mmHg (5-10); Arterial Blood Gas Hematocrit 33.4 % (42-52); Blood Gas Allen Test Pos; Blood Gas LPM 0.5 %; Blood Gas Operator Identificat WALCI; Blood Gas Sample Site Radial, right; Blood Gas Sample Type Arterial; Carboxyhemoglobin < 0.3 %THgb (0.4-20.1); Glucose Level-ABG 176.0 mg/dL (70-115); HCO3 ABG 26.1 mmol/L (22-26); Ionized Calcium Level - ABG 1.2 mmol/L (1.1-1.4); Methemoglobin 1.2 % (0.4-1.5); Oxygen Saturation ABG 93.8; PO2 ABG 75.6 mmHg (80.0-100.0); Potassium Level - ABG 3.4 mmol/L (3.5-5.0); Sodium Level - ABG 141.0 mmol/L (131-143)
[2025-08-20 16:56] LABS: Hematocrit 33.0 % (37-53); Hemoglobin 10.70 g/dL (11.27-16.99); Mean Corpuscular HGB Conc 32.4 g/dL (30-55); Mean Corpuscular Hemoglobin 28.8 pg (27-33); Mean Corpuscular Volume 88.7 fl (82-101); Nucleated Red Blood Cells % 0 %; Red Blood Count 3.72 10^6/uL (3.85-5.65); White Blood Count 1.37 10^3/uL (3.29-11.43)
[2025-08-20 17:00] VITALS: BP 122/71; PULSE 78; O2SAT 98
[2025-08-20 17:20] LABS: Troponin(5th) Baseline 52 ng/L (0-15)
[2025-08-20 17:23] LABS: Lactic Sepsis W/Reflex 2.4 mmol/L (0.5-2.2)
[2025-08-20 17:30] LABS: Alanine Aminotransferase 40 U/L (0-41); Albumin Level 3.6 g/dL (3.5-5.2); Alkaline Phosphatase 160 U/L (40-130); Anion Gap 15.6 (5-19); Aspartate Amino Transferase 21 U/L (0-40); Blood Urea Nitrogen 28 mg/dL (8-23); Calcium 8.8 mg/dL (8.5-10.5); Carbon Dioxide 26 mmol/L (22-29); Chloride 102 mmol/L (98-107); Creatinine Clr Calc Pharmacy 43.0020; Globulin 2.6 g/dL (1.3-4.6); Glucose 167 mg/dL (65-115); NT Pro B Type Natriuretic Pept 438 pg/mL (0-450); Osmolality Calculated 299 mOsm/kg (285-295); Potassium 3.6 mmol/L (3.5-5.1); Sodium 140 mmol/L (136-145); Total Protein 6.2 g/dL (6.6-8.7)
--- OUTSIDE RECORDS SUMMARY | 2025-08-20 17:34 | XMS_ITS | Data Portability ---
Author Organization [facility] Cate Caceres [facility] Address [address] [address] Assessment No assessment recorded. Plan of Treatment Reminders Order Date Submit Date Provider Last Modified By Organization Details Last Modified Time Details Appointments ANNUAL EXAM 2024 09:00A M Cal Burris MD Not available Not available Not available Lab None recorded . Referral cardiolo gist referral 2023 024 [place] [address] [facility], [address] [place] [address], [address], 03/12/2024 11:52:35 Procedures None recorded . Surgeries None recorded . Imaging None recorded . Medication Orders bumetani de 2 mg tablet 2024 025 [id number], [address], [place], [place], [id number], 05/21/2025 16:00:36 magnesiu m L-lactat e ER 84 mg tablet,e xtended release 2023 024 [facility], [address], [place], [address], 03/02/2024 11:00:29 spironol actone 50 mg tablet 2023 024 [facility], [address], [place], [address], 05/21/2025 15:27:33 tamsulos in 0.4 mg capsule 2023 024 [facility], [address], [place], [address], 09/03/2024 10:02:04 Patient TargetsNo targets recorded. Patient InstructionsNo instructions recorded. 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 Problems Name Problem SNOMED Code Status Onset Date Resolution Date Notes Provider Name and Address Organization Details Recorded Time Benign essential hypertension 6764886 Active [address] [facility] 5 10:39:41 Removal of sebaceous cyst Active 2022 cyst removed from rt arm, [address] [facility] 4 14:11:14 Myelodysplas tic syndrome (clinical) 325334332 Active [address] [facility] 5 10:40:16 Dyspnea on exertion 54092790 Active [address] [facility] 5 10:40:07 Chronic systolic heart failure 680402309 Active [address] [facility] 5 10:39:57 Coronary atherosclero sis 353092126 Active [address] [facility] 5 10:40:03 Benign prostatic hyperplasia 494274193 Active [address] [facility] 5 10:39:46 Serum iron above reference range 018150293 Active [address] [facility] 5 10:40:38 Chronic diastolic heart failure 631418913 Active [address] [facility] 5 10:39:50 Edema of foot 602561718 Active 2024 Cal Burris MD [address] [place] [address], [phone], [facility] 5 15:51:31 Problem Notes None recorded. Medical Equipment None Reported. Allergies Allergen ID Allergen Name Allergen Category Reaction Reaction Severity Criticality Documentation Date Start Date Code Code System Note Provider Name and Address Organization Details Recorded Time 15873 No known allergy (situatio n) Not available Not available Not available Not available 06/14/2024 28761 6[address] [facility] 4 14:11:20 No known drug allergies Medications Name Sig Start Date Stop Date Status Note LastModified by Organization Details LastModified Time furosemid e 40 mg tablet TAKE 2 TABLETS BY MOUTH ONCE DAILY 05/21 completed Not Available Not Available Not Available bumetanid e 2 mg tablet TAKE 1 TABLET BY MOUTH ONCE DAILY active Not Available Not Available No t Available spironola ctone 25 mg tablet TAKE 1 TABLET BY MOUTH ONCE DAILY 06/14 completed dose change Not Available Not Available Not Available tamsulosi n 0.4 mg capsule TAKE ONE CAPSULE BY MOUTH EVERY NIGHT AT BEDTIME active Not Available Not Available No t Available imiquimod 5 % topical cream packet APPLY A THIN AMOUNT TO AFFECTED AREA ON LEFT FOREARM ONCE DAILY TUESDAY THROUGH TUESDAY (OFF ON WEEKENDS ) FOR 6 WEEKS. WILL CAUSE SKIN IRRITATI ON active Not Available Not Available No t Available levothyro xine 50 mcg tablet TAKE 1 TABLET BY MOUTH ONCE DAILY active Not Available Not Available No t Available nitroglyc jeremy 0.4 mg sublingua l tablet active Not Available Not Available Not Available mupirocin 2 % topical ointment APPLY TO SURGICAL SITE ON RIGHT CHEEK ONE TO TWO TIMES DAILY UNTIL HEALED active Not Available Not Available No t Available levofloxa celestina 500 mg tablet TAKE 1 TABLET BY MOUTH DAILY FOR 5 DAYS 05/21 completed Not Available Not Available Not Available spironola ctone 50 mg tablet TAKE 1 TABLET BY MOUTH ONCE DAILY 05/21 completed Not Available Not Available Not Available magnesium L-lactate ER 84 mg tablet,ex tended release TAKE 1 TABLET BY MOUTH DAILY active Not Available Not Available No t Available magnesium BID 03/02 completed 0; Recorded 01/08/20 10:57AM by Mike Rowland, Office Visit; Not Available Not Available Not Available baclofen three times daily, as needed 03/02 completed Recorded 01/08/20 10:57AM by Mike Rowland, Office Visit; Refill Quantity : 90; Tablet; Not Available Not Available Not Available albuterol sulfate four times daily, as needed 2021 active Not Available Not Available Not Avai lable furosemid e two times daily 03/02 completed 0; Recorded 11/01/19 4:21PM by Cal Burris MD, Annotati on/Adden dum; Not Available Not Available Not Available Magnesium Lactate daily 03/02 completed Recorded 01/08/20 10:57AM by Mike Rowland, Office Visit; Refill Quantity : 90; Tablet; Not Available Not Available Not Available Vitamin 09/03 completed Daily Not Available Not Available Not Available Revlimid daily 03/[address] [place]. On 14 days then off 7 days and repeat for now.; 0; Recorded 01/08/20 10:57AM by Mike Rowland, Office Visit; Not Available Not Available Not Available Revlimid 2.5 mg capsule 03/02 completed Not Available Not Available Not Available Vitals Date Recorded Body weight Heart rate Systolic And Diastolic Provider Name and Address Organization Details Last Updated DateTime 03/02/2024 496747.25 g 72 /min 122/72 mm[Hg] JASMIN RIVAS [facility] 03/02/2024 10:27:58 Date Recorded Body weight Body mass index (BMI) Body height Heart rate Systolic And Diastolic Provider Name and Address Organization Details Last Updated DateTime 05/21/2025 135576.2 1 g 39.1 kg/m2 165.1 cm 70 /min 98/60 mm[Hg] JASMIN BRYANDRAIN [facility] 5 15:30:00 Date Recorded Body weight Oxygen saturation Oxygen saturation in Arterial blood by Pulse oximetry Heart rate Systolic And Diastolic Provider Name and Address Organization Details Last Updated DateTime 4 225434. 98 g 93 % 93 % 74 /min 102/60 mm[Hg] MIKE ROWLAND [facility] 4 10:07:20 Social History Question Answer Notes LastModified by Organizat ion Details LastModified Time Tobacco Smoking Status Never Smoker JASMIN ROB avitia [facility] 03/02/2024 10:28:17 What Was The Date Of Your Most Recent Tobacco Screening? 05/21/2025 Information not available 05/21/2025 Sex: Unknown Functional Status Question Answer Note LastModified by Organization D etails LastModified Time What is your level of alcohol consumption? None Information not available 03/02/2024 Mental Status None recorded. Family History Relationship Description Onset Age of this Age Resolved Age Notes LastModified by Organization Details LastModified Time Mother Neoplasm of brain [email or web address] Not available 05/21 15:32:43 Father Malignant neoplastic disease [email or web address] Not available 05/21 15:33:10 Medical History No medical history recorded. Immunizations Vaccine Type Date Status Note Provider Nam e and Address Organization Details Recorded Time Pneumococcal conjugate PCV [address] [facility] 06/14/2024 14:11:01 zoster live [address] [facility]isa[facility] 06/14/2024 14:11:01 Influenza, high-dose, trivalent, PF [address] [facility], SandyLFly 06/14/2024 14:11:01 Influenza, high-dose, trivalent, PF 7 completed Stella avitia, [facility] 06/14/2024 14:11:01 Influenza, high-dose, trivalent, PF 6 completed Stella Kurtz null, [facility] 06/14/2024 14:11:01 Influenza, high-dose, trivalent, PF 9 completed Stella Kurtz null, [facility] 06/14/2024 14:11:01 Influenza, split virus, quadrivalent, PF 8 completed Stella avitia, [facility] 06/14/2024 14:11:01 Influenza, split virus, trivalent, preservative 4 completed Not Available [facility] 05/21/2023 02:23:25 Influenza, split virus, trivalent, preservative 7 completed Stella avitia, [facility] 06/14/2024 14:11:01 Influenza, split virus, trivalent, preservative 8 [facility]/14/2024 14:11:01 pneumococcal polysaccharide PPV23 8 completed Stellaxavi Kurtz [facility] 06/14/2024 14:11:00 Past Encounters Encounter ID Performer Location Encounter Start Date Encounter Closed Date Diagnosis/Indication Diagnosis SNOMED-CT Code Diagnosis ICD10 Code Diagnosis IMO Codes Diagnosis Note [id number] Cal Burris MD [facility] ([facility] [address] [place] [address] 03/02/2024 10:14:24 03/02/2024 12:08:13 Myelodysplastic syndrome (clinical) 351552321 D46.9 Dyspnea on exertion 6084 5006 R06.09 Chronic sy stolic heart failure 275917619 I50.22 worsening lately. Coronary atherosclerosis 093600353 I25.119 Need to decide if he needs a stress test or just go ahead and get an angiogram. Hypomagnesemia 515448213 E83.42 Benign pro static hyperplasia 051188041 N40.1 [id number] Cal Burris MD [facility] ([facility]) [address] [place] [address] 09/03/2024 09:53:53 09/03/2024 12:07:05 Myelodysplastic syndrome (clinical) 020559906 D46.9 Benign pro static hyperplasia 557911852 N40.1 Serum iron above reference range 958892447 R79.0 woking with Oncology on this. Chronic di astolic heart failure 031779890 I50.32 [id number] Cal Burris MD [facility] ([facility]) [address] [place] [address] 05/21/2025 15:16:45 05/21/2025 16:47:19 Benign essential hypertension 6752572 I10 BP running low now. Serum iron above reference range 819204128 R79.0 woking with Oncology on this. Dyspnea on exertion 6084 5006 R06.09 Myelodyspl astic syndrome (clinical) 841637451 D46.9 severe with pancytopen ia. Edema of foot 582926810 R60.0 098014 bilteral. Health Concerns Section Related Observation LastModified by Organization Detai ls LastModified Time None Recorded Concern Status LastModified by Organization Details LastModified Time None Recorded Advance Directives Directive None Recorded Payers Insurance Date Sequence Insurance Name Policy Number Policy Clement Covered Member ID Clement Member ID Guarantor Name 05/21/2025 [place] - [facility] (MEDICARE) Harley Viera [id number] Harley Viera 05/21/2025 1 [place] [employer] Harley Viera [id number] Harley Viera 05/21/2025 1 [employer] (MEDICARE REPLACEMENT/ADV ANTAGE - PPO) Harley Viera [id number] Harley Viera 05/21/2025 2 [employer] INS[employer]ANCE [employer] (MEDICARE SUPPLEMENT) Harley Viera [id number] Harley Viera Notes Date Note Type Note Provider Name and Address Organization Details Recorded Time 09/03/2024 text/html Every Tuesday he gets labs done to see if he needs a transfusion.He has stopped taking his prostate medication due to the reaction that it was having on his kidneys.Would like to discuss his new medication that he was prescribed for his iron level. Cal Burris MD [address] [place] [address], [phone], [facility], Cate 09/03/2024 10:49:18
--- OUTSIDE RECORDS SUMMARY | 2025-08-20 17:34 | XMS_ITS | Encounter Summary ---
Author Organization [facility] Address [address] [place] [address] Care Team Providers Care Department Operations Manager Name Role Phone Cal Burris MD Primary Care Provider [phone] Reason for Referral * Outpatient Services (Routine) - Closed Specialty Diagnoses / Procedures Referred By Contifrah t Referred To Contact Orthopedic Surgery Diagnoses Hip pain, right Procedures US GUIDE NEEDLE PLACEMENT Hemanth Jiang MD Phone: tel: fax: [address] [place] [address] Phone: tel: fax: Referral ID Status Reason Start Date Expiration Date Visits Requested Visits Authorized [id number] Closed Ordering Department To Schedule 01/20/2018 02/20/2019 1 1 Encounter Details Date Type Department Care Team (Late st Contact Info) Description 01/20/2018 Ancillary Orders [address] [place] [address] Hemanth Jiang MD [address] [place] [address] Hip pain, right Social History Tobacco Use Types Packs/Day Years Used Date Smoking Tobacco: Never Smokeless Tobacco: Never Sex and Gender Information Value Date Recorded Sex Assigned at Not on file 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 The area was then cleaned with Betadine in a sterile fashion and a 3 inch, 20-gauge needle was then inserted and 5 cc of lidocaine was injected as the needle was advanced under ultrasound guidance to the femoral neck/head. The syringe was then switched out and 80 mg of Depo-Medrol and 6 cc of 1% lidocaine was injected into the space with good distention of the joint capsule visualized. us Hemanth Jiang MD US ORDERABLES Final Result documented in this encounter Visit Diagnoses Diagnosis Hip pain, right Pain in joint, pelvic region and thigh Hip pain, right Pain in joint, pelvic region and thigh documented in this encounter Care Teams Department Operations Manager Relationship Specialty Start Date End Date Cal Burris MD [address] [place] [address] PCP - General Family Practice 11/16/17 documented as of this encounter
--- OUTSIDE RECORDS SUMMARY | 2025-08-20 17:34 | XMS_ITS | Clinical Summary ---
Author Organization [employer] Address [address] [facility] Attn: Epic Prelude ADT YAEL GARRISON [address] Care Team Providers Care Him Tech Name Role Phone Cal Burris MD Primary Care Provider [phone] Allergies No known active allergies Medications lisinopriL (PRINIVIL) 40 mg tablet Take 40 mg by mouth daily . 8 Active naproxen sodium (ALEVE) 220 mg Tablet Take 220 mg by mouth every 4 hours as needed for Pain, Moderate. 8 Active spironolactone (ALDACTONE) 25 mg tabletIndications:H ip pain, right,Primary osteoarthritis of right hip,Pre-procedure lab exam Take 25 mg by mouth daily . 8 Active metoprolol succinate (TOPROL XL) 25 mg Extended Release 24 hour tablet Take 12.5 mg by mouth daily at bedtime . 8 Active hydroCHLOROthiazide 12.5 mg tablet Take 12.5 mg by mouth daily. Active Active Problems Problem Noted Date Diagnosed Date Status post total replacement of right hip 04/18 Preoperative general physical examination 2017 Severe obesity (BMI 35.0-39.9) with comorbidity 03/30/2018 Primary osteoarthritis of right hip 03/30/2018 Sensorineural hearing loss (SNHL) of both ears 0 03/30/2018 Elevated serum creatinine 03/30/2018 Pain of right hip joint 11/16/2017 Essential hypertension Family History Medical History Relation Name Comments Unknown Brother Blood disorder? 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 Gender Identity Not on file Sexual Orientation Not on file Last Filed Vital Signs Vital Sign Reading Time Taken Comments Blood Pressure 118/62 04/16/2024 9:33 AM CDT Pulse 60 04/16/2024 9:33 AM CDT Temperature 36.3 C (97.4 F) 04/16/2024 9:33 AM CDT Respiratory Rate 14 04/16/2024 9:33 AM CDT Oxygen Saturation 97% 04/16/2024 9:33 AM CDT Inhaled Oxygen Concentration - - Weight 104.3 kg (230 lb) 04/16/2024 7:32 AM CDT Height 165.1 cm (5' 5 ) 04/16/2024 7:32 AM CDT Body Mass Index 38.27 04/16/2024 7:32 AM CDT Plan of Treatment Health Maintenance Due Date Last Done Comments DTAP/TDAP/TD VACCINES (1 - Tdap) 1966 ZOSTER VACCINE (1 of 2) 09/16/2015 07/22/2015 RSV VACCINE (60+ or ) (1 - 1-dose 75+ series) 2022 INFLUENZA VACCINE (#1) 2025 9, 08/06/2018, 08/06/2018, Additional history exists PNEUMOCOCCAL VACCINE 50+ YEARS Completed 08/06/2018 , 07/22/2015 Medical Devices Implanted Type Area Peer Support Specialist Device Identifier Shelf Expiration Date Model / Serial / Lot Cup Pinn Sctr Grptn 56mm 1217-32-056 - [id number] Implanted:Qty: 1 on 04/04/2018 by Andrew Pearce MD Hip Right: Hip [employer] 02/21/2028 [id number] / / [id number] Head Fem Art/Vitaliy Cer Sz36 1365-36-340 - [id number] Implanted:Qty: 1 on 04/04/2018 by Andrew Pearce MD Hip Right: Hip [employer] 01/21/2023 1365-36-340 / / [id number] Hole Eliminator [place] 1246-03-000 - [id number] Implanted:Qty: 1 on 04/04/2018 by Andrew Pearce MD Hip Right: Hip [employer] 12/22/2027 1246-000 / / [id number] Liner Pinn Altrx Poly 1221-36-056 - [id number] Implanted:Qty: 1 on 04/04/2018 by Andrew Pearce MD Hip Right: Hip [employer] 02/20/2023 1221-36-056 / / [id number] Stem Fem Trilock Std Sz5 101-050 - [id number] Implanted:Qty: 1 on 04/04/2018 by Andrew Pearce MD Hip Right: Hip [employer] 01/22/2028 101--050 / / [id number] Screw Canc 6.5x25mm 1172-25-000 - [id number] Implanted:Qty: 1 on 04/04/2018 by Andrew Pearce MD Screw Right: Hip [employer] 12/22/2027 [id number] / / [id number] Insurance MEDICARE PART A AND B [facility] * Guarantor: HARLEY VIERA Account Type Relation to Patient Date of Phone Billing Address Personal/Family [address] [address] [employer] Medicare Part D RX [employer] (INTERNAL) [facility] Care Teams Him Tech Relationship Specialty Start Date End Date Cal Burris MD [address] [place] [phone] PCP - General Family Practice 11/16/17
--- OUTSIDE RECORDS SUMMARY | 2025-08-20 17:34 | XMS_ITS | Clinical Summary ---
Author Organization [facility] Address [address] [place] [address] Phone Care Team Providers Care Senior Director Name Role Phone Cal Burris MD Primary Care Provider [phone] Allergies No known active allergies Medications lisinopril (PRINIVIL) 40 mg tablet Take 40 mg by mouth daily . 8 Active metoprolol succinate (TOPROL XL) 25 mg Extended Release 24 hour tablet Take 12.5 mg by mouth daily at bedtime . 8 Active spironolactone (ALDACTONE) 25 mg tabletIndications:H ip pain, right,Primary osteoarthritis of right hip,Pre-procedure lab exam Take 25 mg by mouth daily . 8 Active aspirin (ECOTRIN LOW STRENGTH) 81 mg Tablet, Delayed Release (E.C.) Take 1 Tablet (81 mg) by mouth every 12 hours. 60 Tablet 8 Active naproxen sodium (ALEVE) 220 mg Tablet Take 220 mg by mouth every 4 hours as needed for Pain, Moderate. 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 Gender Identity Not on file Sexual Orientation Not on file Last Filed Vital Signs Vital Sign Reading Time Taken Comments Blood Pressure 138/78 06/14/2018 2:07 PM CDT Pulse 75 06/14/2018 2:07 PM CDT Temperature 36.9 C (98.4 F) 04/06/2018 9:00 AM CDT Respiratory Rate 16 04/06/2018 9:00 AM CDT Oxygen Saturation 97% 04/06/2018 9:00 AM CDT Inhaled Oxygen Concentration - - Weight 97.5 kg (215 lb) 06/14/2018 2:07 PM CDT Height 165.1 cm (5' 5 ) 06/14/2018 2:07 PM CDT Body Mass Index 35.78 06/14/2018 2:07 PM CDT Plan of Treatment Health Maintenance Due Date Last Done Comments DTAP/TDAP/TD VACCINES (1 - Tdap) 1966 PNEUMOCOCCAL VACCINE 50+ YEARS (1 of 1 - PCV) 04/25/19 97 ZOSTER VACCINE (1 of 2) 1997 RSV VACCINE (60+ or ) (1 - 1-dose 75+ series) 2022 INFLUENZA VACCINE (#1) 2025 Medical Devices Implanted Type Area Grounds Manager Device Identifier Shelf Expiration Date Model / Serial / Lot Hole Eliminator [place] 1246-03-000 - [id number] Implanted:Qty: 1 on 04/04/2018 by Andrew Pearce MD at [facility] Hip Right: Hip [employer] 12/22/2027 1246-03-000 / / [id number] Liner Pinn Altrx Poly 1221-36-056 - [id number] Implanted:Qty: 1 on 04/04/2018 by Andrew Pearce MD at [facility] Hip Right: Hip [employer] 02/20/2023 1221-36-056 / / [id number] Cup Pinn Sctr Grptn 56mm 1217-32-056 - [id number] Implanted:Qty: 1 on 04/04/2018 by Andrew Pearce MD at [facility] Hip Right: Hip [employer] 02/21/2028 [id number] / / [id number] Head Fem Art/Vitaliy Cer Sz36 1365-36340 - [id number] Implanted:Qty: 1 on 04/04/2018 by Andrew Pearce MD at [facility] Hip Right: Hip [employer] 01/21/2023 1365-36-340 / / [id number] Stem Fem Trilock Std Sz5 1012-04-050 - [id number] Implanted:Qty: 1 on 04/04/2018 by Andrew Pearce MD at [facility] Hip Right: Hip [employer] 01/22/2028 1012-04-050 / / [id number] Screw Canc 6.5x25mm 1172-25-000 - [id number] Implanted:Qty: 1 on 04/04/2018 by Andrew Pearce MD at [facility] Screw Right: Hip [employer] 12/22/2027 [id number] / / [id number] Insurance MEDICARE PART A AND B [employer] Medicare Part D RX [employer] (INTERNAL) [facility] Advance Directives For more information, please contact: [phone] * Full Code (Latest Code Status on File) Date Activated Date Inactivated Comments 04/04/2018 5:48 PM 04/06/2018 2:59 PM * Full Code Date Activated Date Inactivated Comments 04/04/2018 1:19 PM 04/04/2018 5:48 PM Care Teams Senior Director Relationship Specialty Start Date End Date Cal Burris MD [address] [place] [id number] PCP - General Family Practice 11/16/17
--- OUTSIDE RECORDS SUMMARY | 2025-08-20 17:34 | XMS_ITS | Encounter Summary ---
Author Organization [facility], [facility] Address [address] [place] [address] Phone Care Team Providers Care School Fundraising Director Name Role Phone Cal Burris MD Primary Care Provider [phone] Encounter Details Date Type Department Care Team (Late st Contact Info) Description 12/29/2020 Orders Only [facility] [address] [place] [address] Stage 3 chronic kidney disease, not otherwise specified (HCC) Social History Tobacco Use Types Packs/Day Years Used Date Smoking Tobacco: Never Assessed Sex and Gender Information Value Date Recorded Sex Assigned at Not on file Legal Sex Male 1:01 PM EST Gender Identity Not on file Sexual Orientation Not on file documented as of this encounter Plan of Treatment Not on file documented as of this encounter Visit Diagnoses Diagnosis Stage 3 chronic kidney disease, not otherwise specified (HCC) documented in this encounter Care Teams School Fundraising Director Relationship Specialty Start Date End Date Cal Burris MD [address] [place] [address] PCP - General Family Medicine 12/29/20 documented as of this encounter
--- OUTSIDE RECORDS SUMMARY | 2025-08-20 17:34 | XMS_ITS | Clinical Summary ---
Author Organization [facility] Address [address] [address] Care Team Providers Care Landscape Nurseryman Name Role Phone Cal Burris MD Primary Care Provider [phone] Allergies No known active allergies Medications spironolactone (ALDACTONE) 25 MG tablet Take 25 mg by mouth daily 03/15/2018 Active furosemide (LASIX) 40 MG tablet 40 mg Take 1 and 1/2 tablets by mouth twice daily Active amLODIPine (NORVASC) 10 MG tablet Take 10 mg by mouth 1 (one) time each day if needed Take if BP is 140 systolic or above Active Multiple Vitamin (multivitamin) tablet Take 1 tablet by mouth 1 (one) time each day Active magnesium (MAGTAB) 84 MG (7MEQ) CR tablet TAKE 1 BY MOUTH TWICE DAILY 06/17/2021 Active Active Problems Problem Noted Date Diagnosed Date Essential hypertension 07/02/2021 Stage 3b chronic kidney disease 02/12/2021 Severe obesity 03/30/2018 Family History Medical History Relation Comments Cancer Father Stroke Father Relation Status Comments Father Mother Social History Tobacco Use Types Packs/Day Years Used Date Smoking Tobacco: Never Smokeless Tobacco: Never Alcohol Use Standard Drinks/Week Comments Never 0 (1 standard drink = 0.6 oz pur e alcohol) Sex and Gender Information Value Date Recorded Sex Assigned at Not on file Legal Sex Male 1:01 PM EST Gender Identity Not on file Sexual Orientation Not on file Last Filed Vital Signs Vital Sign Reading Time Taken Comments Blood Pressure 136/80 07/02/2021 10:32 AM CDT Pulse 70 07/02/2021 10:32 AM CDT Temperature 36.7 C (98.1 F) 02/11/2021 2:09 PM CDT Respiratory Rate - - Oxygen Saturation - - Inhaled Oxygen Concentration - - Weight 103 kg (227 lb 3.2 oz) 07/02/2021 10:32 A M CDT Height 165.1 cm (5' 5 ) 07/02/2021 10:32 AM CDT Body Mass Index 37.81 07/02/2021 10:32 AM CDT Plan of Treatment Health Maintenance Due Date Last Done Comments Pneumococcal Vaccine: 50+ Ye ars (1 of 2 - PCV) 1966 Influenza Vaccine (#1) 2025 Hepatitis B Vaccine Aged Out No longe r eligible based on patient's age to complete this topic Insurance Medicare Mochila Care Teams Landscape Nurseryman Relationship Specialty Start Date End Date Cal Burris MD [address] [place] [address] PCP - General Family Medicine 12/29/20
[2025-08-20 17:36] LABS: Platelet Count 29 10^3/cmm (157-399)
[2025-08-20 17:40] LABS: Slide Review Slide Review Perform
[2025-08-20 17:57] VITALS: BP 136/53; PULSE 71; O2SAT 98
[2025-08-20 18:16] VITALS: BP 136/53; PULSE 71; O2SAT 98
[2025-08-20 18:33] LABS: Reflex Lactate Order REFLEX LACTIC ORDERD
== END 2025-08-20 18:17 | disposition home or self-care (01) ==
PROVIDERS: Emergency Provider Emergency Medicine; PCP Family Medicine
DX: T80.92XA Unspecified transfusion reaction, initial encounter (principal); X58.XXXA Exposure to other specified factors, initial encounter; E78.5 Hyperlipidemia, unspecified; I10 Essential (primary) hypertension; Z95.0 Presence of cardiac pacemaker; I13.0 Hypertensive heart and chronic kidney disease with heart failure and stage 1 through stage 4 chronic kidney disease, or unspecified chronic kidney disease; I50.20 Unspecified systolic (congestive) heart failure; N18.30 Chronic kidney disease, stage 3 unspecified
CPT/HCPCS: 36415; 36600; 71045; 80051; 80053; 82330; 82805; 83605; 83880; 84484; 85025; 93005; 99285

== ENCOUNTER 2025-09-03 07:30 | Oncology outpatient (recurring) (ONCR) | payer MEDICARE, OTHER, SELFPAY ==
[2025-08-27 08:13] LABS: Hematocrit 28.2 % (37-53); Hemoglobin 9.50 g/dL (11.27-16.99); Mean Corpuscular HGB Conc 33.7 g/dL (30-55); Mean Corpuscular Hemoglobin 29.7 pg (27-33); Mean Corpuscular Volume 88.1 fl (82-101); Nucleated Red Blood Cells % 0 %; Red Blood Count 3.20 10^6/uL (3.85-5.65); White Blood Count 1.98 10^3/uL (3.29-11.43)
[2025-08-27 08:51] LABS: Platelet Count 22 10^3/cmm (157-399)
[2025-08-27 08:52] LABS: Slide Review Slide Review Perform
[2025-09-03 08:14] LABS: Hematocrit 24.2 % (37-53); Hemoglobin 8.00 g/dL (11.27-16.99); Mean Corpuscular HGB Conc 33.1 g/dL (30-55); Mean Corpuscular Hemoglobin 29.0 pg (27-33); Mean Corpuscular Volume 87.7 fl (82-101); Nucleated Red Blood Cells % 0 %; Red Blood Count 2.76 10^6/uL (3.85-5.65); White Blood Count 1.30 10^3/uL (3.29-11.43)
[2025-09-03 08:36] LABS: Alanine Aminotransferase 38 U/L (0-41); Albumin Level 3.4 g/dL (3.5-5.2); Alkaline Phosphatase 175 U/L (40-130); Anion Gap 13.7 (5-19); Aspartate Amino Transferase 16 U/L (0-40); Blood Urea Nitrogen 28 mg/dL (8-23); Calcium 8.7 mg/dL (8.5-10.5); Carbon Dioxide 26 mmol/L (22-29); Chloride 102 mmol/L (98-107); Globulin 2.3 g/dL (1.3-4.6); Glucose 182 mg/dL (65-115); Osmolality Calculated 296 mOsm/kg (285-295); Potassium 3.7 mmol/L (3.5-5.1); Sodium 138 mmol/L (136-145); Total Protein 5.7 g/dL (6.6-8.7)
[2025-09-03 08:52] LABS: Slide Review Slide Review Perform
[2025-09-03 08:53] LABS: Platelet Count 14 10^3/cmm (157-399)
[2025-09-03] MEDS: deferoxamine 2 GM in sodium chloride 0.9% 250 ML IV (10:05)
[2025-09-03 11:50] VITALS: BP 140/72; PULSE 64; RESP 17; TEMP 36.3; O2SAT 97
[2025-09-03 12:13] VITALS: BP 122/64; PULSE 60; RESP 17; TEMP 36.2; O2SAT 95
[2025-09-03 12:30] VITALS: BP 105/68; PULSE 60; RESP 17; TEMP 36.1; O2SAT 97
[2025-09-03 13:15] VITALS: BP 105/54; PULSE 60; RESP 16; TEMP 36.2; O2SAT 97
[2025-09-03 14:20] VITALS: BP 108/62; PULSE 60; RESP 17; TEMP 35.9; O2SAT 97
[2025-09-03 14:50] VITALS: BP 108/62; PULSE 60; RESP 17; TEMP 36.6; O2SAT 97
== END 2025-09-03 23:59 | disposition home or self-care (01) ==
PROVIDERS: PCP Family Medicine; Visit Provider Internal Medicine Medical Oncology
DX: D46.C Myelodysplastic syndrome with isolated del(5q) chromosomal abnormality; E83.19 Other disorders of iron metabolism; R03.0 Elevated blood-pressure reading, without diagnosis of hypertension; S81.801A Unspecified open wound, right lower leg, initial encounter; X58.XXXA Exposure to other specified factors, initial encounter; L03.115 Cellulitis of right lower limb; Z79.899 Other long term (current) drug therapy; Z53.9 Procedure and treatment not carried out, unspecified reason
CPT/HCPCS: 36430; 80053; 85025; 86850; 86900; 86920; 96365; 96372; 99214; 99215; J0895; J0896; J7050; J9999; P9016

== ENCOUNTER 2025-09-17 07:30 | Oncology outpatient (recurring) (ONCR) | payer MEDICARE, OTHER, SELFPAY ==
[2025-09-10 08:17] LABS: Hematocrit 27.6 % (37-53); Hemoglobin 9.50 g/dL (11.27-16.99); Mean Corpuscular HGB Conc 34.4 g/dL (30-55); Mean Corpuscular Hemoglobin 29.0 pg (27-33); Mean Corpuscular Volume 84.1 fl (82-101); Nucleated Red Blood Cells % 0 %; Red Blood Count 3.28 10^6/uL (3.85-5.65); White Blood Count 2.64 10^3/uL (3.29-11.43)
[2025-09-10 08:33] LABS: Slide Review Slide Review Perform
[2025-09-10 08:34] LABS: Platelet Count 8 10^3/cmm (157-399)
[2025-09-10 12:55] VITALS: BP 124/78; PULSE 84; RESP 20; TEMP 36.4; O2SAT 96
[2025-09-10] MEDS: methylPREDNISolone sod succ 125 mg/2 mL INJ 60 MG IVP (13:12)
[2025-09-10] MEDS: diphenhydrAMINE 50 mg/mL SDV 1mL 25 MG IVP (13:14)
[2025-09-10 14:10] VITALS: BP 120/84; PULSE 84; RESP 18; TEMP 36.6; O2SAT 96
[2025-09-10 14:50] VITALS: BP 114/76; PULSE 74; RESP 18; TEMP 36.6; O2SAT 96
[2025-09-17] VITALS (8 sets, daily range): BP systolic 92–116; BP diastolic 61–68; PULSE 60–108; RESP 17; TEMP 36.2–36.7; O2SAT 95–98
[2025-09-17 08:06] LABS: Hematocrit 24.4 % (37-53); Hemoglobin 8.30 g/dL (11.27-16.99); Mean Corpuscular HGB Conc 34.0 g/dL (30-55); Mean Corpuscular Hemoglobin 28.4 pg (27-33); Mean Corpuscular Volume 83.6 fl (82-101); Nucleated Red Blood Cells % 0 %; Red Blood Count 2.92 10^6/uL (3.85-5.65); White Blood Count 3.90 10^3/uL (3.29-11.43)
[2025-09-17 08:35] LABS: Platelet Count 9 10^3/cmm (157-399)
[2025-09-17 08:36] LABS: Slide Review Slide Review Perform
[2025-09-17 08:43] LABS: Iron 152 ug/dL (59-158)
[2025-09-17 08:55] LABS: Ferritin 4194 ng/mL (30-400)
[2025-09-17 09:17] LABS: Unsaturated Iron Binding < 17 ug/dL (112-347); Vitamin B12 > 2000 pg/mL (232-1245)
[2025-09-17 09:18] LABS: Total Iron Binding Capacity 169 mcg/dl
[2025-09-17] MEDS: deferoxamine 2 GM in sodium chloride 0.9% 250 ML IV (09:52)
[2025-09-17] MEDS: methylPREDNISolone sod succ 60 MG in water for injection-sterile 0.96 ML 11.52 MG IVP (12:31)
== END 2025-09-22 23:59 | disposition home or self-care (01) ==
PROVIDERS: PCP Family Medicine; Visit Provider Internal Medicine Medical Oncology
DX: Z53.9 Procedure and treatment not carried out, unspecified reason; D69.6 Thrombocytopenia, unspecified; D46.9 Myelodysplastic syndrome, unspecified; N18.31 Chronic kidney disease, stage 3a; R06.02 Shortness of breath
CPT/HCPCS: 36430; 82607; 82728; 83540; 83550; 85025; 86850; 86900; 86920; 96365; 96366; 96374; 96375; J0895; J1200; J2919; J7050; J9999; P9037; P9040

== ENCOUNTER 2025-09-24 07:43 | Oncology outpatient (recurring) (ONCR) | payer MEDICARE, OTHER, SELFPAY ==
[2025-09-24] VITALS (10 sets, daily range): BP systolic 95–123; BP diastolic 54–81; PULSE 60–84; RESP 17–18; TEMP 36.1–36.5; O2SAT 96–99
[2025-09-24 08:23] LABS: Hematocrit 23.7 % (37-53); Hemoglobin 8.10 g/dL (11.27-16.99); Mean Corpuscular HGB Conc 34.2 g/dL (30-55); Mean Corpuscular Hemoglobin 28.8 pg (27-33); Mean Corpuscular Volume 84.3 fl (82-101); Nucleated Red Blood Cells % 0 %; Platelet Count 33 10^3/cmm (157-399); Red Blood Count 2.81 10^6/uL (3.85-5.65); White Blood Count 2.32 10^3/uL (3.29-11.43)
[2025-09-24 08:33] LABS: Alanine Aminotransferase 59 U/L (0-41); Albumin Level 3.3 g/dL (3.5-5.2); Alkaline Phosphatase 194 U/L (40-130); Anion Gap 20.6 (5-19); Aspartate Amino Transferase 21 U/L (0-40); Blood Urea Nitrogen 36 mg/dL (8-23); Calcium 9.1 mg/dL (8.5-10.5); Carbon Dioxide 18 mmol/L (22-29); Chloride 100 mmol/L (98-107); Globulin 2.8 g/dL (1.3-4.6); Glucose 186 mg/dL (65-115); Osmolality Calculated 291 mOsm/kg (285-295); Potassium 4.6 mmol/L (3.5-5.1); Sodium 134 mmol/L (136-145); Total Protein 6.1 g/dL (6.6-8.7)
[2025-09-24 08:39] LABS: Slide Review Slide Review Perform
[2025-09-24] MEDS: deferoxamine 2 GM in sodium chloride 0.9% 250 ML IV (10:33)
[2025-09-24] MEDS: FUROsemide 10 mg/mL SDV 2mL 20 MG IVP (13:06)
[2025-09-24] MEDS: LUSPATERCEPT AAMT 100 MG SUBCUT (14:52)
== END 2025-09-24 23:59 | disposition home or self-care (01) ==
PROVIDERS: Internal Medicine Medical Oncology; Nurse Practitioner Family; PCP Family Medicine; Visit Provider Nurse Practitioner
DX: Z53.9 Procedure and treatment not carried out, unspecified reason; D46.C Myelodysplastic syndrome with isolated del(5q) chromosomal abnormality; R03.0 Elevated blood-pressure reading, without diagnosis of hypertension; Z79.899 Other long term (current) drug therapy
CPT/HCPCS: 36415; 36430; 80053; 85025; 86850; 86900; 86920; 96365; 96366; 96372; 96375; 99214; J0895; J0896; J1938; J7050; J9999; P9016

== ENCOUNTER 2025-10-06 20:21 | Inpatient (IN) | payer MEDICARE, OTHER, SELFPAY ==
[2025-10-06] VITALS (7 sets, daily range): BP systolic 83–121; BP diastolic 54–73; PULSE 78–88; RESP 15–18; TEMP 37.5; O2SAT 92–97; BMI 37.0
--- OUTSIDE RECORDS SUMMARY | 2025-10-06 20:31 | XMS_ITS | Data Portability ---
Author Organization [facility] Address [address] [address] Assessment No assessment recorded. Plan of Treatment Reminders Order Date Submit Date Provider Last Modified By Organization Details Last Modified Time Details Appointments None recorded. Lab None recorded. Referral cardiolog ist referral 2023 [place] [address] [facility], [address] [place] [address] [address], [place], [address], 11:52:35 Procedures None recorded. Surgeries None recorded. Imaging None recorded. Medication Orders bumetanid e 2 mg tablet 2024 025 [id number], [address], [place], [place], [id number], 16:00:36 magnesium L-lactate ER 84 mg tablet,ex tended release 2023 024 [facility], [address], [place], [address], 4 11:00:29 spironola ctone 50 mg tablet 2023 024 [facility], [address], [place], [address], 5 15:27:33 tamsulosi n 0.4 mg capsule 2023 024 [facility], [address], [place], [address], 4 10:02:04 Patient TargetsNo targets recorded. Patient InstructionsNo instructions recorded. 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 Problems Name Problem SNOMED Code Status Onset Date Resolution Date Notes Provider Name and Address Organization Details Recorded Time Benign essential hypertension 4382134 Active 2022 Mer avitia [facility] 5 10:39:41 Removal of sebaceous cyst Active 2022 cyst removed from rt arm, 2004 Stella avitia [facility] 4 14:11:14 Myelodysplas tic syndrome (clinical) 895447834 Active 2023 Mer avitia [facility] 5 10:40:16 Dyspnea on exertion 82582831 Active 2023 Mer avitia [facility] 5 10:40:07 Chronic systolic heart failure 672209829 Active 2023 Mer avitia [facility] 5 10:39:57 Coronary atherosclero sis 545941449 Active 2023 Mer avitia [facility] 5 10:40:03 Benign prostatic hyperplasia 161606168 Active 2023 Mer avitia [facility] 5 10:39:46 Serum iron above reference range 154013399 Active 2023 Mer avitia [facility] 5 10:40:38 Chronic diastolic heart failure 401203056 Active 2023 Mer Tyrone avitia [facility] Cate 5 10:39:50 Edema of foot 943761212 Active 2024 Cal Burris MD [address] [place] [address], [address], [facility], Cate 5 15:51:31 Problem Notes None recorded. Medical Equipment None Reported. Allergies Allergen ID Allergen Name Allergen Category Reaction Reaction Severity Criticality Documentation Date Start Date Code Code System Note Provider Name and Address Organization Details Recorded Time 42798 No known allergy (situatio n) Not available Not available Not available Not available 06/14/2024 52027 6003 SNOMED Stella Tessie avitia [facility] 4 14:11:20 No known drug allergies Medications Name Sig Start Date Stop Date Status Note LastModified by Organization Details LastModified Time furosemid e 40 mg tablet TAKE 2 TABLETS BY MOUTH ONCE DAILY 05/21 completed Not Available Not Available Not Available bumetanid e 2 mg tablet TAKE 1 TABLET BY MOUTH ONCE DAILY active Not Available Not Available No t Available prednison e 20 mg tablet TAKE 3 TABLETS BY MOUTH ONCE DAILY FOR 3 DAYS THEN 2 ONCE DAILY FOR 3 DAYS THEN 1 ONCE DAILY FOR 3 DAYS THEN 1/2 (ONE-RAMONA F) ONCE DAILY FOR 4 DAYS active Not Available Not Available No t Available potassium chloride ER 10 mEq tablet,ex tended release TAKE 1 TABLET BY MOUTH ONCE DAILY FOR 5 DAYS NEEDED FOR EDEMA active Not Available Not Available No t Available sulfameth oxazole 800 mg-trimet hoprim 160 mg tablet TAKE 1 TABLET BY MOUTH TWICE DAILY FOR 7 DAYS active Not Available Not Available No t Available spironola ctone 25 mg tablet TAKE 1 TABLET BY MOUTH ONCE DAILY 06/14 completed dose change Not Available Not Available Not Available tamsulosi n 0.4 mg capsule TAKE 1 CAPSULE BY MOUTH ONCE DAILY active Not Available [...] tablet TAKE 1 TABLET BY MOUTH ONCE DAILY. TAKE IF FEVER > 100.4 OR OTHER SIGNS OF ILLNESS. active Not Available Not Available No t Available spironola ctone 50 mg tablet TAKE 1 TABLET BY MOUTH ONCE DAILY 05/21 completed Not Available Not Available Not Available magnesium L-lactate ER 84 mg tablet,ex tended release TAKE 1 TABLET BY MOUTH DAILY active Not Available Not Available No t Available magnesium BID 03/02 completed 0; Recorded 01/08/20 23 10:57AM by Mike Rowland, Office Visit; Not Available Not Available Not Available baclofen three times daily, as needed 03/02 completed Recorded 01/08/20 23 10:57AM by Mike Rowland, Office Visit; Refill Quantity : 90; Tablet; Not Available Not Available Not Available albuterol sulfate four times daily, as needed 2021 active Not Available Not Available Not Avai lable furosemid e two times daily 03/02 completed 0; Recorded 11/01/19 23 4:21PM by Cal Burris MD, Annotati on/Adden dum; Not Available Not Available Not Available Magnesium Lactate daily 03/02 completed Recorded 01/08/20 23 10:57AM by Mike Rowland, Office Visit; Refill Quantity : 90; Tablet; Not Available Not Available Not Available Vitamin 09/03 completed Daily Not Available Not Available Not Available Revlimid daily 03/[address] [place]. On 14 days then off 7 days and repeat for now.; 0; Recorded 01/08/20 23 10:57AM by Mike Rowland, Office Visit; Not Available Not Available Not Available Revlimid 2.5 mg capsule 03/02 completed Not Available Not Available Not Available Vitals Date Recorded Body weight Heart rate Systolic And Diastolic Provider Name and Address Organization Details Last Updated DateTime 03/02/2024 378621.25 g 72 /min 122/72 mm[Hg] [facility] 03/02/2024 10:27:58 Date Recorded Body weight Body mass index (BMI) Body height Heart rate Systolic And Diastolic Provider Name and Address Organization Details Last Updated DateTime 05/21/2025 886289.2 1 g 39.1 kg/m2 165.1 cm 70 /min 98/60 mm[Hg] JASMIN RIVAS [facility] 15:30:00 Date Recorded Body weight Oxygen saturation Heart rate Systolic And Diastolic Provider Name and Address Organization Details Last Updated DateTime 09/03/2024 040434.98 g 93 % 74 /min 102/60 mm[Hg] MIKE ROWLAND [facility] 09/03/2024 10:07:20 Social History Question Answer Notes LastModified by Organizat ion Details LastModified Time Tobacco Smoking Status Never Smoker [facility]ASMIN [facility]itia [facility] 03/02/2024 10:28:17 What Was The Date Of [...] conjugate PCV 13 5 completed Stella [facility] 06/14/2024 14:11:01 zoster live 5 completed Stella Kurtz null, [facility] 06/14/2024 14:11:01 Influenza, high-dose, trivalent, PF 5 completed Stellaxavi Kurtz null, [facility] 06/14/2024 14:11:01 Influenza, high-dose, trivalent, PF 7 completed Setlla Kurtz null, [facility] 06/14/2024 14:11:01 Influenza, high-dose, trivalent, PF 6 completed Stella Kurtz null, [facility] 06/14/2024 14:11:01 Influenza, high-dose, trivalent, PF 9 completed Stella Kurtz [facility] 06/14/2024 14:11:01 Influenza, split virus, quadrivalent, PF 8 completed Stella Kurtz [facility] 06/14/2024 14:11:01 Influenza, split virus, trivalent, preservative 4 completed Not Available [facility] 05/21/2023 02:23:25 Influenza, split virus, trivalent, preservative 7 completed Stella avitia, [facility] 06/14/2024 14:11:01 Influenza, split virus, trivalent, preservative 8 completed Stella Kurtz [facility] 06/14/2024 14:11:01 pneumococcal polysaccharide PPV23 8 completed Stella Kurtz [facility] 06/14/2024 14:11:00 Past Encounters Encounter ID Performer Location Encounter Start Date Encounter Closed Date Diagnosis/Indication Diagnosis SNOMED-CT Code Diagnosis ICD10 Code Diagnosis IMO Codes Diagnosis Note [id number] Cal Burris MD [facility] ([facility]) [address] [place] [address] 03/02/2024 10:14:24 03/02/2024 12:08:13 Myelodysplastic syndrome (clinical) 524337517 D46.9 Dyspnea on exertion 6084 5006 R06.09 Chronic sy stolic heart failure 660583466 I50.22 worsening lately. Coronary atherosclerosis 308935058 I25.119 Need to decide if he needs a stress test or just go ahead and get an angiogram. Hypomagnesemia 772253515 E83.42 Benign pro static hyperplasia 101823915 N40.1 [id number] Cal Burris MD [facility] ([facility]) [address] [place] [address] 09/03/2024 09:53:53 09/03/2024 12:07:05 Myelodysplastic syndrome (clinical) 003039898 D46.9 Benign pro static hyperplasia 516776785 N40.1 Serum iron above reference range 215789822 R79.0 woking with Oncology on this. Chronic di astolic heart failure 798068174 I50.32 [id number] Cal Burris MD [facility] ([facility]) [address] [place] [address] 05/21/2025 15:16:45 05/21/2025 16:47:19 Benign essential hypertension 1910621 I10 BP running low now. Serum iron above reference range 078451344 R79.0 woking with Oncology on this. Dyspnea on exertion 6084 5006 R06.09 Myelodyspl astic syndrome (clinical) 418847551 D46.9 severe with pancytopen ia. Edema of foot 101142223 R60.0 274036 bilteral. Health Concerns Section Related Observation LastModified by Organization Detai ls LastModified Time None Recorded Concern Status LastModified by Organization Details LastModified Time None Recorded Advance Directives Directive None Recorded Payers Insurance Date Sequence Insurance Name Policy Number Policy Clement Covered Member ID Clement Member ID Guarantor Name 09/03/2025 [place] - [place]ICARE-[place] - PART A - C-FQ (MEDICARE) Harley Viera [id number] Harley Viera 09/03/2025 1 MEDICARE B-[place]: WPS Harley Viera [id number] Harley H Maximiliano 05/21/2025 1 [employer] (MEDICARE REPLACEMENT/ADV ANTAGE - PPO) Harley Bradford Maximiliano [id number] Harley Bradford Maximiliano 09/03/2025 2 [employer] (MEDICARE SUPPLEMENT) Harley Bradford Maximiliano [id number] Harley Bradford Maximiliano Notes Date Note Type Note Provider Name and Address Organization Details Recorded Time 09/03/2024 text/html Every Tuesday he gets labs done to see if he needs a transfusion.He has stopped taking his prostate medication due to the reaction that it was having on his kidneys.Would like to discuss his new medication that he was prescribed for his iron level. Cal Burris MD [address] [place] [address], [phone], [facility] 09/03/2024 10:49:18
--- OUTSIDE RECORDS SUMMARY | 2025-10-06 20:31 | XMS_ITS | Clinical Summary ---
Author Organization [facility] Address [address] [address] Care Team Providers Care Health Coordinator Name Role Phone Cal Burris MD Primary Care Provider [phone] Allergies No known active allergies Medications spironolactone [...] age to complete this topic Insurance Medicare [employer] Care Teams Health Coordinator Relationship Specialty Start Date End Date Cal Burris MD [address] [place] [address] PCP - General Family Medicine 12/29/20
--- OUTSIDE RECORDS SUMMARY | 2025-10-06 20:31 | XMS_ITS | Encounter Summary ---
Author Organization [facility], [facility] Address [address] [place] [address] Phone Care Team Providers Care Grain Loader Name Role Phone Cal Burris MD Primary Care Provider [phone] Encounter Details Date Type Department Care Team (Late st Contact Info) Description 12/29/2020 Orders Only [facility] [address] [place] [address] Stage 3 chronic kidney disease, [...] (HCC) documented in this encounter Care Teams Grain Loader Relationship Specialty Start Date End Date Cal Burris MD [address] [place] [address] PCP - General Family Medicine 12/29/20 documented as of this encounter
--- OUTSIDE RECORDS SUMMARY | 2025-10-06 20:31 | XMS_ITS | Clinical Summary ---
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 Gender Identity Not on file Sexual Orientation [...] 75+ series) 2022 INFLUENZA VACCINE (#1) 2025 , 08/06/2018, 08/06/2018, Additional history exists PNEUMOCOCCAL VACCINE 50+ YEARS Completed 08/06/2018 , 07/22/2015 Medical Devices Implanted Type Area Acid Concentrator Device Identifier Shelf Expiration Date Model / Serial / Lot Cup Pinn Sctr Grptn 56mm 1217-32-056 - [id number] Implanted:Qty: 1 on 04/04/2018 by Andrew Pearce MD Hip Right: Hip [employer] 02/21/2028 [id number] / / [id number] Head Fem Art/Vitaliy Cer Sz36 1365-36-340 - [id number] Implanted:Qty: 1 on 04/04/2018 by Andrew Pearce MD Hip Right: Hip [employer] 01/21/2023 1365-36-340 / / [id number] Hole Eliminator Ackerman 1246-03-000 - [id number] Implanted:Qty: 1 on 04/04/2018 by Andrew Pearce MD Hip Right: Hip [employer] 12/22/2027 1246-03-000 / / [id number] Liner Pinn Altrx Poly 122-36-056 - [id number] Implanted:Qty: 1 on 04/04/2018 by Andrew Pearce MD Hip Right: Hip [employer] 02/20/2023 122-36-05 / / [id number] Stem Fem Trilock Std Sz5 101- - [id number] Implanted:Qty: 1 on 04/04/2018 by Andrew Pearce MD Hip Right: Hip [employer] 01/22/2028 1012-050 / / [id number] Screw Canc 6.5x25mm 117--000 - [id number] Implanted:Qty: 1 on 04/04/2018 by Andrew Pearce MD Screw Right: Hip [employer] 12/22/2027 [id number] / / [id number] Insurance MEDICARE PART A AND B [facility] * Guarantor: HARLEY VIERA Account Type Relation to Patient Date of Phone Billing Address Personal/Family [address] [address] RX [employer] Medicare Part D RX [employer] (INTERNAL) [facility] Care Teams Software Test Engineer Relationship Specialty Start Date End Date Cal Burris MD [address] [place] [id number] PCP - General Family Practice 11/16/17
--- OUTSIDE RECORDS SUMMARY | 2025-10-06 20:31 | XMS_ITS | Clinical Summary ---
Author Organization [facility] Address [address] [place] [address] Phone Care Team Providers Care Emt Name Role Phone Cal Burris MD Primary Care Provider [phone] Allergies No known active allergies Medications lisinopril [...] on file Legal Sex Male 3:27 PM DISPATCH COORDINATOR Gender Identity Not on file Sexual Orientation [...] (#1) 2025 Medical Devices Implanted Type Area Precision Lens Generator Device Identifier Shelf Expiration Date Model / Serial / Lot Hole Eliminator Peak 1246-03-000 - [id number] Implanted:Qty: 1 on 04/04/2018 by Andrew Pearce MD at [facility] Hip Right: Hip [employer] 12/22/2027 1246-03-000 / / [id number] Liner Pinn Altrx Poly 1221-36-056 - [id number] Implanted:Qty: 1 on 04/04/2018 by Andrew Pearce MD at [facility] Hip Right: Hip [employer] 02/20/2023 1221-36-056 / / [id number] Cup Pinn Sctr Grptn 56mm 1217-32-056 - [id number] Implanted:Qty: 1 on 04/04/2018 by Andrew Pearce MD at [facility] Hip Right: Hip [employer] 02/21/2028 [id number] / / [id number] Head Fem Art/Vitaliy Cer Sz36 1365-36340 - [id number] Implanted:Qty: 1 on 04/04/2018 by Andrew Pearce MD at [facility] Hip Right: Hip [employer] 01/21/2023 1365-36-340 / / [id number] Stem Fem Trilock Std Sz5 1012-04-050 - [id number] Implanted:Qty: 1 on 04/04/2018 by Andrew Pearce MD at [facility] Hip Right: Hip [employer] 01/22/2028 1012-04-050 / / [id number] Screw Canc 6.5x25mm 1172-25-000 - [id number] Implanted:Qty: 1 on 04/04/2018 by Andrew Pearce MD at [facility] Screw Right: Hip [employer] 12/22/2027 [id number] / / [id number] Insurance MEDICARE PART A AND B [employer]ogi [employer] Medicare Part D RX [employer] (INTERNAL) [facility] Advance Directives For more information, please contact: [phone] * Full Code (Latest Code Status on File) Date Activated Date Inactivated Comments 04/04/2018 5:48 PM 04/06/2018 2:59 PM * Full Code Date Activated Date Inactivated Comments 04/04/2018 1:19 PM 04/04/2018 5:48 PM Care Teams Emt Relationship Specialty Start Date End Date Cal Burris MD [address] [place] [address] PCP - General Family Practice 11/16/17
--- OUTSIDE RECORDS SUMMARY | 2025-10-06 20:31 | XMS_ITS | Encounter Summary ---
Author Organization [facility] Address [address] [place] [address] Care Team Providers Care Galley Stripper Name Role Phone Cal Burris MD Primary Care Provider [phone] Reason for Referral * Outpatient Services (Routine) - Closed Specialty Diagnoses / Procedures Referred By Contifrah t Referred To Contact Orthopedic Surgery Diagnoses Hip pain, right Procedures US GUIDE NEEDLE PLACEMENT Hemanth Jiang MD Phone: tel: fax: [address] [place] [address] Phone: tel: fax: Referral ID Status Reason Start Date Expiration Date Visits Requested Visits Authorized [id number] Closed Ordering Department To Schedule 01/20/2018 02/20/2019 1 1 Encounter Details Date Type Department Care Team (Late st Contact Info) Description 01/20/2018 Ancillary Orders [address] [place] [address] Hemanth Jiang MD [address] [place] [address] Hip pain, right Social History Tobacco Use Types Packs/Day Years Used Date Smoking Tobacco: Never Smokeless Tobacco: Never Sex and Gender Information Value Date Recorded Sex Assigned at Not on file 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
--- NOTE | 2025-10-06 20:37 | ECG_ITS ---
[employer] Test Date: 2025-10-06 Pat Name: Harley Viera Department: Room: 262 Gender: Male Poultry Vaccinator: : 1945 Requested By: Chuy Mejia Order Number: [id number] Rodriguez MD: Alicia Rodriguez M.D. Measurements Intervals [place] Rate: 93 P: 119 [place]: 91 QRS: -72 QRSD: 142 T: 112 QT: 362 QTc: 451 Interpretive Statements ELECTRONIC VENTRICULAR PACEMAKER ABNORMAL RHYTHM ECG Compared to ECG 08/20/2025 15:59:06 Sinus rhythm no longer present Ventricular premature complex(es) no longer present Electronically Signed On 10-09-2025 21:45:22 SITE MANAGER by Alicia Rodriguez M.D. [email or web address]
--- NOTE | 2025-10-06 20:55 | XRR_ITS ---
PROCEDURE INFORMATION: Exam: XR Chest Exam date and time: 10/06/2025 8:59 PM Age: 80 years old Clinical indication: Cough and shortness of breath; Prior surgery; Surgery date: 6+ months; Surgery type: Pacemaker, coronary stents; Additional info: SOB, cough weakness TECHNIQUE: Imaging protocol: Radiologic exam of the chest. Views: 1 view. COMPARISON: CR XR chest 1V portable [id number] 08/20/2025 4:06 PM FINDINGS: Tubes, catheters and devices: Left approach dual lead pacemaker. Lungs: Unremarkable. No consolidation. Pleural spaces: Unremarkable. No pleural effusion. No pneumothorax. Heart/Mediastinum: Unremarkable. No cardiomegaly. Bones/joints: Degenerative changes of the spine and bilateral shoulder joints. XR/XR chest 1V portable [id number] IMPRESSION: No acute findings.
--- NOTE | 2025-10-06 20:55 | CTR_ITS ---
PROCEDURE INFORMATION: Exam: CT Head Without Contrast Exam date and time: 10/06/2025 9:08 PM Age: 80 years old Clinical indication: Pain; Headache; MUNSON with general weakness. ; Additional info: Headache, thrombocytopenia TECHNIQUE: Imaging protocol: Computed tomography of the head without contrast. Radiation optimization: All CT scans at this facility use at least one of these dose optimization techniques: automated exposure control; mA and/or kV adjustment per patient size (includes targeted exams where dose is matched to clinical indication); or iterative reconstruction. COMPARISON: CT head wo con* [id number] 07/13/2022 3:19 PM RADIATION DOSE METRICS: Total DLP (mGy-cm): 1160.39 FINDINGS: Brain: There are mild periventricular and subcortical lucencies consistent with chronic microvascular ischemic changes. The mobley-white differentiation is maintained. No hemorrhage. No edema. Cerebral ventricles: No ventriculomegaly. Paranasal sinuses: Mucous retention cyst/polyps of bilateral maxillary sinuses. Mucosal thickening of bilateral ethmoid sinuses. Mastoid air cells: Visualized mastoid air cells are well aerated. Bones: Unremarkable. No acute fracture. Soft tissues: Unremarkable. CT/CT head wo con* [id number] IMPRESSION: No acute intracranial abnormality. Chronic microvascular ischemic changes.
[2025-10-06 21:12] LABS: Hematocrit 24.4 % (37-53); Hemoglobin 8.30 g/dL (11.27-16.99); Mean Corpuscular HGB Conc 34.0 g/dL (30-55); Mean Corpuscular Hemoglobin 28.5 pg (27-33); Mean Corpuscular Volume 83.8 fl (82-101); Red Blood Count 2.91 10^6/uL (3.85-5.65); White Blood Count 7.75 10^3/uL (3.29-11.43)
[2025-10-06 21:16] LABS: INR 1.25 (0.8-1.2); Prothrombin Time 16.60 SECONDS (12.1-14.9)
[2025-10-06 21:17] LABS: Partial Thromboplastin Time 40.9 SECONDS (23.9-36.7)
--- NOTE | 2025-10-06 21:18 | PC.NURSE ---
notified patient we need urine sample he does not have urinate at this time. urinal left on side of bed and he verbalized that he would push the call light when he needs to go. Family is at the bedside
[2025-10-06 21:21] LABS: Lactic Sepsis W/Reflex 2.9 mmol/L (0.5-2.2)
[2025-10-06 21:31] LABS: Alanine Aminotransferase 60 U/L (0-41); Albumin Level 2.8 g/dL (3.5-5.2); Alkaline Phosphatase 160 U/L (40-130); Anion Gap 16.5 (5-19); Aspartate Amino Transferase 40 U/L (0-40); Blood Urea Nitrogen 42 mg/dL (8-23); Calcium 9.0 mg/dL (8.5-10.5); Carbon Dioxide 21 mmol/L (22-29); Chloride 96 mmol/L (98-107); Globulin 2.6 g/dL (1.3-4.6); Glucose 186 mg/dL (65-115); NT Pro B Type Natriuretic Pept 2629 pg/mL (0-450); Osmolality Calculated 281 mOsm/kg (285-295); Potassium 5.5 mmol/L (3.5-5.1); Sodium 128 mmol/L (136-145); Total Protein 5.4 g/dL (6.6-8.7)
[2025-10-06] MEDS: SODIUM CHLORIDE 0.9% 3034.53 ML IV (21:35)
[2025-10-06] MEDS: piperacillin-tazobactam 4.5 GM in sodium chloride 0.9% (plus) 50 ML IV (21:36)
[2025-10-06 21:45] LABS: Slide Review Slide Review Perform
[2025-10-06 21:46] LABS: Absolute Segmented Neutrophil 0.5 10/cmm (1.6-7.1); Atypical Lymphs 15.0 % (0-5); Band Neutrophils Absolute 0.2 10^3/cmm (0.0-1.2); Total Cells Counted 100 (0-100)
[2025-10-06 21:50] LABS: Platelet Count 4 10^3/cmm (157-399)
[2025-10-06 22:00] LABS: Respiratory Syncytial Virus Ce NEGATIVE (Negative)
[2025-10-06 22:01] LABS: Reflex Lactate Order REFLEX LACTIC ORDERD
[2025-10-06 22:18] LABS: SARS-CoV-2 PCR Positive (Negative)
[2025-10-06 22:46] LABS: Glucose Urine UA Negative (Normal); Nitrate Urine Negative (Negative); Specific Gravity, Urine 1.017 (1.005-1.030)
[2025-10-06 22:51] LABS: Add Urine Microscopic? YES; Universal Test for UA Present (0)
[2025-10-06 23:22] LABS: Lactic Acid level (Lactate) 2.0 mmol/L (0.5-2.2)
--- NOTE | 2025-10-06 23:44 | ED_ITS ---
HPI - Weakness 2 General: Chief complaint: Weakness Stated complaint: Weakness Time Seen by Provider: 10/06/25 20:28 History of Present Illness: Patient is a 80-year-old male with recently diagnosed leukemia who presents today with complaints of weakness, sore throat, and fever. He reports feeling real bad with significant weakness to the point where he was unable to get up from a stool this afternoon, requiring approximately 30 minutes of effort to return to his bed despite having a walker. The patient states he received a diagnosis of leukemia following testing. He reports having low platelet counts, requiring platelet transfusions on Tuesday at this facility and again at another facility. Patient mentions that a bone marrow procedure was delayed until after platelet transfusion. He reports coughing quite a bit . He denies vomiting or diarrhea but endorses a bad headache and abdominal pain. The patient also reports epistaxis. He describes some wheezing but denies using home oxygen or breathing treatments. Patient reports mild lower extremity edema, which he attributes to being on a diuretic ( water pill ). Related Data Home Medications ?Medication ?Instructions ?Recorded ?Confirmed bumetanide 2 mg tablet 2 mg PO DAILY 10/07/2510/07 furosemide 40 mg tablet (Lasix) 80 mg PO DAILY 5 Previous Rx's ?Medication ?Instructions ?Recorded nitroglycerin 0.4 mg sublingual 0.4 mg sublingual Q5M PRN chest 06/29/23 tablet pain 30 days #30 tabs tamsulosin 0.4 mg capsule (Flomax) 0.4 mg PO DAILY #30 caps 07/23/25 potassium chloride 10 mEq 10 meq PO DAILY PRN edema #3 0 tabs 09/03/25 tablet,extended release levothyroxine 50 mcg tablet 50 mcg PO DAILY #30 tabs 1 11/16/24 (Euthyrox) Allergies Allergy/AdvReac Type Severity Reaction Status Date / Time No Known Allergies Allergy Verified 09/24/25 08:07 [facility] ED 2 PFS: Medical History Chronic kidney disease, stage III (moderate) 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 Systolic CHF Pacemaker Edema, peripheral Aortic regurgitation Acute diastolic heart failure Hypothyroidism (acquired) Third degree heart block Obesity (BMI 30-39.9) Acute exacerbation of CHF (congestive heart failure) Benign essential hypertension with target blood pressure below 140/90 Elevated brain natriuretic peptide (BNP) level Grade III diastolic dysfunction EF 67% Mild pulmonary hypertension LVH Diverticulitis of small bowel BPH (benign prostatic hyperplasia) Cholelithiasis Dyslipidemia Hypertension Surgical History History of bone marrow biopsy History of removal of cyst Right arm - 2004 History of ankle surgery Bilateral History of elbow surgery Left elbow History of bilateral hip arthroplasty Status post biventricular pacemaker S/P cardiac cath Normal 2013 Procedure Procedure Type Diagnostic procedure:Miscellaneous, Perclose , Coronary Angiography Conclusions Procedure Summary 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 due to tumor surgery in the right arm right groin approach was adopted difficulty in access was encounter due to fatty tumors in the thigh, hematoma was observed, procedure was aborted since it was elective in order to avoid major bleeding in case we have to proceed with PCI.Patient was observed for next 24 hours did fine no further bleeding or hematoma observed.He was approached from left groin which remain successful next day.Patient was discharged home without any complication next day 1-LM is normal 2-LAD has luminal irregularities 3-LCx has luminal irregularities 4-RCA has luminal irregularities Family History Mother Cancer Father Stroke Brother Polycythemia rubra vera Other Hypertension Denies family history of Diabetes CAD (coronary artery disease) Clotting disorder Dementia Hyperlipidemia Psychiatric illness Chronic kidney disease (CKD) Suicide Anesthesia complication Bleeding disorder Lung disease Social History (Updated 10/07/25 @ 04:07 by Evaristo Tucker MD) Smoking and tobacco/nicotine status: never used tobacco/nicotine Alcohol intake: never Substance/Drug Use: never Additional social history: Patient was in 2014 when his of breast cancer. He wants DO NOT RESUSCITATE status but does want to undergo treatment for his cancer. 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 Physical Exam 2 Const: GENERAL APPEARANCE: cooperative, ill appearing and frail appearing O RIENTATION/CONSCIOUSNESS: Yes awake, Yes oriented to person, Yes oriented to place and Yes oriented to time HENMT: COMMON NORMALS: normocephalic, atraumatic and Normal external nose present HEAD & SCALP: normocephalic and atraumatic FACE & SINUS: normal facial exam and face symmetric NOSE: Normal external nose present Eye: COMMON NORMALS: Equal, round and reactive pupils present and EOMs intact bilaterally PUPIL: Yes Equal, round and reactive pupils present Neck/C-Spine: GENERAL: Yes trachea midline Chest: CHEST: Yes Symmetrical chest wall rise Resp: COMMON NORMALS: normal respiratory effort, No retractions, No use of accessory muscles and clear to auscultation bilaterally AUSCULTATION: clear to auscultation bilaterally Cardio: COMMON NORMALS: regular rate and regular rhythm RATE: regular rate RHYTHM: regular rhythm GI: COMMON NORMALS: Normal to inspection, nondistended, normoactive bowel sounds present Extremity: GENERAL: Yes edema and Yes pallor Neuro: JAYY COMA SCALE: document GCS findings [place] coma scale eye opening: Spontaneous Jayy coma scale verbal response: Orientated Jayy coma scale motor response: Obey commands Jayy coma scale total score: 15 S ENSORIUM/ORIENTATION: Yes oriented to person, Yes oriented to place and Yes oriented to time SENSORY EXAM: Yes extremities (intact) Psych: COMMON NORMALS: speech normal SPEECH: Yes normal speech Skin: COMMON NORMALS: no rashes or lesions noted GENERAL SKIN EXAM: no rashes or lesions noted Course 2 Vital Signs: Vital signs: Vital Signs Temperature 98.2 F 10/07/25 05:14 Pulse Rate 95 10/07/25 05:14 Respiratory Rate 14 10/07/25 05:14 Blood Pressure 109/72 10/07/25 05:14 Pulse Oximetry 95 10/07/25 05:14 Oxygen Delivery Me thod Room Air 10/07/25 04:00 Oxygen Flow Rate 0 10/07/25 02:37 MDM - Weakness Medical Decision Making Patient has a temperature here. His initial blood pressure was low, 83/54. He received a sepsis bolus. Current blood pressure 121/67. His heart rate is paced, rate of 85 or so. Hemoglobin is 8.3. Platelet count is 4, white count 7.75. His potassium is 5.5. Sodium 128. Creatinine 1.6 which is near his baseline. Chest x-ray is nonacute. Head CT is nonacute. He is positive for COVID-19. His lactic acid is 2.9 initially, down to 2 at 2 hours. Liver enzymes are mildly elevated. CRP is 237. He is improved after sepsis bolus. His platelet count is 4. Spoke with the hospitalist. He agrees to admission, will see the patient in the ER. Platelet transfusion has been ordered. He does appear improved after fluid bolus. Lab Data 10/06/25 20:10 10/06/25 20:10 Radiology Impressions Chest X-Ray 10/06/25 20:55 IMPRESSION: No acute findings. Head CT 10/06/25 20:55 IMPRESSION: No acute intracranial abnormality. Chronic microvascular ischemic changes. Laboratory Results WBC 7.75 10^3/uL (3.29-11.43) 10/06/25 20:10 RBC 2.91 10^6/uL (3.85-5.65) L 10/06/25 20:10 Hgb 8.30 g/dL (11.27-16.99) L 10/06/25 20:10 Hct 24.4 % (37-53) L 10/06/25 20:10 MCV 83.8 fl (82-101) 10/06/25 20:10 MCH 28.5 pg (27-33) 10/06/25 20:10 MCHC 34.0 g/dL (30-55) 10/06/25 20:10 RDW 13.8 % (12.1-15.1) 10/06/25 20:10 Plt Count 4 10^3/cmm (157-399) L* 10/06/25 20:10 MPV 12.0 fL (7.4-10.4) H 10/06/25 20:10 Lymph % (Auto) Not Reportable 10/06/25 20:10 [place] % (Auto) Not Reportable 10/06/25 20:10 Lymph # (Auto) Not Reportable 10/06/25 20:10 [place] # (Auto) Not Reportable 10/06/25 20:10 Total Counted 100 (0-100) 10/06/25 20:10 Atypical Lymphs % 15.0 % (0-5) H 10/06/25 20:10 Absolute Neutrophils 0.6 10^3/cmm (1.4-6.5) L* 10/06/25 20:10 Segmented Neutrophils 6 % 10/06/25 20:10 Band Neutrophils 2.0 % 10/06/25 20:10 Absolute Lymphocytes 2.6 10^3/cmm (1.2-3.4) 10/06/25 20:10 Lymphocytes (Manual) 18 % 10/06/25 20:10 Monocytes (Manual) 15.0 % 10/06/25 20:10 Absolute Monocytes 1.2 10^3/cmm (0.1-0.6) H 10/06/25 20:10 Eosinophils (Manual) 0 % 10/06/25 20:10 Absolute Eosinophils 0.0 10^3/cmm (0.0-0.7) 10/06/25 20:10 Basophils (Manual) 0.0 % 10/06/25 20:10 Absolute Basophils 0.0 10^3/cmm (0.0-0.2) 10/06/25 20:10 Myelocytes 1.0 % 10/06/25 20: Blast Cells 43 % (0-0) H* 10/06/25 20:10 Platelet Estimate Decreased (Normal) 10/06/25 20:10 PT 16.60 SECONDS (12.1-14.9) H 10/06/25 20:10 INR 1.25 (0.8-1.2) H 10/06/25 20:10 APTT 40.9 SECONDS (23.9-36.7) H 10/06/25 20:10 D-Dimer 2.34 ug/mLFEU (0-0.59) H 10/06/25 20:10 Sodium 128 mmol/L (136-145) L 10/06/25 20:10 Potassium 5.5 mmol/L (3.5-5.1) H 10/06/25 20:10 Chloride 96 mmol/L (98-107) L 10/06/25 20:10 Carbon Dioxide 21 mmol/L (22-29) L 10/06/25 20:10 Anion Gap 16.5 (5-19) 10/06/25 20:10 BUN 42 mg/dL (8-23) H 10/06/25 20:10 Creatinine 1.6 mg/dL (0.7-1.2) H 10/06/25 20:10 GFR Calculation Not Reportable 10/06/25 20:10 Glucose 186 mg/dL (65-115) H 10/06/25 20:10 Calculated Osmolality 281 mOsm/kg (285-295) L 10/06/25 20:10 Lactic Acid 2.9 mmol/L (0.5-2.2) H 10/06/25 20:10 Lactic Acid (Sepsis) 2.0 mmol/L (0.5-2.2) 10/06/25 22:59 Calcium 9.0 mg/dL (8.5-10.5) 10/06/25 20:10 Total Bilirubin 0.7 mg/dL (0.15-1.2) 10/06/25 20:10 AST 40 U/L (0-40) 10/06/25 20:10 ALT 60 U/L (0-41) H 10/06/25 20:10 Alkaline Phosphatase 160 U/L (40-130) H 10/06/25 20:10 C-Reactive Protein 237.3 mg/L (0.0-4.9) H 10/06/25 20:10 NT-Pro-B Natriuret Pep 2629 pg/mL (0-450) H 10/06/25 20:10 Total Protein 5.4 g/dL (6.6-8.7) L 10/06/25 20:10 Albumin 2.8 g/dL (3.5-5.2) L 10/06/25 20:10 Globulin 2.6 g/dL (1.3-4.6) 10/06/25 20:10 Urine Color Yellow (Yellow) 10/06/25:35 Urine Appearance Clear (CLEAR) 10/06/25:35 Urine pH 5.0 (5-7) 10/06/25 22:35 Ur Specific [place] 1.017 (1.005-1.030) 10/06/25:35 Urine Protein Trace (Negative) A 10/06/25:35 Urine Glucose (UA) Negative (Normal) 10/06/25:35 Urine Ketones Negative (Negative) 10/06/25:35 Urine Blood Negative (Negative) 10/06/25: Urine Nitrate Negative (Negative) 10/06/25:35 Urine Bilirubin Negative (Negative) 10/06/25:35 Urine Urobilinogen 1.0 mg/dL (Negative) 10/06/25 22:35 Ur Leukocyte Esterase Negative (Negative) 10/06/25:35 Urine RBC 0-2 /hpf (0-2) 10/06/25 22:35 Urine WBC 0-5 /hpf (0-5) 10/06/25 22:35 Ur Squamous Epith Cells 0-5 /hpf (0-5) 10/06/25 22:35 Amorphous Sediment Not Reportable 10/06/25 22:35 Urine Bacteria None seen /hpf (NONE) 10/06/25 22:35 Hyaline Casts 21.48 /lpf 10/06/25 22:35 Influenza A (PCR) Negative (Negative) 10/06/25 21:15 Influenza Type B (PCR) Negative (Negative) 10/06/25 21:15 RSV (PCR) Negative (Negative) 10/06/25 21:15 SARS-CoV-2 (PCR) Positive (Negative) A 10/06/25 21:15 All radiology interpretation(s) finalized by discharge Discharge Plan Discharge Patient Disposition: Admitted As Inpatient Admit Provider: Evaristo Tucker Clinical Impression: 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
[2025-10-07] VITALS (21 sets, daily range): BP systolic 105–164; BP diastolic 68–91; PULSE 70–110; RESP 14–22; TEMP 36.1–37.7; O2SAT 92–99; BMI 35.9; BMI 36.8
--- NOTE | 2025-10-07 04:03 | PM.HP ---
Providers/Chief Complaint Admitting Physician: Evaristo Tucker MD Primary Care Provider: Cal Burris MD Chief Complaint: Weakness History of Present Illness Harley Viera is a 80 year old male with history of myelodysplastic syndrome with 5 q. 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 Patient was getting platelet infusion last Tuesday and last Tuesday he was at a medical facility visited by a chimney construction supervisor whom he describes as a lady with short white hair who was coughing and then he had fevers. Patient has been coughing nonproductive and short of breath since then. He lives alone. Next line patient has had occasional diarrhea since denies nausea vomiting constipation. He has not had blood in his stool Review of Systems Narrative: General positive for fevers chills cough dry and nonproductive sore throat malaise and general weakness Medications/Allergies Home Medications ?Medication ?Instructions ?Recorded ?Confirmed ?Last Taken ?Type nitroglycerin 0.4 mg sublingual 0.4 mg sublingual Q5M PRN chest 06/29/23 10/07/25 10/02/25 Rx tablet pain 30 days #30 tabs tamsulosin 0.4 mg capsule (Flomax) 0.4 mg PO DAILY #30 caps 07/23/25 10/07/25 10/02/25 Rx potassium chloride 10 mEq 10 meq PO DAILY PRN edema #30 tabs 09/03/25 10/01/25 Unknown Rx tablet,extended release levothyroxine 50 mcg tablet 50 mcg PO DAILY #30 tabs 09/16/25 10/07/25 10/02/25 Rx (Euthyrox) bumetanide 2 mg tablet 2 mg PO DAILY 10/07/25 10/07/25 10/02/25 History furosemide 40 mg tablet (Lasix) 80 mg PO DAILY 10/07/25 Unknown History Allergies Allergy/AdvReac Type Severity Reaction Status Date / Time No Known Allergies Allergy Verified 09/24/25 08:07 PFSH Acute PFSH: Medical History (Updated 10/07/25 @ 04:13 by Evaristo Tucker MD) Chronic kidney disease, stage III (moderate) 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 Systolic CHF Pacemaker Edema, peripheral Aortic regurgitation Acute diastolic heart failure Hypothyroidism (acquired) Third degree heart block Obesity (BMI 30-39.9) Acute exacerbation of CHF (congestive heart failure) Benign essential hypertension with target blood pressure below 140/90 Elevated brain natriuretic peptide (BNP) level Grade III diastolic dysfunction EF 67% Mild pulmonary hypertension LVH Diverticulitis of small bowel BPH (benign prostatic hyperplasia) Cholelithiasis Dyslipidemia Hypertension Surgical History History of bone marrow biopsy History of removal of cyst Right arm - 2004 History of ankle surgery Bilateral History of elbow surgery Left elbow History of bilateral hip arthroplasty Status post biventricular pacemaker S/P cardiac cath Normal 2013 Procedure Procedure Type Diagnostic procedure:Miscellaneous, Perclose , Coronary Angiography Conclusions Procedure Summary 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 due to tumor surgery in the right arm right groin approach was adopted difficulty in access was encounter due to fatty tumors in the thigh, hematoma was observed, procedure was aborted since it was elective in order to avoid major bleeding in case we have to proceed with PCI.Patient was observed for next 24 hours did fine no further bleeding or hematoma observed.He was approached from left groin which remain successful next day.Patient was discharged home without any complication next day 1-LM is normal 2-LAD has luminal irregularities 3-LCx has luminal irregularities 4-RCA has luminal irregularities Family History Mother Cancer Father Stroke Brother Polycythemia rubra vera Other Hypertension Denies family history of Diabetes CAD (coronary artery disease) Clotting disorder Dementia Hyperlipidemia Psychiatric illness Chronic kidney disease (CKD) Suicide Anesthesia complication Bleeding disorder Lung disease Social History (Updated 10/07/25 @ 04:07 by Evaristo Tucker MD) Smoking and tobacco/nicotine status: never used tobacco/nicotine Alcohol intake: never Substance/Drug Use: never Additional social history: Patient was in 2014 when his of breast cancer. He wants DO NOT RESUSCITATE status but does want to undergo treatment for his cancer. 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 Vitals/I&O/Wt Last Vital Signs Temp 99.8 F H 10/07/25 02:37 Pulse 91 10/07/25 02:37 Resp 17 10/07/25 02:37 BP 128/79 10/07/25 02:37 Pulse Ox 92 10/07/25 02:37 O2 Del Method Room Air 10/07/25 02:37 O2 Flow Rate 0 10/07/25 02:37 10/06/25 10/06/25 10/07/25 14:59 22:59 06:59 Intake Total 3084.53 / 3084.53 Balance 3084.53 / 3084.53 Weight last 48 hrs Weight 97.749 kg Weight 101.151 kg Physical Exam Narrative: General well-developed well-nourished male weak and sick appearing Oropharynx Mallampati 3 edentulous no exudate CV regular rate and rhythm Lungs crackles heard in the left mid and lower lung field otherwise moderate air movement Abdomen positive bowel tones soft nontender Calves no tenderness cords pretibial edema Skin is warm and dry back is hot Data 10/06/25 20:10 10/06/25 20:10 Micro: Microbiology 10/06/25 21:25 Blood Culture - Preliminary Blood SPECIMEN COLLECTED 10/06/25 21:22 Blood Culture - Preliminary Blood SPECIMEN COLLECTED A&P Assessment and plan 1. Acute myeloid leukemia: Patient with excessive blasts on recent biopsy. He has had thrombocytopenia and now worse with COVID-19 2. COVID-19: Patient is not requiring oxygen. Supportive care with steroids. I considered low-dose heparin subcu due to propensity of DVT or PE with COVID-19 however platelets of 4 is just too low to give heparin 3. 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 Chronic anemia: Medicare running between 23 and 27 now 24 5. CONRAD (obstructive sleep apnea): Patient denied sleep apnea to me however it is listed in his past records and he has a Mallampati 3 airway 6. 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
--- NOTE | 2025-10-07 07:35 | PC.PHAR ---
Will follow up with [facility] when they open at 8am to verify Bumex and/or Lasix. 10/07/25 7:35am
[2025-10-07 14:04] LABS: Hematocrit 21.5 % (37-53); Hemoglobin 7.20 g/dL (11.27-16.99); Mean Corpuscular HGB Conc 33.5 g/dL (30-55); Mean Corpuscular Hemoglobin 28.3 pg (27-33); Mean Corpuscular Volume 84.6 fl (82-101); Nucleated Red Blood Cells % 0 %; Platelet Count 68 10^3/cmm (157-399); Red Blood Count 2.54 10^6/uL (3.85-5.65); White Blood Count 3.67 10^3/uL (3.29-11.43)
[2025-10-07 14:19] LABS: Slide Review Slide Review Perform
[2025-10-07] MEDS: remdesivir 200 MG in sodium chloride 0.9% (100 ml) 60 ML 100 MG IV (15:46)
[2025-10-07] MEDS: phenol oral Spray 177 mL 3 SPRAY MUCOUS MEM (15:53)
[2025-10-08] VITALS (11 sets, daily range): BP systolic 104–129; BP diastolic 61–94; PULSE 74–94; RESP 16–18; TEMP 36.3–36.9; O2SAT 94–96
[2025-10-08 07:55] LABS: Hematocrit 23.2 % (37-53); Hemoglobin 7.70 g/dL (11.27-16.99); Mean Corpuscular HGB Conc 33.2 g/dL (30-55); Mean Corpuscular Hemoglobin 28.5 pg (27-33); Mean Corpuscular Volume 85.9 fl (82-101); Nucleated Red Blood Cells % 0 %; Platelet Count 47 10^3/cmm (157-399); Red Blood Count 2.70 10^6/uL (3.85-5.65); White Blood Count 4.59 10^3/uL (3.29-11.43)
--- NOTE | 2025-10-08 08:07 | P.PN_ITS ---
Subjective 2 Subjective: Patient is a very pleasant 80-year-old male seen and examined at bedside on hospital rounds today. Patient sitting up in bed with continued shortness of breath, generalized weakness, and cough, but saturations well on room air currently. Patient denies new or worsening symptoms. Spoke with patient about continued therapy needs, patient states that his sons will set up home health for him. Spoke with case management and they will coordinate with patient and his family on discharge planning and home health. Spoke with Dr. Nixon patient's oncologist yesterday and he has requested the patient have another unit of platelets prior to discharge. Vital signs are stable. Reviewed labs, platelet count 47, creatinine 1.2. Patient was initiated on remdesivir yesterday and will have second dose today and final dose tomorrow and may discharge afterwards if he remains medically stable. Vitals/I&O/Wt Last Vital Signs Temp 97.7 F 10/08/25 07:52 Pulse 85 10/08/25 07:52 Resp 18 10/08/25 07:52 BP 127/61 10/08/25 07:52 Pulse Ox 96 10/08/25 07:52 O2 Del Method Room Air 10/08/25 07:52 O2 Flow Rate 0 10/07/25 02:37 10/07/25 10/08/25 10/08/25 22:59 06:59 14:59 Intake Total 1580 / 1820 1000 / 2820 Output Total 750 / 1050 Balance 830 / 770 1000 / 1770 Weight last 48 hrs Weight 100.425 kg Weight 97.749 kg Weight 101.151 kg Physical Exam 2 Narrative: General well-developed well-nourished male weak and sick appearing Oropharynx Mallampati 3 edentulous no exudate CV regular rate and rhythm Lungs crackles heard in the left mid and lower lung field otherwise moderate air movement Abdomen positive bowel tones soft nontender Calves no tenderness cords pretibial edema Skin is warm and dry back is hot Data 10/08/25 07:44 10/08/25 07:44 Micro: Microbiology 10/06/25 21:22 Blood Culture - Preliminary Blood NEGATIVE TO DATE 10/06/25 21:25 Blood Culture - Preliminary Blood NEGATIVE TO DATE A&P Assessment and plan 1. Acute myeloid leukemia: 2. COVID-19: 3. 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 Chronic anemia: 5. CONRAD (obstructive sleep apnea): 6. Myelodysplastic syndrome with 5 q minus: Plan: Acute myeloid leukemia Thrombocytopenia associated with mutation in the THPO gene Chronic anemia - Admitting platelet count 4, transfused 2 units platelets, repeat platelet count today 47 - Managed outpatient by oncologist who reuqest 1 more unit platelets prior to discharge - Continue bleeding precautions and supportive measures COVID-19 Cough/dyspnea Generalized weakness - Given loading dose IV remdesivir 200 mg yesterday, repeat 100 mg daily x 2 days - Supplemental oxygen - As needed DuoNeb - Greatly appreciate physical therapy and Occupational Therapy evaluation and recommendations, will most likely have home health at discharge Obstructive sleep apnea - BiPAP - Continue supportive measures Hypothyroidism - Continue levothyroxine 50 mcg daily GERD - Continue PPI VTE PPx: SCDs GI PPx: PPI CODE STATUS: Allow natural PDMP PDMP Reviewed: Not Reviewed Attestations 2 Medical Necessity Statement*: Patient admitted to hospital with COVID-19 and thrombocytopenia requiring, will continue inpatient needs greater than 2 midnights Coding Level of Care Code 94036 Diagnoses Acute myeloid leukemia C92.00 COVID-19 U07.1 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
[2025-10-08 08:21] LABS: Slide Review Slide Review Perform
[2025-10-08 08:24] LABS: Anion Gap 14.9 (5-19); Blood Urea Nitrogen 38 mg/dL (8-23); Calcium 8.9 mg/dL (8.5-10.5); Carbon Dioxide 21 mmol/L (22-29); Chloride 101 mmol/L (98-107); Glucose 248 mg/dL (65-115); Magnesium 2.2 mg/dL (1.7-2.3); Osmolality Calculated 291 mOsm/kg (285-295); Potassium 4.9 mmol/L (3.5-5.1); Sodium 132 mmol/L (136-145); Thyroid Stimulating Hormone 3.98 uIU/mL (0.27-4.20)
[2025-10-09 03:54] VITALS: BP 118/70; PULSE 17; RESP 96; TEMP 37.2; O2SAT 96
[2025-10-09 06:13] LABS: Hematocrit 22.2 % (37-53); Hemoglobin 7.60 g/dL (11.27-16.99); Mean Corpuscular HGB Conc 34.2 g/dL (30-55); Mean Corpuscular Hemoglobin 28.8 pg (27-33); Mean Corpuscular Volume 84.1 fl (82-101); Nucleated Red Blood Cells % 0 %; Platelet Count 78 10^3/cmm (157-399); Red Blood Count 2.64 10^6/uL (3.85-5.65); White Blood Count 4.63 10^3/uL (3.29-11.43)
[2025-10-09 06:30] LABS: Anion Gap 13.6 (5-19); Blood Urea Nitrogen 44 mg/dL (8-23); Calcium 9.4 mg/dL (8.5-10.5); Carbon Dioxide 24 mmol/L (22-29); Chloride 100 mmol/L (98-107); Glucose 104 mg/dL (65-115); Osmolality Calculated 287 mOsm/kg (285-295); Potassium 4.6 mmol/L (3.5-5.1); Sodium 133 mmol/L (136-145)
--- NOTE | 2025-10-09 07:42 | PM.DCS ---
Discharge Providers Date of Admission: 10/07/25 00:48 Date of Discharge: October 09, 2025 Attending Provider at Admission: Evaristo Tucker MD Attending Provider at Discharge: Neva Sebastian NP Primary Care Provider: Cal Burris MD Diagnoses at Discharge Discharge Diagnosis 1. Acute myeloid leukemia: 2. COVID-19: 3. 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 Chronic anemia: 5. CONRAD (obstructive sleep apnea): 6. 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 Patient was getting platelet infusion last Tuesday and last Tuesday he was at a medical facility visited by a calciner operator whom he describes as a lady with short white hair who was coughing and then he had fevers. Patient has been coughing nonproductive and short of breath since then. He lives alone. Next line patient has had occasional diarrhea since denies nausea vomiting constipation. He has not had blood in his stool. Hospital Course Hospital Course Acute myeloid leukemia Thrombocytopenia associated with mutation in the THPO gene Chronic anemia - Admitting platelet count 4, transfused 2 units platelets, repeat platelet count 10/09 47 - Managed outpatient by oncologist who reuqest 1 more unit platelets prior to discharge, this was given and repeat platelet count 78 - Continue bleeding precautions and supportive measures COVID-19 Cough/dyspnea Generalized weakness - Given loading dose IV remdesivir 200 mg and patient refused further administration - Supplemental oxygen- sat on room air >95% - As needed DuoNeb - Greatly appreciate physical therapy and Occupational Therapy evaluation and recommendations, patient refused home health at discharge Obstructive sleep apnea - BiPAP - Continue supportive measures Hypothyroidism - Continue levothyroxine 50 mcg daily GERD - Continue PPI Discharge: Patient discharges in fair condition in care of family. Patient refused home health at discharge and further remdesivir administrations while inpatient. Patient did receive 1 additional unit of platelets prior to discharge per Dr. Nixon's request, at discharge and platelet count 78. Neutrophils. 0.66, critically low, patient should continue to avoid large social gatherings and must avoid sick contacts. Patient is advised to continue home medications as previously prescribed and to follow-up with primary care provider in 1 to [address] Nixon's office within 1 week. All questions and concerns addressed to the patient prior to discharge. Physical Exam Narrative: General well-developed well-nourished male weak and sick appearing Oropharynx Mallampati 3 edentulous no exudate CV regular rate and rhythm Lungs crackles heard in the left mid and lower lung field otherwise moderate air movement Abdomen positive bowel tones soft nontender Calves no tenderness cords pretibial edema Skin is warm and dry back is hot Discharge Data Studies Completed and Pending Completed Studies During Hospitalization Category Date Time Status CT head wo con* [id number] Stat Cat Scan 10/06/25 20:55 Completed XR chest 1V portable [id number] Stat Exams 10/06/25 20:55 Completed Pending at discharge Category Date Time Status Basic Metabolic Panel AM LABS Lab 10/10/25 04:00 Ordered Blood Culture Stat Lab 10/06/25 21:25 Results Complete Blood Count w/Auto AM LABS Lab 10/09/25 05:20 Results Complete Blood Count w/Auto AM LABS Lab 10/10/25 04:00 Ordered Radiology Impressions Chest X-Ray 10/06/25 20:55 IMPRESSION: No acute findings. Head CT 10/06/25 20:55 IMPRESSION: No acute intracranial abnormality. Chronic microvascular ischemic changes. Laboratory Results WBC 4.59 10^3/uL (3.29-11.43) 10/08/25 07:44 RBC 2.70 10^6/uL (3.85-5.65) L 10/08/25 07:44 Hgb 7.70 g/dL (11.27-16.99) L 10/08/25 07:44 Hct 23.2 % (37-53) L 10/08/25 07:44 MCV 85.9 fl (82-101) 10/08/25 07:44 MCH 28.5 pg (27-33) 10/08/25 07:44 MCHC 33.2 g/dL (30-55) 10/08/25 07:44 RDW 14.5 % (12.1-15.1) 10/08/25 07:44 Plt Count 47 10^3/cmm (157-399) L D 10/08/25 07:44 MPV 11.8 fL (7.4-10.4) H 10/08/25 07:44 Neut % (Auto) 21.8 % 10/08/25 07:44 Lymph % (Auto) 54.2 % 10/08/25 07:44 [place] % (Auto) 23.3 % 10/08/25 07:44 Eos % (Auto) 0.0 % 10/08/25 07:44 Baso % (Auto) 0.7 % 10/08/25 07:44 Neut # (Auto) 1.00 10^3/uL (1.8-7.7) L 10/08/25 07:44 Lymph # (Auto) 2.5 10^3/uL (0.8-4.8) 10/08/25 07:44 [place] # (Auto) 1.1 10^3/uL (0.2-0.9) H 10/08/25 07:44 Eos # (Auto) 0.0 10^3/uL (0.0-0.8) 10/08/25 07:44 Baso # (Auto) 0.0 10^3/uL (0.0-0.1) 10/08/25 07:44 Nucleated RBC % (auto) 0 % 10/08/25 07:44 Total Counted 100 (0-100) 10/06/25 20:10 Atypical Lymphs % 15.0 % (0-5) H 10/06/25 20:10 Absolute Neutrophils 0.6 10^3/cmm (1.4-6.5) L* 10/06/25 20:10 Segmented Neutrophils 6 % 10/06/25 20:10 Band Neutrophils 2.0 % 10/06/25 20:10 Absolute Lymphocytes 2.6 10^3/cmm (1.2-3.4) 10/06/25 20:10 Lymphocytes (Manual) 18 % 10/06/25 20:10 Monocytes (Manual) 15.0 % 10/06/25 20:10 Absolute Monocytes 1.2 10^3/cmm (0.1-0.6) H 10/06/25 20:10 Eosinophils (Manual) 0 % 10/06/25 20:10 Absolute Eosinophils 0.0 10^3/cmm (0.0-0.7) 10/06/25 20:10 Basophils (Manual) 0.0 % 10/06/25 20:10 Absolute Basophils 0.0 10^3/cmm (0.0-0.2) 10/06/25 20:10 Myelocytes 1.0 % 10/06/25 20:10 Nucleated RBCs # 0.0 /100WBC 10/08/25 07:44 Blast Cells 43 % (0-0) H* 10/06/25 20:10 Platelet Estimate Decreased (Normal) 10/06/25 20:10 PT 16.60 SECONDS (12.1-14.9) H 10/06/25 20:10 INR 1.25 (0.8-1.2) H 10/06/25 20:10 APTT 40.9 SECONDS (23.9-36.7) H 10/06/25 20:10 D-Dimer 2.34 ug/mLFEU (0-0.59) H 10/06/25 20:10 Sodium 133 mmol/L (136-145) L 10/09/25 05:20 Potassium 4.6 mmol/L (3.5-5.1) 10/09/25 05:20 Chloride 100 mmol/L (98-107) 10/09/25 05:20 Carbon Dioxide 24 mmol/L (22-29) 10/09/25 05:20 Anion Gap 13.6 (5-19) 10/09/25 05:20 BUN 44 mg/dL (8-23) H 10/09/25 05:20 Creatinine 1.2 mg/dL (0.7-1.2) 10/09/25 05:20 GFR Calculation Not Reportable 10/09/25 05:20 Glucose 104 mg/dL (65-115) 10/09/25 05:20 Calculated Osmolality 287 mOsm/kg (285-295) 10/09/25 05:20 Lactic Acid 2.9 mmol/L (0.5-2.2) H 10/06/25 20:10 Lactic Acid (Sepsis) 2.0 mmol/L (0.5-2.2) 10/06/25 22:59 Calcium 9.4 mg/dL (8.5-10.5) 10/09/25 05:20 Phosphorus 3.0 mg/dL (2.5-4.5) 10/08/25 07:44 Magnesium 2.2 mg/dL (1.7-2.3) 10/08/25 07:44 Total Bilirubin 0.7 mg/dL (0.15-1.2) 10/06/25 20:10 AST 40 U/L (0-40) 10/06/25 20:10 ALT 60 U/L (0-41) H 10/06/25 20:10 Alkaline Phosphatase 160 U/L (40-130) H 10/06/25 20:10 C-Reactive Protein 237.3 mg/L (0.0-4.9) H 10/06/25 20:10 NT-Pro-B Natriuret Pep 2629 pg/mL (0-450) H 10/06/25 20:10 Total Protein 5.4 g/dL (6.6-8.7) L 10/06/25 20:10 Albumin 2.8 g/dL (3.5-5.2) L 10/06/25 20:10 Globulin 2.6 g/dL (1.3-4.6) 10/06/25 20:10 TSH 3.98 uIU/mL (0.27-4.20) 10/08/25 07:44 Urine Color Yellow (Yellow) 10/06/25 22:35 Urine Appearance Clear (CLEAR) 10/06/25 22:35 Urine pH 5.0 (5-7) 10/06/25 22:35 Ur Specific [place] 1.017 (1.005-1.030) 10/06/25 22:35 Urine Protein Trace (Negative) A 10/06/25 22:35 Urine Glucose (UA) Negative (Normal) 10/06/25:35 Urine Ketones Negative (Negative) 10/06/25 22:35 Urine Blood Negative (Negative) 10/06/25 22:35 Urine Nitrate Negative (Negative) 10/06/25:35 Urine Bilirubin Negative (Negative) 10/06/25: Urine Urobilinogen 1.0 mg/dL (Negative) 10/06/25 22:35 Ur Leukocyte Esterase Negative (Negative) 10/06/25 22:35 Urine RBC 0-2 /hpf (0-2) 10/06/25 22:35 Urine WBC 0-5 /hpf (0-5) 10/06/25 22:35 Ur Squamous Epith Cells 0-5 /hpf (0-5) 10/06/25 22:35 Amorphous Sediment Not Reportable 10/06/25 22:35 Urine Bacteria None seen /hpf (NONE) 10/06/25 22:35 Hyaline Casts 21.48 /lpf 10/06/25 22:35 Influenza A (PCR) Negative (Negative) 10/06/25 21:15 Influenza Type B (PCR) Negative (Negative) 10/06/25 21:15 RSV (PCR) Negative (Negative) 10/06/25 21:15 SARS-CoV-2 (PCR) Positive (Negative) A 10/06/25 21:15 Blood Type O Positive 10/07/25 03:15 Rho(D) Type Rh positive 10/07/25 03:15 Vitals Last Vital Signs Temp 98.9 F 10/09/25 03:54 Pulse 17 L 10/09/25 03:54 Resp 96 H 10/09/25 03:54 BP 118/70 10/09/25 03:54 Pulse Ox 96 10/09/25 03:54 O2 Del Method Room Air 10/09/25 03:54 O2 Flow Rate 0 10/07/25 02:37 Discharge Plan Discharge Patient Disposition: Home Condition: Fair Prescriptions: New benzonatate 100 mg capsule 100 mg PO TID PRN (Reason: cough) 10 Days Qty: 30 0RF Continued nitroglycerin 0.4 mg tablet, sublingual 0.4 mg sublingual Q5M PRN (Reason: chest pain) 30 Days Qty: 30 3RF Rx Instructions: until response; do not exceed 3 doses per episode potassium chloride 10 mEq tablet extended release 10 meq PO DAILY PRN (Reason: edema) Qty: 30 0RF levothyroxine [Euthyrox] 50 mcg tablet 50 mcg PO DAILY Qty: 30 0RF furosemide [Lasix] 40 mg tablet 80 mg PO DAILY tamsulosin 0.4 mg capsule 0.4 mg PO DAILY Discharge Order = DC NOW: Discharge Order (Routine); Ordered 10/09/25 Ordered By: Neva Sebastian Referrals: Ginger Izaguirre MD [Hospitalist, Oncology] - 10/15/25 8:30 am Referral Note: FOR LABS AND DOCTOR APPOINTMENT AFTER Cal Burris MD [Primary Care Provider, Family Practice] - 10/14/25 10:15 am Discharge Diet: Usual diet Discharge Activity: Resume usual activity Patient Instructions: Benzonatate (By mouth), Immune Thrombocytopenia (GEN), Opioid Safety, Patient Portal & Naresh Instructions Discharge Attestations Time Spent in Discharge Care*: greater than 30 min Status at Discharge: Cognitive status at discharge: cognitively intact, Behavioral status at discharge: cooperative, Quality Metrics Clinical Quality Measures [ No reported AMI, CVA or VTE this stay] Coding Level of Care Code 16176 Diagnoses Acute myeloid leukemia C92.00 COVID-19 U07.1 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
[2025-10-09 08:04] VITALS: BP 106/62; PULSE 111; RESP 17; TEMP 36.9; O2SAT 98
[2025-10-09 08:09] LABS: Slide Review Slide Review Perform
[2025-10-09 12:42] VITALS: BP 106/62; PULSE 111; RESP 17; TEMP 36.9; O2SAT 98
--- NOTE | 2025-10-09 15:22 | PC.SOCIAL ---
IMM Update pg 2 of IMM updated and reviewed w/ patient. Copy provided and copy dated, initialed and placed in chart.
== END 2025-10-09 12:43 | disposition home or self-care (01) | DRG 178 ==
LOC: ER 21:09 → MEDSURG 10-07 01:49
PROVIDERS: Admitting Provider Internal Medicine; Emergency Provider Emergency Medicine; PCP Family Medicine; Visit Provider Registered Nurse
DX: U07.1 COVID-19 (principal); C92.00 Acute myeloblastic leukemia, not having achieved remission; I13.0 Hypertensive heart and chronic kidney disease with heart failure and stage 1 through stage 4 chronic kidney disease, or unspecified chronic kidney disease; I50.42 Chronic combined systolic (congestive) and diastolic (congestive) heart failure; D61.818 Other pancytopenia; R09.02 Hypoxemia; D63.0 Anemia in neoplastic disease; D63.1 Anemia in chronic kidney disease; G47.33 Obstructive sleep apnea (adult) (pediatric); E78.5 Hyperlipidemia, unspecified; D69.59 Other secondary thrombocytopenia; N40.0 Benign prostatic hyperplasia without lower urinary tract symptoms; D46.9 Myelodysplastic syndrome, unspecified; N18.30 Chronic kidney disease, stage 3 unspecified; E03.9 Hypothyroidism, unspecified; Z79.899 Other long term (current) drug therapy; Z79.890 Hormone replacement therapy; Z95.0 Presence of cardiac pacemaker
CPT/HCPCS: 36415; 36430; 70450; 71045; 80048; 80053; 81001; 83605; 83735; 83880; 84100; 84443; 85007; 85025; 85378; 85610; 85730; 86140; 86900; 87040; 87637; 93005; 94664; 96365; 96375; 97110; 97161; 97167; 97535; 99285; J0248; J1100; J2543; J7030; J9999; P9016; P9035

== ENCOUNTER 2025-10-23 14:00 | Oncology outpatient (recurring) (ONCR) | payer MEDICARE, OTHER, SELFPAY ==
[2025-10-01 08:23] LABS: Hematocrit 27.2 % (37-53); Hemoglobin 9.50 g/dL (11.27-16.99); Mean Corpuscular HGB Conc 34.9 g/dL (30-55); Mean Corpuscular Hemoglobin 28.4 pg (27-33); Mean Corpuscular Volume 81.4 fl (82-101); Red Blood Count 3.34 10^6/uL (3.85-5.65); White Blood Count 5.16 10^3/uL (3.29-11.43)
[2025-10-01 09:11] LABS: Platelet Count 4 10^3/cmm (157-399); Slide Review Slide Review Perform
[2025-10-01 09:21] LABS: Absolute Segmented Neutrophil 0.3 10/cmm (1.6-7.1); Atypical Lymphs 41.0 % (0-5); Total Cells Counted 100 (0-100)
[2025-10-01 09:22] LABS: Band Neutrophils Absolute 0.0 10^3/cmm (0.0-1.2)
[2025-10-01] MEDS: methylPREDNISolone sod succ 125 mg/2 mL INJ 60 MG IVP (09:25)
[2025-10-01 10:03] VITALS: BP 110/73; PULSE 60; RESP 18; TEMP 36.6; O2SAT 100
[2025-10-01 10:20] VITALS: BP 110/64; PULSE 61; RESP 17; TEMP 36.4; O2SAT 100
[2025-10-15] VITALS (13 sets, daily range): BP systolic 95–118; BP diastolic 56–77; PULSE 51–82; RESP 16–17; TEMP 35.9–36.5; O2SAT 93–98
[2025-10-15 08:08] LABS: Mean Corpuscular HGB Conc 33.7 g/dL (30-55); Mean Corpuscular Hemoglobin 28.3 pg (27-33); Mean Corpuscular Volume 83.9 fl (82-101); Red Blood Count 2.23 10^6/uL (3.85-5.65); White Blood Count 4.54 10^3/uL (3.29-11.43)
[2025-10-15 09:08] LABS: Absolute Segmented Neutrophil 0.7 10/cmm (1.6-7.1); Atypical Lymphs 10.0 % (0-5); Band Neutrophils Absolute 0.1 10^3/cmm (0.0-1.2); Slide Review Slide Review Perform; Total Cells Counted 100 (0-100)
[2025-10-15 09:10] LABS: Hematocrit 18.7 % (37-53); Hemoglobin 6.30 g/dL (11.27-16.99)
[2025-10-15 09:11] LABS: Platelet Count 4 10^3/cmm (157-399)
[2025-10-15 09:22] LABS: Alanine Aminotransferase 44 U/L (0-41); Albumin Level 2.5 g/dL (3.5-5.2); Alkaline Phosphatase 131 U/L (40-130); Anion Gap 15.0 (5-19); Aspartate Amino Transferase 31 U/L (0-40); Blood Urea Nitrogen 38 mg/dL (8-23); Calcium 9.3 mg/dL (8.5-10.5); Carbon Dioxide 23 mmol/L (22-29); Chloride 101 mmol/L (98-107); Globulin 3.8 g/dL (1.3-4.6); Glucose 112 mg/dL (65-115); Osmolality Calculated 288 mOsm/kg (285-295); Potassium 5.0 mmol/L (3.5-5.1); Sodium 134 mmol/L (136-145); Total Protein 6.3 g/dL (6.6-8.7)
[2025-10-22] VITALS (14 sets, daily range): BP systolic 89–116; BP diastolic 61–80; PULSE 59–75; RESP 16–18; TEMP 35.6–36.4; O2SAT 91–100
[2025-10-22 08:30] LABS: Hematocrit 23.3 % (37-53); Hemoglobin 7.70 g/dL (11.27-16.99); Mean Corpuscular HGB Conc 33.0 g/dL (30-55); Mean Corpuscular Hemoglobin 27.8 pg (27-33); Mean Corpuscular Volume 84.1 fl (82-101); Red Blood Count 2.77 10^6/uL (3.85-5.65); White Blood Count 3.52 10^3/uL (3.29-11.43)
[2025-10-22 09:31] LABS: Absolute Segmented Neutrophil 0.4 10/cmm (1.6-7.1); Atypical Lymphs 12.0 % (0-5); Band Neutrophils Absolute 0.0 10^3/cmm (0.0-1.2); Slide Review Slide Review Perform; Total Cells Counted 100 (0-100)
[2025-10-22 09:34] LABS: Platelet Count 2 10^3/cmm (157-399)
[2025-10-22] MEDS: methylPREDNISolone sod succ 125 mg/2 mL INJ 60 MG IVP (10:22)
[2025-10-22] MEDS: morphine 4 mg/mL SDV 1 mL 1 MG IVP (11:12)
[2025-10-22] MEDS: FUROsemide 10 mg/mL SDV 2mL 20 MG IVP (12:53)
[2025-10-23 15:58] VITALS: BP 104/63; PULSE 61; RESP 18; O2SAT 94
== END 2025-10-23 23:59 | disposition home or self-care (01) ==
PROVIDERS: PCP Family Medicine; Visit Provider Internal Medicine Medical Oncology
DX: N18.30 Chronic kidney disease, stage 3 unspecified; D46.9 Myelodysplastic syndrome, unspecified; Z79.899 Other long term (current) drug therapy; Z53.9 Procedure and treatment not carried out, unspecified reason
CPT/HCPCS: 36415; 36430; 80053; 85007; 85025; 86850; 86900; 86920; 96360; 96365; 96367; 96375; 99213; 99214; J1938; J2270; J2919; J7030; J7050; J9999; P9016; P9037